=== PATIENT | female | born 1960 | race Caucasian/White ===

== ENCOUNTER 2018-01-03 16:22 | Outpatient (REF) | payer BC, SELFPAY ==
[2018-01-03 19:09] LABS: TSH 2.95 uIU/mL (0.358-3.74)
== END 2018-01-03 16:42 ==
LOC: NCHCN 16:22
PROVIDERS: PCP Family Medicine; Visit Provider Family Medicine
DX: E03.9 Hypothyroidism, unspecified (principal)
CPT/HCPCS: 84443

== ENCOUNTER 2018-06-14 17:22 | Outpatient (REF) | payer BC, SELFPAY ==
--- NOTE | 2018-06-14 16:45 | PAPFT_PTH ---
PATIENT: Tamie Richmond [facility] U[id number] AGE/SX: 57/F ROOM: RE06/14/[address]: Soy Conley : 1960 BED: DIS: 06/14/2018 SPEC #: [id number] RECD: 06/15/18 12:39 STATUS: SETH REQ #: [id number] JULIEN: 06/14/18 16:[address]: Soy Conley DEPT: [facility] Cytology RECD BY: Millie Tenorio Tissues: 1 - CX/ENDOCX FOR PAP SMEARS Procedures: PAP THIN PREP/UVM Screening HPV DNA PROBE Comments: [id number]
--- NOTE | 2018-06-14 17:00 | ENDOMET_PTH ---
PATIENT: Tamie Richmond LOC: [facility] U#:[id number] AGE/SX: 57/F ROOM: RE06/14/[address]: Soy Conley : 1960 BED: DIS: 06/14/2018 SPEC #: [id number] RECD: 06/15/18 12:36 STATUS: SETH REQ #: [id number] JULIEN: 06/14/18 17:[address]: Soy Conley DEPT: Surgical Specimen RECD BY: Millie Tenorio Tissues: 1 - ENDOMETRIUM BX/ADRYAN Procedures: GROSS AND MICRO LEVEL 4 Comments: [id number]
== END 2018-06-14 17:42 ==
LOC: NCHCN 17:22
PROVIDERS: PCP Family Medicine; Visit Provider Family Medicine
DX: N84.1 Polyp of cervix uteri (principal); Z12.4 Encounter for screening for malignant neoplasm of cervix; Z11.51 Encounter for screening for human papillomavirus (HPV)
CPT/HCPCS: 88142; 88305; 87624

== ENCOUNTER 2018-07-26 01:46 | Outpatient (CLI) | payer BC, SELFPAY ==
--- NOTE | 2018-07-26 12:48 | DI.MAMMO_ITS ---
SYMPTOM/DIAGNOSIS: SCREENING, PREVENTATIVE CARE ADULT, Z00.00 MAMMOGRAMS: Mammograms were interpreted according to the usual protocol including computer analysis with CAD system, tomosynthesis and C view imaging. Comparison is made with exams from 5215-6259. The breasts are composed of heterogeneously dense fibroglandular tissue, breast density, Category C. No suspicious masses or suspicious microcalcifications are seen. There has been no significant change. IMPRESSION: Category 1, negative mammogram. Yearly screening mammography is recommended. [facility] ASSESSMENT OF FINDINGS: Negative. Category 1. Patient will receive a letter notifying them of these results. Bi-RADS category C. The breasts are heterogeneously dense, which may obscure small masses.
== END 2018-07-26 02:06 ==
PROVIDERS: PCP Family Medicine; Visit Provider Family Medicine
DX: Z00.00 Encounter for general adult medical examination without abnormal findings (principal); Z12.31 Encounter for screening mammogram for malignant neoplasm of breast
CPT/HCPCS: 77063; 77067

== ENCOUNTER 2018-10-23 15:24 | Outpatient (REF) | payer BC, SELFPAY ==
[2018-10-23 20:37] LABS: ESR 31 MM/HR (0-30)
[2018-10-25 10:19] LABS: Lyme Ab w Rflx to Lyme Confirm Negative
== END 2018-10-23 15:44 ==
LOC: NCHCN 15:24
PROVIDERS: PCP Family Medicine; Visit Provider Family Medicine
DX: M25.50 Pain in unspecified joint (principal)
CPT/HCPCS: 85652; 86618

== ENCOUNTER 2018-10-30 07:17 | Day surgery (SDC) | payer BC, SELFPAY ==
--- NOTE | 2018-10-30 06:22 | W.COLOREPORT ---
Date of service: 10/30/18 Time of Service: 09:11 Colonoscopy Report Date of procedure: 10/30/18 Pre-op diagnosis general: Colon Cancer Screening Post-op diagnosis procedure note: same Procedure: Colonoscopy with biopsies Surgeon: Tami Massey Anesthesia proc note operative: other (general/ ASA 2/ Vivek Solitario, RAY) Estimated blood loss (mL): 3 Pathology: other (Ascending colon bx) Complications: None Disposition: same day Indications: Mrs. Richmond is a pleasant 58-year-old female who was seen in the office for a follow-up colonoscopy. Her last colonoscopy was 10 years ago and was normal. Risks, benefits and complications have been reviewed. Complications include but are not limited to bleeding, pain, perforation, missed small lesion/polyp, sore throat, aspiration and adverse reaction to the medications. Questions were entertained and answered to their satisfaction and they wished to proceed. No guarantees were given or implied. Prep: Miralax/Dulcolax Procedure Start Time: :11 Procedure End Time: :42 Retraction Time: 15 minutes Findings: Inflammation of the cecum and ascending colon. Most likely acute from the prep but biopsies done to make sure there was no chronic inflammation Procedure Description: After informed consent was obtained the patient was taken to the procedure room and placed in a left decubitous position. Monitors were applied and a time out was done. The patients name, date of , procedure, allergies to medications and metal in their body was reviewed. The patient was then sedated. Once sedated and comfortable a rectal exam was done. External exam was normal. Internal exam revealed a normal sphincter tone and no palpable masses. The scope was then introduced and retro-flexed. No internal hemorrhoids were identified. The scope was then advanced to the cecum with some difficulty. The TI and appendiceal orifice were identified. The prep was adequate. The scope was then slowly retracted over 15 minutes back into the rectum. There was some bleeding and inflammation in the cecum and ascending colon. Most likely from the prep but bx were done to rule out chronic inflammation. The scope was removed and the patient was woken up and taken back to Same day surgery in stable condition. The patient tolerated the procedure well and there were no immediate complications. Follow up: The patient should follow up in 10 years unless they develop changes in bowel habits or other new gastrointestinal complaints.
--- NOTE | 2018-10-30 06:23 | W.PM.DSUDISC ---
Discharge Plan Disposition Patient Disposition: HOME Condition: Good Discharge Details Reason For Visit: colon Cancer Screening Attending Provider: Tami Massey Primary Care Provider: Soy Conley Home Meds and New Rx's Prescriptions: Continued losartan 50 mg tablet 50 mg PO DAILY RF: 0 ipratropium bromide 0.03 % spray,non-aerosol 2 spray KYLE BID RF: 0 fluticasone propionate 50 mcg/actuation spray,suspension 2 spray KYLE DAILY RF: 0 atorvastatin 20 mg tablet 20 mg PO DAILY RF: 0 montelukast [Singulair] 10 mg tablet 10 mg PO QPM RF: 0 multivitamin,tx-minerals tablet 1 tab PO DAILY RF: 0 levothyroxine [Levoxyl] 150 MCG tablet 150 mcg PO DAILY RF: 0 cholecalciferol (vitamin D3) [Vitamin D3] 2,000 UNIT capsule 2,000 unit PO DAILY RF: 0 duloxetine [Cymbalta] 60 mg capsule,delayed release(DR/EC) 30 mg PO DAILY RF: 0 hydrochlorothiazide 25 mg tablet 25 mg PO DAILY RF: 0 Discontinued polyethylene glycol 3350 17 gram/dose powder 238 g PO ONCE Qty: 238 RF: 0 bisacodyl [Dulcolax (bisacodyl)] 5 mg tablet,delayed release (DR/EC) 5 mg PO ONCE Qty: 4 RF: 0 Discharge Instructions Instructions: Colonoscopy (DC) Additional Instructions: Findings: some inflammation was noted on mayela right side of the large bowel. Most likely this is just from the prep but I did biopsies to make sure Follow up: depends on bx results. Most likely 10 years Please call if you develop: fevers >101.5 Nausea or Vomiting Abdominal pain that is not transient DAY SURGERY UNIT POST COLONOSCOPY INSTRUCTIONS 1. Because there will be medication in your system for the next 24 hours, you may feel a little sleepy. Your coordination will be affected. Therefore: a. Do not drive or operate dangerous equipment for 24 hours. b. Do not drink alcohol beverages for 24 hours (not even beer). c. Plan to go home and rest for the day. 2. Generally there are no restrictions on your activity after a day or so has gone by, but you may feel a bit fatigued for a few days. 3 After you arrive home you may have a light meal and return to a normal diet as you can tolerate it without feeling sick to your stomach. 4. After surgery, you may feel pain or discomfort. This should be only transient, but if it persists please contact your doctor. 5. If there are any questions regarding the findings of your procedure, please feel free to contact your doctor. 6. If you are unable to contact your doctor with a problem, contact the hospital at [phone]. 7. Continue all your regular medications unless directed otherwise. I understand the above instructions and have no questions. Signature of Patient or Responsible Adult Escort Date/Time Name of Responsible Adult Escort Signature of Nurse Date/Time Activity:: Activity as Tolerated Diet:: As Tolerated Discharge Orders Discharge Orders: Discharge Order (Routine); Ordered 10/30/18 Ordered By: Tami Massey DS: Diagnosis Discharge Diagnosis (1) S/P colonoscopy: Status: Acute
[2018-10-30 07:40] VITALS: BP 110/71; PULSE 75; RESP 16; TEMP 36.6; O2SAT 98
[2018-10-30] MEDS: Lactated Ringers 1,000 ML 80 ML IV (07:53)
--- NOTE | 2018-10-30 09:32 | BOWEL_PTH ---
PATIENT: Tamie Richmond LOC: [facility] U#:[id number] AGE/SX: 58/F ROOM: RE10/30/[address]: Tami Massey MD : 1960 BED: DIS: 10/30/2018 SPEC #: [id number] RECD: 10/30/18 12:22 STATUS: SETH REQ #: [id number] JULIEN: 10/30/18 09:[address]: Tami Massey DEPT: Surgical Specimen RECD BY: Megan Carrillo ENTERED: 10/30/18 12:23 SP TYPE: Bowel OTHR DR: Soy Conley Tissues: 1 - BIOPSY BOWEL Procedures: GROSS AND MICRO LEVEL 4 Comments: [id number]
[2018-10-30 10:18] VITALS: BP 137/84; PULSE 66; RESP 16; TEMP 36.5; O2SAT 100
== END 2018-10-30 11:18 | disposition home or self-care (01) ==
LOC: SUR 07:17
PROVIDERS: PCP Family Medicine; Visit Provider Surgery
PROC: 0DJD8ZZ Inspection of Lower Intestinal Tract, Via Natural or Artificial Opening Endoscopic (ICD-10-PCS; CPT 45378; principal; 2018-10-30 08:30)
DX: Z12.11 Encounter for screening for malignant neoplasm of colon (principal); K52.9 Noninfective gastroenteritis and colitis, unspecified; I10 Essential (primary) hypertension
CPT/HCPCS: 45380; 88305; J2250

== ENCOUNTER 2018-11-17 08:46 | Outpatient (REF) | payer BC, SELFPAY ==
[2018-11-17 12:08] LABS: ALT 35 U/L (12-78); AST 23 U/L (15-37); Albumin 3.7 g/dL (3.4-5.0); Alkaline Phosphatase 104 U/L (46-116); Anion Gap 10.5 mmol/L (3-11); BUN 18 mg/dL (7-18); Bilirubin, Total 0.3 mg/dL (0.2-1.0); CO2 24.5 mmol/L (21.0-32.0); CREATININE 0.97 mg/dL (0.55-1.02); Calcium 8.8 mg/dL (8.5-10.1); Calculated LDL 110 mg/dL; Chloride 106 mmol/L (98-107); Cholesterol 184 mg/dL (50-200); Estimated GFR 58.58 (mL/min/1.73m2); Glucose 105 mg/dL (70-100); HDL Cholesterol 62 mg/dL (40-60); Potassium 4.5 mmol/L (3.5-5.1); Sodium 141 mmol/L (136-145); TSH (W/Ref FT4) 4.05 uIU/mL (0.358-3.74); Total Protein 7.2 g/dL (6.4-8.2); Triglyceride 64 mg/dL (30-150)
[2018-11-17 12:31] LABS: ESR 31 mm/hr (0-30)
[2018-11-17 13:24] LABS: FREE T4 0.95 ng/dL (0.76-1.46)
== END 2018-11-17 09:06 ==
LOC: NCHCN 08:46
PROVIDERS: PCP Family Medicine; Visit Provider Family Medicine
DX: E03.9 Hypothyroidism, unspecified (principal); I10 Essential (primary) hypertension; E78.5 Hyperlipidemia, unspecified; M25.50 Pain in unspecified joint
CPT/HCPCS: 80053; 80061; 83721; 85652; 84439; 84443

== ENCOUNTER 2018-12-04 14:17 | Outpatient (CLI) | payer BC, SELFPAY ==
--- NOTE | 2018-12-04 14:10 | DI.RAD_ITS ---
SYMPTOM/DIAGNOSIS: BILAT HIP PAIN PELVIS AND BILATERAL HIPS: There is moderate narrowing of both hip joints as well as bilateral periarticular spurring. SI joints show mild degenerative changes. IMPRESSION: Moderate degenerative changes of both hips.
== END 2018-12-04 14:37 ==
PROVIDERS: PCP Family Medicine; Visit Provider Physician Assistant
DX: M25.551 Pain in right hip (principal); M25.552 Pain in left hip; M16.0 Bilateral primary osteoarthritis of hip
CPT/HCPCS: 73501; 73502

== ENCOUNTER 2018-12-07 01:22 | Outpatient (CLI) | payer BC, SELFPAY ==
--- NOTE | 2018-12-07 07:35 | DI.RAD_ITS ---
SYMPTOM/DIAGNOSIS: LT HIP INJECTION, M16.12, LT HIP DJD, RT HIP INJECTION, RT HIP DJD, FLUOROSCOPY: Fluoroscopy Time: 9.7 seconds Fluoroscopy was utilized by Dr. Worthington during left hip injection. Hard copy shows intra-articular injection in the left hip. FLUOROSCOPY: Fluoroscopy Time: 9.2 seconds Fluoroscopy was utilized by Dr. Worthington during reported right hip injection. Hard copy shows intra-articular injection of the right hip.
--- NOTE | 2018-12-07 10:43 | W.PROCNOTE ---
Date of service: 12/07/18 Time of Service: 10:43 Procedure Note Date of procedure: 12/07/18 Procedure: Bilateral Hip Injection with Fluoroscopic Guidance Surgeon/Proceduralist/Physician: Jameel Worthington Procedure Diagnosis: Bilateral Hip Osteoarthritis Procedure Indications: Tamie has had persistent pain of the LEFT and RIGHT hip and groin. Noninvasive measures have been tried. To serve as both diagnostic and therapeutic, an injection under fluoroscopy was recommended. I had discussed the risks of the procedure and the patient elected to proceed. Procedure Description: Tamie was greeted in the flouroscopy room. The consent was reviewed with the patient and signed. The patient was then placed in the supine position on the fluoroscopy table. The LEFT hip was then prepped with Chloraprep. The anterolateral injection starting point was identiifed by bony landmarks and fluoroscopy. The skin and soft tissue in the tract of the injection was anesthetized with 1% Lidocaine. A spinal needle was then inserted deep into the hip joint at the level of the lateral femoral neck under fluoroscopic guidance. A small amount of Omnipaque solution was injected to confirm intraarticular placement. Once confirmed, the hip was injected with 5cc of 0.5% Bupivicaine and 80mg of Depo-Medrol. A bandaid was placed on the injection site. While keeping the back table sterile, the patient was repositioned for the RIGHT hip. The RIGHT hip was prepped with Chloraprep. The anterolateral injection starting point was identiifed by bony landmarks and fluoroscopy. The skin and soft tissue in the tract of the injection was anesthetized with 1% Lidocaine. A spinal needle was then inserted deep into the hip joint at the level of the lateral femoral neck under fluoroscopic guidance. A small amount of Omnipaque solution was injected to confirm intraarticular placement. Once confirmed, the hip was injected with 5cc of 0.5% Bupivicaine and 80mg of Depo-Medrol. A bandaid was placed on the injection site. The patient tolerated the procedure well and noted improvement in pre-injection pain.
[2018-12-07] MEDS: Omnipaque 300 MG/ML 10 ML BTL IJ ×2 (11:19→11:22)
[2018-12-07] MEDS: Bupivacaine 0.5% Pres-Free 10 ML VIAL 5 ML IJ ×2 (11:21→11:23)
[2018-12-07] MEDS: methylPREDNISolone ACETATE 80 MG/ML VIAL IM ×2 (11:22→11:24)
== END 2018-12-07 01:42 ==
PROVIDERS: PCP Family Medicine; Visit Provider Student in an Organized Health Care Education/Training Program
DX: M25.551 Pain in right hip (principal); M25.552 Pain in left hip; M16.0 Bilateral primary osteoarthritis of hip
CPT/HCPCS: 20610; 77002; J1040

== ENCOUNTER 2019-01-05 18:15 | Outpatient (REF) | payer BC, SELFPAY ==
[2019-01-05 19:19] LABS: TSH (W/Ref FT4) 0.48 uIU/mL (0.36-3.74)
[2019-01-05 20:07] LABS: ESR 2 mm/hr (0-30)
[2019-01-08 10:20] LABS: Thyroperoxidase Antibody 47 U/mL (<61)
== END 2019-01-05 18:35 ==
LOC: NCHCN 18:15
PROVIDERS: PCP Family Medicine; Visit Provider Family Medicine
DX: E03.9 Hypothyroidism, unspecified (principal)
CPT/HCPCS: 85652; 84443; 86376

== ENCOUNTER 2019-02-05 15:43 | Outpatient (CLI) | payer BC, SELFPAY ==
--- NOTE | 2019-02-05 15:28 | DI.RAD_ITS ---
EXAM: XR PELVIS AP INDICATION: bilateral hip pain. COMPARISON: XR hip RT complete AP pelvis from 12/04/2018 TECHNIQUE: 2D digital imaging was performed. FINDINGS: AP view of the pelvis was obtained. There is marked narrowing of the cartilaginous joint spaces of b oth hip superiorly. There are very prominent hypertrophic acetabular and femoral head osteophytes. Subchondral sclerosis noted involving femoral heads and acetabula. IMPRESSION: Severe DJD both hips.
== END 2019-02-05 16:03 ==
PROVIDERS: PCP Family Medicine; Visit Provider Physician Assistant
DX: M25.551 Pain in right hip (principal); M25.552 Pain in left hip; M16.0 Bilateral primary osteoarthritis of hip
CPT/HCPCS: 72170

== ENCOUNTER 2019-03-20 08:59 | Outpatient (CLI) | payer BC, SELFPAY ==
--- NOTE | 2019-03-20 08:03 | HPE_ITS ---
Assessment and Plan Assessment and plan (1) Degenerative joint disease of right hip: Status: Chronic Qualifiers: Osteoarthritis type: primary Qualified Code(s): M16.11 - Unilateral primary osteoarthritis, right hip (2) Degenerative joint disease of left hip: Status: Chronic Assessment and plan: Plan: Patient is a reliable historian and denies any areas of skin breakdown along her bilatearl groin and anterior leg. Educated patient that if they develop any lesions, redness or skin breakdown to contact office as skin concerns would be a reason to cancel surgery. Patient gives verbal understanding. Educated patient on surgery covering surgical technique via models, recovery process, benefits and risks including but not limited to risk of infection, blood clot, fracture, numbness/tingling, damage to soft tissue/blood vessels/nerves in detail. After discussion patient gives verbal understanding of risks and elects to proceed with scheduling surgery. Patient had opportunity to have questions answered to their satisfaction. They will contact office if issues arise. Patient will continue to be scheduled for bilateral total hip replacement with Dr. Worthington. Qualifiers: Osteoarthritis type: primary Qualified Code(s): M16.12 - Unilateral primary osteoarthritis, left hip History of Present Illness Narrative: Ms. Richmond is a 58-year-old female who presents to clinic for pre- operative exam for scheduled bilateral MIGUEL. She has been experiencing bilateral hip pain for few years. Over the past few months she has been experiencing worsening bilateral hip pain with the right slightly worse than the left. Pain is located in her anterior groin and when severe causes her right knee to have a buckling sensation. Additionally, she has been experiencing a dull posterior pain. Pain is aggravated with prolonged sitting, when ascending/descending stairs and when attempting to do certain exercises such as swinging kettle balls. Due to her bilateral hip pain she has significantly reduced her activity including stopping her leisurely walks, stopping boot camp and attempting to reduce the frequency of taking stairs. She tries to continue to do recommended PT exercises but is unable to do so regularly due to her pain. Initially she denies any pain when getting dressed and putting on shoes and socks, however with further questioning states she is not able to flex her hip to her lap and has to slide her shoes on. She has previously seen a chiropractor which provided some relief of her hip discomfort while completing traction, however shortly after visits she experienced no change in her pain. She has also attempted to treat her discomfort by taking ibuprofen which provided no pain relief. Patient states had also been on a steroid by her primary care provider for reactive arthritis states has been off for months. She received bilateral hip injections under fluoroscopy on 12/07/18 which provided near complete relief for ~3 weeks. Patient does experience tingling along the plantar aspect of her right lateral foot that does not radiate into the toes. She describes tingling will occur randomly when at rest or with walking and last for approximately 10 seconds before resolving without intervention. Reports current tingling is much less aggravated than it had been. Patient denies any symptoms along the dorsum of her foot or into the toes. She denies any other symptoms of numbness or tingling or history of peripheral neuropathy. Patient denies any known injuries or trauma to her hips. Due to her continued pain despite trial of conservative treatments she was offered surgical intervention and elected to proceed. Pertinent Surgical Information States an antidepressant she tried caused a heavy sensation in her stomach as well as a discomfort in her throat. Has switched antidepressants and is doing well. Denies past medical history of: stroke, cardiac issues, angina, asthma, COPD, sleep apnea, renal issues, liver issues, hepatitis, gastrointestinal issues, ulcers, bleeding disorders, seizures, migraines, diabetes or autoimmune disorders. Denies prior complications from surgery or anesthesia. Review of Systems Constitutional Constitutional: Denies fever(s), Denies frequent falls and Denies headache(s) Eyes Eyes: Denies change in vision ENT Ears, Nose, Mouth, and Throat: Denies dizziness, Denies ear discharge, Denies headache(s), Denies epistaxis, Denies nasal discharge and Denies sore throat Cardiovascular Cardiovascular: Denies chest pain, Denies rapid heart rate, Denies irregular heart rhythm, Denies palpitations, Denies dyspnea, Denies dyspnea on exertion, D enies orthopnea, Denies paroxysmal nocturnal dyspnea and Denies slow heart rate Respiratory Respiratory: Denies cough, Denies dyspnea, Denies dyspnea on exertion and Denies wheezing Gastrointestinal Gastrointestinal: Denies abdominal pain, Denies melena, Denies hematochezia, Denies constipation, Denies diarrhea, Denies nausea and Denies vomiting Genitourinary Genitourinary: Denies hematuria, Denies dysuria and Denies urinary urgency Musculoskeletal Musculoskeletal: Reports as per HPI, Denies numbness and Reports tingling Neurologic Neurologic: Denies dizziness, Denies frequent falls, Denies headache(s), Denies numbness and Reports tingling Psychiatric Psychiatric: Reports anxiety and Reports depression (controlled) Endocrine Endocrine: Denies palpitations Allergic/Immunologic Allergic/Immunologic: Denies wheezing [facility] Medical History Chronic anxiety Depression Hyperlipidemia Hypertension Hypothyroid Lipoma of arm Obesity (Chronic) Osteopenia Vitamin D deficiency Surgical History Colonoscopy - IV Sedation Hx of section (Chronic) Hx of myomectomy (Acute) to remove fibroid tumor Lap-band placement S/P colonoscopy (Resolved ~10/30/18) 2009- S/P excision of lipoma (Acute) right arm - upper arm/shoulder Family History Other Heart disease Hypertension Social History (Updated 03/20/19 @ 08:23 by Migdalia Callahan) Smoking/Tobacco Use Status: Former Tobacco Use Alcohol Intake: current Alcohol Intake frequency: a few times a month Alcohol type: beer and hard liquor Drug use: Never Substance use type: does not use Current gender identity: female Do you feel safe at home: Yes Do you feel safe in your relationship?: Yes Meds Home Medications and Allergies Home Medications Medication Instructions Recorded Confirmed Type cholecalciferol (vitamin D3) 2,000 unit PO DAILY 05/10/14 02/05/19 History [Vitamin D3] levothyroxine [Levoxyl] 150 mcg PO DAILY tab-cap 05/10/14 02/05/19 History atorvastatin 20 mg tablet 20 mg PO DAILY 09/12/18 02/05/19 History fluticasone propionate 50 2 spray KYLE DAILY 09/12/18 02/05/19 History mcg/actuation nasal spray,suspension ipratropium bromide 0.03 % nasal 2 spray KYLE BID 09/12/18 02/05/19 History spray losartan 50 mg tablet 50 mg PO DAILY 09/12/18 02/05/19 History montelukast 10 mg tablet 10 mg PO QPM 09/12/18 02/05/19 History duloxetine 60 mg capsule,delayed 30 mg PO DAILY tab-cap 10/16/18 02/05/19 History release hydrochlorothiazide 25 mg tablet 25 mg PO DAILY tab-cap 10/16/18 02/05/19 History multivitamin,tx-minerals 1 tab PO DAILY 10/16/18 02/05/19 History Allergies Allergy/AdvReac Type Severity Reaction Status Date / Time lisinopril AdvReac cough Verified 03/20/19 08:24 Penicillins AdvReac mouth sores Verified 03/20/19 08:24 shrimp AdvReac diarrhea Uncoded 03/20/19 08:24 Exam Const General: cooperative and no acute distress [facility] Head: normal to inspection, normocephalic and atraumatic Ears: external ears normal General nose exam: external nose normal and no nasal discharge Face and sinus: face symmetric Mouth: oral mucosae normal, lip normal, tongue normal and moist mucous membranes Teeth and gingiva: dentition normal Throat: posterior oropharynx normal Eyes General: appearance normal, both eyes and all related structures Pupils: PERRL EOM: EOM intact bilaterally Neck Neck: trachea midline Carotids: normal carotid upstroke Lymphatic: no lymphadenopathy noted Resp Effort & Inspection: normal respiratory effort and able to speak in complete sentences Auscultation: clear to auscultation bilaterally, no rales, no rhonchi and no wheezes Cardio Heart Sounds: S1 normal, S2 normal and no murmurs Pulses: radial pulses present bilaterally GI Palpation: soft and nontender Auscultation: normal bowel sounds Skin General skin exam: no rashes or lesions noted Extrem Other: No significant leg length discrepancy was appreciated.
[2019-03-20 10:22] LABS: HCT 42.5 % (36.0-46.0); HGB 14.1 g/dL (12.0-15.5); Mean Corp. HGB Concentration 33.2 g/dL (32.0-36.0); Mean Corpuscular Hemoglobin 29.6 pg (27.0-33.0); Mean Corpuscular Volume 89.1 fL (80-95); Mean Platelet Volume 8.8 fL (8.0-11.0); Platelet Count 326 x1000/uL (130-400); RBC 4.77 m/cumm (4.00-5.20); RBC Distribution Width 13.1 % (11.7-14.6); White Blood Cell Count 6.04 k/cumm (4.4-10.8)
[2019-03-20 11:22] LABS: Anion Gap 10.3 mmol/L (3-11); BUN 16 mg/dL (7-18); CO2 26.7 mmol/L (21.0-32.0); CREATININE 0.93 mg/dL (0.55-1.02); Calcium 9.1 mg/dL (8.5-10.1); Chloride 104 mmol/L (98-107); Glucose 110 mg/dL (70-100); Potassium 4.2 mmol/L (3.5-5.1); Sodium 141 mmol/L (136-145)
== END 2019-03-20 09:19 ==
PROVIDERS: PCP Family Medicine; Visit Provider Student in an Organized Health Care Education/Training Program
DX: M25.551 Pain in right hip (principal); M25.552 Pain in left hip; M16.0 Bilateral primary osteoarthritis of hip; Z01.818 Encounter for other preprocedural examination; Z01.812 Encounter for preprocedural laboratory examination; I10 Essential (primary) hypertension; J44.9 Chronic obstructive pulmonary disease, unspecified
CPT/HCPCS: 36415; 80048; 85027; 86850; 86900; 86901; NC

== ENCOUNTER 2019-03-27 05:55 | Inpatient (IN) | payer BC, SELFPAY ==
[2019-03-27] VITALS (19 sets, daily range): BP systolic 54–124; BP diastolic 21–70; PULSE 60–105; RESP 13–21; TEMP 36.3–37.2; O2SAT 92–100
[2019-03-27] MEDS: Celecoxib 200 MG CAP 400 MG PO (06:46)
[2019-03-27] MEDS: Acetaminophen 500 MG TAB 1000 MG PO ×3 (06:46→20:29)
--- NOTE | 2019-03-27 06:46 | DI.RAD_ITS ---
EXAM: XR HIP RT IN OR CLINICAL HISTORY: Degenerative joint disease of right hip. TECHNIQUE: 2D and realtime digital imaging was performed. Fluoro time: 41.8 sec, 5.40 mGy COMPARISON: No exams were available for comparison FINDINGS: Fluoroscopy was provided in the OR for Dr. Worthington. Hard copy images show placement of a right hip prosthesis. The components appear well aligned.
[2019-03-27] MEDS: Lactated Ringers 1,000 ML 80 ML IV ×3 (06:47→11:57)
--- NOTE | 2019-03-27 06:47 | DI.RAD_ITS ---
EXAM: XR HIP LT IN OR CLINICAL HISTORY: Degenerative joint disease of left hip. TECHNIQUE: 2D and realtime digital imaging was performed. Fluoro time: 28.6 sec, 3.78 mGy COMPARISON: No exams were available for comparison FINDINGS: Fluoroscopy was provided for Dr. Worthington in the OR. Hard copy images show placement of a total lef t hip prosthesis. The alignment appears anatomic.
[2019-03-27] MEDS: ceFAZolin 2 GM/50 ML BAG IVPB (07:31)
[2019-03-27] MEDS: Bupivacaine 0.25% Pres-Free 30 ML VIAL (10:42)
[2019-03-27] MEDS: Ketorolac 30 MG/ML VIAL (10:42)
[2019-03-27] MEDS: Normal Saline 50 ML (10:42)
[2019-03-27] MEDS: oxyCODONE 5 MG TAB PO ×3 (14:23→21:28)
[2019-03-27] MEDS: ceFAZolin 1 GM/50 ML BAG IVPB ×2 (14:24→21:22)
--- NOTE | 2019-03-27 15:20 | IN_ITS ---
Date of service: 03/27/19 Time of Service: 14:29 PT Notes Visit Reasons: PT Inpatient IE Patient Location: Med Surg Referring Provider: Jameel Worthington MD Inpatient Physical Therapy Evaluation Date: 03/26/2019 PT Orders: PT CONSULT: Status post Ortho surgery. Status post bilateral anterior MIGUEL. Precautions: Fall. Standard. WBAT on B LE. Patient Profile/Admitting Diagnosis: Patient is a 58-year-old female with degenerative joint disease of the right and the left hip status post bilateral anterior MIGUEL on POD 0. PMHX: Medical History Chronic anxiety Depression Hyperlipidemia Hypertension Hypothyroid Lipoma of arm Obesity (Chronic) Osteopenia Vitamin D deficiency Surgical History Colonoscopy - IV Sedation Hx of section (Chronic) Hx of myomectomy (Acute) to remove fibroid tumor Lap-band placement S/P colonoscopy (Resolved ~10/30/18) 2008-nl S/P excision of lipoma (Acute) right arm - upper arm/shoulder Social History/Home Situation: Patient lives with in a 1 floor house with 4 steps to enter and a rail on the right side going up. 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 She is independent with all aspects of ADLs and likes to go to the gym with her . Equipment Owned/DME: None Subjective: Patient is agreeable to a PT consult. She reports being able to manage the sitting position but reported lightheadedness once she is assumed standing. Blood pressure went down from 103/87 mmHg to 81/50 7 mmHg and standing. Objective: General Observation: IV in right UE. Anti-thromboembolic devices on bilateral legs. Mepilex Ag over surgical incisions on right and left hip. Cold pack on right and left hip. TEDS to bilateral legs. Mental Status: Alert and oriented x4 Pain: 2/10 on bilateral hips at rest and with weightbearing. Vital Signs: Patient's blood pressure was 92/59 mmHg upon resumption of the supine position from 81/50 7 mmHg in the standing position. ROM: Right Upper Extremity: Shoulder Flexion WFL. Shoulder abduction WFL. Elbow flexion WFL. Wrist flexion WFL. Opening and closing of hand WFL. Left Upper Extremity: Shoulder Flexion WFL. Shoulder abduction WFL. Elbow flexion WFL. Wrist flexion WFL. Opening and closing of hand WFL. Right Lower Extremity: Hip flexion WFL. Hip abduction WFL. Knee flexion WFL. Ankle dorsiflexion WFL. Ankle plantarflexion WFL. Left Lower Extremity: Hip flexion WFL. Hip abduction WFL. Knee flexion WFL. Ankle dorsiflexion WFL. Ankle plantarflexion WFL. Strength: Right Upper Extremity: Shoulder flexors 5/5. Shoulder abductors 5/5. Elbow flexors 5/5. Elbow extensors 5/5. [place] strong. Left Upper Extremity: Shoulder flexors 5/5. Shoulder abductors 5/5. Elbow flexors 5/5. Elbow extensors 5/5. [place] strong. Right Lower Extremity: Hip flexors 4/5. Hip abductors 4/5. Knee flexors 4/5. Knee extensors 4/5. Ankle dorsiflexors 4/5. Ankle plantarflexors 4/5. Left Lower Extremity:Hip flexors 4/5. Hip abductors 4/5. Knee flexors 4/5. Knee extensors 4/5. Ankle dorsiflexors 4-/5. Ankle plantarflexors 4/5. Bed Mobility/Transfers: Rolling SBA Supine to sit SBA Sit to supine SBA Sit to stand CGA Stand to sit CGA Bed to chair unable to perform due to severe lightheadedness on initial eval but patient was able to do this with CGA an hour later Chair to bed unable to perform due to severe lightheadedness on initial eval but patient was able to do this with CGA an hour later Gait: Unable to perform due to severe lightheadedness. An hour after, patient was able to tolerate 8 steps forward and then 4 steps back to sit on chair with CGA and minimal verbal cueing for safe gait pattern. She was then able to do 12 steps to sit at edge of bed. Mild pain reported on B hips with WB. Mild lightheadedness reported but BP stayed 106/67 mmHg. Decreased gait velocity due to post opreative status. Balance: Static Sitting: Normal Dynamic Sitting: Normal Static Standing: Fair Dynamic Standing: Poor Special Tests: Mobility Limitations Standardized Measure [facility] 6 clicks Basic Mobility Inpatient Short Form: Raw Score: 17 CMS Score: 51% deficit Informed Consent/Education: Patient instructed in purpose of PT consult and plan of care. Assessment: Patient is a 58-year-old female with degenerative joint disease of the right and the left hip status post bilateral anterior MIGUEL on POD 0. She only tolerated about 2 minutes of static standing and reported significant lightheadedness and requested to be sat back down in bed. She was informed that another small session will be planned in an hour or so to allow her body to re- stabilize some more considering she has lost a liter of blood in surgery and to see if she will be able to tolerate transfer from bedside to chair. Patient has independent premorbid level and has very good support from . Her prognosis for regaining independent transfer and ambulation is good. Patient presents with clinical signs and symptoms consistent with current/admitting diagnoses that have resulted to mobility limitations, gait instability, generalized weakness, and impairment of motor control as demonstrated by the following impairment level findings: 1. Decreased strength to B LE major muscle groups 2. Impaired sitting/standing balance 3. Impaired activity tolerance Impairments are contributing to the following functional limitations: 1. Increased dependence with transfers 2. Inability to safely ambulate without assistive device and physical assistance 3. Increase completion time for mobility ADL performance 4. Increased fall risk 5. Inability to negotiate steps alone safely Patient is assessed as a 62478 moderate complexity based on the following: History: Patient is a 58-year-old female with degenerative joint disease of the right and the left hip status post bilateral anterior MIGUEL on POD 0. Examination: Demonstrable impairment in strength, balance, and range of motion with underlying impairments and functional limitations as documented above Presentation:Evolving Decision Makin moderate complexity Goals: Goals X1 week 1. Supine-Sit independent 2. Sit-Supine independent 3. Sit-Stand independent 4. Stand-Sit independent 5. Bed-Chair independent 6. Chair-Bed independent 7. Independent gait on level surface with use of least restrictive device for at least 300 feet without report of pain nor dyspnea 8. Independent stair negotiation while holding onto bilateral rails for at least 10 steps without report of pain nor dyspnea 9. Independent with home exercise program 10. Good static and dynamic standing balance/tolerance Plan of Care/Treatment Plan: 1-2x/day, 7 days/week x 1 week. Plan of care has been reviewed with the PIANO [employer]KER providing the service under Physical Therapy direction. Initiate Physical Therapy intervention for strengthening, bed mobility, transfers, gait, stairs, balance training, use of assistive device. DISCHARGE RECOMMENDATIONS: Patient will benefit from the use of a front wheeled walker to reduce fall risk at home. May benefit from skilled physical therapy services according to orthopedic surgeon's timeline recommendations. Patient will be educated and trained on home exercise program per [facility] exercise protocol in preparation for outpatient physical therapy services. TREATMENT CODE/TIME: 44074 x 30 minutes, 15 minutes for [id number] beginning at 14:29 PM. Thank you very much for this referral. Shellie Perez PT, DPT, CLT [facility]
--- NOTE | 2019-03-27 15:37 | W.PM.OP ---
Date of service: 03/27/19 Time of Service: 11:23 Operative Note Operative Note DATE OF PROCEDURE: 03/27/19 PRE-OP DIAGNOSIS: Bilateral Hip Osteoarthritis POST-OP DIAGNOSIS: same PROCEDURE: Bilateral Anterior Total Hip Arthroplasty SURGEON: Jameel Worthington [employer] COMMANDING OFFICER: Migdalia Callahan ANESTHESIA: spinal ESTIMATED BLOOD LOSS: 1,000 PATHOLOGY: none sent COMPLICATIONS: None Patient was transported to: PACU Patient's condition: stable Implants: LEFT: 1. Depuy [place] Acetabular Component, 48 mm 2. Depuy Acetabular Liner, 48x32 mm, +4 lateralized 3. Depuy Corail standard Collared femoral Stem, Size 13 4. Depuy Altrx Ceramic Femoral Head, Size 32+5 mm RIGHT: 1. Depuy [place] Acetabular Component, 50 mm 2. Depuy Acetabular Liner, 50 x 32 mm, +4 lateralized 3. Depuy Corail standard Collared femoral Stem, Size 13 4. Depuy Altrx Ceramic Femoral Head, Size 32+1 mm Indications: I have seen Tamie in clinic for symptoms of bilateral hip arthritis, confirmed with radiographic findings. Tamie has exhausted nonoperative methods and was having significant limitations in daily function and desired better function and less pain. I discussed the technical details of a hip replacement. I explained the risks of the procedure to include, but not limited to, bleeding, infection, pain, stiffness, fracture, damage to nerves and vessels, damage to muscles and tendons, loosening, instability, leg length inequality, need for repeat procedure, blood clot and cardiopulmonary demise. Despite these risks, she elected to proceed. Findings: There was significant signs of arthritis throughout both hips. There were floor osteophytes in both acetabulum as well as lateral neck osteophytes. Procedure Description: Tamie was greeted in the preoperative holding area where the correct side was identified and marked. The consent was reviewed with the patient and signed. The history and physical was updated. All questions were answered. Tamie was taken back to the operating room. A spinal anesthestic was then administered. The patient was placed into the supine position on the operating room table. The patient was then positioned onto the ARCH table. Both feet were wrapped with [employer]brill cotton wrap along with Coban. The feet were placed in specialized boots for the ARCH table, well seated within the boot and secured. We started with the left hip. LEFT HIP: SCDs were applied. The patient was then slid down onto a peroneal post and the nonoperative leg was secured in a leg carpio attached to the table. The operative side, left, was placed into the ARCH table attachment and bed height and positioning was secured. A preoperative AP pelvis and hip AP was obtained to serve as a reference for determining leg lengths using the [employer] intraoperative system. Prophylactic antibiotics in the form of cefazolin were administered. 1g of Tranxemic Acid was given intravenously within 30 minutes of incision. The left leg was then prepped with Chloraprep and draped in a standard fashion. A second prep with Chloraprep was performed prior to placement of a shower-curtain type drape with Iodine impregnated skin protection. A timeout to confirm correct identity, side and site, procedure, allergies, anesthesia, and medical concerns was performed. An obliquely oriented incision was made starting lateral to the ASIS and running distal over the Tensor Fascia Kateryna (TFL) muscle belly toward the fibular head, approximately 10cm. The skin and soft tissue was dissected sharply, through Corona?s fascia, and to the fascia of the TFL. With the fascia and superior border of the IT band identified, the fascia was incised with a new knife just above any perforators from the IT band. The TFL muscle belly was bluntly dissected away from the fascia and moved laterally. The fat between TFL and rectus was identified to ensure the dissection was not within the TFL. Blunt dissection created space between abductors and the capsule and retractor was placed over the lateral femoral neck. The fibers of the rectus femoris tendon were identified and these were freed from the anterior capsule. A second cobra retractor was placed around the medial femoral neck. The TFL was further retracted laterally to show the deep fascia. Careful dissection through this layer identified three main crossing vessels of the lateral femoral circumflex. These were cauterized in multiple locations and then cut without any noticeable bleeding. The TFL was further released bluntly from the deep fascia to expose anterior hip capsule and fat the Moris orthopaedic retractor was then placed beneath the TFL and against sartorius and medial soft tissues to protect and retract the soft tissues. A T-capsulotomy was then performed starting at the superior lateral acetabulum and moving distally to the intertrochanteric ridge. These capsular flaps were tagged with a No. 1 Ethibond and elevated from within. The capsular flaps were released to the shoulder of the lateral neck and to the lesser trochanter to give excellent visualization of the proximal femur. There are notable lateral neck osteophytes A neck osteotomy was performed using an oscillating saw based on preoperative templates. This cut started in the shoulder and of the lateral neck and exited medially. The saw was at all times directed medially to avoid injury to the greater trochanter. 6cm of traction was applied to the leg and the osteotomy opened. The femoral head was removed with a corkscrew, making sure to protect the TFL on its exit. This was measured on the back table to determing the starting reamer size. Portions of the rectus obscuring visualization were minimally elevated off the superior acetabulum. An anterior retractor was placed over the anterior wall between capsule and labrum and attached to the Gripper retraction system. A posterior retractor was placed similarly. This provided excellent visualization. The contents of the cotyloid fossa were removed with electrocautery and the labrum was removed with a knife. There was a notable floor osteophyte. There was significant chondromalacia of the superior acetabulum. Acetabular reaming began with a 44 mm reamer. This first reaming was directed anterior to posterior and medial to get down to the true floor. This was inspected and reamed until the true floor was reached. I then reamed sequentially up to a 48 mm reamer where good fit was obtained. The larger reamers were oriented based on anatomical reference of the anterior and lateral gardner to ensure proper abduction and anteversion. Positioning and size was confirmed with the fluoroscopy. A 48 mm Depuy [place] acetabular component was selected. The deep tissues were irrigated. The acetabular component was then impacted in a position of about 40-45 degrees of abduction and 15-20 degrees of anteversion, using the patient?s anatomy as the ultimate landmark. Fluoroscopy was used to confirm this. There was excellent adolescent counselor of the acetabular component and the inserting handle was removed. A primary acetabular screw was placed into the ilium by drilling through one of the holes in the acetabular component. This was measured and an approrpriately sized screw was placed with excellent purchase. It was checked not to be proud. The acetabular liner, Depuy 48x32 mm +4 lateralized polyethylene liner, was inserted and lined up with the tines of the acetabular component. There was no soft tissue interposition. The liner was then impacted into position and confirmed to be well-seated. A portion of the j luis-articular cocktail was then injected around the acetabulum into the capsule and periosteum. This cocktail consisted of 50cc of 0.25% Bupivicaine and 20cc of Exparel, expanded to a total of 120cc. Traction was released from the femur. The leg was rotated to 120 degrees. Any remaining medial capsule was released until the lesser trochanter was easily palpable. A Groves retractor was placed medially. The lateral capsule was further released into the shoulder to allow access to the greater trochanter. A Groves retractor was placed over the greater trochanter which allowed the trochanter to flip in front of the capsule for excellent exposure. The leg was brought down into maximal extension and 20 degrees of adduction while ensuring there was no impingement on the acetabulum. Any remnant capsule within the trochanter was released. Piriformis and obturator externis were identified and protected. There was excellent access to the proximal femur. The lateral neck remnant was removed with a rongeur. A blunt canal probe was used to identify the canal and trajectory for later broaching. A box osteotome initiated the broach course. A small curved rasp and a curved curette were used to work laterally. Broaching then began with a size 8 Corail broach. This was inserted manually around the trochanter and into the canal before mallet blows. The broach was seated to a few millimeters below the cut level based on the neck cut and the preoperative template. Sequential broaching was continued using the concise impactor. There is notable distal tightness with not a complete fit proximally. Therefore, I opened the flexible reamers and flexibly reamed the femur up to a size 13.5 mm. Broaching continued until a tight fit was obtained with good rotational control of the femur. A trial standard neck was inserted along with a +1 trial head. The leg was brought out of extension and adduction and then reduced with traction and internal rotation. The leg was stable anteriorly in a position of 30 degrees of extension and 90 degrees of external rotation. Fluoroscopy was used to ensure there was no fracture and the stem was seated well. Leg lengths were checked with an AP pelvis and pelvic reference points using the [employer] system. To keep leg length the same and bring the offset to +1, I increase the head side to +5. Once content with the desired offset and leg lengths, the leg was brought back into extension, external rotation and adduction. The periosteum and surrounding tissue was injected with remaining portion of the j luis-articular cocktail. The proximal femur was irrigated as well as the deep tissues. The Depuy Corail standard collared stem, size 13, was then manually inserted into the proximal femur making sure to control rotation. It was then malleted into position with light blows, giving breaks to allow bone expansion and decrease risk of fracture. The selected Depuy Altrx Ceramic Head, size 32+5 mm, was then placed onto the clean and dry trunnion and secured with impaction onto the tapered fit. The leg was brought back out of extension and adduction and reduced with traction and internal rotation. Stability was confirmed with no shuck at 90 degrees of external rotation and 30 degrees of extension. No impingement through range of motion arc. Final x-ray images were obtained with fluoroscopy to confirm adequate positioning and no intraoperative fracture. The deep tissues were thoroughly irrigated with Irrisept chlorhexidine solution. This was allowed to sit within the hip for 3 minutes. The second dose of TXA 1g was administered intravenously. The capsule was then reapproximated with the previously placed Ethibond sutures. The TFL fascia was finally closed with a No. 2 Stratafix, barbed suture. Deep tissues were then reapproximated with 0 Vicryl and a running 2-0 Vicryl. The skin was closed with a running 4-0 Monocryl in a subcuticular fashion. This was reinforced with skin glue. A Mepilex silver dressing was applied. The instrumentation and course treatments were Sterile. Any disposables were changed and the drapes were removed. The boots were swapped on the feet and the table was switched. Place was secured back to the table with the set up for a right hip replacement. This C arm switched sides as well. RIGHT HIP: SCDs were applied. The patient was then slid down onto a peroneal post and the nonoperative leg was secured in a leg carpio attached to the table. The operative side, left, was placed into the ARCH table attachment and bed height and positioning was secured. A preoperative AP pelvis and hip AP was obtained to serve as a reference for determining leg lengths using the [employer] intraoperative system. Prophylactic antibiotics in the form of cefazolin were administered. The right leg was then prepped with Chloraprep and draped in a standard fashion. A second prep with Chloraprep was performed prior to placement of a shower-curtain type drape with Iodine impregnated skin protection. A timeout to confirm correct identity, side and site, procedure, allergies, anesthesia, and medical concerns was performed. An obliquely oriented incision was made starting lateral to the ASIS and running distal over the Tensor Fascia Kateryna (TFL) muscle belly toward the fibular head, approximately 10cm. The skin and soft tissue was dissected sharply, through Corona?s fascia, and to the fascia of the TFL. With the fascia and superior border of the IT band identified, the fascia was incised with a new knife just above any perforators from the IT band. The TFL muscle belly was bluntly dissected away from the fascia and moved laterally. The fat between TFL and rectus was identified to ensure the dissection was not within the TFL. Blunt dissection created space between abductors and the capsule and retractor was placed over the lateral femoral neck. The fibers of the rectus femoris tendon were identified and these were freed from the anterior capsule. A second cobra retractor was placed around the medial femoral neck. The TFL was further retracted laterally to show the deep fascia. Careful dissection through this layer identified three main crossing vessels of the lateral femoral circumflex. These were cauterized in multiple locations and then cut without any noticeable bleeding. The TFL was further released bluntly from the deep fascia to expose anterior hip capsule and fat the Moris orthopaedic retractor was then placed beneath the TFL and against sartorius and medial soft tissues to protect and retract the soft tissues. A T-capsulotomy was then performed starting at the superior lateral acetabulum and moving distally to the intertrochanteric ridge. These capsular flaps were tagged with a No. 1 Ethibond and elevated from within. The capsular flaps were released to the shoulder of the lateral neck and to the lesser trochanter to give excellent visualization of the proximal femur. There are large lateral neck osteophytes. A neck osteotomy was performed using an oscillating saw based on preoperative templates. This cut started in the shoulder and of the lateral neck and exited medially. The saw was at all times directed medially to avoid injury to the greater trochanter. 6cm of traction was applied to the leg and the osteotomy opened. The femoral head was removed with a corkscrew, making sure to protect the TFL on its exit. This was measured on the back table to determing the starting reamer size. Portions of the rectus obscuring visualization were minimally elevated off the superior acetabulum. An anterior retractor was placed over the anterior wall between capsule and labrum and attached to the Gripper retraction system. A posterior retractor was placed similarly. This provided excellent visualization. The contents of the cotyloid fossa were removed with electrocautery and the labrum was removed with a knife. There was a notable floor osteophyte. There was significant chondromalacia of the superior acetabulum. Acetabular reaming began with a 44 mm reamer. This first reaming was directed anterior to posterior and medial to get down to the true floor. This was inspected and reamed until the true floor was reached. I then reamed sequentially up to a 50 mm reamer where good fit was obtained. The larger reamers were oriented based on anatomical reference of the anterior and lateral gardner to ensure proper abduction and anteversion. Positioning and size was confirmed with the fluoroscopy. A 50 mm Depuy [place] acetabular component was selected. The acetabulum was reamed around the periphery with the selected acetabular size to prevent a rim fit. The deep tissues were irrigated. The acetabular component was then impacted in a position of about 40-45 degrees of abduction and 15-20 degrees of anteversion, using the patient?s anatomy as the ultimate landmark. Fluoroscopy was used to confirm this. There was excellent adolescent counselor of the acetabular component and the inserting handle was removed. A primary acetabular screw was placed into the ilium by drilling through one of the holes in the acetabular component. This was measured and an approrpriately sized screw was placed with excellent purchase. It was checked not to be proud. The acetabular liner, Depuy 50 x 32 mm +4 lateralized polyethylene liner, was inserted and lined up with the tines of the acetabular component. There was no soft tissue interposition. The liner was then impacted into position and confirmed to be well-seated. A portion of the j luis-articular cocktail was then injected around the acetabulum into the capsule and periosteum. This cocktail consisted of 50cc of 0.25% Bupivicaine and 20cc of Exparel, expanded to a total of 120cc. Traction was released from the femur. The leg was rotated to 130 degrees. Any remaining medial capsule was released until the lesser trochanter was easily palpable. A Groves retractor was placed medially. The lateral capsule was further released into the shoulder to allow access to the greater trochanter. A Groves retractor was placed over the greater trochanter which allowed the trochanter to flip in front of the capsule for excellent exposure. The leg was brought down into maximal extension and 20 degrees of adduction while ensuring there was no impingement on the acetabulum. Any remnant capsule within the trochanter was released. Piriformis and obturator externis were identified and protected. There was excellent access to the proximal femur. The lateral neck remnant was removed with a rongeur. A blunt canal probe was used to identify the canal and trajectory for later broaching. A box osteotome initiated the broach course. A small curved rasp and a curved curette were used to work laterally. Broaching then began with a size 8 Corail broach. This was inserted manually around the trochanter and into the canal before mallet blows. The broach was seated to the neck cut level based on the neck cut and the preoperative template. Sequential broaching was continued with the [employer] broaching system until a tight fit was obtained with good rotational control of the femur. A trial standard neck was inserted along with a +1 trial head. The leg was brought out of extension and adduction and then reduced with traction and internal rotation. The leg was stable anteriorly in a position of 30 degrees of extension and 90 degrees of external rotation. Fluoroscopy was used to ensure there was no fracture and the stem was seated well. Leg lengths were checked with an AP pelvis and pelvic reference points using the joint point system. Once content with the desired offset and leg lengths, the leg was brought back into extension, external rotation and adduction. The periosteum and surrounding tissue was injected with remaining portion of the j luis-articular cocktail. The proximal femur was irrigated as well as the deep tissues. The Depuy [place] standard collared stem, size 13, was then manually inserted into the proximal femur making sure to control rotation. It was then malleted into position with light blows, giving breaks to allow bone expansion and decrease risk of fracture. The selected Depuy Altrx Ceramic Head, size 32+1 mm, was then placed onto the clean and dry trunnion and secured with impaction onto the tapered fit. The leg was brought back out of extension and adduction and reduced with traction and internal rotation. Stability was confirmed with no shuck at 90 degrees of external rotation and 30 degrees of extension. No impingement through range of motion arc. Final x-ray images were obtained with fluoroscopy to confirm adequate positioning and no intraoperative fracture. The deep tissues were thoroughly irrigated with a pulse lavage. The second dose of TXA 1g was administered intravenously. The capsule was then reapproximated with the previously placed Ethibond sutures. The TFL fascia was finally closed with a No. 2 Stratafix, barbed suture. Deep tissues were then reapproximated with 0 Vicryl and a running 2-0 Vicryl. The skin was closed with a running 4-0 Monocryl in a subcuticular fashion. This was reinforced with skin glue. A Mepilex silver dressing was applied. At the end of the case, all counts were correct. Tamie was transferred to the hospital bed without difficulty and suffering no apparent complication. Tamie has a good prognosis. Physical therapy will start today and without restrictions, weight-bearing as tolerated. Rivaroxaban 10 mg daily will be used for DVT prophylaxis.
[2019-03-27 16:21] LABS: HCT 32.7 % (36.0-46.0); HGB 10.8 g/dL (12.0-15.5)
[2019-03-27] MEDS: Rivaroxaban 10 MG TABLET PO (20:28)
[2019-03-27] MEDS: Celecoxib 100 MG CAP PO (20:28)
[2019-03-27] MEDS: Montelukast 10 MG TAB PO (20:29)
[2019-03-27] MEDS: Atorvastatin 20 MG TAB PO (20:29)
[2019-03-27] MEDS: Lactated Ringers 1,000 ML 100 ML IV (21:22)
[2019-03-27] MEDS: Normal Saline Flush 10 ML SYR IV ×2 (21:22→23:30)
[2019-03-27] MEDS: HYDROmorphone 2 MG/ML VIAL 0.5 MG IVP (23:31)
[2019-03-28] MEDS: oxyCODONE 5 MG TAB PO ×5 (00:43→13:45)
[2019-03-28 03:26] VITALS: BP 121/71; PULSE 88; RESP 17; TEMP 36.6; O2SAT 97
[2019-03-28] MEDS: Levothyroxine 150 MCG TAB PO (06:29)
[2019-03-28] MEDS: ceFAZolin 1 GM/50 ML BAG IVPB (06:30)
[2019-03-28] MEDS: Normal Saline Flush 10 ML SYR IV (07:06)
[2019-03-28] MEDS: Lactated Ringers 1,000 ML 1000 ML IV (07:06)
[2019-03-28 07:07] LABS: HCT 29.1 % (36.0-46.0); HGB 9.6 g/dL (12.0-15.5); Mean Corpuscular Hemoglobin 29.6 pg (27.0-33.0); Mean Corpuscular Volume 89.8 fL (80-95); Mean Platelet Volume 9.3 fL (8.0-11.0); Platelet Count 283 x1000/uL (130-400); RBC 3.24 m/cumm (4.00-5.20); RBC Distribution Width 12.2 % (11.7-14.6); White Blood Cell Count 8.71 k/cumm (4.4-10.8)
[2019-03-28 07:17] LABS: Anion Gap 7.3 mmol/L (3-11); BUN 14 mg/dL (7-18); CO2 28.7 mmol/L (21.0-32.0); CREATININE 0.88 mg/dL (0.55-1.02); Chloride 103 mmol/L (98-107); Glucose 120 mg/dL (74-106); Potassium 3.7 mmol/L (3.5-5.1); Sodium 139 mmol/L (136-145)
[2019-03-28 07:20] VITALS: BP 135/73; PULSE 65; RESP 16; TEMP 37.1; O2SAT 98
[2019-03-28] MEDS: Acetaminophen 500 MG TAB 1000 MG PO ×2 (07:48→13:44)
[2019-03-28] MEDS: Celecoxib 100 MG CAP PO (07:49)
[2019-03-28] MEDS: hydroCHLOROthiazide 25 MG TAB PO (07:49)
[2019-03-28] MEDS: DULoxetine 30 MG CAP PO (07:49)
[2019-03-28] MEDS: Pantoprazole 40 MG TABCR PO (07:49)
--- NOTE | 2019-03-28 08:37 | DSE_ITS ---
Date of service: 03/28/19 Time of Service: 08:37 DS: Diagnosis Discharge Diagnosis (1) Degenerative joint disease of left hip: Status: Chronic (2) Degenerative joint disease of right hip: Status: Chronic Discharge Plan Disposition Patient Disposition: HOME Condition: Good Discharge Details Reason For Visit: Bilateral Hip DJD Admit Date/Time: 03/27/19 05:55 Admit Provider: Jameel Worthington Attending Provider: Jameel Worthington [facility] Hospital Course: Patient was admitted to the medical/surgical floor following the procedure. It was tolerated well without any notable medical, surgical, or anesthetic complications. Mobilization began postoperatively. The ann catheter was removed and voiding spontaneously. Vitals were stable. Physical therapy worked with the patient and was cleared for discharge home. No acute medical issues. Home Meds and New Rx's Prescriptions: New acetaminophen 500 mg tablet 1,000 mg PO Q8H PRN (Reason: pain) Qty: 90 RF: 3 pantoprazole 40 mg tablet,delayed release (DR/EC) 40 mg PO DAILY Qty: 30 RF: 0 oxycodone 5 mg tablet 5 mg PO Q4H Qty: 18 RF: 0 rivaroxaban 10 mg tablet 10 mg PO DAILY Qty: 35 RF: 0 celecoxib 100 mg capsule 100 mg PO BID Qty: 60 RF: 0 Continued losartan 50 mg tablet 50 mg PO DAILY RF: 0 ipratropium bromide 0.03 % spray,non-aerosol 2 spray KYLE BID PRNRF: 0 fluticasone propionate 50 mcg/actuation spray,suspension 2 spray KYLE DAILY PRNRF: 0 atorvastatin 20 mg tablet 20 mg PO DAILY RF: 0 montelukast [Singulair] 10 mg tablet 10 mg PO QPM RF: 0 multivitamin,tx-minerals tablet 1 tab PO DAILY RF: 0 levothyroxine [Levoxyl] 150 MCG tablet 150 mcg PO DAILY RF: 0 cholecalciferol (vitamin D3) [Vitamin D3] 2,000 UNIT capsule 2,000 unit PO DAILY RF: 0 hydrochlorothiazide 25 mg tablet 25 mg PO DAILY RF: 0 duloxetine 30 mg Capsule,Delayed Release(Dr/Ec) 30 mg PO DAILY RF: 0 Discharge Instructions Additional Instructions: Dr. Worthington?s Total Hip Discharge Instructions Activity: The most important activity is to walk. You should try to take short walks a few times a day. You have no restrictions on movement or positioning, but do not try to force what you do. You will find some stiffness and weakness with hip flexion (lifting your knee). Do not try to strengthen this too early, continue to practice walking and stairs and this will come. - Outpatient physical therapy can be helpful to help return you to a normal gait and improve your flexibility and strength. This can start around 2 weeks. Usually this is determined at the time of discharge or at the first post- operative visit. - You should wear the TOM hose on both legs for 2 weeks. Dressing: Keep the surgical dressing in place for at least one week. After the first week it may be removed and replace with light gauze and tape or nothing. It may get wet after 3 days but avoid soaking the dressing. If it gets wet, just lightly pat dry. It is important to always keep some gauze between skin folds, especially when you are sitting. Spend some time with the wound exposed when you are lying flat as the incision does wrinkle onto itself. Medications: - You should take Tylenol and an anti-inflammatory Celebrex as your primary pain control medications - You have been prescribed a stronger pain medication Oxycodone for breakthrough pain, take as needed as prescribed. - You have also been prescribed a stomach acid reduction agent Pantoprozole to help reduce stomach acid and reflux. - You will be taking Rivaroxaban 10mg daily for DVT prevention unless instructed otherwise. - If you have constipation you should take Colace or Miralax (both [id number]). It takes most people 3-4 days to have a bowel movement. Follow-up: 2 weeks Stand Alone Forms: Nursing Discharge Form Referrals: Jameel Worthington MD [ [facility] STAFF PHYSICIAN] - Activity:: Activity as Tolerated Equipment/Supplies:: Walker Diet:: As Tolerated DS: Summary Status at Discharge Functional status at discharge: uses cane/walker Overall status at discharge: patient is progressing back to baseline Mental Status: mental status grossly normal Speech and Movement: speech and movement normal Mood: congruent mood Affect: normal affect Exam Narrative Exam Narrative: Incisions are clean dry and intact. There is some mild swelling seen on the left hip more than the right hip. She tolerates internal extra rotation of flexion without pain. Sensation intact light touch of the femoral and sciatic nerve distributions. She is able to straight leg raise. Psych Mental Status: mental status grossly normal Speech and Movement: speech and movement normal Mood: congruent mood Affect: normal affect DS: Data Vitals/I&O Vitals and I&O: Vital Signs Temperature 37.1 C 03/28/19 07:20 Temperature Source Tympanic 03/28/19 07:20 Pulse 65 03/28/19 07:20 Pulse Rhythm Regular 03/27/19 23:31 Respiratory Rate 16 03/28/19 07:20 Respiratory Effort 03/27/19 23:31 Respiratory Depth Normal 03/27/19 23:31 Respiratory Pattern Normal 03/27/19 23:31 Blood Pressure 135/73 03/28/19 07:20 Pulse Oximetry 98 03/28/19 07:20 Respiratory End-tidal CO2 3,433 03/27/19 12:57 Oxygen Delivery Method Room Air 03/28/19 07:20 Oxygen Flow Rate 0 03/28/19 07:20 Pain Level 5 03/28/19 07:48 Comment 03/27/19 23:30 Intake & Output 03/27/19 03/27/19 03/28/19 11:59 23:59 11:59 Intake Total 2170 / 3626.333 1456.333 / 3626.333 550 / 550 Output Total 1200 / 1700 500 / 1700 1285 / 1285 Balance 970 / 1926.333 956.333 / 1926.333 -735 / -735 Weight 93.2 kg Intake: IV 2170 / 3146.333 976.333 / 3146.333 50 / 50 Oral 480 / 480 500 / 500 Output: Urine 200 / 700 500 / 700 1285 / 1285 Estimated Blood Loss 1000 / 1000 Other: Urine Color Yellow Pale Yellow Urine Appearance Clear Clear Clear Emesis Description None None Data Completed and Pending Labs on day of discharge: Labs from last 24 hours 03/28/19 03/28/19 03/27/19 06:10 06:10 16:02 WBC 8.71 RBC 3.24 L Hgb 9.6 L 10.8 L Hct 29.1 L 32.7 L MCV 89.8 MCH 29.6 MCHC 33.0 RDW 12.2 Plt Count 283 MPV 9.3 Sodium 139 Potassium 3.7 Chloride 103 Carbon Dioxide 28.7 Anion Gap 7.3 BUN 14 Creatinine 0.88 Estimated GFR/1.73 m2 >= 60.00 Glucose 120 H Calcium 8.0 L PFSH Medical History Chronic anxiety Depression Hyperlipidemia Hypertension Hypothyroid Lipoma of arm Obesity (Chronic) Osteopenia Vitamin D deficiency Surgical History Colonoscopy - IV Sedation Hx of section (Chronic) Hx of myomectomy (Acute) R arm remove fibroid tumor Lap-band placement S/P colonoscopy (Resolved ~10/30/18) 2009-nl S/P excision of lipoma (Acute) right arm - upper arm/shoulder Family History Other Heart disease Hypertension Social History Smoking/Tobacco Use Status: Former Tobacco Use Tobacco: How many years used: 15 Alcohol Intake: current Alcohol Intake frequency: a few times a month Alcohol type: beer and hard liquor Drug use: Never Substance use type: does not use 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
[2019-03-28 11:16] VITALS: BP 119/68; PULSE 65; RESP 17; TEMP 36.6; O2SAT 100
--- NOTE | 2019-03-28 12:20 | PT.INTREAT ---
Date of service: 03/28/19 Time of Service: 12:20 PT Notes Visit Reasons: Bilateral Hip DJD Inpatient Physical Therapy Treatment Note [facility] Date: 03/28/19 PRECAUTIONS: WBAT B, Fall SUBJECTIVE: Tamie states that she is feeling pretty good this morning, she feels that she is ready to return to home today. She is agreeable to participating in PT. OBJECTIVE: PAIN: Patient c/o pain in L lateral hip with movement. BED MOBILITY/TRANSFERS Supine-sit: I with HOB flat Sit-supine: I with HOB flat Sit-stand: I Stand-sit: I GAIT Assistive Device: FWW Weight bearing: WBAT B Assist: S Distance: 100' x2 Deviation: Step-through instruct, seated rest x1 THEREX: Patient completed a LE strengthening and stabilization program, in both seated and supine positions, as per flow sheet. She ends with ice to B lateral hips. STAIRS: Up/down 3x4 and 2x6 using B rails and a step-to pattern with supervision ASSESSMENT: Patient tolerated session well, with c/o L lateral hip pain with movement. Patient tolerated a progression in gait distance with FWW support and supervision. She was able to tolerate the addition of stair training as well. PLAN: As per primary PT TREATMENT CODE/TIME: 40 minutes; 66299 x2, [id number]
--- NOTE | 2019-03-28 15:42 | INITIAL_ITS ---
- If Service Date Differs Date of service: 03/28/19 Time of Service: 15:42 Care Management Initial Assess REASON FOR HOSPITALIZATION:: Bilateral Hip DJD PAST MEDICAL HISTORY/PAST SURGICAL HISTORY:: Medical History. Chronic anxiety. Depression. Hyperlipidemia. Hypertension. Hypothyroid. Lipoma of arm. Obesity (Chronic). Osteopenia. Vitamin D deficiency. Surgical History. Colonoscopy - IV Sedation. Hx of section (Chronic). Hx of myomectomy (Acute). to remove fibroid tumor. Lap-band placement. S/P colonoscopy (Resolved ~10/30/18). 2008-nl. S/P excision of lipoma (Acute). right arm - upper arm/shoulder PREVIOUS FUNCTIONAL STATUS/SOCIAL/FAMILY SUPPORTS:: Tamie lives in [place] with her , Blanco. Her son, Dain goes to college [place] 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 She is independent at baseline. CURRENT FUNCTIONAL STATUS:: Tamie was lying in bed when CM met with her. She was pleasant and engaged in conversation. She reported that she was feeling great, and was planning on going home today, per MD. She said that her and son are planning a quiet Thanksgiving because she will be recovering from surgery. She is happy to be going home. CM will continue to follow. ADVANCE DIRECTIVES:: None on file with [facility]. Has patient been provided with information about the portal?: No Did the patient sign up for the portal?: No INSURANCE COVERAGE / FINANCIAL ISSUES:: [employer]BS CURRENT HOME/COMMUNITY SERVICES/EQUIPMENT:: No current services or equipment. PRIMARY CARE PHYSICIAN:: Soy Conley POTENTIAL DISCHARGE NEEDS:: Evaluations for further needs, follow up appointments PATIENT/FAMILY EDUCATION NEEDS:: Review discharge instructions regarding activity levels and medications, discussion of self care needs including Ask Me Three ANTICIPATED BARRIERS TO DISCHARGE:: None identified at this time. TRANSPORTATION:: Anticipate via private vehicle driven by her , Blanco. PLAN:: Tamie will return home with no additional services once medically cleared. CM will coordinate a FWW through [facility], as recommended by PT. She will follow up with Ortho, as recommended. Her , Blanco will drive her home via private vehicle when ready. CM will continue to follow.
--- NOTE | 2019-03-28 15:55 | CHAPLAIN ---
Tamie told me about having both hips replaced, and said she is feeling good this morning and has already been up and walking around. Her son is home from college and he and her will be helping her at home after she is discharged later today.
--- NOTE | 2019-03-28 16:50 | PDOC.CMDIS ---
- If Service Date Differs Date of service: 03/28/19 Time of Service: 16:50 LACE Index Scoring Tool - Questions: Length of Stay (in days): 2 Acuity (Admit via E.D.?): No E.D. Visits: 0 - Answers: Total Score: 2 Risk of Readmission: Low Risk Care Management Discharge Reason for Hospitalization: Bilateral Hip DJD Discharge Plan: Tamie will return home with no additional services at this time. CM coordinated a FWW through [facility], as recommended by PT. She will follow up with Ortho. Her , Blanco will drive her home via private vehicle. Patient/Family Education Needs: Review discharge instructions regarding activity levels and medications, discussion of self care needs including Ask Me Three Services Needed at Discharge: DME Agency ([facility])
--- NOTE | 2019-03-31 13:37 | PT.INDS ---
Date of service: 03/31/19 Time of Service: 13:37 PT Notes Visit Reasons: Bilateral Hip DJD Inpatient Physical Therapy Discharge Summary Dates: 03/31/2019 Dates of Service: 03/27/2019 and 03/28/2019 PT Orders: PT CONSULT: Status post Ortho surgery. Status post bilateral anterior MIGUEL. Precautions: Fall. Standard. WBAT on B LE. Patient Profile/Admitting Diagnosis: Patient is a 58-year-old female with degenerative joint disease of the right and the left hip status post bilateral anterior MIGUEL on POD 2. PMHX: Medical History Chronic anxiety Depression Hyperlipidemia Hypertension Hypothyroid Lipoma of arm Obesity (Chronic) Osteopenia Vitamin D deficiency Surgical History Colonoscopy - IV Sedation Hx of section (Chronic) Hx of myomectomy (Acute) to remove fibroid tumor Lap-band placement S/P colonoscopy (Resolved ~10/30/18) 2009-nl S/P excision of lipoma (Acute) right arm - upper arm/shoulder Social History/Home Situation: Patient lives with in a 1 floor house with 4 steps to enter and a rail on the right side going up. 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 She is independent with all aspects of ADLs and likes to go to the gym with her . Equipment Owned/DME: None Subjective:NT Objective: General Observation: NT Mental Status: NT Pain: NT Vital Signs: NT ROM: Right Upper Extremity: Shoulder Flexion WFL. Shoulder abduction WFL. Elbow flexion WFL. Wrist flexion WFL. Opening and closing of hand WFL. Left Upper Extremity: Shoulder Flexion WFL. Shoulder abduction WFL. Elbow flexion WFL. Wrist flexion WFL. Opening and closing of hand WFL. Right Lower Extremity: Hip flexion WFL. Hip abduction WFL. Knee flexion WFL. Ankle dorsiflexion WFL. Ankle plantarflexion WFL. Left Lower Extremity: Hip flexion WFL. Hip abduction WFL. Knee flexion WFL. Ankle dorsiflexion WFL. Ankle plantarflexion WFL. Strength: Right Upper Extremity: Shoulder flexors 5/5. Shoulder abductors 5/5. Elbow flexors 5/5. Elbow extensors 5/5. Crop Production Advisor strong. Left Upper Extremity: Shoulder flexors 5/5. Shoulder abductors 5/5. Elbow flexors 5/5. Elbow extensors 5/5. Crop Production Advisor strong. Right Lower Extremity: Hip flexors 4/5. Hip abductors 4/5. Knee flexors 4/5. Knee extensors 4/5. Ankle dorsiflexors 4/5. Ankle plantarflexors 4/5. Left Lower Extremity:Hip flexors 4/5. Hip abductors 4/5. Knee flexors 4/5. Knee extensors 4/5. Ankle dorsiflexors 4-/5. Ankle plantarflexors 4/5. Bed Mobility/Transfers: Rolling independent Supine to sit independent Sit to supine independent Sit to stand independent Stand to sit independent Bed to chair independent Chair to bed independent Gait: Patient tolerated level surface ambulation of 100 feet x 2 requiring only supervision assist with WBAT on bilateral LEs using front wheeled walker without report of lightheadedness, dizziness, chest pain, and headache. Balance: Static Sitting: Normal Dynamic Sitting: Normal Static Standing: Good Dynamic Standing: Fair Assessment: Patient is a 58-year-old female with degenerative joint disease of the right and the left hip status post bilateral anterior MIGUEL on POD 2. Patient demonstrated significant improvement in functional mobility performance as indicated above during this episode of care. Patient continues to present with clinical signs and symptoms consistent with current/admitting diagnoses that have resulted to mobility limitations, gait instability, generalized weakness, and impairment of motor control as demonstrated by the following impairment level findings: 1. Decreased strength to B LE major muscle groups 2. Impaired standing balance 3. Impaired activity tolerance Impairments continue to contribute to the following functional limitations: 2. Inability to safely ambulate without assistive device and physical assistance 3. Increase completion time for mobility ADL performance 4. Increased fall risk 5. Inability to negotiate steps alone safely Goals: Goals X1 week 1. Supine-Sit independent MET 2. Sit-Supine independent MET 3. Sit-Stand independent MET 4. Stand-Sit independent MET 5. Bed-Chair independent MET 6. Chair-Bed independent MET 7. Independent gait on level surface with use of least restrictive device for at least 300 feet without report of pain nor dyspnea NOT MET 8. Independent stair negotiation while holding onto bilateral rails for at least 10 steps without report of pain nor dyspnea NOT MET 9. Independent with home exercise program NOT MET 10. Good static and dynamic standing balance/tolerance NOT MET DISCHARGE RECOMMENDATIONS: Patient will benefit from the use of a front wheeled walker to reduce fall risk at home. May benefit from skilled physical therapy services according to orthopedic surgeon's timeline recommendations. Patient will be educated and trained on home exercise program per TKA exercise protocol in preparation for outpatient physical therapy services. TREATMENT CODE/TIME: [place]. Thank you very much for this referral. Shellie Perez PT, DPT, CLT [facility]
== END 2019-03-28 14:30 | disposition home or self-care (01) | DRG 462 ==
LOC: PDS 07:16 → MS 12:10
PROVIDERS: Admitting Provider Student in an Organized Health Care Education/Training Program; PCP Family Medicine; Visit Provider Student in an Organized Health Care Education/Training Program
PROC: 0SR90JZ Replacement of Right Hip Joint with Synthetic Substitute, Open Approach (ICD-10-PCS; CPT 27130; principal; 2019-03-27 07:30)
DX: M16.0 Bilateral primary osteoarthritis of hip (principal); M25.551 Pain in right hip; M25.552 Pain in left hip; Z96.643 Presence of artificial hip joint, bilateral; F41.8 Other specified anxiety disorders; E78.5 Hyperlipidemia, unspecified; I10 Essential (primary) hypertension; E03.9 Hypothyroidism, unspecified; E66.9 Obesity, unspecified; Z23 Encounter for immunization
CPT/HCPCS: 27130; 36415; 80048; 85027; 97110; 97162; 97530; NC; 73501; 85014; 85018; J0690; J1100; J1885; J2250; J2370; J2405

== ENCOUNTER 2019-04-12 09:14 | Outpatient (CLI) | payer BC, SELFPAY ==
--- NOTE | 2019-04-12 09:33 | DI.RAD_ITS ---
EXAM: XR PELVIS AP, left and right hips INDICATION: 1ST POST OP. COMPARISON: XR PELVIS AP from 02/05/2019 XR HIP RT IN OR from 03/27/2019 XR HIP RT 1V from 04/12/2019 XR HIP LT 1V from 04/12/2019 TECHNIQUE: 2D digital imaging was performed. FINDINGS: The patient is status post placement of bilateral total hip prostheses. The components appear well a ligned. No abnormal bony lucencies are seen.
== END 2019-04-12 09:34 ==
PROVIDERS: PCP Family Medicine; Visit Provider Physician Assistant
DX: Z96.643 Presence of artificial hip joint, bilateral (principal); Z47.1 Aftercare following joint replacement surgery
CPT/HCPCS: 72170; 73501

== ENCOUNTER 2019-12-21 18:51 | Outpatient (REF) | payer BC, SELFPAY ==
[2019-12-25 03:45] LABS: SARS-CoV-2 RNA Undetected (Undetected); SARS-CoV-2 Specimen Source Nasopharynx
== END 2019-12-21 19:11 ==
LOC: NCHCN 18:51
PROVIDERS: PCP Family Medicine; Visit Provider Family Medicine
DX: Z20.828 Contact with and (suspected) exposure to other viral communicable diseases (principal)
CPT/HCPCS: U0003

== ENCOUNTER 2020-01-09 13:08 | Outpatient (REF) | payer BC, SELFPAY ==
[2020-01-09 15:56] LABS: HCT 44.1 % (36.0-46.0); HGB 13.6 g/dL (11.2-15.7); MCH 26.3 pg (27.0-33.0); MCHC 30.8 % (32.0-36.0); MCV 85.3 fL (80-95); MPV 9.6 fL (8.0-11.0); Platelet Count 321 10^3/uL (130-400); RBC 5.17 10^6/uL (3.93-5.22); RDW 16.4 % (11.7-14.6); RDW-SD 51.1 fL
[2020-01-09 16:23] LABS: Albumin 3.9 g/dL (3.4-5.0); Anion Gap 6.9 mmol/L (3-11); BUN 14 mg/dL (7-18); CO2 26.1 mmol/L (21.0-32.0); CREATININE 0.91 mg/dL (0.55-1.02); Calcium 8.9 mg/dL (8.5-10.1); Chloride 104 mmol/L (98-107); Glucose 113 mg/dL (74-106); Sodium 137 mmol/L (136-145)
[2020-01-09 17:28] LABS: Iron 71 ug/dL (50-170); Total Iron Binding Capacity 422 ug/dL (250-450); Transferrin Sat 17 % (15-50)
== END 2020-01-09 13:28 ==
LOC: NCHCN 13:08
PROVIDERS: PCP Family Medicine; Visit Provider Family Medicine
DX: E03.9 Hypothyroidism, unspecified (principal); I10 Essential (primary) hypertension; D50.0 Iron deficiency anemia secondary to blood loss (chronic); E83.51 Hypocalcemia
CPT/HCPCS: 80048; 85027; 82040; 83540; 83550; 84443

== ENCOUNTER 2020-03-14 09:01 | Outpatient (CLI) | payer BC, SELFPAY ==
--- NOTE | 2020-03-14 08:15 | DI.RAD_ITS ---
EXAM: XR HIP LT COMPLETE AP PELVIS and XR hip RT 1 V CLINICAL HISTORY: 1 yr s/p devorah. TECHNIQUE: 2D digital imaging was performed. COMPARISON: CR XR PELVIS AP from 04/12/2019 FINDINGS: BONES: There are stable post operative changes present. No fracture or dislocation. JOINTS: The joint spaces are well maintained. The visualized sacroiliac joints and symphysis pubis a re unremarkable. SOFT TISSUE: Normal. IMPRESSION: Stable postoperative changes. DATA REPOSITORY: RADIATION DOSE DELIVERED:
== END 2020-03-14 09:21 ==
PROVIDERS: PCP Family Medicine; Referring Provider Family Medicine; Visit Provider Student in an Organized Health Care Education/Training Program
DX: Z96.643 Presence of artificial hip joint, bilateral (principal)
CPT/HCPCS: 73501; 73502

== ENCOUNTER 2020-03-29 11:25 | Emergency (ER) | payer BC, SELFPAY ==
[2020-03-29 11:30] VITALS: BP 163/100; PULSE 80; RESP 16; TEMP 36.3; O2SAT 98
--- NOTE | 2020-03-29 11:38 | ED.GENADUL_ITS ---
Discharge Plan Disposition Patient Disposition: HOME Condition: Improving Discharge Details Clinical Impression: Viral gastroenteritis, Ileitis, Colitis Primary Care Provider: Soy Conley ED Provider: Tammy Govea Home Meds and New Rx's Prescriptions: New dicyclomine 20 mg tablet 20 mg PO TID PRN (Reason: abdominal pain) Qty: 10 RF: 0 Continued ipratropium bromide 0.03 % spray,non-aerosol 2 spray KYLE BID PRNRF: 0 fluticasone propionate 50 mcg/actuation spray,suspension 2 spray KYLE DAILY PRNRF: 0 atorvastatin 20 mg tablet 20 mg PO DAILY RF: 0 montelukast [Singulair] 10 mg tablet 10 mg PO QPM RF: 0 losartan 50 mg tablet 75 mg PO DAILY RF: 0 multivitamin,tx-minerals tablet 1 tab PO DAILY RF: 0 levothyroxine [Levoxyl] 150 MCG tablet 150 mcg PO DAILY RF: 0 cholecalciferol (vitamin D3) [Vitamin D3] 2,000 UNIT capsule 2,000 unit PO DAILY RF: 0 hydrochlorothiazide 25 mg tablet 25 mg PO DAILY RF: 0 duloxetine 30 mg Capsule,Delayed Release(Dr/Ec) 30 mg PO DAILY RF: 0 Discharge Instructions Instructions: Gastroenteritis (ED) Additional Instructions: Drink plenty of fluids and get plenty of rest. Take Tylenol every 4 hours as needed and directed for pain. Take the Bentyl for pain not relieved with Tylenol. Follow a clear liquid diet over the next 48 hours followed by the BRAT (bananas, rice, applesauce, toast) diet and then advance your diet as tolerated. Follow-up with Dr. Ocampo in the surgery office next April 02 at 1:30 PM. Return immediately to the emergency department if you develop any worsening or new concerning symptoms such as fever, persistent vomiting, or worsening pain. Referrals: Tami Massey MD [ [facility] STAFF PHYSICIAN] - Migdalia Ocampo DO [OSTEOPATHIC DOCTOR] - Discharge Data Discharge Date/Time-TO BE ENTERED AT DEPARTURE: 03/29/20 15:45 Discharge Physician: Tammy Govea Medical Decision Making [id number] -- 59-year-old female with a history of anxiety, depression, hypertension, hyperlipidemia, hypothyroidism and obesity presents for nausea and abdominal pain for the past 6 days. Blood pressure hypertensive, remainder vitals within normal limits. She appears nontoxic and comfortable. Her abdomen is soft but tender in the epigastrium, right upper quadrant and right lower quadrant. No CVA tenderness. Differential diagnosis includes GERD, PUD, gastritis, esophagitis, cholelithiasis, cholecystitis, appendicitis, diverticulitis, small bowel obstruction. Will place an IV, bolus of fluids, screening labs, urinalysis, CT abdomen pelvis and give Pepcid, Zofran, GI cocktail and reassess. 1500 --labs and imaging reviewed. Normal white blood cell count. Normal electrolytes. TSH elevated but with normal free T4. Urinalysis negative. CT ABDOMEN/PELVIS: IMPRESSION: 1. Marked mural thickening and edema in the terminal ileum and cecum with subjacent stranding and to lesser extent in the ascending colon likely reflects terminal ileitis and colitis/cecitis and could be sequela of infection /inflammation or Crohn's disease. Appendix is mildly dilated and measures up to 1.0 cm which could be reactive, however follow-up CT scan is recommended. There is no bowel perforation or or bowel obstruction. There is no abscess. Mildly enlarged lymph nodes in the subjacent region is felt to be reactive due to associated infection inflammation. 2. Status post lap banding procedure in the stomach. There is small hiatal hernia. Gallbladder ultrasound IMPRESSION: Echogenic focus in the gallbladder in the dependent portion of fundus could reflect cholelithiasis or sludge ball or polyp.There is no pericholecystic fluid collection or gallbladder wall edema to suggest acute inflammation. Sonographic Palmer sign is reported to be negative. Patient reassessed and she feels better. CT reviewed with Dr. Massey and presentation likely consistent with viral gastroenteritis. Recommends 48 hours of clear liquids and advance to brat diet. Appointment made for patient on April 02 at 1:[address] Ocampo. Patient given Bentyl dose and prescription for home. Patient placed on surgery follow-up list for reevaluation and consideration for colonoscopy if symptoms persist and for further discussion for possible gallbladder stone versus polyp. Usual and customary return precautions given prior to discharge. Medical Records Medical records reviewed: Yes I reviewed the patient's medical records. Imaging Data Radiologic Study: Radiologist's impression: CT Abdomen And Pelvis With Contrast Exam date and time: 03/29/2020 12:02 PM Age: 59 years old Clinical indication: Other: Ruq/rlq abd pain; Additional info: R/O gallbladder, pancreatitis, appendicitis, sbo TECHNIQUE: Imaging protocol: Computed tomography of the abdomen and pelvis with intravenous contrast. Radiation optimization: All CT scans at this facility use at least one of these dose optimization techniques: automated exposure control; mA and/or kV adjustment per patient size (includes targeted exams where dose is matched to clinical indication); or iterative reconstruction. Contrast material: OMNIPAQUE 350; Contrast volume: 100 ml; Contrast route: INTRAVENOUS (IV); COMPARISON: CR XR HIP LT COMPLETE AP PELVIS 03/14/2020 8:24 AM FINDINGS: Lungs: There is bibasilar atelectasis . There is small hiatal hernia. Mediastinal space: There is a small hiatal hernia. Liver: Normal. No mass. Gallbladder and bile ducts: Normal. No calcified stones. No ductal dilation. Pancreas: Normal. No ductal dilation. Spleen: Normal. No splenomegaly. Adrenal glands: Normal. No mass. Kidneys and ureters: Normal. No hydronephrosis. Stomach and bowel: Distal large bowel is nondistended. There is diffuse mucosal edema and pericolonic fat stranding in the ascending colon as well as in the cecum and terminal ileum. This is most pronounced in the terminal ileum and cecum. Distal small bowel contains fluid. The proximal small bowel is non-opacified. Appendix is mildly thickened and measures 1.0 cm (image 52 series 4). There are postsurgical changes due to prior lap band gastrectomy. Appendix: See Stomach and bowel finding. Intraperitoneal space: There is mild ascites and pelvic fluid. Vasculature: Unremarkable. No abdominal aortic aneurysm. Lymph nodes: There are mildly enlarged lymph nodes in right hemiabdomen. Urinary bladder: Unremarkable as visualized. Reproductive: Unremarkable as visualized. Bones/joints: There are bilateral hip arthroplasty. There are mild degenerative changes in the thoracolumbar spine. Soft tissues: Unremarkable. IMPRESSION: 1. Marked mural thickening and edema in the terminal ileum and cecum with subjacent stranding and to lesser extent in the ascending colon likely reflects terminal ileitis and colitis/cecitis and could be sequela of infection /inflammation or Crohn's disease. Appendix is mildly dilated and measures up to 1.0 cm which could be reactive, however follow-up CT scan is recommended. There is no bowel perforation or or bowel obstruction. There is no abscess. Mildly enlarged lymph nodes in the subjacent region is felt to be reactive due to associated infection inflammation. 2. Status post lap banding procedure in the stomach. There is small hiatal hernia. US Abdomen; Limited Exam date and time: 03/29/2020 2:05 PM Age: 59 years old Clinical indication: Patient HX: Ruq pain, ? acute cholecystitis TECHNIQUE: Imaging protocol: US abdomen. Real time ultrasound with image documentation. Limited exam focused on the region of clinical interest. COMPARISON: CT ABDOMEN PELVIS W 03/29/2020 1:29 PM FINDINGS: Liver: Visualized liver is unremarkable. Gallbladder: Gallbladder is normally distended. There is 8 mm echogenic focus noted in the fundus of the gallbladder which is nonmobile and with minimal acoustic shadowing. This could represent gallstone versus polyp. There is no pericholecystic fluid collection. Gallbladder wall is smooth and is of 2.7 mm. Sonographic Palmer sign is reported to be negative. IMPRESSION: Echogenic focus in the gallbladder in the dependent portion of fundus could reflect cholelithiasis or sludge ball or polyp.There is no pericholecystic fluid collection or gallbladder wall edema to suggest acute inflammation. Sonographic Palmer sign is reported to be negative. Lab Data Lab results reviewed: Yes I reviewed the patient's lab results. Labs: Laboratory Tests Range/Units 03/29/20 03/29/20 03/29/20 12:00 12:01 12:05 WBC (4.4-10.8) 10^3/uL 10.49 RBC (3.93-5.22) 10^6/uL 4.99 Hgb (11.2-15.7) g/dL 13.9 Hct (36.0-46.0) % 43.7 MCV (80-95) fL 87.6 MCH (27.0-33.0) pg 27.9 MCHC (32.0-36.0) % 31.8 L RDW (11.7-14.6) % 13.3 Plt Count (130-400) 10^3/uL 348 MPV (8.0-11.0) fL 9.1 Immature Gran % 0.5 Neutrophils % 75.0 Lymphocytes % 14.3 Monocytes % 8.1 Eosinophils % 1.7 Basophils % 0.4 Nucleated RBC % % 0 Absolute Neutrophils (1.2-6.7) 10^3/uL 7.87 H Absolute Lymphocytes (1.2-3.4) 10^3/uL 1.50 Absolute Monocytes (0.1-0.8) 10^3/uL 0.85 H Absolute Eosinophils (0.0-0.7) 10^3/uL 0.18 Absolute Basophils (0.0-0.2) 10^3/uL 0.04 Sodium (136-145) mmol/L Potassium (3.5-5.1) mmol/L Chloride (98-107) mmol/L Carbon Dioxide (21.0-32.0) mmol/L Anion Gap (3-11) mmol/L BUN (7-18) mg/dL Creatinine (0.55-1.02) mg/dL Estimated GFR/1.73 m2 (mL/min/1.73m2) Glucose (74-106) mg/dL Calcium (8.5-10.1) mg/dL Total Bilirubin (0.2-1.0) mg/dL AST (15-37) U/L ALT (14-59) U/L Alkaline Phosphatase (46-116) U/L Total Protein (6.4-8.2) g/dL Albumin (3.4-5.0) g/dL Lipase (73-393) U/L TSH (0.36-3.74) uIU/mL Free T4 (0.76-1.46) ng/dL Urine Color Cancelled Yellow Urine Clarity Cancelled Clear Urine pH Cancelled 5.5 Ur Specific Karthaus Cancelled >= 1.030 H Urine Protein Cancelled Negative Urine Ketones Cancelled Negative Urine Blood Cancelled Negative Urine Nitrite Cancelled Negative Urine Bilirubin Cancelled Negative Urine Urobilinogen Cancelled 0.2 Ur Leukocyte Esterase Cancelled Negative Urine Glucose Cancelled Negative Range/Units 03/29/20 03/29/20 12:15 12:15 WBC (4.4-10.8) 10^3/uL RBC (3.93-5.22) 10^6/uL Hgb (11.2-15.7) g/dL Hct (36.0-46.0) % MCV (80-95) fL MCH (27.0-33.0) pg MCHC (32.0-36.0) % RDW (11.7-14.6) % Plt Count (130-400) 10^3/uL MPV (8.0-11.0) fL Immature Gran % Neutrophils % Lymphocytes % Monocytes % Eosinophils % Basophils % Nucleated RBC % % Absolute Neutrophils (1.2-6.7) 10^3/uL Absolute Lymphocytes (1.2-3.4) 10^3/uL Absolute Monocytes (0.1-0.8) 10^3/uL Absolute Eosinophils (0.0-0.7) 10^3/uL Absolute Basophils (0.0-0.2) 10^3/uL Sodium (136-145) mmol/L 139 Potassium (3.5-5.1) mmol/L 3.8 Chloride (98-107) mmol/L 104 Carbon Dioxide (21.0-32.0) mmol/L 27.6 Anion Gap (3-11) mmol/L 7.4 BUN (7-18) mg/dL 13 Creatinine (0.55-1.02) mg/dL 1.09 H Estimated GFR/1.73 m2 (mL/min/1.73m2) 51.03 Glucose (74-106) mg/dL 97 Calcium (8.5-10.1) mg/dL 9.2 Total Bilirubin (0.2-1.0) mg/dL 0.6 AST (15-37) U/L 25 ALT (14-59) U/L 39 Alkaline Phosphatase (46-116) U/L 147 H Total Protein (6.4-8.2) g/dL 8.0 Albumin (3.4-5.0) g/dL 3.6 Lipase (73-393) U/L 106 TSH (0.36-3.74) uIU/mL 9.32 H Free T4 (0.76-1.46) ng/dL 0.91 Urine Color Urine Clarity Urine pH Ur Specific Karthaus Urine Protein Urine Ketones Urine Blood Urine Nitrite Urine Bilirubin Urine Urobilinogen Ur Leukocyte Esterase Urine Glucose ECG Data Attestation: I personally reviewed and interpreted this ECG (s) as follows: Interpretation: Rate of 90, sinus, right bundle branch block. No old EKG to compare. No STEMI. NH 211. QRS 125. QTc 536. HPI General Mode of arrival: ambulatory . Date/Time Provider Initiated Documentation: 03/29/20 11:31 . Limitations to Documentation: no limitations . Information obtained by: patient . HPI Narrative: Patient is a 59-year-old female with a history of anxiety, depression, hypertension, hyperlipidemia, obesity, gastric lap band surgery 10 years ago presents for abdominal pain and nausea for the past 6 days. Patient states her symptoms started initially with intermittent crampy upper abdominal pain with radiation to her right lower quadrant but for the past 2 days her pain has been constant and aching in the epigastrium, right upper quadrant with radiation down to the right lower quadrant and right flank. She states her pain is currently 7/10. She admits to one episode of vomiting 4 days ago but not since then. She states she normally is constipated but has had normal formed brown bowel movements over the past few days. She denies any known fever, chest pain, shortness of breath, cough, urinary symptoms, recent travel, recent sick contacts or recent known exposure to coronavirus. She has not taken any medication for symptoms. Related Data Home Medications Medication Instructions Recorded Confirmed cholecalciferol (vitamin D3) 2,000 unit PO DAILY 05/10/14 03/29/20 [Vitamin D3] levothyroxine [Levoxyl] 150 mcg PO DAILY tab-cap 05/10/14 03/29/20 atorvastatin 20 mg tablet 20 mg PO DAILY 09/12/18 03/29/20 fluticasone propionate 50 2 spray KYLE DAILY PRN 09/12/18 03/29/20 mcg/actuation nasal spray,suspension ipratropium bromide 0.03 % nasal 2 spray KYLE BID PRN 09/12/18 03/29/20 spray montelukast 10 mg tablet 10 mg PO QPM 09/12/18 03/29/20 hydrochlorothiazide 25 mg tablet 25 mg PO DAILY tab-cap 10/16/18 03/29/20 multivitamin,tx-minerals 1 tab PO DAILY 10/16/18 03/29/20 duloxetine 30 mg PO DAILY 03/20/19 03/29/20 losartan 50 mg tablet 75 mg PO DAILY tab 03/14/20 03/29/20 dicyclomine 20 mg PO TID PRN #10 tab 03/29/20 Previous Rx's Medication Instructions Recorded dicyclomine 20 mg PO TID PRN #10 tab 03/29/20 Allergies Allergy/AdvReac Type Severity Reaction Status Date / Time lisinopril AdvReac Intermediate cough Verified 03/29/20 11:35 Penicillins AdvReac Intermediate mouth sores Verified 03/29/20 11:35 shrimp AdvReac Intermediate diarrhea Uncoded 03/29/20 11:35 General Stated Complaint: Abd Prob KAT: 3 Review of Systems All systems reviewed & are unremarkable except as noted in HPI and below Constitutional Constitutional: Reports as per HPI, Denies chills and Denies fever(s) Eyes Eyes: Denies blurry vision ENT Ears, Nose, Mouth, and Throat: Denies dizziness, Denies sore throat and Denies throat swelling Cardiovascular Cardiovascular: Denies chest pain and Denies dyspnea Respiratory Respiratory: Denies cough and Denies dyspnea Gastrointestinal Gastrointestinal: Reports abdominal pain, Denies diarrhea, Reports nausea and Denies vomiting Genitourinary Genitourinary: Denies hematuria and Denies dysuria Musculoskeletal Musculoskeletal: Denies back pain and Denies numbness Integumentary/Breasts Skin/Breast: Denies lesions and Denies rash Neurologic Neurologic: Denies dizziness, Denies localized weakness and Denies numbness Allergic/Immunologic Allergic/Immunologic: Denies throat swelling PFSH Medical History (Updated 03/29/20 @ 15:07 by Tammy Govea DO) Chronic anxiety Depression Hyperlipidemia Hypertension Hypothyroid Lipoma of arm Obesity Osteopenia Vitamin D deficiency Surgical History (Updated 03/14/20 @ 07:59 by Migdalia Callahan) Colonoscopy - IV Sedation Hx of section Hx of myomectomy R arm remove fibroid tumor Lap-band placement S/P colonoscopy (~10/30/18) 2009- S/P excision of lipoma right arm - upper arm/shoulder 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) 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) Family History Other Heart disease Hypertension Social History Smoking/Tobacco Use Status: Former Tobacco Use Tobacco: How many years used: 15 Smoking risk assessment performed?: Yes Alcohol Intake: current Alcohol Intake frequency: a few times a month Alcohol type: beer and hard liquor Drug use: Never Substance use type: does not use 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 [employer] Current gender identity: female What is your relationship status?: Panel score (0-1 are the most socially isolated patients): 1 Do you feel safe at home: Yes Do you feel safe in your relationship?: Yes Additional Social history: - Blanco Exam Const General: cooperative and healthy appearing Orientation: alert and awake [facility] Head: normal to inspection Ears: hearing grossly normal bilaterally and external ears normal General nose exam: external nose normal Face and sinus: normal facial exam Mouth: oral mucosae normal Teeth and gingiva: dentition normal Throat: posterior oropharynx normal Eyes General: appearance normal, both eyes and all related structures Eyelids: eyelids normal Pupils: PERRL EOM: EOM intact bilaterally Neck Neck: normal visual inspection Lymphatic: no lymphadenopathy noted Chest Chest: normal inspection of the chest Resp Effort & Inspection: normal respiratory effort and able to speak in complete sentences Auscultation: clear to auscultation bilaterally Cardio Rate: regular rate Rhythm: regular rhythm GI Inspection: normal to inspection Palpation: soft, not firm, no guarding, no hepatosplenomegaly, no masses and tender in the epigastrum, in the LLQ, in the RLQ and in the RUQ Auscultation: hypoactive bowel sounds Back/Spine/Pelvis Back: no CVA tenderness Skin General skin exam: no rashes or lesions noted Neuro General: patient alert and patient awake Cognition: normal cognition Speech: speech normal Gait: normal gait Motor: muscle tone normal throughout Sensory Exam: no sensory deficits noted Extrem General: normal to inspection, full ROM and capillary refill normal Psych Appearance: grossly normal Mental Status: mental status grossly normal Speech and Movement: speech and movement normal Affect: normal affect Thought Process: normal Course Vital Signs Vital signs: Vital Signs Temperature 97.3 F L 03/29/20 11:30 Pulse 80 03/29/20 11:30 Respiratory Rate 16 03/29/20 11:30 Blood Pressure 163/100 H 03/29/20 11:30 Pulse Oximetry 98 03/29/20 11:30 Temperature 97.3 F L 03/29/20 11:30 Temperature Source Skin 03/29/20 11:30 Pulse 80 03/29/20 11:30 Respiratory Rate 16 03/29/20 11:30 Respiratory Effort Non-Labored 03/29/20 11:33 Blood Pressure 163/100 H 03/29/20 11:30 Blood Pressure Position Sitting 03/29/20 11:30 Pulse Oximetry 98 03/29/20 11:30 Oxygen Delivery Method Room Air 03/29/20 11:30 Oxygen Flow Rate 0 03/29/20 11:30 Pain Level 7 03/29/20 11:30
--- NOTE | 2020-03-29 12:00 | DI.CT_ITS ---
EXAM: CT ABDOMEN PELVIS W INDICATION: RUQ/RLQ abd pain. COMPARISON: US US ABDOMEN LIMITED from 03/29/2020 TECHNIQUE: FINDINGS: CT examination of the abdomen and pelvis was performed with a bolus infusion of 100 cc of Omnipaque 3 50. Images obtained through the lung bases are unremarkable. There is a lap band in position at the gastroesophageal junction. There is a small hiatal hernia. There are bilateral hip joint replacements. The liver is unremarkable in appearance. There is a probable small gallstone. No pericholecystic fluid collection or gallbladder wall thicken ing, no biliary dilatation. Pancreas appears normal. Spleen is unremarkable in appearance. Adrenals appear normal. The kidneys are unremarkable with no evidence of hydronephrosis, nephrolithiasis, or renal mass.. Ur inary bladder unremarkable. Abdominal aorta is of normal diameter and no major vascular abnormality is seen. No abdominal wall hernia. No abdominal or pelvic adenopathy. [employer] structures appear intact. Appendix is normal. There is apparent wall edema of the terminal ileum and cecum. Findings are sugg estive of inflammatory process, Crohn's disease or infectious process should be considered. No evide nce of abscess. Multiple right lower quadrant mesenteric lymph nodes are noted which are less than 1 cm in diameter. There is a small quantity of free fluid in the pelvis consistent with inflammatory process. IMPRESSION: Probable cholelithiasis. Findings suggesting inflammation of terminal ileum and cecum, infectious process versus Crohn's disea se or other cause of enteritis. No evidence of obstruction or perforation. No abscess formation. RADIATION DOSE DELIVERED: 1,378.99mGy.cm Total DLP 1,378.99mGy.cm Total DLP
[2020-03-29] MEDS: Normal Saline 1,000 ML 1000 ML IV (12:05)
[2020-03-29] MEDS: Ondansetron 4 MG/2 ML VIAL IVP (12:10)
[2020-03-29] MEDS: FAMOTIDINE 20 MG/50 ML BAG 200 MG IVPB (12:15)
--- NOTE | 2020-03-29 12:15 | DI.US_ITS ---
EXAM: US ABDOMEN LIMITED CLINICAL HISTORY: RUQ abd pain, r/o acute cholecystitis TECHNIQUE: Ultrasound performed using standard protocol. COMPARISON: No exams were available for comparison FINDINGS: Right upper quadrant ultrasound was performed. Today's CT showed probable gallstone, this correspond s to an echogenic nonshadowing focus which is non mobile in the gallbladder fundus. Probable gallsto ne, polyp not excluded. No pericholecystic fluid collection or gallbladder wall thickening. No bili kelsey dilatation. IMPRESSION: 8 millimeter gallstone versus polyp. No other significant findings. DATA REPOSITORY:
[2020-03-29 12:20] LABS: Abs Immature Grans 0.05 10^3/uL (0.0-0.06); Absolute Basophil Count 0.04 10^3/uL (0.0-0.2); Absolute Eosinophil Count 0.18 10^3/uL (0.0-0.7); Absolute Monocyte Count 0.85 10^3/uL (0.1-0.8); Absolute Neutrophil Count 7.87 10^3/uL (1.2-6.7); Basophils % 0.4; Eosinophils % 1.7; HCT 43.7 % (36.0-46.0); HGB 13.9 g/dL (11.2-15.7); Immature Grans % 0.5; Lymphocytes % 14.3; MCH 27.9 pg (27.0-33.0); MCHC 31.8 % (32.0-36.0); MCV 87.6 fL (80-95); MPV 9.1 fL (8.0-11.0); Monocytes % 8.1; Nucleated RBC 0 %; Platelet Count 348 10^3/uL (130-400); RBC 4.99 10^6/uL (3.93-5.22); RDW 13.3 % (11.7-14.6); RDW-SD 42.4 fL; WBC 10.49 10^3/uL (4.4-10.8)
[2020-03-29 12:32] LABS: ALT 39 U/L (14-59); AST 25 U/L (15-37); Albumin 3.6 g/dL (3.4-5.0); Alkaline Phosphatase 147 U/L (46-116); Anion Gap 7.4 mmol/L (3-11); BUN 13 mg/dL (7-18); Bilirubin, Total 0.6 mg/dL (0.2-1.0); CO2 27.6 mmol/L (21.0-32.0); CREATININE 1.09 mg/dL (0.55-1.02); Calcium 9.2 mg/dL (8.5-10.1); Chloride 104 mmol/L (98-107); Estimated GFR 51.03 (mL/min/1.73m2); Glucose 97 mg/dL (74-106); Lipase 106 U/L (73-393); Potassium 3.8 mmol/L (3.5-5.1); Sodium 139 mmol/L (136-145)
[2020-03-29 12:37] LABS: Bilirubin Negative (Negative); Blood Negative (Negative); Clarity Clear (Clear); Glucose Negative (Negative); Ketones Negative (Negative); Leukocyte Esterase Negative (Negative); Nitrite Negative (Negative); Specific Gravity >= 1.030 (1.005-1.025); Urobilinogen 0.2 EU/dL (Up TO 0.2); pH 5.5 (5-8)
[2020-03-29 12:44] LABS: TSH (W/Ref FT4) 9.32 uIU/mL (0.36-3.74)
[2020-03-29 13:00] LABS: FREE T4 0.91 ng/dL (0.76-1.46)
[2020-03-29] MEDS: Omnipaque 350 MG/ML 100 ML BTL IJ (13:24)
[2020-03-29] MEDS: Normal Saline Flush 10 ML SYR IVP (13:25)
[2020-03-29] MEDS: Normal Saline - Diluent 50 ML VIAL IV (13:25)
--- NOTE | 2020-03-29 14:03 | DI.VRAD_ITS ---
Addendum created by Ousmane Jean DO on 03/29/2020 2:30:40 PM EST: There is a small focus of calcification noted in the gallbladder which could reflect cholelithiasis. There is no pericholecystic fluid collection or gallbladder wall edema to suggest acute inflammation. Initial report created on 03/29/2020 2:03:02 PM EST: PROCEDURE INFORMATION: Exam: CT Abdomen And Pelvis With Contrast Exam date and time: 03/29/2020 12:02 PM Age: 59 years old Clinical indication: Other: Ruq/rlq abd pain; Additional info: R/O gallbladder, pancreatitis, appendicitis, sbo TECHNIQUE: Imaging protocol: Computed tomography of the abdomen and pelvis with intravenous contrast. Radiation optimization: All CT scans at this facility use at least one of these dose optimization techniques: automated exposure control; mA and/or kV adjustment per patient size (includes targeted exams where dose is matched to clinical indication); or iterative reconstruction. Contrast material: OMNIPAQUE 350; Contrast volume: 100 ml; Contrast route: INTRAVENOUS (IV); COMPARISON: CR XR HIP LT COMPLETE AP PELVIS 03/14/2020 8:24 AM FINDINGS: Lungs: There is bibasilar atelectasis . There is small hiatal hernia. Mediastinal space: There is a small hiatal hernia. Liver: Normal. No mass. Gallbladder and bile ducts: Normal. No calcified stones. No ductal dilation. Pancreas: Normal. No ductal dilation. Spleen: Normal. No splenomegaly. Adrenal glands: Normal. No mass. Kidneys and ureters: Normal. No hydronephrosis. Stomach and bowel: Distal large bowel is nondistended. There is diffuse mucosal edema and pericolonic fat stranding in the ascending colon as well as in the cecum and terminal ileum. This is most pronounced in the terminal ileum and cecum. Distal small bowel contains fluid. The proximal small bowel is non-opacified. Appendix is mildly thickened and measures 1.0 cm (image 52 series 4). There are postsurgical changes due to prior lap band gastrectomy. Appendix: See Stomach and bowel finding. Intraperitoneal space: There is mild ascites and pelvic fluid. Vasculature: Unremarkable. No abdominal aortic aneurysm. Lymph nodes: There are mildly enlarged lymph nodes in right hemiabdomen. Urinary bladder: Unremarkable as visualized. Reproductive: Unremarkable as visualized. Bones/joints: There are bilateral hip arthroplasty. There are mild degenerative changes in the thoracolumbar spine. Soft tissues: Unremarkable. IMPRESSION: 1. Marked mural thickening and edema in the terminal ileum and cecum with subjacent stranding and to lesser extent in the ascending colon likely reflects terminal ileitis and colitis/cecitis and could be sequela of infection /inflammation or Crohn's disease. Appendix is mildly dilated and measures up to 1.0 cm which could be reactive, however follow-up CT scan is recommended. There is no bowel perforation or or bowel obstruction. There is no abscess. Mildly enlarged lymph nodes in the subjacent region is felt to be reactive due to associated infection inflammation. 2. Status post lap banding procedure in the stomach. There is small hiatal hernia. THIS REPORT CONTAINS FINDINGS THAT MAY BE CRITICAL TO PATIENT CARE. The findings were verbally communicated via telephone conference at 1:59 PM EST on 03/29/2020 with moreno gunter. The findings were acknowledged and understood. Dictated and Authenticated by: Ousmane Jean MD. Ordering:ERICA Munoz MD
--- NOTE | 2020-03-29 14:29 | DI.VRAD_ITS ---
PROCEDURE INFORMATION: Exam: US Abdomen; Limited Exam date and time: 03/29/2020 2:05 PM Age: 59 years old Clinical indication: Patient HX: Ruq pain, ? acute cholecystitis TECHNIQUE: Imaging protocol: US abdomen. Real time ultrasound with image documentation. Limited exam focused on the region of clinical interest. COMPARISON: CT ABDOMEN PELVIS W 03/29/2020 1:29 PM FINDINGS: Liver: Visualized liver is unremarkable. Gallbladder: Gallbladder is normally distended. There is 8 mm echogenic focus noted in the fundus of the gallbladder which is nonmobile and with minimal acoustic shadowing. This could represent gallstone versus polyp. There is no pericholecystic fluid collection. Gallbladder wall is smooth and is of 2.7 mm. Sonographic Palmer sign is reported to be negative. IMPRESSION: Echogenic focus in the gallbladder in the dependent portion of fundus could reflect cholelithiasis or sludge ball or polyp.There is no pericholecystic fluid collection or gallbladder wall edema to suggest acute inflammation. Sonographic Palmer sign is reported to be negative. Dictated and Authenticated by: Ousmane Jean MD. Ordering:ERICA Munoz MD
[2020-03-29 14:33] VITALS: BP 136/76; PULSE 69; RESP 20; TEMP 36.7; O2SAT 98
[2020-03-29] MEDS: Dicyclomine 20 MG TAB 40 MG PO (15:38)
[2020-03-29 15:45] VITALS: BP 136/76; PULSE 69; RESP 20; TEMP 36.7; O2SAT 98
== END 2020-03-29 15:45 | disposition home or self-care (01) ==
PROVIDERS: Emergency Provider Physician Assistant; PCP Family Medicine
DX: A08.4 Viral intestinal infection, unspecified (principal); R10.13 Epigastric pain; I10 Essential (primary) hypertension
CPT/HCPCS: 36415; 80053; 83690; 96361; 96365; 96375; 99285; 74177; 76705; 81003; 84439; 84443; 85025; J2405; J3490

== ENCOUNTER 2020-04-17 00:38 | Outpatient (CLI) | payer BC, SELFPAY ==
--- NOTE | 2020-04-17 15:55 | DI.MAMMO_ITS ---
EXAM: MG MAMMO SCREENING CLINICAL HISTORY: SCREENING,Z12.39 TECHNIQUE: Bilateral full field digital CC and MLO mammographic images were obtained with 3D tomosyn thesis and utilizing computer aided detection (CAD). COMPARISON: Available for comparison. FINDINGS: Masses/Architectural Distortion: None seen. Microcalcifications: No suspicious pleomorphic-type are seen. Skin Thickening/Nipple Retraction: None. IMPRESSION: 1. No significant interval change with no specific features of malignancy noted. 2. Unless there is more urgent need, screening mammography is recommended, as per [employer] guidelines. BI-RADS Category 1 - Negative Breast Density - Category C - Heterogeneously dense Breast density category C or D implies that the patient has dense breast tissue. Dense breast tissue is very common and is not abnormal but dense breast tissue can make it harder to find cancer on a ma mmogram. Also, dense breast tissue may increase their breast cancer risk. This information about the result of the mammogram report was provided to the patient to raise their awareness. Use this report when you speak with the patient about their risks for breast cancer, which includes their family hist ory. At that time, you may recommend for more screening tests (Ultrasound or MRI) as they might be us eful based on their risk. A negative radiographic report should not delay biopsy if a dominant or clinically suspicious mass is present. Up to ten percent of cancers are not identified on mammography. A negative report may reinforce clinical impression. Adenosis and dense breasts may obscure an underlying neoplasm. False positive reports average 6 to 10%. Patient will receive a letter notifying them of these results.
== END 2020-04-17 00:58 ==
PROVIDERS: PCP Family Medicine; Visit Provider Family Medicine
DX: Z12.31 Encounter for screening mammogram for malignant neoplasm of breast (principal)
CPT/HCPCS: 77063; 77067

== ENCOUNTER 2020-05-20 19:24 | Outpatient (REF) | payer BC, SELFPAY ==
[2020-05-20 18:54] LABS: ALT 26 U/L (14-59); AST 19 U/L (15-37); Albumin 4.2 g/dL (3.4-5.0); Alkaline Phosphatase 114 U/L (46-116); BUN 19 mg/dL (7-18); Bilirubin, Total 0.4 mg/dL (0.2-1.0); Calcium 9.5 mg/dL (8.5-10.1); Chloride 99 mmol/L (98-107); Glucose 103 mg/dL (74-106); Potassium 3.7 mmol/L (3.5-5.1); Sodium 135 mmol/L (136-145); TSH (W/Ref FT4) 3.51 uIU/mL (0.36-3.74); Total Protein 7.7 g/dL (6.4-8.2)
[2020-05-22 04:45] LABS: Vitamin D 25 Total 16.2 ng/ml (30-100)
== END 2020-05-20 19:44 ==
LOC: NCHCN 19:24
PROVIDERS: PCP Family Medicine; Visit Provider Family Medicine
DX: E03.9 Hypothyroidism, unspecified (principal); E55.9 Vitamin D deficiency, unspecified; N28.9 Disorder of kidney and ureter, unspecified; R74.8 Abnormal levels of other serum enzymes
CPT/HCPCS: 80053; 82306; 84443

== ENCOUNTER 2020-06-19 11:27 | Outpatient (REF) | payer BC, SELFPAY ==
[2020-06-19 11:45] LABS: C-Reactive Protein 0.08 mg/dL (0.0-0.3)
[2020-06-19 18:51] LABS: ESR 50 mm/hr (<or=30)
[2020-06-20 15:41] LABS: ANA Interpretation Positive (Negative); ANA Titer Pattern 1:160 Homogeneous
== END 2020-06-19 11:28 | disposition home or self-care (01) ==
LOC: LBN 11:27
PROVIDERS: PCP Family Medicine; Visit Provider Surgery
DX: M07.69 Enteropathic arthropathies, multiple sites (principal); M19.90 Unspecified osteoarthritis, unspecified site; K63.9 Disease of intestine, unspecified; K80.20 Calculus of gallbladder without cholecystitis without obstruction; Z96.641 Presence of right artificial hip joint
CPT/HCPCS: 85652; 86038; 86140

== ENCOUNTER 2020-06-20 02:03 | Outpatient (CLI) | payer BC, SELFPAY ==
[2020-06-21 13:52] LABS: COVID-19 RT-PCR UVMMC Result Negative (Negative)
== END 2020-06-20 02:04 | disposition home or self-care (01) ==
LOC: LBO 02:03
PROVIDERS: PCP Family Medicine; Visit Provider Surgery
DX: Z20.822 Contact with and (suspected) exposure to COVID-19 (principal); Z01.818 Encounter for other preprocedural examination
CPT/HCPCS: U0003

== ENCOUNTER 2020-06-24 06:16 | Day surgery (SDC) | payer BC, SELFPAY ==
[2020-06-24] VITALS (7 sets, daily range): BP systolic 124–139; BP diastolic 54–76; PULSE 52–75; RESP 10–19; TEMP 36–36.5; O2SAT 97–100
[2020-06-24] MEDS: Acetaminophen 500 MG TAB 1000 MG PO (07:12)
[2020-06-24] MEDS: Gabapentin 300 MG CAP PO (07:13)
[2020-06-24] MEDS: Lactated Ringers 1,000 ML 80 ML IV (07:13)
[2020-06-24] MEDS: CLINDAMYCIN 600 MG/50 ML BAG 100 MG IVPB (07:39)
--- NOTE | 2020-06-24 09:00 | GB_PTH ---
PATIENT: Tamie Richmond LOC: [facility] U#:[id number] AGE/SX: 59/F ROOM: RE06/24/[address]: Migdalia Ocampo : 1960 BED: DIS: 06/24/2020 SPEC #: [id number] RECD: 06/24/20 12:51 STATUS: SETH REQ #: [id number] JULIEN: 06/24/20 09:[address]: Migdalia Ocampo DEPT: Surgical Specimen RECD BY: Millie Tenorio ENTERED: 06/24/20 12:53 SP TYPE: GB OTHR DR: Soy Conley Tissues: 1 - GALLBLADDER Procedures: GROSS AND MICRO LEVEL 3 Comments: [id number]
[2020-06-24] MEDS: Bupivacaine 0.25% Pres-Free 30 ML VIAL (09:29)
--- NOTE | 2020-06-24 09:53 | W.PM.OP ---
Date of service: 06/24/20 Time of Service: 09:53 Operative Note Operative Note DATE OF PROCEDURE: 06/24/20 PRE-OP DIAGNOSIS: chornic sascha w/ stones POST-OP DIAGNOSIS: other PROCEDURE: lpa sascha SURGEON: Migdalia Yancey [employer]: Migdalia Callahan ANESTHESIA TYPE: General LMA/ETT Refer to Anesthesia Record ESTIMATED BLOOD LOSS: 10 PATHOLOGY: other COMPLICATIONS: None Patient was transported to: PACU Procedure Description: INDICATIONS: The pt is seen at the request of there PCP regarding acute on chronic cholecystitis, cholelithiasis. The pt has failed outpt conservative medical measures and is here today for laparoscopic cholecystectomy. Informed consent was obtained, explaining risks and benefits of the procedure including but not limited to bleeding, infection, pneumonia, blood clots, possible damage to bowel, bladder, blood vessels, bile ducts, possible open procedure, complications of general anesthesia and other unforetold complications. PROCEDURE: The patient agrees and is brought to the operative room suite and placed in supine position. Anesthesia was administered per the Department of Anesthesia. The patient did receive IV antibiotics. NG tube and Stratton catheter are placed. The patient was prepped and draped in the usual sterile fashion using DuraPrep scrub solution. Pause for the cause was done. 20 mL of 1% buffered lidocaine was used for local anesthetization. The area of her LAP-BAND was marked. A Cutdown was done 2 fingerbreadths above the umbilicus, because of the previous lap band placement. This was done in standard fashion using 2-0 Vicryl anchor sutures. A finger is placed into the peritoneum and swept- there is no adhesions, and the Sahni was placed. Insufflation was begun. The camera inserted through the port and shows no damage to underlying structures. The lap band is visualized and we are not near this insertion point. Nor is there any significant scarring in the right upper quadrant that would hinder us from proceeding with this procedure. A 10 mm port was then placed in the epigastric position under direct visualization following creation of local field blocks as well as two 5 mm ports in the right upper quadrant. The gallbladder fundus was grasped and retracted towards the right shoulder. Infundibulum was grasped and retracted laterally. The hepat-duodenal ligament is entered. The cystic duct and artery are dissected out and the most inferior portion of the gallbladder plate is removed from the liver and the critical view of safety was obtained after clearing away all fatty material. Endo Clips were placed across the duct and artery and these structures are divided. The remainder of the gallbladder was excised from the liver bed. The gallbladder was placed in a bag and brought out. Examination of the gallbladder shows indeed the cystic duct and artery to have been divided. The remainder of the abdomen was copiously irrigated with a liter of saline. All saline is removed. There is no bleeding or bile leakage from the liver bed or the clips sites. An EndoClose needle was used to close the 10 mm port site with an 0 Vicryl. All ports and instruments are removed. SPonge and needle counts are correct. Pneumoperitoneum is evacuated and the port sites are monitored to make sure there is no bleeding at the time of desufflation. The fascia at Sahni trocar site is closed w/ 2-0 interrupted vicryl. The port sites are irrigated, and the skin is closed with 4-0 Monocryl in a running subcuticular fashion. Skin glue is applied. The patient tolerated the procedure well without complications, transferred to the recovery room in stable condition. MIGDALIA YANCEY DO
[2020-06-24] MEDS: Normal Saline 10 ML VIAL IJ (10:08)
[2020-06-24] MEDS: HYDROmorphone 2 MG/ML VIAL IVP (10:08)
--- NOTE | 2020-06-24 10:25 | W.PM.DSUDISC ---
Discharge Plan Disposition Patient Disposition: HOME Condition: Good Discharge Details Reason For Visit: GB removal Attending Provider: Migdalia Ocampo Primary Care Provider: Soy Conley [place] Meds and New Rx's Prescriptions: New ondansetron HCl [Zofran] 4 mg tablet 4 mg PO Q6H PRN (Reason: nausea) Qty: 5 RF: 0 ibuprofen 600 mg tablet 600 mg PO Q6H PRNQty: 90 RF: 0 tramadol [Ultram] 50 mg tablet 50 mg PO Q4H PRN (Reason: pain) Qty: 14 RF: 0 Continued ipratropium bromide 0.03 % spray,non-aerosol 2 spray KYLE BID PRNRF: 0 fluticasone propionate 50 mcg/actuation spray,suspension 2 spray KYLE DAILY PRNRF: 0 atorvastatin 20 mg tablet 20 mg PO DAILY RF: 0 montelukast [Singulair] 10 mg tablet 10 mg PO QPM RF: 0 losartan 50 mg tablet 75 mg PO DAILY RF: 0 multivitamin,tx-minerals tablet 1 tab PO DAILY RF: 0 levothyroxine [Levoxyl] 150 MCG tablet 150 mcg PO DAILY RF: 0 cholecalciferol (vitamin D3) [Vitamin D3] 2,000 UNIT capsule 2,000 unit PO QWEEK RF: 0 hydrochlorothiazide 25 mg tablet 25 mg PO DAILY RF: 0 dicyclomine 20 mg tablet 20 mg PO TID PRN (Reason: abdominal pain) Qty: 10 RF: 0 duloxetine 30 mg Capsule,Delayed Release(Dr/Ec) 30 mg PO DAILY RF: 0 Discharge Instructions Additional Instructions: Care after Gallbladder Surgery -You should walk frequently, gradually, increasing the distance. You may climb stairs, just go slowly. -You can take Advil 600mg 4 times a day with food for the first week for pain; you may take your prescription medication as prescribed-in addition to the Advil. Discontinue Advil if it hurts your stomach. Do not take Advil if you are intolerant to aspirin products or have stomach problems. ? Use an ice bag for the first 72 hours. This helps to decrease swelling, which causes pain. It is normal to be more sore/painful and swollen towards the end of the day and first thing in the morning. ? Gallbladder surgery can make you very nauseated; use Zofran for nausea, for the first 24 hours. The nausea generally stops after 24 hours. ? Use milk of magnesia or prune juice to prevent constipation (this is a particular side effect of pain medication). Do not allow yourself to become constipated. ? Avoid fatty or greasy foods; introduce these slowly, with care, after about 1 month. Follow the low-fat diet sheet that will be given to you at the office or hospital. ? Start out eating very small, bland amounts of food. Do not take pain pills on an empty stomach. - You can remove the Band-Aids and take a shower 24 hours after surgery. There will be some narrow white strips of tape across your incisions (under the Band-Aids). DO NOT REMOVE THESE. It is all right if they get wet. They will be removed in the doctor?s office. ? Do not go swimming or sit in a hot tube for two weeks. ? There are no stitches to remove. ? Do not drive your car x72hrs and then only if you have no pain and can move freely. Do not drive if you are taking pain narcotic pain medications. ? You may resume sexual activity whenever pain and soreness subside, usually in 2 weeks. ? Do no lift anything over 5 lbs. for the first 10 days. Minimize strenuous activity for the next two weeks. ? You may return to work in one week, or when you feel able, provided you do not have to do any heavy lifting or prolonged standing. ? You should return to Dr. Ocampo?s office for a post-op appointment about one week after surgery. Please call the Surgical Clinic at: [phone] to schedule an appointment. My Medications for pain and nausea are: ibuprofen and ultram and zofran When to Call the Office: ? If the incision becomes red or swollen, or there is more than a little drainage from it. ? If you develop a temperature higher than 100.5 F. ? If your eyes turn yellow ? Vomiting and can?t keep fluids down Activity:: see above Remove Dressings/Wound Care:: 24 hours Shower/Bathe:: 24 hours Diet:: low fat-see above Discharge Orders Discharge Orders: Discharge Order (Routine); Ordered 06/24/20 Ordered By: Migdalia Ocampo Discharge Data Discharge Date/Time-TO BE ENTERED AT DEPARTURE: 06/24/20 12:23 DS: Diagnosis Discharge Diagnosis (1) Gallstones without obstruction of gallbladder: Status: Acute (2) Lap-band placement: Status: None
== END 2020-06-24 12:23 | disposition home or self-care (01) ==
PROVIDERS: PCP Family Medicine; Visit Provider Surgery
PROC: 0FT44ZZ Resection of Gallbladder, Percutaneous Endoscopic Approach (ICD-10-PCS; CPT 47562; principal; 2020-06-24 07:30)
DX: K80.10 Calculus of gallbladder with chronic cholecystitis without obstruction (principal); K21.9 Gastro-esophageal reflux disease without esophagitis; Z98.84 Bariatric surgery status
CPT/HCPCS: 47562; 88304; J1100; J1885; J2001; J2370; J2405; J2704; J3475

== ENCOUNTER 2020-10-01 18:44 | Outpatient (REF) | payer BC, SELFPAY ==
[2020-10-01 18:04] LABS: HCT 40.6 % (36.0-46.0); HGB 12.9 g/dL (11.2-15.7); MCH 25.8 pg (27.0-33.0); MCHC 31.8 % (32.0-36.0); MCV 81.2 fL (80-95); MPV 9.3 fL (8.0-11.0); Platelet Count 388 10^3/uL (130-400); RDW 15.1 % (11.7-14.6)
[2020-10-01 18:46] LABS: ALT 33 U/L (14-59); AST 25 U/L (15-37); Albumin 3.9 g/dL (3.4-5.0); Alkaline Phosphatase 123 U/L (46-116); Anion Gap 10.3 mmol/L (3-11); BUN 16 mg/dL (7-18); Bilirubin, Total 0.5 mg/dL (0.2-1.0); CO2 25.7 mmol/L (21.0-32.0); CREATININE 1.1 mg/dL (0.55-1.02); Calcium 9.2 mg/dL (8.5-10.1); Chloride 103 mmol/L (98-107); Estimated GFR 50.33 (mL/min/1.73m2); Glucose 95 mg/dL (74-106); Potassium 4.3 mmol/L (3.5-5.1); Sodium 139 mmol/L (136-145); Total Protein 7.4 g/dL (6.4-8.2)
[2020-10-02 04:56] LABS: Vitamin D 25 Total 14.9 ng/mL (30-100)
== END 2020-10-01 18:45 | disposition home or self-care (01) ==
LOC: NCHCN 18:44
PROVIDERS: PCP Family Medicine; Visit Provider Family Medicine
DX: E03.9 Hypothyroidism, unspecified (principal); G25.2 Other specified forms of tremor; R04.0 Epistaxis; N28.9 Disorder of kidney and ureter, unspecified; E55.9 Vitamin D deficiency, unspecified
CPT/HCPCS: 80053; 82306; 85027; 84443

== ENCOUNTER 2021-06-12 13:29 | Outpatient (REF) | payer BC, SELFPAY ==
[2021-06-14 10:30] LABS: COVID-19 RT-PCR UVMMC Result Negative (Negative)
== END 2021-06-12 13:30 | disposition home or self-care (01) ==
LOC: LBN 13:29
PROVIDERS: PCP Family Medicine; Visit Provider Physician Assistant Medical
DX: Z20.822 Contact with and (suspected) exposure to COVID-19 (principal); R51.9 Headache, unspecified
CPT/HCPCS: U0003

== ENCOUNTER 2021-06-15 10:34 | Outpatient (REF) | payer BC, SELFPAY ==
[2021-06-15 17:42] LABS: ESR 23 mm/hr (0-30)
[2021-06-15 18:22] LABS: Vitamin D 25 Total 14.8 ng/mL (30-100)
[2021-06-15 18:48] LABS: ALT 32 U/L (14-59); AST 24 U/L (15-37); Albumin 3.8 g/dL (3.4-5.0); Alkaline Phosphatase 96 U/L (46-116); Anion Gap 10.3 mmol/L (3-11); BUN 19 mg/dL (7-18); Bilirubin, Total 0.3 mg/dL (0.2-1.0); CO2 26.7 mmol/L (21.0-32.0); Chloride 106 mmol/L (98-107); Estimated GFR 56.18 (mL/min/1.73m2); Glucose 104 mg/dL (74-106); Potassium 3.9 mmol/L (3.5-5.1); Sodium 143 mmol/L (136-145); TSH (W/Ref FT4) 2.15 uIU/mL (0.36-3.74); Total Protein 7.1 g/dL (6.4-8.2)
== END 2021-06-15 10:35 | disposition home or self-care (01) ==
LOC: NCHCN 10:34
PROVIDERS: PCP Family Medicine; Visit Provider Family Medicine
DX: E03.9 Hypothyroidism, unspecified (principal); N28.9 Disorder of kidney and ureter, unspecified; R51.9 Headache, unspecified; R74.8 Abnormal levels of other serum enzymes; I10 Essential (primary) hypertension; E55.9 Vitamin D deficiency, unspecified
CPT/HCPCS: 80053; 82306; 85652; 83735; 84443

== ENCOUNTER 2021-06-16 06:20 | Emergency (ER) | payer BC, SELFPAY ==
[2021-06-16] VITALS (62 sets, daily range): BP systolic 163–203; BP diastolic 68–105; PULSE 54–103; RESP 11–20; TEMP 36.1; O2SAT 93–100
--- NOTE | 2021-06-16 06:45 | DI.CT_ITS ---
Exam(s) CT HEAD SINUS WO EXAM: CT HEAD SINUS WO CLINICAL HISTORY: frontal headache. TECHNIQUE: Imaging Protocol: Axial computed tomography images with coronal and sagittal reformatted images were created and reviewed. No IV Contrast COMPARISON: CT HEAD WITHOUT CONTRAST from 07/15/2017 FINDINGS: CT BRAIN WITHOUT IV CONTRAST: There are no skull fractures. No skull lesions. Visualized sinuses are clear. There is no evidence of intracranial hemorrhage, mass effect, or shift of midline structures. No ext ra-axial fluid collections. Ventricles are not enlarged or shifted and there is no blood within the ventricular system nor within the basal cisterns. There is relatively symmetrical periventricular hypodensity consistent with chronic small vessel dise ase. No obvious territorial infarction. CT PARANASAL SINUSES WITHOUT IV CONTRAST: MAXILLARY SINUSES: No significant mucosal thickening nor fluid levels. There is no evidence of bone dehiscence. OSTIOMEATAL UNITS: Patent bilaterally ETHMOIDAL AIR CELLS: Well aerated. No mucosal thickening nor fluid levels. SPHENOID SINUSES: Well aerated. No mucosal thickening nor fluid levels. FRONTAL SINUSES: Well aerated. No mucosal thickening nor fluid levels. NASAL SEPTUM AND TURBINATES:Nasal septum is relatively midline with no evidence of significant nasal septal spur. There is nicole bullosa of the left middle turbinate but nonobstructive. IMPRESSION: 1. No acute intracranial findings. Periventricular white matter hypodensity consistent with chronic small vessel disease. No obvious acute infarct. 2. Paranasal sinuses are clear. No significant mucosal thickening nor fluid levels therein. Nicole bullosa of the left middle turbinate incidentally noted. This is not obstructive. The adjacent lef t ostiomeatal unit and nasal passage clear. RADIATION DOSE DELIVERED: 916.95mGy.cm Total DLP DATA REPOSITORY: All CT scans at this facility are submitted to the National Radiology Data Registry (NRDR) Dose Index Registry (DIR) with the [employer] ([employer]). RADIATION OPTIMIZATION: All CT scans at this facility use at least one of these dose optimization te chniques: automated exposure control; mA and/or kV adjustment per patient size (includes targeted exa ms where dose is matched to clinical indication); or iterative reconstruction.
--- NOTE | 2021-06-16 06:55 | ED.GENADUL_ITS ---
Discharge Plan Disposition Patient Disposition: HOME Condition: Improving Discharge Details Clinical Impression: Headache Primary Care Provider: Soy Conley ED Provider: Tammy Govea Home Meds and New Rx's Prescriptions: Continued ipratropium bromide 0.03 % spray,non-aerosol 2 spray KYLE BID PRN0RF fluticasone propionate 50 mcg/actuation spray,suspension 2 spray KYLE DAILY PRN0RF atorvastatin 20 mg tablet 20 mg PO DAILY 0RF montelukast [Singulair] 10 mg tablet 10 mg PO QPM 0RF losartan 50 mg tablet 75 mg PO DAILY 0RF multivitamin,tx-minerals tablet 1 tab PO DAILY 0RF levothyroxine [Levoxyl] 150 MCG tablet 150 mcg PO DAILY 0RF cholecalciferol (vitamin D3) [Vitamin D3] 2,000 UNIT capsule 2,000 unit PO QWEEK 0RF hydrochlorothiazide 25 mg tablet 25 mg PO DAILY 0RF dicyclomine 20 mg tablet 20 mg PO TID PRN (Reason: abdominal pain) Qty: 10 0RF duloxetine 30 mg Capsule,Delayed Release(Dr/Ec) 30 mg PO DAILY 0RF ondansetron HCl [Zofran] 4 mg tablet 4 mg PO Q6H PRN (Reason: nausea) Qty: 5 0RF ibuprofen 600 mg tablet 600 mg PO Q6H PRNQty: 90 0RF Rx Instructions: take w/ food tramadol [Ultram] 50 mg tablet 50 mg PO Q4H PRN (Reason: pain) Qty: 14 0RF Rx Instructions: pain >7 Discharge Instructions Instructions: General Headache (ED) Additional Instructions: Your lab work and imaging today is reassuring and shows no evidence of acute significant or concerning findings. Drink plenty of fluids and get plenty of rest. Continue to alternate Tylenol and ibuprofen as needed and directed for pain. Call Dr. Conley's office today to schedule a follow-up appointment for reevaluation within the next week. You will receive a call regarding a follow-up appointment with the neurologist Dr. Merino. You can also call her office in the next week to confirm this follow-up appointment. Return immediately to the emergency department if you develop any worsening or new concerning symptoms. Referrals: Salma Merino MD [ [facility] STAFF PHYSICIAN] - Discharge Data Discharge Physician: Tammy Govea Medical Decision Making <Shahbaz Orozco MD - Last Filed: 06/16/21 07:39> 60-year-old female reports weeks of headaches that have been daily and persistent and recurrent. She has seen Dr. Howell for these and on June 15 had screening blood work including chemistry and ESR which was negative. She reports current headache began yesterday, woke her up early after taking Tylenol and ibuprofen to get some hours of sleep. She has not had a fever, rash, fall or traumatic injury. No neck pain. She does have longstanding hypertension for which she takes losartan hydrochlorothiazide. Patient arrives hypotensive approximately 180 over 70s to 80s. Differential diagnosis includes migraine type headache, sinusitis, must exclude intracranial mass or hemorrhage. Patient IV access established, screening labs repeated and she is referred for imaging & parenteral medications. Labs from June 15: ESR of 23, BUN 19, creatinine 1.0, LFTs unremarkable. We will sign the patient out to Dr. Govea at change of shift. Please see her note regarding details of today's imaging and laboratory studies. <Tammy Govea DO - Last Filed: 06/16/21 13:20> 60-year-old female reports weeks of headaches that have been daily and persistent and recurrent. She has seen Dr. Howell for these and on June 15 had screening blood work including chemistry and ESR which was negative. She reports current headache began yesterday, woke her up early after taking Tylenol and ibuprofen to get some hours of sleep. She has not had a fever, rash, fall or traumatic injury. No neck pain. She does have longstanding hypertension for which she takes losartan hydrochlorothiazide. Patient arrives hypertensive approximately 180 over 70s to 80s. Differential diagnosis includes migraine type headache, sinusitis, must exclude intracranial mass or hemorrhage. Patient IV access established, screening labs repeated and she is referred for imaging & parenteral medications. Labs from June 15: ESR of 23, BUN 19, creatinine 1.0, LFTs unremarkable. We will sign the patient out to Dr. Govea at change of shift. Please see her note regarding details of today's imaging and laboratory studies. 0800 --please see Dr. Orozco's note for initial presentation, exam and plan. Case endorsed to follow-up on CT imaging and patient's response to medications. Patient assessed by me at bedside. She states her headache was 8/10 on arrival and is currently 2-3/10. She denies sudden onset of headache 2 weeks ago and states it does improve in the middle of the day and becomes worse at night and when supine. Describes it is mainly squeezing and pressure. History and presentation does not appear consistent with subarachnoid hemorrhage and denies any sudden onset or thunderclap quality. She appears nontoxic and denies fever and has no meningeal signs so meningitis appears unlikely. As patient's headache is still present and she denies any history of headaches, will obtain a CTA head and neck. Do not see an indication for MRI brain at this time. Will give additional IV fluids and reassess. CTA head and neck reviewed with radiology and notes increase in periventricular white matter as seen on Noncontrast CT head but this was present on a scan in 2016 and notes only slight progression. Recommends MRI/MRA for further evaluation. MRI/MRA brain negative for acute infarct but does note chronic periventricular white matter changes which could be chronic ischemic changes consistent most likely with hypertension. Patient reassessed and she feels much better and would like to go home. Patient placed on neurology follow-up list for further evaluation for headache. Advised to follow-up with Dr. Conley within the next week. Usual and customary return precautions given prior to discharge. Medical Records Medical records reviewed: Yes I reviewed the patient's medical records. Imaging Data Radiologic Study: Radiologist's impression: CT HEAD ? SINUS WO CLINICAL HISTORY: ? frontal headache. ? TECHNIQUE:? Imaging Protocol: Axial computed tomography images with coronal and sagittal reformatted images were created and reviewed. No IV Contrast COMPARISON:? CT HEAD WITHOUT CONTRAST from 07/15/2017 FINDINGS: CT BRAIN WITHOUT IV CONTRAST: There are no skull fractures.? No skull lesions.? Visualized sinuses are clear. There is no evidence of intracranial hemorrhage, mass effect, or shift of midline structures.? No extra-axial fluid collections.? Ventricles are not enlarged or shifted and there is no blood within the ventricular system nor within the basal cisterns. There is relatively symmetrical periventricular hypodensity consistent with chronic small vessel disease.? No obvious territorial infarction. CT PARANASAL SINUSES WITHOUT IV CONTRAST: MAXILLARY SINUSES: No significant mucosal thickening nor fluid levels. There is no evidence of bone dehiscence. OSTIOMEATAL UNITS: Patent bilaterally ETHMOIDAL AIR CELLS: Well aerated.? No mucosal thickening nor fluid levels. SPHENOID SINUSES: Well aerated.? No mucosal thickening nor fluid levels. FRONTAL SINUSES: Well aerated.? No mucosal thickening nor fluid levels. NASAL SEPTUM AND TURBINATES:Nasal septum is relatively midline with no evidence of significant nasal septal spur. There is nicole bullosa of the left middle turbinate but nonobstructive. IMPRESSION: 1.? No acute intracranial findings.? Periventricular white matter hypodensity consistent with chronic small vessel disease.? No obvious acute infarct. 2.? Paranasal sinuses are clear.? No significant mucosal thickening nor fluid levels therein.? Nicole bullosa of the left middle turbinate incidentally noted.? This is not obstructive.? The adjacent left ostiomeatal unit and nasal passage clear. MR ANGIO BRAIN WO CLINICAL HISTORY:? headache, r/o acute cva TECHNIQUE:? Performed with [id number] sequence on a 1.5 yumiko unit COMPARISON:? No exams were available for comparison FINDINGS: ANTERIOR CIRCULATION: Both internal carotid arteries are demonstrated be patent in the skull base-carotid canals as well as within the cavernous sinuses. The supraclinoid aspects of these vessels are patent and nonaneurysmal. Both a 1 segments are patent as are the anterior cerebral arteries and there is no evidence of aneurysm at the level of the anterior communicating artery. Both middle cerebral arteries are patent with no evidence of significant stenosis nor intraluminal filling defects and no aneurysms of these vessels demonstrated out to and including the sylvian fissure branches. POSTERIOR CIRCULATION: The basilar artery is formed at the skull base by contribution from both vertebral arteries. The basilar artery ascends in the midline with normal luminal diameter. Distally it gives off patent superior cerebellar arteries and above this level terminates as posterior cerebral arteries. Left posterior cerebral artery also receives flow via a posterior communicating artery on the left side of the [id number]. There is no a neurysm evident at the tip of the basilar artery nor elsewhere in the [id number]. IMPRESSION: 1. Patent intracranial arteries as described above. 2. No evidence of significant stenosis and no aneurysms evident. MR BRAIN WO CLINICAL HISTORY:? headache, r/o acute cva TECHNIQUE:? Multiplanar multisequence MRI of the brain was performed. COMPARISON:? MR MR ANGIO BRAIN WO from 06/16/2021 FINDINGS: CEREBRAL PARENCHYMA: There is no evidence of intracranial hemorrhage, mass effect, or shift of midline structures.? There are no extra-axial fluid collections.? Ventricles are not enlarged or shifted. There is no significant focal signal abnormality in the cerebellar hemispheres nor within the leonel, midbrain, and thalami. However, there are abundant foci of signal abnormality in the Tati and supraventricular white matter bilaterally, this corresponding to the areas of hypodensity in the white matter as seen on today's CT scan.? These are nonhemorrhagic and are not associated with signal abnormality on diffusion imaging to suggest acute ischemic event. No evidence of microhemorrhages on susceptibility weighted imaging PITUITARY GLAND: No mass nor parasellar abnormality. No obvious abnormality in the cavernous sinuses. 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 No significant ventriculomegaly above this level FLOW VOIDS: The expected flow void are noted. No evidence of obvious aneurysm nor obvious vascular malformation. PARANASAL SINUSES: The visualized paranasal sinuses appear unremarkable. No obvious finding ORBITS: No obvious findings. IMPRESSION: 1. No evidence of acute infarct nor hemorrhage. 2. There is abundant bilateral periventricular signal abnormality.? Main consideration is for chronic ischemic changes versus inflammatory, including Lyme disease. 3. See separate brain MRA dictation. Lab Data Lab results reviewed: Yes I reviewed the patient's lab results. Labs: Laboratory Tests Range/Units 06/16/21 06/16/21 06/16/21 06:45 06:45 06:45 WBC (4.4-10.8) 10^3/uL 9.01 RBC (3.93-5.22) 10^6/uL 5.02 Hgb (11.2-15.7) g/dL 14.2 Hct (36.0-46.0) % 43.7 MCV (80-95) fL 87.1 MCH (27.0-33.0) pg 28.3 MCHC (32.0-36.0) % 32.5 RDW (11.7-14.6) % 12.1 Plt Count (130-400) 10^3/uL 353 MPV (8.0-11.0) fL 9.1 Immature Gran % 0.4 Neutrophils % 70.4 Lymphocytes % 20.3 Monocytes % 6.4 Eosinophils % 1.6 Basophils % 0.9 Nucleated RBC % % 0 Absolute Neutrophils (1.2-6.7) 10^3/uL 6.34 Absolute Lymphocytes (1.2-3.4) 10^3/uL 1.83 Absolute Monocytes (0.1-0.8) 10^3/uL 0.58 Absolute Eosinophils (0.0-0.7) 10^3/uL 0.14 Absolute Basophils (0.0-0.2) 10^3/uL 0.08 Sodium (136-145) mmol/L 139 Potassium (3.5-5.1) mmol/L 3.6 Chloride (98-107) mmol/L 101 Carbon Dioxide (21.0-32.0) mmol/L 28.1 Anion Gap (3-11) mmol/L 9.9 BUN (7-18) mg/dL 18 Creatinine (0.55-1.02) mg/dL 1.0 Estimated GFR/1.73 m2 (mL/min/1.73m2) 56.18 Glucose (74-106) mg/dL 122 H Calcium (8.5-10.1) mg/dL 9.1 C-Reactive Protein (0.0-0.3) mg/dL < 0.05 HPI <Shahbaz Orozco MD - Last Filed: 06/16/21 07:39> General Mode of arrival: ambulatory . Date/Time Provider Initiated Documentation: 06/16/21 06:37 . Limitations to Documentation: no limitations . Information obtained by: patient . History of Present Illness 60 year old F presents to the emergency department with the chief complaint of Headache for weeks, described as moderate and severe, Quality is described as dull, and is localized to the head. Patient reports no radiation. Patient started experiencing this week(s) and it has been intermittent. improves with No relieving factors improve symptom(s), Other factors that worsen symptoms (Bright lights) . Patient notes headaches; denies fever/chills, loss of appetite, syncope and weakness. Patient did receive the following treatments prior to arrival, NSAID Related Data Home Medications Medication Instructions Recorded Confirmed cholecalciferol (vitamin D3) 50 2,000 unit PO QWEEK 05/10/14 06/16/21 mcg (2,000 unit) capsule (Vitamin D3) levothyroxine 150 mcg tablet 150 mcg PO DAILY tab-cap 05/10/14 06/16/21 (Levoxyl) atorvastatin 20 mg tablet 20 mg PO DAILY 09/12/18 06/16/21 fluticasone propionate 50 2 spray KYLE DAILY PRN 09/12/18 06/16/21 mcg/actuation nasal spray,suspension ipratropium bromide 21 mcg (0.03 2 spray KYLE BID PRN 09/12/18 06/16/21 %) nasal spray montelukast 10 mg tablet 10 mg PO QPM 09/12/18 06/16/21 (Singulair) hydrochlorothiazide 25 mg tablet 25 mg PO DAILY tab-cap 10/16/18 06/16/21 multivitamin,tx-minerals 1 tab PO DAILY 10/16/18 06/16/21 duloxetine 30 mg capsule,delayed 30 mg PO DAILY 03/20/19 06/16/21 release losartan 50 mg tablet 75 mg PO DAILY tab 03/14/20 06/16/21 dicyclomine 20 mg tablet 20 mg PO TID PRN #10 tab 03/29/20 06/20/20 ibuprofen 600 mg tablet 600 mg PO Q6H PRN #90 tab 06/24/20 06/16/21 ondansetron HCl 4 mg tablet 4 mg PO Q6H PRN #5 tab 06/24/20 (Zofran) tramadol 50 mg tablet (Ultram) 50 mg PO Q4H PRN #14 tab 06/24/20 Previous Rx's Medication Instructions Recorded dicyclomine 20 mg tablet 20 mg PO TID PRN #10 tab 03/29/20 ibuprofen 600 mg tablet 600 mg PO Q6H PRN #90 tab 06/24/20 ondansetron HCl 4 mg tablet 4 mg PO Q6H PRN #5 tab 06/24/20 (Zofran) tramadol 50 mg tablet (Ultram) 50 mg PO Q4H PRN #14 tab 06/24/20 Allergies Allergy/AdvReac Type Severity Reaction Status Date / Time lisinopril AdvReac Intermediate cough Verified 06/16/21 06:31 Penicillins AdvReac Intermediate mouth sores Verified 06/16/21 06:31 shrimp AdvReac Intermediate diarrhea Uncoded 06/16/21 06:31 General Stated Complaint: Headache KAT: 3 Review of Systems <Shahbaz Orozco MD - Last Filed: 06/16/21 07:39> Narrative: Denies fall or injury. Often has rhinorrhea. No recent dental procedures. No rash. No recent illness. 8 systems were reviewed and otherwise negative. PFSH <Shahbaz Orozco MD - Last Filed: 06/16/21 07:39> All Active Problems Headache (Acute) Inflammatory arthritis (Acute) Inflammatory bowel arthritis (Acute) Gallstones without obstruction of gallbladder (Acute) Status post right hip replacement (Acute 03/27/19) Status post left hip replacement (Acute 03/27/19) Medical History Chronic anxiety Depression Lipoma of arm Obesity Osteopenia Vitamin D deficiency Surgical History Colonoscopy - IV Sedation Hx laparoscopic cholecystectomy (~06/24/20) Hx of section Hx of myomectomy R arm remove fibroid tumor S/P colonoscopy (~10/30/18) 2009-nl S/P excision of lipoma right arm - upper arm/shoulder Family History Other Heart disease Hypertension Social History Smoking/Tobacco Use Status: Former Tobacco Use Quit Date: 05/02/95 Tobacco: How many years used: 15 Smoking risk assessment performed?: Yes Alcohol Intake: current Alcohol Intake frequency: a few times a month Alcohol type: beer and hard liquor Drug use: Never Substance use type: does not use 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 Pleasant, well groomed, interactive. HEAD: Normocephalic, atraumatic ENT: Mucous membranes moist, oropharynx unremarkable, tympanic membranes clear bilaterally, external ear exam unremarkable EYES: PERRL, EOMI NECK: Full ROM, no DEISY, no menigismus CHEST/RESP: Nontender, clear to auscultation bilateral, no wheeze/rhonchi/rales CARDIOVASCULAR: RRR, no murmur, rub april. 2+ Rad pulse bilateral ABDOMEN: Soft, nontender, no mass. +Bowel sounds EXT: Full ROM, no edema, no rash Neuro: Grossly normal neurologic exam, conversant, interactive. Cranial nerves II through XII intact. Cpmbjg-dj-ckab intact. Visual pillai intact to confrontation. Psych: Speech fluent, thoughts congruent, affect normal Course <Shahbaz Orozco MD - Last Filed: 06/16/21 07:39> Vital Signs Vital signs: Vital Signs Temperature 36.1 C L 06/16/21 06:25 Pulse 77 06/16/21 06:25 Respiratory Rate 18 06/16/21 06:25 Blood Pressure 203/88 H 06/16/21 06:25 Pulse Oximetry 100 06/16/21 06:25 Temperature 36.1 C L 06/16/21 06:25 Temperature Source Skin 06/16/21 06:25 Pulse 76 06/16/21 06:36 Respiratory Rate 18 06/16/21 06:36 Respiratory Effort Non-Labored 06/16/21 06:31 Blood Pressure 185/71 H 06/16/21 06:36 Pulse Oximetry 98 06/16/21 06:36 Oxygen Delivery Method Room Air 06/16/21 06:36 Oxygen Flow Rate 0 06/16/21 06:36 Pain Level 8 06/16/21 06:31 Sign Out <Shahbaz Orozco MD - Last Filed: 06/16/21 07:39> Sign Out Data: Sign Out Comment: followup imaging Last updated by Shahbaz Orozco MD at 06/16/21 07:49
[2021-06-16] MEDS: Dexamethasone 10 MG/ML VIAL IVP (07:10)
[2021-06-16] MEDS: Normal Saline 1,000 ML 1000 ML IV ×2 (07:10→09:13)
[2021-06-16] MEDS: Ketorolac 30 MG/ML VIAL IVP (07:13)
[2021-06-16] MEDS: HYDROmorphone 2 MG/ML VIAL 0.5 MG IVP ×2 (07:16→07:43)
[2021-06-16 07:20] LABS: Anion Gap 9.9 mmol/L (3-11); BUN 18 mg/dL (7-18); CO2 28.1 mmol/L (21.0-32.0); Calcium 9.1 mg/dL (8.5-10.1); Chloride 101 mmol/L (98-107); Estimated GFR 56.18 (mL/min/1.73m2); Glucose 122 mg/dL (74-106); Potassium 3.6 mmol/L (3.5-5.1); Sodium 139 mmol/L (136-145)
[2021-06-16 07:34] LABS: Abs Immature Grans 0.04 10^3/uL (0.0-0.06); Absolute Basophil Count 0.08 10^3/uL (0.0-0.2); Absolute Eosinophil Count 0.14 10^3/uL (0.0-0.7); Absolute Lymphocyte Count 1.83 10^3/uL (1.2-3.4); Absolute Monocyte Count 0.58 10^3/uL (0.1-0.8); Absolute Neutrophil Count 6.34 10^3/uL (1.2-6.7); Basophils % 0.9; Eosinophils % 1.6; HCT 43.7 % (36.0-46.0); HGB 14.2 g/dL (11.2-15.7); Immature Grans % 0.4; Lymphocytes % 20.3; MCH 28.3 pg (27.0-33.0); MCHC 32.5 % (32.0-36.0); MCV 87.1 fL (80-95); MPV 9.1 fL (8.0-11.0); Monocytes % 6.4; Neutrophils % 70.4; Nucleated RBC 0 %; Platelet Count 353 10^3/uL (130-400); RBC 5.02 10^6/uL (3.93-5.22); RDW 12.1 % (11.7-14.6); RDW-SD 38.5 fL; WBC 9.01 10^3/uL (4.4-10.8)
[2021-06-16 07:44] LABS: C-Reactive Protein < 0.05 mg/dL (0.0-0.3)
[2021-06-16] MEDS: ACETAMINOPHEN 1,000 MG/100 ML BTL 400 MG IVPB (07:47)
--- NOTE | 2021-06-16 09:48 | DI.CT_ITS ---
Exam(s) CT BRAIN NECK CTA EXAM: CT BRAIN NECK CTA CLINICAL HISTORY: diffuse headache, r/o acute cva. TECHNIQUE: Imaging Protocol: Axial CT angiography was performed with multi-slice acquisition and mu lti-planar and/or 3D reconstructions. CONTRAST MATERIAL: Intravenous: Omnipaque 350 Contrast volume:85cc COMPARISON: CT HEAD WITHOUT CONTRAST from 07/15/2017 FINDINGS: CTA Neck W: Aortic arch anatomy: The aortic arch anatomy is conventional. No evidence of significant stenosis at the origin of the great vessels off the aortic arch. No evidence of obvious arteritis. Anterior circulation: Both common carotid arteries ascend with normal luminal diameters. There is only minimal plaque evide nt at the carotid bifurcations and proximal internal carotid arteries, with approximately less than 2 0 stenosis bilaterally. No ulcerated plaque evident. Both internal carotid arteries are nicely patent in the upper neck and are also demonstrated be patent in the skull base-carotid canals. Posterior circulation: Both vertebral arteries originated conventional fashion off of the subclavian arteries and there is n o evidence of subclavian artery stenosis proximal to the vertebral artery takeoff points. No obvious stenosis at the origin of the vertebral arteries. In the foramen transverse area the vertebral arteri es ascend with normal luminal diameters. At the skull base both vertebral arteries contribute to the formation of the basilar artery. Left vertebral artery is dominant. CTA Brain W: Anterior circulation: Both internal carotid arteries are patent in the cavernous sinuses. Supraclinoid aspects are patent a nd nonaneurysmal. Both A1 segments are patent as are the anterior cerebral arteries. No evidence of a neurysm at the level of the anterior communicating artery. Both middle cerebral arteries appear patent. No significant stenosis. No aneurysms. Posterior circulation: Basilar artery is formed by both vertebral arteries and ascends in the midline with normal luminal di ameter. Distally it gives off superior cerebellar arteries and above this level terminates as bilater al posterior cerebral arteries. The left posterior cerebral artery also receives flow from a posterio r communicating artery on the left side of the [id number]. There is no evidence of aneurysm at the tip of the basilar artery nor elsewhere in the ehizre-nu-Cyrg is. CT BRAIN: There is no evidence of intracranial hemorrhage, mass effect, or shift of midline structures. There are no extra-axial fluid collections. Ventricles are not enlarged or shifted. There are no ring enh ancing lesions in the brain and no abnormal meningeal enhancement. There is abundant bilateral periventricular hypodensity consistent with probable chronic small vessel ischemic changes. There are no ring enhancing lesions in the brain. No abnormal meningeal enhancemen t, focal nor diffuse. IMPRESSION: 1. Patent intracranial arteries. Scratch 2. There is mild plaque at the carotid bifurcations and proximal ICAs, but estimated at less than 20 percent bilaterally. 3. Abundant bilateral periventricular white matter disease. No ring enhancing lesions. RADIATION DOSE DELIVERED: 2,088.98mGy.cm Total DLP DATA REPOSITORY: All CT scans at this facility are submitted to the National Radiology Data Registry (NRDR) Dose Index Registry (DIR) with the [employer] (A[employer]). RADIATION OPTIMIZATION: All CT scans at this facility use at least one of these dose optimization te chniques: automated exposure control; mA and/or kV adjustment per patient size (includes targeted exa ms where dose is matched to clinical indication); or iterative reconstruction.
[2021-06-16] MEDS: Omnipaque 350 MG/ML 100 ML BTL IJ (10:23)
--- NOTE | 2021-06-16 10:45 | DI.MRI_ITS ---
Exam(s) MR BRAIN WO EXAM: MR BRAIN WO CLINICAL HISTORY: headache, r/o acute cva TECHNIQUE: Multiplanar multisequence MRI of the brain was performed. COMPARISON: MR MR ANGIO BRAIN WO from 06/16/2021 FINDINGS: CEREBRAL PARENCHYMA: There is no evidence of intracranial hemorrhage, mass effect, or shift of midline structures. There are no extra-axial fluid collections. Ventricles are not enlarged or shifted. There is no significant focal signal abnormality in the cerebellar hemispheres nor within the leonel, m idbrain, and thalami. However, there are abundant foci of signal abnormality in the Tati and supraventricular white matter bilaterally, this corresponding to the areas of hypodensity in the white matter as seen on today's CT scan. These are nonhemorrhagic and are not associated with signal abnormality on diffusion imaging to suggest acute ischemic event. No evidence of microhemorrhages on susceptibility weighted imaging PITUITARY GLAND: No mass nor parasellar abnormality. No obvious abnormality in the cavernous sinuses. 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 No significant ventriculo megaly above this level FLOW VOIDS: The expected flow void are noted. No evidence of obvious aneurysm nor obvious vascular ma lformation. PARANASAL SINUSES: The visualized paranasal sinuses appear unremarkable. No obvious finding ORBITS: No obvious findings. IMPRESSION: 1. No evidence of acute infarct nor hemorrhage. 2. There is abundant bilateral periventricular signal abnormality. Main consideration is for chronic ischemic changes versus inflammatory, including Lyme disease. 3. See separate brain MRA dictation. Findings discussed by phone with the ER provider DATA REPOSITORY:
--- NOTE | 2021-06-16 10:45 | DI.MRI_ITS ---
Exam(s) MR ANGIO BRAIN WO EXAM: MR ANGIO BRAIN WO CLINICAL HISTORY: headache, r/o acute cva TECHNIQUE: Performed with [id number] sequence on a 1.5 yumiko unit COMPARISON: No exams were available for comparison FINDINGS: ANTERIOR CIRCULATION: Both internal carotid arteries are demonstrated be patent in the skull base-car otid canals as well as within the cavernous sinuses. The supraclinoid aspects of these vessels are pa tent and nonaneurysmal. Both a 1 segments are patent as are the anterior cerebral arteries and there is no evidence of aneurysm at the level of the anterior communicating artery. Both middle cerebral arteries are patent with no evidence of significant stenosis nor intraluminal fi lling defects and no aneurysms of these vessels demonstrated out to and including the sylvian fissure branches. POSTERIOR CIRCULATION: The basilar artery is formed at the skull base by contribution from both verte bral arteries. The basilar artery ascends in the midline with normal luminal diameter. Distally it gi ves off patent superior cerebellar arteries and above this level terminates as posterior cerebral art eries. Left posterior cerebral artery also receives flow via a posterior communicating artery on the left side of the [id number]. There is no aneurysm evident at the tip of the basilar artery nor elsewhere in the [id number]. IMPRESSION: 1. Patent intracranial arteries as described above. 2. No evidence of significant stenosis and no aneurysms evident. DATA REPOSITORY:
--- NOTE | 2021-06-16 14:37 | NUR.NOTE ---
Nursing Note: Referral faxed to [facility] Neurology for headache within 1 to 2 weeks. Bridgette Ramirez
== END 2021-06-19 16:02 | disposition home or self-care (01) ==
PROVIDERS: Emergency Medicine; Emergency Provider Physician Assistant; PCP Family Medicine
DX: R51.9 Headache, unspecified (principal); I10 Essential (primary) hypertension
CPT/HCPCS: 70496; 70498; 70544; 80048; 96361; 96365; 96367; 96375; 99285; 70450; 70486; 70551; 85025; 86140; 99284; J0131; J1100; J1885; J3490

== ENCOUNTER 2021-06-22 07:31 | Inpatient (IN) | payer BC, SELFPAY ==
[2021-06-22 07:38] VITALS: BP 164/95; PULSE 83; RESP 16; TEMP 36.7; O2SAT 97
--- NOTE | 2021-06-22 07:59 | W.ED.GENAD ---
Discharge Plan Disposition Patient Disposition: [facility] INPATIENT Condition: Stable Discharge Details Chief Complaint: Orthopedic Clinical Impression: Femur fracture, right Primary Care Provider: Soy Conley ED Provider: Cain Berger Home Meds and New Rx's Prescriptions: No Action ipratropium bromide 0.03 % spray,non-aerosol 2 spray KYLE BID PRN0RF fluticasone propionate 50 mcg/actuation spray,suspension 2 spray KYLE DAILY PRN0RF atorvastatin 20 mg tablet 20 mg PO DAILY 0RF montelukast [Singulair] 10 mg tablet 10 mg PO QPM 0RF losartan 50 mg tablet 75 mg PO DAILY 0RF multivitamin,tx-minerals tablet 1 tab PO DAILY 0RF levothyroxine [Levoxyl] 150 MCG tablet 150 mcg PO DAILY 0RF hydrochlorothiazide 25 mg tablet 25 mg PO DAILY 0RF acetaminophen [Tylenol Ex Str Rapid Release] 500 mg Tablet 1,000 mg PO Q6H PRN0RF duloxetine 30 mg Capsule,Delayed Release(Dr/Ec) 30 mg PO DAILY 0RF ibuprofen 600 mg tablet 600 mg PO Q6H PRNQty: 90 0RF Rx Instructions: take w/ food Medical Decision Making 60-year-old female presenting for evaluation of right knee pain status post mechanical slip and fall down 4 stairs. Plan is to obtain x-ray of the right knee. I do not believe x-ray of the left wrist is indicated. Patient is agreeable to this plan. She declines any analgesia X-ray of her knee reveals a femur fracture, recommending full femur films Case discussed with Dr. Worthington, recommends femur film and a CT of her knee. Recommend knee immobilizer which I have ordered. He will come to the ER to evaluate the patient in the next hour or so. Patient made aware of the plan. Covid swab also obtained as she may be admitted but will at least likely have surgery in the next couple of days, preprocedural. X-ray of femur and CT imaging of knee completed. Awaiting evaluation by Dr. Worthington. Patient continues to decline any analgesia. Dr. Worthington in exam room 7 to evaluate the patient. After his evaluation he plans to place admitting orders. This documentation was generated using [employer] system, please disregard any oddities of phrase or misspellings. Medical Records Medical records reviewed: Yes I reviewed the patient's medical records. Imaging Data Radiologic Study: Attestation: I personally reviewed and interpreted this imaging study as follows: Imaging: X-Ray Radiologist's impression: Exam(s) XR KNEE RT 4V+ EXAM: XR KNEE RT 4V+ CLINICAL HISTORY: fall/pain. TECHNIQUE: 2D digital imaging was performed. COMPARISON: No exams were available for comparison FINDINGS: There is a nondisplaced fracture line extending from the diaphysis through the metaphysis and epiphysis of the femur to the knee joint are sticking ower surface on the inner aspect of the lateral femoral condyle. No obvious tibial plateau fracture. There is a joint effusion-hemarthrosis. No patellar fracture evident. No incidental osseous lesions. No radiopaque foreign body. IMPRESSION: Distal femur fracture as described above. Recommend additional views of the entire femur Radiologic Study #2: Attestation: I personally reviewed and interpreted this imaging study as follows: Imaging: X-Ray Radiologist's impression: Exam(s) XR FEMUR RT EXAM: XR FEMUR RT CLINICAL HISTORY: fracture/fall. TECHNIQUE: 2D digital imaging was performed. COMPARISON: CR XR KNEE RT 4V+ from 06/22/2021 FINDINGS: There is a right hip prosthesis. No fracture or loosening in the right hip region. The fracture seen on today's knee images does not extend into the upper femur nor to the level of the inferior femoral component stem. Radiologic Study #3: Attestation: I personally reviewed and interpreted this imaging study as follows: Imaging: CT Scan Radiologist's impression: Exam(s) CT LOWER EXTREMITY RT WO EXAM: CT LOWER EXTREMITY RT WO CLINICAL HISTORY: fracture/fall. TECHNIQUE: Imaging Protocol: Axial computed tomography images with coronal and sagittal reformatted images were created and reviewed. CONTRAST MATERIAL: None COMPARISON: Plain radiographs of the right knee and right femur performed earlier today. FINDINGS: OSSEOUS: There is a nondisplaced oblique fracture line measuring 14 cm length extending from just below the mid femur level straight down to the articular surface in the inner aspect of the lateral femoral condyle, adjacent to the intercondylar notch. No displacement and no systemic at the articular surface. There is another nondisplaced more anteriorly in the distal femur which extends from the lateral cortex approximately 7 cm above the knee joint space, this nondisplaced fracture line also extending to the articular surface and not associated with a step at the articular surface. There are no fracture lines extending medial of the intercondylar notch. No fractures in the medial femoral condyle. No evidence of tibial plateau fracture. Fibular head and neck are intact. No patellar fracture evident. There is a joint effusion-hemarthrosis. This may be related to the fracture although cannot exclude additional internal derangement. SOFT TISSUES: No evidence of abnormal soft tissue or muscular fluid collection. IMPRESSION: Nondisplaced fracture lines in the femur as described above. Fracture lines reach the articular surface of the lateral femoral condyle but are not associated with a step at the articular surface. No evidence of tibial plateau fracture. Joint effusion-hemarthrosis noted. Lab Data Lab results reviewed: Yes I reviewed the patient's lab results. Labs: Laboratory Tests Range/Units 06/22/21 09:37 COVID-19 Source Nasal/Nares SARS-CoV-2 (PCR) (Negative) Negative HPI General Mode of arrival: wheelchair. Date/Time Provider Initiated Documentation: 06/22/21 07:56. Limitations to Documentation: no limitations. Information obtained by: patient. HPI Narrative: This is a 60-year-old female, past medical history that includes anxiety, depression, osteopenia, bilateral hip replacement, hypertension, thyroid disease, presenting to the ER status post mechanical slip and fall this morning down 4 stairs landing directly on her right knee. She denies any head injury, headache, LOC, neck pain. She does report mild soreness in her left wrist. Reports the pain in her knee is severe but tolerable at rest, has been unable to bear any weight. Denies any numbness, tingling, weakness. She also sustained a skin tear and reports that her tetanus status is over 5 years. She has not taken any skqj-yuq-uryompy medication for her symptoms prior to arrival and currently is declining any additional analgesia. Denies any symptoms prior to the fall. Related Data Home Medications Medication Instructions Recorded Confirmed levothyroxine 150 mcg tablet 150 mcg PO DAILY tab-cap 05/10/14 06/22/21 (Levoxyl) atorvastatin 20 mg tablet 20 mg PO DAILY 09/12/18 06/22/21 fluticasone propionate 50 2 spray KYLE DAILY PRN 09/12/18 06/22/21 mcg/actuation nasal spray,suspension ipratropium bromide 21 mcg (0.03 2 spray KYLE BID PRN 05/14/19 02/21/22 %) nasal spray montelukast 10 mg tablet 10 mg PO QPM 09/12/18 06/22/21 (Singulair) hydrochlorothiazide 25 mg tablet 25 mg PO DAILY tab-cap 10/16/18 06/22/21 multivitamin,tx-minerals 1 tab PO DAILY 10/16/18 06/22/21 duloxetine 30 mg capsule,delayed 30 mg PO DAILY 03/20/19 06/22/21 release losartan 50 mg tablet 75 mg PO DAILY tab 03/14/20 06/22/21 ibuprofen 600 mg tablet 600 mg PO Q6H PRN #90 tab 06/24/20 06/22/21 acetaminophen 500 mg tablet 1,000 mg PO Q6H PRN 06/22/21 06/22/21 Previous Rx's Medication Instructions Recorded ibuprofen 600 mg tablet 600 mg PO Q6H PRN #90 tab 06/24/20 Allergies Allergy/AdvReac Type Severity Reaction Status Date / Time lisinopril AdvReac Intermediate cough Verified 06/22/21 07:43 Penicillins AdvReac Intermediate mouth sores Verified 06/22/21 07:43 shrimp AdvReac Intermediate diarrhea Uncoded 06/22/21 07:43 General Stated Complaint: Orthopedic KAT: 4 Review of Systems Constitutional Constitutional: Denies fever(s) and Denies headache(s) Eyes Eyes: Denies change in vision ENT Ears, Nose, Mouth, and Throat: Denies headache(s) and Denies neck pain Cardiovascular Cardiovascular: Denies chest pain and Denies dyspnea Respiratory Respiratory: Denies cough and Denies dyspnea Gastrointestinal Gastrointestinal: Denies abdominal pain, Denies nausea and Denies vomiting Musculoskeletal Musculoskeletal: Denies back pain, Denies neck pain, Denies numbness and Denies tingling Neurologic Neurologic: Denies headache(s), Denies numbness and Denies tingling Hematologic/Lymphatic Hematologic/Lymphatic: Denies easy bleeding and Denies easy bruising PFSH All Active Problems Femur fracture, right (Acute) Closed fracture of distal end of right femur (Acute) Headache (Acute) Inflammatory arthritis (Acute) Inflammatory bowel arthritis (Acute) Gallstones without obstruction of gallbladder (Acute) Status post right hip replacement (Acute 03/27/19) Status post left hip replacement (Acute 03/27/19) Medical History Chronic anxiety Depression Lipoma of arm Obesity Osteopenia Vitamin D deficiency Surgical History Colonoscopy - IV Sedation Hx laparoscopic cholecystectomy (~06/24/20) Hx of section Hx of myomectomy R arm remove fibroid tumor S/P colonoscopy (~10/30/18) 2009-nl S/P excision of lipoma right arm - upper arm/shoulder Family History Other Heart disease Hypertension Social History Smoking/Tobacco Use Status: Former Tobacco Use Quit Date: 05/02/95 Tobacco: How many years used: 15 Smoking risk assessment performed?: Yes Alcohol Intake: current Alcohol Intake frequency: a few times a month Alcohol type: beer and hard liquor Drug use: Never Substance use type: does not use 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 [employer] Current gender identity: female What is your relationship status?: Panel score (0-1 are the most socially isolated patients): 1 Do you feel safe at home: Yes Do you feel safe in your relationship?: Yes Additional Social history: - Blanco Exam Const General: cooperative, healthy appearing, comfortable and no acute distress Orientation: alert, awake and oriented x3 HENMT Head: normal to inspection, normocephalic and atraumatic Eyes Conjunctivae: conjunctivae normal Neck Neck: normal visual inspection, trachea midline and supple Resp Effort & Inspection: normal respiratory effort and able to speak in complete sentences Auscultation: clear to auscultation bilaterally Cardio Rate: regular rate Rhythm: regular rhythm GI Palpation: soft and nontender Back/Spine/Pelvis Back: No back tenderness Skin General skin exam: no rashes or lesions noted Full body images: 1. 2 centimeter skin tear, nonbleeding 2. Contusion 3. Diffuse mild discomfort without swelling, erythema, ecchymosis or bony point tenderness. There is no deformity. Skin is intact. Normal radial pulse and capillary refill 4. Anterior knee with swelling, erythema, abrasion. Full range of motion but worse pain with extension. Knee appears stable. Diffuse discomfort, no deformity. Normal dorsalis pedal pulse and capillary refill of bilateral lower extremity Neuro General: patient alert, patient awake, moves all extremities and no focal motor deficits Sensory Exam: no sensory deficits noted Psych Appearance: grossly normal Mental Status: mental status grossly normal Course Vital Signs Vital signs: Vital Signs Temperature 36.7 C 06/22/21 07:38 Pulse 83 06/22/21 07:38 Respiratory Rate 16 06/22/21 07:38 Blood Pressure 164/95 H 06/22/21 07:38 Pulse Oximetry 97 06/22/21 07:38 Temperature 36.7 C 06/22/21 07:38 Temperature Source Temporal Artery Scan 06/22/21 07:38 Pulse 83 06/22/21 07:38 Respiratory Rate 16 06/22/21 07:38 Respiratory Effort Non-Labored 06/22/21 07:41 Blood Pressure 164/95 H 06/22/21 07:38 Blood Pressure Position Sitting 06/22/21 07:38 Pulse Oximetry 97 06/22/21 07:38 Oxygen Delivery Method Room Air 06/22/21 07:38 Oxygen Flow Rate 0 06/22/21 07:38 Pain Level 5 06/22/21 07:42 PAWSS Have you Been Recently Intoxicated or Drunk Within the Last 30 days?: No Have you Ever Experienced Previous Episodes of Alcohol Withdrawal?: No Have you ever Experienced Withdrawal Seizures?: No Have you ever Experienced Delirium Tremens(DT)s?: No Have you ever undergone Alcohol Rehabilitation Treatment (i.e, inpt ot outpatient treatment programs)?: No Have you ever Experienced Blackouts?: No Have you ever Combined Alcohol with other Downers within the last 90 days?: No Have you ever Combined Alcohol with any other Substance of Abuse during the last 90 days?: No Positive Blood Alcohol level on Presentation? [PCS.BAL]: No Evidence of Increased Autonomic Activity (i.e. HR>120, tremor, sweating, agitation, nausea)?: No Result: 0
--- NOTE | 2021-06-22 08:52 | DI.RAD_ITS ---
Exam(s) XR KNEE RT 4V+ EXAM: XR KNEE RT 4V+ CLINICAL HISTORY: fall/pain. TECHNIQUE: 2D digital imaging was performed. COMPARISON: No exams were available for comparison FINDINGS: There is a nondisplaced fracture line extending from the diaphysis through the metaphysis and epiphys is of the femur to the knee joint are sticking ower surface on the inner aspect of the lateral femora l condyle. No obvious tibial plateau fracture. There is a joint effusion-hemarthrosis. No patellar fracture evident. No incidental osseous lesions. No radiopaque foreign body. IMPRESSION: Distal femur fracture as described above. Recommend additional views of the entire femur DATA REPOSITORY: RADIATION DOSE DELIVERED:
--- NOTE | 2021-06-22 09:30 | DI.RAD_ITS ---
Exam(s) XR FEMUR RT EXAM: XR FEMUR RT CLINICAL HISTORY: fracture/fall. TECHNIQUE: 2D digital imaging was performed. COMPARISON: CR XR KNEE RT 4V+ from 06/22/2021 FINDINGS: There is a right hip prosthesis. No fracture or loosening in the right hip region. The fracture see n on today's knee images does not extend into the upper femur nor to the level of the inferior femora l component stem. IMPRESSION: DATA REPOSITORY: RADIATION DOSE DELIVERED:
--- NOTE | 2021-06-22 09:30 | DI.CT_ITS ---
Exam(s) CT LOWER EXTREMITY RT WO EXAM: CT LOWER EXTREMITY RT WO CLINICAL HISTORY: fracture/fall. TECHNIQUE: Imaging Protocol: Axial computed tomography images with coronal and sagittal reformatted images were created and reviewed. CONTRAST MATERIAL: None COMPARISON: Plain radiographs of the right knee and right femur performed earlier today. FINDINGS: OSSEOUS: There is a nondisplaced oblique fracture line measuring 14 cm length extending from just bel ow the mid femur level straight down to the articular surface in the inner aspect of the lateral femo ral condyle, adjacent to the intercondylar notch. No displacement and no systemic at the articular s urface. There is another nondisplaced more anteriorly in the distal femur which extends from the lat eral cortex approximately 7 cm above the knee joint space, this nondisplaced fracture line also exten ding to the articular surface and not associated with a step at the articular surface. There are no fracture lines extending medial of the intercondylar notch. No fractures in the medial femoral condyle. No evidence of tibial plateau fracture. Fibular head and neck are intact. No avendano llar fracture evident. There is a joint effusion-hemarthrosis. This may be related to the fracture although cannot exclude additional internal derangement. SOFT TISSUES: No evidence of abnormal soft tissue or muscular fluid collection. IMPRESSION: Nondisplaced fracture lines in the femur as described above. Fracture lines reach the articular surf keon of the lateral femoral condyle but are not associated with a step at the articular surface. No e vidence of tibial plateau fracture. Joint effusion-hemarthrosis noted. RADIATION DOSE DELIVERED: 339.98mGy.cm Total DLP DATA REPOSITORY: All CT scans at this facility are submitted to the National Radiology Data Registry (NRDR) Dose Index Registry (DIR) with the [employer] (ACR). RADIATION OPTIMIZATION: All CT scans at this facility use at least one of these dose optimization te chniques: automated exposure control; mA and/or kV adjustment per patient size (includes targeted exa ms where dose is matched to clinical indication); or iterative reconstruction.
[2021-06-22 09:43] LABS: Source Nasal/Nares
[2021-06-22 10:38] LABS: COVID-19 PCR Negative (Negative)
[2021-06-22 13:09] VITALS: BP 162/83; PULSE 70; TEMP 36.6; O2SAT 99
[2021-06-22] MEDS: Acetaminophen 500 MG TAB 1000 MG PO (13:12)
[2021-06-22 13:56] VITALS: BP 186/87; PULSE 65; RESP 16; TEMP 36.6; O2SAT 99
--- NOTE | 2021-06-22 14:31 | NUR.NOTE ---
Nursing Note:Patient arrived from ER; see admission assessment part 2 for details.
[2021-06-22] MEDS: HYDROcodone 5/Acetaminophen 325 TAB PO ×2 (15:49→19:36)
--- NOTE | 2021-06-22 16:20 | OCONE_ITS ---
Date of service: 06/22/21 Time of Service: 11:30 History of Present Illness History of Present Illness Chief Complaint: Right Leg Pain Narrative: Tamie is a 60-year-old who was coming down the stairs when she got tripped up on her baggy pants and fell down stairs landing off and on her right leg. She had immediate pain with any attempted motion and any attempted weightbearing. She was brought to the emergency department and diagnosed with right distal femur fracture. She is status post bilateral replacements by myself almost 2 years ago which is doing well. She denies any groin pain. No current numbness or tingling. Her pain is mostly if she tries to move the leg. No preinjury pain. She reports no acute medical changes to her health. No COVID-19 contacts. Consults Consult date: 06/22/21 Requesting physician: Cain Berger Consult Reason Right Distal Femur Intra-articular Fracture Assessment and Plan Assessment and plan (1) Closed fracture of distal end of right femur: Status: Acute Assessment and plan: Tamie is a 60-year-old who had a fall downstairs today. She suffered a nondisplaced distal femur fracture. This does involve the joint. It is nondisplaced. However, given its joint involvement I would recommend fixation of this fracture. This would involve screw fixation of the articular fracture with stabilization, neutralization, using a plate. This would allow early range of motion and early mobility. I discussed this briefly with Tamie who agrees with early motion and mobility. I did place into a knee immobilizer for support. I would be able to fix this tomorrow and therefore I plan admit her for pain control as we await surgical fixation tomorrow. She will be nonweightbearing on the right lower extremity with a knee immobilizer. She had regular diet today and then n.p.o. after midnight. We also tested for COVID-19. I reviewed the surgery with her briefly. Discussed the risk of the procedure t o include bleeding, infection, pain, stiffness, damage to nerves and vessels, damage to muscle and tendons, displacement, malunion, nonunion, hardware irritation, hardware failure, need for repeat procedures. Despite these risk, she elected to proceed. Review of Systems All systems reviewed & are unremarkable except as noted in HPI and below PFSH All Active Problems Femur fracture, right (Acute) Closed fracture of distal end of right femur (Acute) Headache (Acute) Inflammatory arthritis (Acute) Inflammatory bowel arthritis (Acute) Gallstones without obstruction of gallbladder (Acute) Status post right hip replacement (Acute 03/27/19) Status post left hip replacement (Acute 03/27/19) Medical History Chronic anxiety Depression Lipoma of arm Obesity Osteopenia Vitamin D deficiency Surgical History Colonoscopy - IV Sedation Hx laparoscopic cholecystectomy (~06/24/20) Hx of section Hx of myomectomy R arm remove fibroid tumor S/P colonoscopy (~10/30/18) 2009-nl S/P excision of lipoma right arm - upper arm/shoulder Family History Other Heart disease Hypertension Social History Smoking/Tobacco Use Status: Former Tobacco Use Quit Date: 05/02/95 Tobacco: How many years used: 15 Smoking risk assessment performed?: Yes Alcohol Intake: current Alcohol Intake frequency: a few times a month Alcohol type: beer and hard liquor Drug use: Never Substance use type: does not use 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 Head NC/AT. Heart RRR Chest CTAB RLE appears without deformity. There is a superficial abrasion about the anterior, distal leg and the anterior knee on the right side. No ecchymosis. +ADF/APF/EHL/FHL. SILT DP/SP/Tib. +DP/PT. Results Last Vital Signs Temp 36.6 C 06/22/21 13:56 Pulse 65 02/21/22 13:56 Resp 16 06/22/21 13:56 BP 186/87 H 06/22/21 13:56 Pulse Ox 99 06/22/21 13:56 Labs Labs: Laboratory Results - last 24 hr 06/22/21 09:37 COVID-19 Source Nasal/Nares SARS-CoV-2 (PCR) Negative Imaging Imaging Studies: [facility] of [facility] tknee and femur demonstrates a distal 1/3 femoral fracture with extension into the joint. No apparent comminution. No proximal migration of the fracture. Hip components appear stable. CT of the right knee demonstrates the above fracture. There is a sagittal orientation of the fracture plane entering the knee on the lateral side of the trochlea, medial aspect of the lateral femoral condyle. No significant step-off of the artiulcar involvement. The fracture extends approximately 14cm from the joint surface.
[2021-06-22 19:29] VITALS: BP 146/75; PULSE 67; RESP 17; TEMP 36.7; O2SAT 97
[2021-06-22 19:35] VITALS: BP 150/74; PULSE 66; RESP 19; TEMP 37; O2SAT 95
[2021-06-22] MEDS: Atorvastatin 20 MG TAB PO (19:36)
[2021-06-22] MEDS: Montelukast 10 MG TAB PO (19:36)
[2021-06-22] MEDS: Normal Saline Flush 10 ML SYR IVP ×3 (19:37→23:43)
[2021-06-22] MEDS: Ketorolac 15 MG/ML VIAL IVP (22:12)
[2021-06-22 23:32] VITALS: BP 159/77; PULSE 67; RESP 17; TEMP 36.7; O2SAT 98
[2021-06-22] MEDS: Normal Saline 1,000 ML 30 ML IV (23:43)
[2021-06-23] VITALS (14 sets, daily range): BP systolic 99–167; BP diastolic 41–98; PULSE 54–94; RESP 11–20; TEMP 36.1–37.3; TEMPC 36.3; O2SAT 95–100; BMI 34.1
[2021-06-23] MEDS: Melatonin 3 MG TAB PO ×2 (00:13→21:13)
[2021-06-23] MEDS: Ketorolac 15 MG/ML VIAL IVP ×3 (05:12→20:01)
[2021-06-23] MEDS: Normal Saline Flush 10 ML SYR IVP ×4 (05:13→21:13)
--- NOTE | 2021-06-23 10:24 | PDOC.CMIN ---
- If Service Date Differs Date of service: 06/23/21 Time of Service: 10:24 Care Management Initial Assess REASON FOR HOSPITALIZATION:: right leg pain PAST MEDICAL HISTORY/PAST SURGICAL HISTORY:: All Active Problems . Femur fracture, right (Acute). Closed fracture of distal end of right femur (Acute). Headache (Acute). Inflammatory arthritis (Acute). Inflammatory bowel arthritis (Acute). Gallstones without obstruction of gallbladder (Acute). Status post right hip replacement (Acute 03/27/19). Status post left hip replacement (Acute 03/27/19). Medical History . Chronic anxiety. Depression. Lipoma of arm. Obesity. Osteopenia. Vitamin D deficiency PREVIOUS FUNCTIONAL STATUS/SOCIAL/FAMILY SUPPORTS:: Tamie lives in a single family home in [place], [place] with her Yong. 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 Tamie and Yong have one son who is 22 years old and lives in [place], [place]. She is independent at baseline. CURRENT FUNCTIONAL STATUS:: Tamie was lying in bed when CM met with her. She was pleasant and engaged easily with CM. Tamie denied feeling pain at this time except with movement. She was being prepared for surgey at the time of the visit. ADVANCE DIRECTIVES:: none on file Has patient been provided with info about the portal/API?: Yes Did the patient sign up for the portal?: Yes (previously) CODE STATUS:: Full Code INSURANCE COVERAGE / FINANCIAL ISSUES:: BS CURRENT HOME/COMMUNITY SERVICES/EQUIPMENT:: none PRIMARY CARE PHYSICIAN:: Soy Conley MD POTENTIAL DISCHARGE NEEDS:: follow up with orthopedic surgeon and PCP PATIENT/FAMILY EDUCATION NEEDS:: review of discharge instructions, limitations, activity, medications, follow up plan, and discuss Ask Me Three TRANSPORTATION:: via private vehicle with family PLAN:: Tamie will likley be discharged home with no new services. She will folllow up with her community providers and plan of care and transporty with family. CM will continue to support Tamie and assess for discharge planning concerns.
--- NOTE | 2021-06-23 11:15 | DI.RAD_ITS ---
Exam(s) XR FEMUR RT EXAM: XR FEMUR RT CLINICAL HISTORY: right distal femur fracture TECHNIQUE: 2D and realtime digital imaging was performed. COMPARISON: No exams were available for comparison FINDINGS: C-arm fluoroscopy was utilized by Dr. Worthington during open reduction and internal fixation of fractur e of the distal femur. Hard copy shows plate and screw fixation in place. IMPRESSION: RADIATION DOSE DELIVERED: Kar=4.26 mGy
--- NOTE | 2021-06-23 11:26 | W.ANESPRE ---
General Info Date of Service Date Performed: 06/23/21 Height: 5 ft 7 in Weight: 98.883 kg Body Mass Index (BMI): 34.1 Surgical Procedure: Operation Date: 06/23/21 12:55 Proposed Procedure Side Surgeon p Distal Femur ORIF Right Jameel Worthington MD Meds Allergies and Home Medications Allergies Allergy/AdvReac Type Severity Reaction Status Date / Time lisinopril AdvReac Intermediate cough Verified 06/22/21 07:43 Penicillins AdvReac Intermediate mouth sores Verified 06/22/21 07:43 shrimp AdvReac Intermediate diarrhea Uncoded 06/22/21 07:43 Home Medication Medication Instructions Recorded levothyroxine 150 mcg tablet 150 mcg PO DAILY tab-cap 05/10/14 (Levoxyl) atorvastatin 20 mg tablet 20 mg PO DAILY 09/12/18 fluticasone propionate 50 2 spray KYLE DAILY PRN 09/12/18 mcg/actuation nasal spray,suspension ipratropium bromide 21 mcg (0.03 2 spray KYLE BID PRN 09/12/18 %) nasal spray montelukast 10 mg tablet 10 mg PO QPM 09/12/18 (Singulair) hydrochlorothiazide 25 mg tablet 25 mg PO DAILY tab-cap 10/16/18 multivitamin,tx-minerals 1 tab PO DAILY 10/16/18 duloxetine 30 mg capsule,delayed 30 mg PO DAILY 03/20/19 release losartan 50 mg tablet 75 mg PO DAILY tab 03/14/20 ibuprofen 600 mg tablet 600 mg PO Q6H PRN #90 tab 06/24/20 acetaminophen 500 mg tablet 1,000 mg PO Q6H PRN 06/22/21 Current Visit Medications: Current Medications Generic Name Dose Route Start Last Admin Trade Name Freq PRN Reason Stop Dose Admin Acetaminophen 1,000 mg 06/22/21 16:19 Acetaminophen 500 Mg Tab PO Q6H PRN PRN Hydrocodone Bitart/Acetaminophen 0 tab 06/22/21 13:00 06/22/21 19:36 Hydrocodone 5/Acetaminophen 325 Tab PO 2 tab Q3H PRN PRN Administration Pain Atorvastatin Calcium 20 mg 06/22/21 20:00 06/22/21 19:36 Atorvastatin 20 Mg Tab PO 20 mg QPM DAYANNA Administration Duloxetine HCl 30 mg 06/23/21 08:30 06/23/21 08:41 Duloxetine 30 Mg Cap PO Not Given DAILY DAYANNA Fluticasone Propionate 0 gm 06/22/21 16:19 Fluticasone Nasal [place] 16 Gm Btl NS DAILY PRN PRN Hydrochlorothiazide 25 mg 06/24/21 08:30 Hydrochlorothiazide 25 Mg Tab PO DAILY DAYANNA Sodium Chloride 1,000 mls @ 30 mls/hr 06/23/21 00:00 06/22/21 23:43 Saline 1000ml Bag IV 30 mls/hr INFUSION DAYANNA Administration Sodium Chloride 500 mls @ 0 mls/hr 06/22/21 14:44 Saline 500ml Bag IV PRN PRN As Directed Iron/Minerals/Multivitamins 1 tab 06/23/21 08:30 06/23/21 08:41 Multivitamin W/Minerals Tab PO Not Given DAILY DAYANNA Ketorolac Tromethamine 15 mg 06/22/21 13:05 06/23/21 11:13 Ketorolac 15 Mg/Ml Vial IVP 06/27/21 13:04 15 mg Q6H PRN PRN Administration Pain Levothyroxine Sodium 150 mcg 06/23/21 06:00 06/23/21 07:06 Levothyroxine 150 Mcg Tab PO Not Given DAILY@0600 DAYANNA Losartan Potassium 75 mg 06/24/21 08:30 Losartan 50 Mg Tab PO DAILY DAYANNA Melatonin 3 mg 06/23/21 00:00 06/23/21 00:13 Melatonin 3 Mg Tab PO 3 mg HS DAYANNA Administration Montelukast Sodium 10 mg 06/22/21 20:00 06/22/21 19:36 Montelukast 10 Mg Tab PO 10 mg QPM DAYANNA Administration Sodium Chloride 0 ml 06/22/21 14:44 06/23/21 11:14 Normal Saline Flush 10 Ml Syr IVP 20 ml PRN PRN Administration PFSH Active Problems Active Problems: Problem Status Onset Code Femur fracture, right S72.91XA Closed fracture of distal end of right femur S72.401A Headache R51.9 Inflammatory arthritis M19.90 Inflammatory bowel arthritis K63.9, M07.60 Gallstones without obstruction of gallbladder K80.20 Status post right hip replacement 03/27/19 Z96.641 Status post left hip replacement 03/27/19 Z96.642 Medical History Medical History (Updated 06/23/21 @ 09:58 by Marysol Hopson) Allergic rhinitis BMI 30.0-30.9,adult Bradycardia Chronic anxiety Depression Dyspepsia Elevated alkaline phosphatase level Intention tremor Leg cramps Lipoma of arm Obesity Osteoarthritis of hips, bilateral Osteopenia Reactive inflammatory arthritis Renal insufficiency, mild Restless leg syndrome Vitamin D deficiency Surgical History Surgical History Colonoscopy - IV Sedation Hx laparoscopic cholecystectomy (~06/24/20) Hx of section Hx of myomectomy R arm remove fibroid tumor S/P colonoscopy (~10/30/18) 2009-nl S/P excision of lipoma right arm - upper arm/shoulder Tobacco Smoking/Tobacco Use Status: Former Tobacco Use Alcohol Alcohol Intake: current Alcohol intake frequency: a few times a month Alcohol type: beer and hard liquor Substance Use Substance use: Never Substance use type: does not use Vital Signs and Lab Results Vital Signs Most Recent Vital Signs in EMR: Most Recent Vital Signs Temp Pulse Resp BP Pulse Ox 36.4 C L 63 16 143/78 H 96 06/23/21 07:57 06/23/21 07:57 06/23/21 07:57 06/23/21 07:57 06/23/21 07:57 Lab Results Blood Type / Crossmatch: No Data to Display Complete Blood Count: White Blood Count 9.01 10^3/uL (4.4-10.8) 06/16/21 06:45 06/16/21 Red Blood Count 5.02 10^6/uL (3.93-5.22) 06/16/21 06:45 06/16/21 Hemoglobin 14.2 g/dL (11.2-15.7) 06/16/21 06:45 06/16/21 Hematocrit 43.7 % (36.0-46.0) 06/16/21 06:45 06/16/21 Platelet Count 353 10^3/uL (130-400) 06/16/21 06:45 06/16/21 Complete Metabolic Panel: Sodium Level 139 mmol/L (136-145) 06/16/21 06:45 06/16/21 Potassium Level 3.6 mmol/L (3.5-5.1) 06/16/21 06:45 06/16/21 Chloride Level 101 mmol/L (98-107) 06/16/21 06:45 06/16/21 Carbon Dioxide Level 28.1 mmol/L (21.0-32.0) 06/16/21 06:45 06/16/21 Blood Urea Nitrogen 18 mg/dL (7-18) 06/16/21 06:45 06/16/21 Creatinine 1.0 mg/dL (0.55-1.02) 06/16/21 06:45 06/16/21 Estimated GFR/1.73 m2 56.18 (mL/min/1.73m2) 06/16/21 06:45 06/16/21 Magnesium Level 2.0 mg/dL (1.8-2.4) 06/15/21 10:10 06/15/21 Calcium Level 9.1 mg/dL (8.5-10.1) 06/16/21 06:45 06/16/21 Albumin 3.8 g/dL (3.4-5.0) 06/15/21 10:10 06/15/21 Glucose Level 122 mg/dL (74-106) H 06/16/21 06:45 06/16/21 C-Reactive Protein < 0.05 mg/dL (0.0-0.3) 06/16/21 06:45 06/16/21 Liver Function Panel: Alanine Aminotransferase (ALT/SGPT) 32 U/L (14-59) 06/15/21 10:10 06/15/21 Aspartate Amino Transf (AST/SGOT) 24 U/L (15-37) 06/15/21 10:10 06/15/21 Coagulation Panel: No Data to Display Cardiac Panel: No Data to Display Arterial Blood Gas: No Data to Display Venous Blood Gas: No Data to Display Pancreas Panel: No Data to Display Thyroid Panel: Thyroid Stimulating Hormone (TSH) 2.15 uIU/mL (0.36-3.74) 06/15/21 10:10 06/15/21 Infectious Disease: Coronavirus (COVID-19)(PCR) Negative (Negative) 06/22/21 09:37 06/22/21 Coronavirus 2019 Source Nasal/Nares 06/22/21 09:37 06/22/21 Blood Cultures: No Data to Display Toxicology Panel: No Data to Display Anesthesia Assessment and Plan Anesthesia History Personal History: No History of Anesthesia Complications Family History: No Family History of Anesthesia Complications Exercise Tolerance Exercise Tolerance: Metabolic Equivalents>4 Pertinent Negatives Pertinent Negatives: No Symptoms of GERD, No Major Cardiovascular Symptoms or Complaints, No Major Pulmonary Symptoms or Complaints and No History of CVA/TIA Cardiac & Pulmonary Exam Cardiac Exam: Normal S1/S2 Heart Sounds Pulmonary Exam: Clear Bilateral Breath Sounds Implantable Cardiac Device Does patient have a Pacemaker or an ICD?: No Airway Exam Known Difficult Airway: No Mallampati Class: 1 Mouth Opening: Normal (> 3cm) Thyromental Distance: Greater than 3 cm Neck Range of Motion: Full ROM Neck Circumference: Normal Teeth Condition: Normal Dentition Airway Comments: Lower crown back ASA Classification ASA Score: ASA 2 Emergency Case?: No NPO Status NPO Status: NPO Clears >2 hours, Solids >8 hours Anesthesia Plan Resuscitation Status: Full Code Anesthesia Technique: Spinal Anesthesia Airway Planned: Natural Airway Monitors Used: Standard Monitors
[2021-06-23] MEDS: Lactated Ringers 1,000 ML 30 ML IV ×2 (12:34→16:37)
--- NOTE | 2021-06-23 12:47 | W.PM.PROGNOT ---
Date of Service Date of service: 06/23/21 Time of Service: 12:00 Assessment and Plan Assessment and plan (1) Closed fracture of distal end of right femur: Status: Acute Assessment and plan: Tamie is a 60yo female who suffered a fall and a distal femur fracture of the right leg. She did well overnight. She has no acute changes. I was once again reviewed the plan for ORIF of the distal femur fracture. I reviewed the risks of the procedure to include bleeding, infection, pain, stiffness, malunion, nonunion, loss of reduction, hardware failure, hardware prominence, blood clot, damage to nerves and vessel, damage to muscles and tendons, post-traumatic arthritis. Despite these risks, she elects to proceed. Subjective Subjective Interval history since last seen: Tamie reports to be doing well. Pain is controlled. No new changes. Exam Narrative Exam Narrative: Comfortable in the bed. No acute distress. Right lower extremity is in the immobilizer. Sensation to light touch of the deep and superficial peroneal nerve and tibial nerve. PAWSS Have you Been Recently Intoxicated or Drunk Within the Last 30 days?: No Have you Ever Experienced Previous Episodes of Alcohol Withdrawal?: No Have you ever Experienced Withdrawal Seizures?: No Have you ever Experienced Delirium Tremens(DT)s?: No Have you ever undergone Alcohol Rehabilitation Treatment (i.e, inpt ot outpatient treatment programs)?: No Have you ever Experienced Blackouts?: No Have you ever Combined Alcohol with other Downers within the last 90 days?: No Have you ever Combined Alcohol with any other Substance of Abuse during the last 90 days?: No Positive Blood Alcohol level on Presentation? [PCS.BAL]: No Evidence of Increased Autonomic Activity (i.e. HR>120, tremor, sweating, agitation, nausea)?: No Result: 0
[2021-06-23] MEDS: ceFAZolin 2 GM/50 ML BAG 100 GM (13:55)
[2021-06-23] MEDS: Bupivacaine 0.25% Pres-Free 30 ML VIAL (14:01)
--- NOTE | 2021-06-23 15:36 | W.ANESPOSTOP ---
Postoperative Evaluation Date, Time and Location Date Performed: 06/23/21 Time Performed: 15:36 Patient Location: PACU Vital Signs Most Recent Imported Vital Signs: Most Recent Vital Signs Temp Pulse Resp BP Pulse Ox 36.4 C L 63 16 143/78 H 96 06/23/21 07:57 06/23/21 07:57 06/23/21 07:57 06/23/21 07:57 06/23/21 07:57 Most Recent Manually Entered Vital Signs: Adult Blood Pressure: 104/41 Heart Rate: 67 Respirations: 11 Oxygen Saturation (%): 97 Temperature (C): 36.3 C Pain Score (0-10 Scale): 0 Pain Score Most Recent Pain Score: Most Recent Pain Score Pain Level [Right Knee] 1 06/23/21 07:27 Pain Level [Left Wrist] 3 06/22/21 07:42 Pain Level [Right Knee] 5 06/22/21 07:42 Pain Level 6 06/23/21 11:13 Assessment Mental Status: Awake (Alert & Oriented to Patient Baseline) Airway and Respiratory Function: Patent airway with normal (patient baseline) respiratory exam Cardiovascular Function: Hemodynamically Stable Hydration Status: Adequately Hydrated Nausea & Vomiting: No Nausea or Vomiting Pain: Pt. Denies Any Pain Peripheral Nerve Block: Patient did not receive a nerve block
--- NOTE | 2021-06-23 16:14 | CHAPLAIN ---
Tamie and I know each other from outside of [facility]. I last saw here when she was here to have her hips replaced a few years ago. She told me about her fall down the stairs from her house to her garage. Her , who is a teacher, was home on vacation and able to help her after she called him from the garage. Their son is finishing his senior year at [employer]. Tamie said she maybe able to be weight-bearing on her leg after the surgery today. 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 I will continue to visit.
--- NOTE | 2021-06-23 18:08 | ROE_ITS ---
Date of service: 06/23/21 Time of Service: 15:22 Operative Note Operative Note DATE OF PROCEDURE: 11/17/19 PRE-OP DIAGNOSIS: Right Distal Intra-articular Femur Fracture POST-OP DIAGNOSIS: same PROCEDURE: Open Reduction and Internal Fixation of Right Distal Femur Fracture SURGEON: Jameel Worthington [employer] PSYCHOLOGIST: Lavelle Arreaga Refer to Anesthesia Record ESTIMATED BLOOD LOSS: 100 PATHOLOGY: none sent TOURNIQUET TIME: 0 COMPLICATIONS: None Patient was transported to: PACU Patient's condition: stable Implants: Synthes Distal Femur VA LCP 8 hole plate Indications: Tamie is a 60 year old female who presented to the Emergency Department after a fall. X-rays confirmed the diagnosis of a right intra-articular distal femur fracture. I reviewed the possible treatment options and given the fracture, I recommended operative fixation. I discussed the technical details of the surge ry. I reviewed the risks such as bleeding, infection, pain, stiffness, malunion, nonunion, hardware prominence, hardware faiilure, damage to nerves and vessels, blood clot. Despite these risks, Tamie agreed to proceed. Findings: There was a fracture of the femur which extended into the knee joint but was not displaced. The intra-articular split was secured with a single 6.5mm cannulated screw and further supported with a distal femur locking plate. Procedure Description: Tamie was greeted in the preoperative area. Consent was previously reviewed and signed. Once in the operating room, spinal anesthesia was administered. The patient was transferred to the operating table in the supine position. She was positioned in the supine position with the operative side placed onto a bone foam ramp. All bony prominences were well padded. Arms were placed out to the side, padded, and secured. Prophylactic antibiotics, Cefazolin 2 grams, was given for prophylactic antibiotics. A timeout was performed for safe surgery. The right leg was prepped with Chloraprep. The leg was draped with a st ockinette and extremity drape. Preoperative fluoroscopy was utilized to lavelle the fracture site on the skin for appropriate incision placement. An 8 cm longitudinal incision was then made overlying the IT band of the lateral aspect of the knee centered over the lateral femoral metaphysis. Incision was carried down to the IT band the IT band was split in line of its fibers. The synovium and deeper tissue was also split which revealed a large hemarthrosis. Hemarthrosis was evacuated. The intra-articular split was palpated but was nondisplaced. Fluoroscopy is also utilized to make sure there is no gapping of the fracture site this area. Preoperative planning indicated the anal plate would provide the length the past fracture but also leave plenty of space between the top of the plate and the total hip implant proximally. This was placed on the patient's leg and x-ray was taken to against confirmed the correct size. The plate was slid in a submuscular pattern on top of the femur from the lateral window created. This was placed in the on x-ray to make sure to be in good position. This plated position and then was able to lavelle where I could place intra-articular lag screws. A K wire from the 4.5 mm cannulated system was advanced across the distal aspect of the femur aimed slightly distal to proximal to avoid any impingement of the notch. However, this measured 80 by did not have any 80 mm screws. Therefore, I switched to a 6.5 mm cannulated screw system and placed a 6.5 mm partially-threaded screw to lag the intra- articular split of the distal femur. This was secured I then fixed the plate against the side of the femur using 2 K wires, one proximally 1 distally. The proximal one was placed through the targeting arm. X-rays utilized to confirm appropriate plate positioning. I then placed a locking screw in the midportion of the plate to draw the plate down onto the bone. I placed 4 locking screws in the distal segment. Placed 2 additional locking screws proximally followed by unicortical screw in the most proximal hole. As placement of distal nonlocking screw to help bring the spiral split back together. Bone quality was excellent. There is no notable complication. Final x-rays were obtained which showed appropriate placement of the plate and no fracture or gapping. The wounds were then thoroughly irrigated. And all injected with a mixture of 0.2 Verastem indicated along with 20 cc of Exparel. The proximal wounds are closed the skin only. The distal wound was closed with a running #1 Vicryl of the IT band. Deep tissues were closed with 2-0 Vicryl. Skin was closed with a running 3-0 Monocryl in a subcuticular pattern. The wounds were then dressed with Xeroform, 4 x 4's, ABD Kerlix and Fidencio wrap. He is placed back into a knee immobilizer. At the end of the case, all counts were correct. Tamie tolerated the procedure well without known complication and was taken to the PACU for recovery. Physical therapy will start post-operatively, protected weight bearing with a walker. 3 doses of post-operative antibiotics for prophylaxis will be administered.
[2021-06-23] MEDS: Atorvastatin 20 MG TAB PO (20:00)
[2021-06-23] MEDS: Montelukast 10 MG TAB PO (20:00)
[2021-06-23] MEDS: ceFAZolin 1 GM/50 ML BAG IVPB (20:01)
[2021-06-23] MEDS: oxyCODONE 5 MG TAB PO (21:23)
[2021-06-24 03:46] VITALS: BP 148/77; PULSE 68; RESP 18; TEMP 36.8; O2SAT 95
[2021-06-24] MEDS: Normal Saline Flush 10 ML SYR IVP ×4 (03:49→13:00)
[2021-06-24] MEDS: Ketorolac 15 MG/ML VIAL IVP ×2 (03:49→13:00)
[2021-06-24] MEDS: ceFAZolin 1 GM/50 ML BAG IVPB ×2 (03:49→11:34)
[2021-06-24] MEDS: oxyCODONE 5 MG TAB PO ×2 (04:54→09:21)
[2021-06-24] MEDS: Levothyroxine 150 MCG TAB PO (06:03)
[2021-06-24 07:07] VITALS: BP 131/74; PULSE 60; RESP 14; TEMP 36.6; O2SAT 97
[2021-06-24] MEDS: DULoxetine 30 MG CAP PO (08:11)
[2021-06-24] MEDS: Losartan 50 MG TAB 75 MG PO (08:11)
[2021-06-24] MEDS: Multivitamin w/Minerals TAB 1 TAB PO (08:11)
[2021-06-24] MEDS: hydroCHLOROthiazide 25 MG TAB PO (08:11)
--- NOTE | 2021-06-24 08:50 | PDOC.CMPRO ---
- If Service Date Differs Date of service: 06/24/21 Time of Service: 08:50 Care Management Progress Note S/O: A: Tamie is a 60 year old woman admitted on 06/22/21 with a right distal femur fracture P:Tamie will likley be discharged home with no new services. She will folllow up with her community providers and plan of care and transporty with family. CM will continue to support Tamie and assess for discharge planning concerns.
[2021-06-24] MEDS: Acetaminophen 500 MG TAB 1000 MG PO (09:21)
--- NOTE | 2021-06-24 10:38 | IN_ITS ---
Date of service: 06/24/21 Time of Service: 10:38 PT Notes Visit Reasons: Right Distal Femur Fracture Physical Therapy Inpatient Initial Evaluation Date: 06/24/2021 Referring Doctor: Jameel Worthington MD PT Orders: PT CONSULT: Status post Ortho surgery. S/P R distal femur ORIF. PWB with walker. Knee immobilizer for support Precautions: Fall. Standard. PWB on R LE with knee immobilizer on using AD. Patient Profile/Admitting Diagnosis: Tamie is a 60-year-old female who presented to the ED on 06/22/2021 due to a mechanical slip and fall down 4 steps at home. She is diagnosed with right distal intra-articular femur fracture status post ORIF of right distal femur on postoperative day 1. PMHX: All Active Problems? Femur fracture, right (Acute) Closed fracture of distal end of right femur (Acute) Headache (Acute) Inflammatory arthritis (Acute) Inflammatory bowel arthritis (Acute) Gallstones without obstruction of gallbladder (Acute) Status post right hip replacement (Acute 03/27/19) Status post left hip replacement (Acute 03/27/19) Medical History? Chronic anxiety Depression Lipoma of arm Obesity Osteopenia Vitamin D deficiency Social History/Home Situation: Lives with in a private home with 4 steps to enter with rails on both sides. Works for the [employer] for [employer] office. Independent with all aspects of ADLs prior to surgery. Equipment Owned/DME: FWW, SUZY, SPC Subjective: Agreeable to PT consult. Feels a lot better and more confident about moving about this morning. Denies headache, chest pain, and dizziness throughout session. Objective: General Observation: Knee immobilizer on the right LE. TOM is on left leg. Mental Status: Alert and oriented as to person, place, time, and purpose. Able to pay attention, focus, and respond appropriately. Pain: 1-2/10 in right knee and distal thigh ROM: Right Lower Extremity: Hip flexion WFL. Hip abduction WFL. Knee flexion NT. Ankle dorsiflexion WFL. Ankle plantarflexion WFL. Left Lower Extremity: Hip flexion WFL. Hip abduction WFL. Knee flexion WFL. Ankle dorsiflexion WFL. Ankle plantarflexion WFL. Strength: Right Lower Extremity: Hip flexors 4/5. Hip abductors 4/5. Knee flexors NT. Knee extensors NT. Ankle dorsiflexors 5/5. Ankle plantarflexors 5/5. Left Lower Extremity: Hip flexors 5/5. Hip abductors 5/5. Knee flexors 5/5. Knee extensors 5/5. Ankle dorsiflexors 5/5. Ankle plantarflexors 5/5. Sensation: Intact as to pain and light pressure on bilateral lower extremities. Bed Mobility/Transfers: Sit to stand with standby assist Stand to sit with standby assist Bed to reclining chair with standby assist Gait: Instructed patient with level surface ambulation of 200 feet +150 requiring standbyassist. Annie decreased. Moderate verbal cueing provided for PWB on R LE. Stairs: Up and down 6 x 4 inch steps and 4 x 6 inch steps while holding onto bilateral rails with partial weightbearing on right LE requiring contact-guard assist, step to gait pattern. Balance: Static Sitting: Normal Dynamic Sitting: Normal Static Standing: Fair with FWW Dynamic Standing: Fair wigth FWW Special Tests: Mobility Limitations Standardized Measure [facility] AM-PAC 6 clicks Basic Mobility Inpatient Short Form: Raw Score: 23 CMS Score: 11% deficit Informed Consent/Education: Patient was instructed in purpose of PT consult and plan of care. Agreeable to proceed with established PT POC to achieve personal goals. Patient was instructed with home exercise program and was given written instructions with illustrations of said HEP. Assessment: Tamie demonstrates functional mobility decline requiring the use of front wheeled walker for all transfers and ambulation test performance with moderate cueing provided for partial weightbearing on the right LE. Patient presents with clinical signs and symptoms consistent with current/admitting diagnoses that have resulted to mobility limitations, gait instability, generalized weakness, and overall ADL decline as demonstrated by the following impairment level findings: 1. Decreased strength to right hip and kneemajor muscle groups 2. Impaired sitting/standing balance 3. Impaired activity tolerance 4. Limitation of joint range of motion in right knee Impairments are contributing to the following functional limitations: 1. Difficulty with ambulation without assistive device 2. Increased completion time for mobility ADL performance 3. Increased risk for falls 4. Difficulty with managing steps alone safely Patient is assessed as a 9162 moderatecomplexity based on the following: History: 60-year-old femalewith past medical history as indicated above Examination: Demonstrable impairment in strength, balance, and mobility level with underlying impairments and functional limitations as exhibited above as well as deficit score of 11% utilizing the [facility] Mobility Inpatient Short Form Presentation: Evolving Decision Makin moderate complexitycomplexity Goals: Goals X1 week 1. Supine-Sit independent 2. Sit-Supine independent 3. Sit-Stand independent 4. Stand-Sit independent with FWW 5. Bed-Chair independent with FWW 6. Chair-Bed independent with FWW 7. Independent gait on level surface with use of FWW for at least 100 feet without report of pain nor dyspnea 8. Independent stair negotiation while holding onto B rails for at least 5 steps without report of pain nor dyspnea 9. Independent with home exercise program 10. Good static and dynamic standing balance/tolerance Plan of Care/Treatment Plan: 1-2x/day, 7 days/week x 1 week. Plan of care has been reviewed with the [employer] providing the service under Physical Therapy direction. Initiate Physical Therapy intervention for pain management as needed, strengthening, bed mobility, transfers, gait, stairs, balance training, and use of assistive device. DISCHARGE RECOMMENDATIONS: [] Home with no services [] [] Home with services [specify] [X] Home with outpatient PT. Home when medically cleared by orthopedic surgeon. Will benefit from outpatient PT services in order to physical return to independent community ambulation without an assistive device. [] SNF for continued rehabilitation [] [] General Activities Therapist Care [] [] SNF versus LTC based on ability to participate and progress [] TREATMENT CODE/TIME: 61483 x20 minutes, 9711 0 x 15 minutes beginning at 10:38 AM. Thank you for the opportunity to participate in the care of this patient. Shellie Perez PT, DPT, CLT [facility] [place], [place]
[2021-06-24 15:35] VITALS: BP 111/68; PULSE 64; RESP 16; TEMP 37.3; O2SAT 96
--- NOTE | 2021-06-24 15:43 | PDOC.CMDIS ---
- If Service Date Differs Date of service: 06/24/21 Time of Service: 15:44 LACE Index Scoring Tool - Questions: Length of Stay (in days): 2 Acuity (Admit via E.D.?): Yes E.D. Visits: 2 - Answers: Total Score: 7 Risk of Readmission: Low Risk Care Management Discharge Reason for Hospitalization: right leg pain Discharge Plan: Tamie will be discharged home with no new home services, however outpatient PT has been recommended. She will folllow up with her community providers and plan of care and transporty with her . Patient/Family Education Needs: Review of discharge instructions, limitations, activity, medications, follow up plan, and discuss Ask Me Three
--- NOTE | 2021-06-24 15:52 | DSE_ITS ---
Date of service: 06/24/21 Time of Service: 15:10 DS: Diagnosis Discharge Diagnosis (1) Closed fracture of distal end of right femur: Status: Acute Asessment and Plan: Patient is status post open reduction internal fixation of the right distal femur. She is doing well. She is able to mobilize with physical therapy. Her pain is well controlled. She will be discharged to home. She will follow-up in 2 weeks. Discharge Plan Disposition Patient Disposition: HOME Condition: Stable Discharge Details Reason For Visit: Right Distal Femur Fracture Admit Date/Time: 06/22/21 13:00 Admit Provider: Jameel Worthington Attending Provider: Jameel Worthington [facility]: Tamie was admitted to the floor from the emergency department with a diagnosis of a closed right distal femur fracture. She went to the operating room on hospital day #2 and tolerated her surgery well without any notable complication. She has had good pain control and was able to mobilize with physical therapy earlier today. She denies any acute concerns such as fever, chills, chest pain, shortness of breath. She was deemed safe for discharge home on postop day #1. Home Meds and New Rx's Prescriptions: New aspirin 81 mg tablet,delayed release (DR/EC) 81 mg PO BID Qty: 60 0RF oxycodone 5 mg tablet 5 mg PO Q4H Qty: 15 0RF Continued ipratropium bromide 0.03 % spray,non-aerosol 2 spray KYLE BID PRN0RF fluticasone propionate 50 mcg/actuation spray,suspension 2 spray KYLE DAILY PRN0RF atorvastatin 20 mg tablet 20 mg PO DAILY 0RF montelukast [Singulair] 10 mg tablet 10 mg PO QPM 0RF losartan 50 mg tablet 75 mg PO DAILY 0RF multivitamin,tx-minerals tablet 1 tab PO DAILY 0RF levothyroxine [Levoxyl] 150 MCG tablet 150 mcg PO DAILY 0RF hydrochlorothiazide 25 mg tablet 25 mg PO DAILY 0RF acetaminophen 500 mg Tablet 1,000 mg PO Q6H PRNQty: 90 0RF ibuprofen 600 mg tablet 600 mg PO Q6H PRNQty: 90 0RF Rx Instructions: take w/ food duloxetine 30 mg Capsule,Delayed Release(Dr/Ec) 30 mg PO DAILY 0RF Discharge Instructions Additional Instructions: Total Knee Discharge Instructions Activity: You have no restrictions on your activity but all weight-bearing should be with the assistance of your walker. You may use the knee immobilizer for extra support about the knee but remove when you so desire. You may start knee range of motion but do not try to push this too soon. Dressing: Keep the surgical dressing (Mepilex) in place for at least one week. After the first week it may be removed and replaced with light gauze and tape or nothing. The wound and dressing may get wet after 3 days but avoid soaking the dressing or otherwise it will need to be changed. Many people prefer covering the dressing with cling wrap (saran wrap) to minimize it from getting soaked. If it gets wet, just pat dry. If it starts to peel off then it will need to be changed. Medications: - You should take Tylenol and anti-inflammatory Ibuprofen as your primary pain control medications. If the Celebrex is too expensive or not covered, please call the office for another alternative (Advil/Ibuprofen or Naproxen/Aleve) - You have been prescribed a stronger pain medication Oxycodone for breakthrough pain, take as needed as prescribed. - You will be taking Aspirin 81mg twice a day for DVT prevention unless instructed otherwise. - If you have constipation you should take Colace or Miralax (both [id number]). It takes most people 3-4 days to have a bowel movement. Follow-up: 2 weeks If you have any acute concerns or questions, please do not hesitate to contact the office at [phone]. You may contact Dr. Worthington with any questions after hours through the hospital at [phone] or on his cell phone at [phone]. Stand Alone Forms: Nursing Discharge Form Referrals: Jameel Worthington MD [ [facility] STAFF PHYSICIAN] - 07/09/21 11:30 am Activity:: Protected weight bearing Equipment/Supplies:: No Equipment Needed Diet:: As Tolerated Discharge Orders Discharge Orders: Discharge Order (Routine); Ordered 06/24/21 Ordered By: Jameel Worthington DS: Summary Time Spent with Patient providing and/or coordinating discharge services: Less than 30 minutes Status at Discharge Functional status at discharge: uses cane/walker Overall status at discharge: patient is progressing back to baseline Mental Status: mental status grossly normal Speech and Movement: speech and movement normal Mood: congruent mood Affect: normal affect Exam Extrem Other: Dressings are c/d/i. Dressings changed. No pain with hip flexion or knee extension. No pain with gentle passive range of motion. SILT DP/SP/Tib. +DP/PT. +ADF/APF/EHL/FHL. Psych Mental Status: mental status grossly normal Speech and Movement: speech and movement normal Mood: congruent mood Affect: normal affect DS: Data Vitals/I&O Vitals and I&O: Vital Signs Temperature 37.3 C 06/24/21 15:35 Temperature Source Tympanic 06/24/21 15:35 Pulse 64 06/24/21 15:35 Pulse Rhythm Regular 06/24/21 08:15 Respiratory Rate 16 06/24/21 15:35 Respiratory Effort 06/24/21 08:15 Respiratory Depth Normal 06/24/21 08:15 Respiratory Pattern Normal 06/24/21 08:15 Blood Pressure 111/68 06/24/21 15:35 Blood Pressure Position Sitting 06/22/21 07:38 Pulse Oximetry 96 06/24/21 15:35 Respiratory End-tidal CO2 36 06/23/21 15:53 Oxygen Delivery Method Room Air 06/24/21 15:35 Oxygen Flow Rate 0 06/24/21 15:35 Pain Level 6 06/24/21 13:00 Comment 06/22/21 23:32 Intake & Output 06/23/21 06/24/21 06/24/21 23:59 11:59 23:59 Intake Total 1482.0 / 1492.0 560 / 850 290 / 850 Output Total 500 / 1250 450 / 450 Balance 982.0 / 242.0 110 / 400 290 / 400 Intake: IV 1282.0 / 1292.0 100 / 150 50 / 150 Oral 200 / 200 460 / 700 240 / 700 Output: Urine 500 / 1250 450 / 450 Other: Urine Color Yellow Yellow Urine Appearance Clear Clear Urine Odor Normal Normal Emesis Description None Voiding Methods Bedside Commode Bedside Commode REPLACED BY [facility] All Active Problems Femur fracture, right (Acute) Closed fracture of distal end of right femur (Acute) Headache (Acute) Inflammatory arthritis (Acute) Inflammatory bowel arthritis (Acute) Gallstones without obstruction of gallbladder (Acute) Status post right hip replacement (Acute 03/27/19) Status post left hip replacement (Acute 03/27/19) Medical History Allergic rhinitis BMI 30.0-30.9,adult Bradycardia Chronic anxiety Depression Dyspepsia Elevated alkaline phosphatase level Intention tremor Leg cramps Lipoma of arm Obesity Osteoarthritis of hips, bilateral Osteopenia Reactive inflammatory arthritis Renal insufficiency, mild Restless leg syndrome Vitamin D deficiency Surgical History Colonoscopy - IV Sedation Hx laparoscopic cholecystectomy (~06/24/20) Hx of section Hx of myomectomy R arm remove fibroid tumor S/P colonoscopy (~10/30/18) 2009-nl S/P excision of lipoma right arm - upper arm/shoulder Family History Other Heart disease Hypertension Social History Smoking/Tobacco Use Status: Former Tobacco Use Quit Date: 05/02/95 Tobacco: How many years used: 15 Smoking risk assessment performed?: Yes Alcohol Intake: current Alcohol Intake frequency: a few times a month Alcohol type: beer and hard liquor Drug use: Never Substance use type: does not use 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
--- NOTE | 2021-06-24 16:08 | CHAPLAIN ---
Tamie was up in the chair when I visited. She said her surgery yesterday went well and her pain is well controlled. She expects to be discharged today. 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 She has a trip to [place] planned for this spring and her son graduates from [employer] in August, so she is hoping to be able to be healed enough for those trips without any problems.
--- NOTE | 2021-06-24 18:50 | INDS_ITS ---
Date of service: 06/24/21 PT Notes Visit Reasons: Right Distal Femur Fracture Physical Therapy Inpatient Discharge Summary Date: 06/24/2021 Dates of service: 04/23/2022 only This is a clinical summary of care provided for the duration of dates listed above. No charge was made in the completion of this documentation. Referring Doctor: Jameel Worthington MD PT Orders: PT CONSULT: Status post Ortho surgery.? S/P R distal femur ORIF.? PWB with walker.? Knee immobilizer for support Precautions: Fall. Standard. PWB on R LE with knee immobilizer on using AD. Patient Profile/Admitting Diagnosis: Tamie is a 60-year-old female who presented to the ED on 06/22/2021 due to a mechanical slip and fall down 4 steps at home.? She is diagnosed with right distal intra-articular femur fracture status post ORIF of right distal femur on postoperative day 1. PMHX: All Active Problems? Femur fracture, right (Acute) Closed fracture of distal end of right femur (Acute) Headache (Acute) Inflammatory arthritis (Acute) Inflammatory bowel arthritis (Acute) Gallstones without obstruction of gallbladder (Acute) Status post right hip replacement (Acute 03/27/19) Status post left hip replacement (Acute 03/27/19) Medical History? Chronic anxiety Depression Lipoma of arm Obesity Osteopenia Vitamin D deficiency Social History/Home Situation: Lives with in a private home with 4 steps to enter with rails on both sides.? Works for the [employer]? Independent with all aspects of ADLs prior to surgery. Equipment Owned/DME: FWW, SUZY, SPC Subjective: NT. See most recent MECHANIC GENERAL OPERATIONAL TEST notes. Objective: General Observation: NT. See most recent MECHANIC GENERAL OPERATIONAL TEST notes. Mental Status: NT. See most recent MECHANIC GENERAL OPERATIONAL TEST notes. Pain: NT. See most recent MECHANIC GENERAL OPERATIONAL TEST notes. ROM: Right Lower Extremity: Hip flexion WFL. Hip abduction WFL. Knee flexion NT. Ankle dorsiflexion WFL. Ankle plantarflexion WFL. Left Lower Extremity: Hip flexion WFL. Hip abduction WFL. Knee flexion WFL. Ankle dorsiflexion WFL. Ankle plantarflexion WFL. Strength: Right Lower Extremity: Hip flexors 4/5. Hip abductors 4/5. Knee flexors NT. Knee extensors NT. Ankle dorsiflexors 5/5. Ankle plantarflexors 5/5. Left Lower Extremity: Hip flexors 5/5. Hip abductors 5/5. Knee flexors 5/5. Knee extensors 5/5. Ankle dorsiflexors 5/5. Ankle plantarflexors 5/5. Sensation: Intact as to pain and light pressure on bilateral lower extremities. Bed Mobility/Transfers: Sit to stand with standby assist Stand to sit with standby assist Bed to reclining chair with standby assist Gait: Instructed patient with level surface ambulation of 200 feet +150? requiring standbyassist. Annie decreased.? Moderate verbal cueing provided for PWB on R LE. Stairs: Up and down 6 x 4 inch steps and 4 x 6 inch steps while holding onto bilateral rails with partial weightbearing on right LE requiring contact-guard assist, step to gait pattern. Balance: Static Sitting: Normal Dynamic Sitting: Normal Static Standing: Fair with FWW Dynamic Standing: Fair wigth FWW Assessment: Tamie demonstrates functional mobility decline requiring the use of front wheeled walker for all transfers and ambulation test performance with moderate cueing provided for partial weightbearing on the right LE.? Patient presents with clinical signs and symptoms consistent with current/admitting diagnoses that have resulted to mobility limitations, gait instability, generalized weakness, and overall ADL decline as demonstrated by the following impairment level findings: 1.? Decreased strength to right hip and kneemajor muscle groups 2.? Impaired sitting/standing balance 3.? Impaired activity tolerance 4.? Limitation of joint range of motion in right knee Impairments are contributing to the following functional limitations: 1.? Difficulty with ambulation without assistive device 2.? Increased completion time for mobility ADL performance 3.? Increased risk for falls 4.? Difficulty with managing steps alone safely Goals: Goals X1 week 1. Supine-Sit independent NOT MET 2. Sit-Supine independent NOT MET 3. Sit-Stand independent NOT MET 4. Stand-Sit independent with FWW NOT MET 5. Bed-Chair independent with FWW NOT MET 6. Chair-Bed independent with FWW NOT MET 7. Independent gait on level surface with use of FWW for at least 100 feet without report of pain nor dyspnea NOT MET 8. Independent stair negotiation while holding onto B rails for at least 5 steps without report of pain nor dyspnea NOT MET 9. Independent with home exercise program NOT MET 10. Good static and dynamic standing balance/tolerance NOT MET DISCHARGE RECOMMENDATIONS: [] ? Home with no services [] [] ? Home with services [specify] [X] ? Home with outpatient PT.? Home when medically cleared by orthopedic surgeon.? Will benefit from outpatient PT services in order to physical return to independent community ambulation without an assistive device. [] ? SNF for continued rehabilitation [] [] ? [employer] Architect Care [] [] ? SNF versus LTC based on ability to participate and progress [] TREATMENT CODE/TIME: OK Thank you for the opportunity to participate in the care of this patient. Shellie Perez PT, DPT, CLT [facility] [place], [place]
== END 2021-06-24 16:39 | disposition home or self-care (01) | DRG 482 ==
LOC: ER 13:14 → MS 13:51
PROVIDERS: Admitting Provider Student in an Organized Health Care Education/Training Program; Emergency Provider Physician Assistant; PCP Family Medicine; Visit Provider Student in an Organized Health Care Education/Training Program
PROC: 0QSB04Z Reposition Right Lower Femur with Internal Fixation Device, Open Approach (ICD-10-PCS; CPT 27514; principal; 2021-06-23 12:45)
DX: S72.491A Other fracture of lower end of right femur, initial encounter for closed fracture (principal); W10.9XXA Fall (on) (from) unspecified stairs and steps, initial encounter; E55.9 Vitamin D deficiency, unspecified; M85.80 Other specified disorders of bone density and structure, unspecified site; E66.9 Obesity, unspecified; F41.9 Anxiety disorder, unspecified; F32.A Depression, unspecified; Z68.34 Body mass index [BMI] 34.0-34.9, adult
CPT/HCPCS: 27514; 29505; 73552; 87635; 90471; 97162; 97530; 99285; 73564; 73700; 99222; J0131; J0690; J1100; J1885; J2001; J2250; J2405

== ENCOUNTER 2021-07-09 11:43 | Outpatient (CLI) | payer BC, SELFPAY ==
--- NOTE | 2021-07-09 11:15 | DI.RAD_ITS ---
Exam(s) XR FEMUR RT EXAM: XR FEMUR RT CLINICAL HISTORY: DISTAL FEMUR FRACTURE TECHNIQUE: COMPARISON: CR XR FEMUR RT from 06/22/2021 XA XR FEMUR RT from 06/23/2021 FINDINGS: Four views were obtained. There is a total hip joint replacement position. Components appear well s eated. There is plate and screw fixation of the distal femur. No other significant bony or soft tis tk abnormality seen. No change in alignment of distal femoral fixation in comparison with intraoper ative films of June 23. IMPRESSION: RADIATION DOSE DELIVERED: Total DLP
== END 2021-07-09 11:44 | disposition home or self-care (01) ==
LOC: DIORS 11:43
PROVIDERS: PCP Family Medicine; Visit Provider Student in an Organized Health Care Education/Training Program
DX: S72.491A Other fracture of lower end of right femur, initial encounter for closed fracture (principal); W10.9XXA Fall (on) (from) unspecified stairs and steps, initial encounter; Z96.643 Presence of artificial hip joint, bilateral
CPT/HCPCS: 73552

== ENCOUNTER 2021-08-06 11:24 | Outpatient (CLI) | payer BC, SELFPAY ==
--- NOTE | 2021-08-06 11:00 | DI.RAD_ITS ---
Exam(s) XR KNEE RT 2V AP,LAT EXAM: XR KNEE RT 2V AP,LAT CLINICAL HISTORY: F/U R FEMUR FRACTURE. TECHNIQUE: 2D digital imaging was performed. COMPARISON: CR XR FEMUR RT from 06/22/2021 CR XR FEMUR RT from 07/09/2021 FINDINGS: BONES: There are stable post operative changes present. No new fracture or dislocation. JOINTS: The joint spaces are well maintained. No joint effusion is present. SOFT TISSUE: Normal. IMPRESSION: Stable postoperative changes. DATA REPOSITORY: RADIATION DOSE DELIVERED:
== END 2021-08-06 11:25 | disposition home or self-care (01) ==
LOC: DIORS 11:24
PROVIDERS: PCP Family Medicine; Referring Provider Family Medicine; Visit Provider Student in an Organized Health Care Education/Training Program
DX: S72.491A Other fracture of lower end of right femur, initial encounter for closed fracture (principal); W10.9XXA Fall (on) (from) unspecified stairs and steps, initial encounter
CPT/HCPCS: 73560

== ENCOUNTER 2021-09-17 13:29 | Outpatient (CLI) | payer BC, SELFPAY ==
--- NOTE | 2021-09-17 10:42 | DI.RAD_ITS ---
Exam(s) XR KNEE RT 3V AP,LAT,BETTIE EXAM: XR KNEE RT 3V AP,LAT,BETTIE CLINICAL HISTORY: F/U S/P ORIF RIGHT FEMUR. TECHNIQUE: 2D digital imaging was performed of the right knee. Three views obtained. AP, Merchant a nd PA tunnel views were obtained. COMPARISON: CR XR KNEE RT 4V+ from 06/22/2021 CR XR KNEE RT 2V AP,LAT from 08/06/2021 FINDINGS: BONES: Stable sideplate and screws are seen transfixing the distal femoral fracture. Components of t he fracture still visualized on the images. No bony destructive lesion is seen. JOINTS: The knee is normally aligned. No joint effusion is seen. SOFT TISSUE: Normal. IMPRESSION: Stable distal right femur. DATA REPOSITORY: RADIATION DOSE DELIVERED:
== END 2021-09-17 13:30 | disposition home or self-care (01) ==
LOC: DIORS 13:29
PROVIDERS: PCP Family Medicine; Referring Provider Family Medicine; Visit Provider Student in an Organized Health Care Education/Training Program
DX: S82.491D Other fracture of shaft of right fibula, subsequent encounter for closed fracture with routine healing (principal); W10.9XXD Fall (on) (from) unspecified stairs and steps, subsequent encounter
CPT/HCPCS: 73562

== ENCOUNTER 2021-11-19 10:52 | Outpatient (CLI) | payer BC, SELFPAY ==
--- NOTE | 2021-11-19 08:45 | DI.RAD_ITS ---
Exam(s) XR FEMUR RT EXAM: XR FEMUR RT CLINICAL HISTORY: f/u R FEMUR FRACTURE. TECHNIQUE: 2D digital imaging was performed. COMPARISON: CR XR FEMUR RT from 07/09/2021 FINDINGS: Two views: Right hip prosthesis remain stable. No fracture or loosening. More distal hardware comprised of lateral fixation plate in the distal half of the femur and femoral condyles also remain stable. No fracture or loosening. No radiographic evidence of osteomyelitis. IMPRESSION: No significant change from 07/09/2021 DATA REPOSITORY: RADIATION DOSE DELIVERED:
== END 2021-11-19 10:53 | disposition home or self-care (01) ==
LOC: DIORS 10:53
PROVIDERS: PCP Family Medicine; Referring Provider Family Medicine; Visit Provider Student in an Organized Health Care Education/Training Program
DX: S72.91XD Unspecified fracture of right femur, subsequent encounter for closed fracture with routine healing (principal); X58.XXXD Exposure to other specified factors, subsequent encounter
CPT/HCPCS: 73552

== ENCOUNTER 2022-02-23 16:55 | Outpatient (REF) | payer BC, SELFPAY ==
[2022-02-23 17:10] LABS: Hemoglobin A1C 6.3 % (<5.7)
[2022-02-23 17:41] LABS: ALT 47 U/L (14-59); AST 39 U/L (15-37); Albumin 3.7 g/dL (3.4-5.0); Alkaline Phosphatase 127 U/L (46-116); Anion Gap 10.3 mmol/L (3-11); BUN 26 mg/dL (7-18); Bilirubin, Total 0.5 mg/dL (0.2-1.0); CO2 24.7 mmol/L (21.0-32.0); CREATININE 1.1 mg/dL (0.55-1.02); Calcium 9.1 mg/dL (8.5-10.1); Calculated LDL 76 mg/dL (<100); Chloride 102 mmol/L (98-107); Cholesterol 184 mg/dL (<200); Estimated GFR 56.46 (mL/min/1.73m2); Glucose 105 mg/dL (74-106); HDL Cholesterol 56 mg/dL (40-60); Potassium 3.9 mmol/L (3.5-5.1); Sodium 137 mmol/L (136-145); TSH (W/Ref FT4) 0.75 uIU/mL (0.36-3.74); Total Protein 7.7 g/dL (6.4-8.2); Triglyceride 263 mg/dL (<150)
[2022-02-24 10:23] LABS: Vitamin D 25 Total 12.9 ng/mL (30-100)
== END 2022-02-23 16:56 | disposition home or self-care (01) ==
LOC: NCHCN 16:55
PROVIDERS: PCP Family Medicine; Visit Provider Family Medicine
DX: E03.9 Hypothyroidism, unspecified (principal); R74.8 Abnormal levels of other serum enzymes; Z00.00 Encounter for general adult medical examination without abnormal findings; E78.5 Hyperlipidemia, unspecified; E55.9 Vitamin D deficiency, unspecified; I10 Essential (primary) hypertension; R73.09 Other abnormal glucose
CPT/HCPCS: 80053; 80061; 82306; 83036; 84443

== ENCOUNTER → 2022-04-15 01:33 | Outpatient (CLI) | payer BC, SELFPAY ==
--- NOTE | 2022-04-15 15:45 | DI.MAMMO_ITS ---
Exam(s) MAMMO SCREENING EXAM: MAMMO SCREENING CLINICAL HISTORY: SCREENING, Z12.39 TECHNIQUE: Bilateral full field digital CC and MLO mammographic images were obtained with 3D tomosyn thesis and utilizing computer aided detection (CAD). COMPARISON: Available for comparison. FINDINGS: Masses/Architectural Distortion: There has been interval increase in size of a nodule in the posterio r left breast seen on the MLO view. The nodule now measures 7.7 mm compared to 4.6 mm on the prior e xamination. Microcalcifications: No suspicious pleomorphic-type are seen. Skin Thickening/Nipple Retraction: None. IMPRESSION: 1. Interval increase in size of the left breast nodule. 2. Spot compression views requested for further evaluation. Ultrasound should also be obtained at th at time. BI-RADS Category 0 - Assessment Incomplete: Need additional imaging evaluation Breast Density - Category C - Heterogeneously dense Breast density category C or D implies that the patient has dense breast tissue. Dense breast tissue is very common and is not abnormal but dense breast tissue can make it harder to find cancer on a ma mmogram. Also, dense breast tissue may increase their breast cancer risk. This information about the result of the mammogram report was provided to the patient to raise their awareness. Use this report when you speak with the patient about their risks for breast cancer, which includes their family hist ory. At that time, you may recommend for more screening tests (Ultrasound or MRI) as they might be us eful based on their risk. A negative radiographic report should not delay biopsy if a dominant or clinically suspicious mass is present. Up to ten percent of cancers are not identified on mammography. A negative report may reinforce clinical impression. Adenosis and dense breasts may obscure an underlying neoplasm. False positive reports average 6 to 10%. Patient will receive a letter notifying them of these results.
== END ==
PROVIDERS: PCP Family Medicine; Visit Provider Family Medicine
DX: Z13.1 Encounter for screening for diabetes mellitus (principal); R92.8 Other abnormal and inconclusive findings on diagnostic imaging of breast
CPT/HCPCS: 77063; 77067

== ENCOUNTER 2022-04-27 11:38 | Outpatient (CLI) | payer OTHER, SELFPAY ==
--- NOTE | 2022-04-27 11:30 | DI.RAD_ITS ---
Exam(s) XR KNEE RT 3V AP,LAT,BETTIE EXAM: XR KNEE RT 3V AP,LAT,BETTIE CLINICAL HISTORY: right knee pain. TECHNIQUE: 2D digital imaging was performed. COMPARISON: CR XR FEMUR RT from 07/09/2021 CR XR KNEE RT 3V AP,LAT,BETTIE from 09/17/2021 CR XR FEMUR RT from 11/19/2021 FINDINGS: 3 views Again noted is side plate secured by screws in the distal femur across the previously described fract ure site and there is no hardware loosening nor radiographic evidence of osteomyelitis. On the merchant's view there is again noted a cortical defect in the anterior aspect of the lateral f emoral condyle at the level of the patellofemoral joint on the merchant's view. This is unchanged fr om 09/17/2021 and there is no step at this level. No obvious osteochondral defect. No narrowing of the patello femoral compartment space. On the merchant's view there is again noted a corticated calc ification measuring 5 x 3 millimeters just behind the most medial aspect of the patella, unchanged in size and location. IMPRESSION: No significant radiographic change compared to 09/17/2021. DATA REPOSITORY: RADIATION DOSE DELIVERED:
== END 2022-04-27 11:39 | disposition home or self-care (01) ==
LOC: DIORS 11:39
PROVIDERS: PCP Family Medicine; Referring Provider Family Medicine; Visit Provider Physician Assistant
DX: M25.561 Pain in right knee (principal); M76.891 Other specified enthesopathies of right lower limb, excluding foot
CPT/HCPCS: 73562

== ENCOUNTER 2022-04-30 00:12 | Outpatient (CLI) | payer BC, SELFPAY ==
--- NOTE | 2022-04-30 | DI.US_ITS ---
Exam(s) MG MAMMO SCREEN CALL BACK UNI US BREAST LT COMPLETE EXAM: MG MAMMO SCREEN CALL BACK UNI CLINICAL HISTORY: F/U MAMMO,INCREASE SIZE OF NODULE LT, R92.8. TECHNIQUE: Craniocaudal and mediolateral oblique spot compression digital Mammography views of the b reast with Tomosynthesis and breast ultrasound. COMPARISON: MG MG MAMMO SCREENING from 04/15/2022 US US BREAST LT COMPLETE from 04/30/2022 and exams back to 2013 FINDINGS: Mammography/Tomosynthesis: Masses/Architectural Distortion: Persistent smoothly marginated nodule in the posterior left breast s he has the appearance of an intramammary lymph node. It has increased mildly since the previous exam . Microcalcifictions: No suspicious pleomorphic-type are seen. Skin Thickening/Nipple Retraction: None. Left breast US: Echotexture: Normal appearance of the glandular tissue. Shadowing: No suspicious foci. Cyst: None. Solid lesions: None seen. Ductal dilation: None. IMPRESSION: 1. No evidence of malignancy is noted. Six-month follow-up left mammogram recommended. 2. The findings were discussed with the patient on the date of the examination. BI-RADS Category 3 - 6 month - Probably Benign Finding: Recommend follow-up mammography in 6 months Breast Density - Category C - Heterogeneously dense A mammogram that demonstrates density of C or D indicates the patient's breast tissue is dense. Dense breast tissue is very common and is not abnormal, but dense breast tissue can make it harder to find cancer on a mammogram. Also, dense breast tissue may increase their breast cancer risk. This informa tion about the result of the mammogram report was provided to the patient to raise their awareness. U se this report when you speak with the patient about their risks for breast cancer, which includes th eir family history. At that time, you may recommend for more screening tests (Ultrasound or MRI) as t hey might be useful based on their risk. A negative radiographic report should not delay biopsy if a dominant or clinically suspicious mass is present. Up to ten percent of cancers are not identified on mammography. A negative report may reinforce clinical impression. Adenosis and dense breasts may obscure an underlying neoplasm. False positive reports average 6 to 10%. Patient will receive a letter notifying them of these results.
== END 2022-04-30 00:32 ==
LOC: DI 00:12
PROVIDERS: PCP Family Medicine; Visit Provider Family Medicine
DX: Z12.31 Encounter for screening mammogram for malignant neoplasm of breast (principal); R92.8 Other abnormal and inconclusive findings on diagnostic imaging of breast; N64.59 Other signs and symptoms in breast
CPT/HCPCS: 76642; 77063; 77067

== ENCOUNTER 2022-06-04 00:20 | Outpatient (CLI) | payer BC, SELFPAY ==
--- NOTE | 2022-06-04 07:07 | DI.CT_ITS ---
Exam(s) CT CHEST/ABD/PEL W EXAM: CT CHEST/ABD/PEL W CLINICAL HISTORY: umbilica hernia vs rectus diastatsis,REGURG,REFLUX,H/O HIATAL REPAIR. TECHNIQUE: Imaging Protocol: Axial computed tomography images with coronal and sagittal reformatted images were created and reviewed CONTRAST MATERIAL: Intravenous: Omnipaque 350 Contrast volume:100 ml Oral: Yes. Oral contrast also administered for bowel opacification. COMPARISON: CT CT BRAIN NECK CTA from 06/16/2021 FINDINGS: CHEST: LUNGS: No infiltrates nor pleural effusions. No ominous pulmonary nodules. No significant focal fin dings in the trachea and mainstem bronchi. There is no bronchiectasis.. MEDIASTINUM: There is no hilar nor subcarinal adenopathy. Two small lymph nodes are seen between the left common carotid and left subclavian arteries. The larger of these 2 lymph nodes measures 9.8 by 6 mm. CARDIAC: Heart size is normal. There is no pericardial effusion.Caliber of the thoracic aorta is wit hin normal limits. OSSEOUS: No significant osseous lesions.. ABDOMEN: There is a bariatric LapBand in place at the GE junction level which appears satisfactory position an d the filling catheter appears satisfactory position as does the left anterior abdominal wall subcuta neous port. There is no evidence of abnormal collection at the site of the port crossing through the left rectus abdominus muscle. However, there is an element of diastasis recti and anterior wall her michael sac just above the umbilicus and slightly left of center. The hernia sac neck is wide. The fat only containing hernia sac measures 4.5 cm wide by 3 cm AP by 5 cm craniocaudal. LIVER: There are no focal hepatic lesions nor dilatation of intrahepatic ducts. GALLBLADDER/BILIARY: Gallbladder is surgically absent. CBD is not dilated. PANCREAS: No evidence of pancreatic mass nor dilatation of the pancreatic duct. SPLEEN: Spleen is not enlarged. There are no intrasplenic lesions. Splenic and portal veins are avendano nt. ADRENALS: There are no significant adrenal masses. KIDNEYS: No calculi nor hydronephrosis. No solid renal masses. No cysts evident. ABDOMINAL AORTA: Abdominal aorta is not enlarged. LYMPH NODES: There is no retroperitoneal nor paraaortic adenopathy. ABDOMINAL WALL: See above. GI: There is no evidence of bowel obstruction. PELVIS: LYMPH NODES: There is no intrapelvic nor inguinal adenopathy. GI: No evidence of appendicitis.No evidence of sigmoid diverticulitis. URINARY BLADDER: Partially obscured by beam hardening artifact from bilateral hip prostheses. REPRODUCTIVE: Uterus and adnexal regions appear unremarkable. No obvious free fluid in the pelvis. OSSEOUS: Bilateral hip prostheses evident. IMPRESSION: 1. No significant intrathoracic findings. 2. Lap band in satisfactory position. No evidence of bowel obstruction, free air, nor abscess. Grey husam, there is an element of diastasis rectus and there is anterior abdominal wall hernia sac just abo ve and slightly to the left of the umbilicus. This contains only fat and no bowel loops. The hernia sac measures 4.5 cm wide by 3 cm AP x 5 cm craniocaudal. Does not contain bowel loops. 3. Previous cholecystectomy. Biliary tree is not dilated. 4. Bilateral hip prostheses. RADIATION DOSE DELIVERED: 1,780.77mGy.cm Total DLP DATA REPOSITORY: All CT scans at this facility are submitted to the National Radiology Data Registry (NRDR) Dose Index Registry (DIR) with the [employer] (ACR). RADIATION OPTIMIZATION: All CT scans at this facility use at least one of these dose optimization te chniques: automated exposure control; mA and/or kV adjustment per patient size (includes targeted exa ms where dose is matched to clinical indication); or iterative reconstruction.
[2022-06-04] MEDS: Omnipaque 350 MG/ML 50 ML BTL PO (08:36)
[2022-06-04] MEDS: Breeza Beverage 473 ML BTL PO ×2 (08:36→08:37)
[2022-06-04 08:52] LABS: CREATININE 1.2 mg/dL (0.55-1.02); Estimated GFR 50.86 (mL/min/1.73m2)
[2022-06-04] MEDS: Normal Saline - Diluent 50 ML VIAL IJ (10:17)
[2022-06-04] MEDS: Omnipaque 350 MG/ML 100 ML BTL IJ (10:20)
[2022-06-04] MEDS: Normal Saline Flush 10 ML SYR IVP (10:21)
== END 2022-06-04 00:40 ==
LOC: DI 00:20
PROVIDERS: PCP Family Medicine; Visit Provider Surgery
DX: K42.9 Umbilical hernia without obstruction or gangrene (principal); R10.9 Unspecified abdominal pain; Z96.643 Presence of artificial hip joint, bilateral
CPT/HCPCS: 74177; 71260; 82565; J3490; Q9967

== ENCOUNTER 2022-07-22 16:24 | Outpatient (REF) | payer BC, SELFPAY ==
--- NOTE | 2022-07-22 15:45 | ENDOMET_PTH ---
PATIENT: Tamie Richmond LOC: [facility] U#:[id number] AGE/SX: 61/F ROOM: RE07/22/[address]: Tamie Thomas MD : 1960 BED: DIS: 07/22/2022 SPEC #: [id number] RECD: 07/22/22 18:05 STATUS: SETH REQ #: [id number] JULIEN: 07/22/22 15:[address]: Tamie Thomas DEPT: Surgical Specimen RECD BY: Millie Tenorio ENTERED: 07/22/22 18:06 SP TYPE: Endomet OTHR DR: Soy Conley Tissues: 1 - ENDOMETRIUM BX/ADRYAN Procedures: GROSS AND MICRO LEVEL 4 Comments: [id number]
== END 2022-07-22 16:25 | disposition home or self-care (01) ==
LOC: LBN 16:24
PROVIDERS: PCP Family Medicine; Visit Provider Obstetrics & Gynecology
DX: N95.0 Postmenopausal bleeding (principal)
CPT/HCPCS: 88305

== ENCOUNTER 2022-08-23 10:46 | Outpatient (REF) | payer BC, SELFPAY ==
[2022-08-23 14:39] LABS: HCT 44.2 % (36.0-46.0); HGB 14.7 g/dL (11.2-15.7); MCH 30.8 pg (27.0-33.0); MCHC 33.3 % (32.0-36.0); MCV 93 fL (80-95); MPV 9.4 fL (8.0-11.0); Platelet Count 394 10^3/uL (130-400); RBC 4.78 10^6/uL (3.93-5.22); RDW 13.1 % (11.7-14.6); RDW-SD 44.6 fL; WBC 7.74 10^3/uL (4.4-10.8)
[2022-08-23 15:00] LABS: ALT 34 U/L (14-59); AST 23 U/L (15-37); Albumin 3.8 g/dL (3.4-5.0); Alkaline Phosphatase 110 U/L (46-116); Anion Gap 9.4 mmol/L (3-11); BUN 20 mg/dL (7-18); Bilirubin, Total 0.6 mg/dL (0.2-1.0); CO2 28.6 mmol/L (21.0-32.0); CREATININE 1.2 mg/dL (0.55-1.02); Calcium 9.6 mg/dL (8.5-10.1); Chloride 99 mmol/L (98-107); Estimated GFR 50.55 (mL/min/1.73m2); Glucose 115 mg/dL (74-106); Potassium 3.8 mmol/L (3.5-5.1); Sodium 137 mmol/L (136-145); Total Protein 7.8 g/dL (6.4-8.2)
[2022-08-23 16:34] LABS: Vitamin D 25 Total 17.6 ng/mL (30-100)
[2022-08-24 09:31] LABS: HBs Antibody, Quant <3.1 mIU/mL (See Note); Hepatitis B Surface Ab Negative (See Note)
[2022-08-24 09:45] LABS: Hepatitis B Surface Ag Negative (Negative)
[2022-08-24 10:20] LABS: Hep B Core Antibody Negative (Negative)
== END 2022-08-23 10:47 | disposition home or self-care (01) ==
LOC: NCHCN 10:46
PROVIDERS: PCP Family Medicine; Visit Provider Family Medicine
DX: R74.8 Abnormal levels of other serum enzymes (principal); E55.9 Vitamin D deficiency, unspecified
CPT/HCPCS: 80053; 82306; 85027; 86704; 86706; 87340

== ENCOUNTER 2022-09-28 08:46 | Day surgery (SDC) | payer BC, SELFPAY ==
--- NOTE | 2022-09-27 18:56 | HPE_ITS ---
Assessment and Plan Assessment and plan (1) Gallstones without obstruction of gallbladder: Status: Acute Assessment and plan: asymptomatic (2) Inflammatory arthritis: Status: Acute (3) Iliotibial band syndrome, right leg: Status: Acute (4) Umbilical hernia: Status: Acute (5) Incisional hernia: Status: Acute Assessment and plan: Incisional hernia at the umbilicus in the supraumbilical position.? Patient has had multiple surgeries through this area previously.? she has never had a hernia repair in the past. Risk factors for recurrence include: Multiple prior surgeries/prior history of smoking albeit remote/BMI 31 hernia mesh for umbilical hernias We did discuss what what her hernia is.? We discussed repair and using mesh.? We discussed risks and benefits of the procedure: Surgical plan: Open repair of incisional hernia with either Bard hernia mesh vs ? flat mesh,? depending on the size of the hernia found at surgery. Anesthesia: GETA w/ block We discussed what she could expect the day of the procedure and recovery time and home care.? Patient was given a copy of her postop instructions so she can prepare in advance Arrangements were made for surgery all questions were answered to her satis faction I discussed the nature of inguinal hernias with the pt and how they form, and consequences of incarceration.? We discussed the warning signs of incarcerations (Severe pain/hardness and inability to reduce the hernia/vomiting/redness and fever) ?and when/how to seek medical attention (our office/PCP or ED).? ?I discussed the surgery in detail and the complications related to the surgery and the anesthesia.? I do recommend that the pt have a nerve block for postop pain control.? We also discussed multi-modality pain management.? Pt. expressed understanding; all questions were answered to the patient satisfaction and they do wish to proceed with surgery.? Patient was given an educational booklet & and a copy of the postop instructions and expressed understanding of how to care for themselves after surgery. (6) BMI 30.0-30.9,adult: (7) Chronic GERD: (8) Hyperlipidemia: (9) Hypertension: (10) Hypothyroid: (11) Dyspepsia: History of Present Illness Narrative: Today 09/28: Patient is here today for open insicional hernia repair (suprsumbilical). They not having any chest pain or shortness of breath, currently.? They are not experiencing any fever or chills.? They deny any productive cough or upper respiratory tract infection signs or symptoms.? They are not having abdominal pain, or nausea and vomiting.? They have not had any changes in medications, past medical history or past surgical history since previously being seen in the office. They have not had any accidents or have been in the ER since the clinic pre-operative evaluation. ??I reviewed the procedure with the patient today, including risks and benefits of the procedure, and what they could expect at [facility] for recovery.? All questions are answered to the patient?s satisfaction today, and they are stable to proceed with the proposed procedure. clinic visit 08/09/22 RN: Pt here to discuss umbilical hernia, went away on a vacation, wanted to schedule after that. Patient has noted no severe pain, no nausea and vomiting.? It does cause her mild pain with activities of daily living.? She does note more pain with more strenuous activities.? She feels it prevents her from exercising and interferes with her ADLs and she desires repair. She thinks it has gotten bigger.? I did remind her that there is also a component of rectus diastases to this as well. CT:?IMPRESSION: 1. No significant intrathoracic findings. 2. Lap band in satisfactory position.? No evidence of bowel obstruction, free air, nor abscess.? However, there is an element of diastasis rectus and there is anterior abdominal wall hernia sac just above and slightly to the left of the umbilicus.? This contains only fat and no bowel loops.? The hernia sac measures 4.5 cm wide by 3 cm AP x 5 cm craniocaudal.? Does not contain bowel loops. 3. Previous cholecystectomy.? Biliary tree is not dilated. 4. Bilateral hip prostheses. cannot take nsaid's -GI intolerance.? Patient is here today to discuss repair of her ventral hernia.? She had previous lap sascha and has developed a incisional hernia.? This is in the supraumbilical position..? She has also had a previous Lap-Band placement. She has not had any problems with anesthesia in the past.? She has had multiple surgeries. smoker- former (quit 15 yrs ago) BMI- 31 DM- no She has not had a heart attack or stroke.? No blood thinners Review of Systems All systems reviewed & are unremarkable except as noted in HPI and below PFSH All Active Problems Gallstones without obstruction of gallbladder (Acute) Inflammatory bowel arthritis (Acute) Inflammatory arthritis (Acute) Migraine headache without aura (Acute) Essential tremor (Acute) Iliotibial band syndrome, right leg (Acute) Subacromial bursitis (Acute) Umbilical hernia (Acute) Regurgitation of stomach contents (Acute) Incisional hernia (Acute) Medical History Allergic rhinitis BMI 30.0-30.9,adult Chronic anxiety Chronic GERD Depression Dyspepsia Elevated alkaline phosphatase level Hx of fracture of femur plate in screws in situ Hyperlipidemia Hypertension Hypothyroid Leg cramps Lipoma of arm Osteoarthritis of hips, bilateral Osteopenia Postmenopausal bleeding Renal insufficiency, mild Restless leg syndrome Vitamin D deficiency Surgical History Closed fracture of distal end of right femur (06/22/21) S/P ORIF: 06/23/21 Colonoscopy - IV Sedation History of repair of hiatal hernia Hx laparoscopic cholecystectomy (~06/24/20) Hx of section Hx of myomectomy R arm remove fibroid tumor Lap-band placement LAP-BAND surgery status S/P colonoscopy (~10/30/18) 2008- S/P excision of lipoma right arm - upper arm/shoulder 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) 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) Family History Other Heart disease Hypertension Social History Smoking/Tobacco Use Status: Former Tobacco Use Quit Date: 05/02/95 Tobacco: How many years used: 15 Smoking risk assessment performed?: Yes Alcohol Intake: current Alcohol Intake frequency: a few times a month Alcohol type: beer and hard liquor Drug use: Never Substance use type: does not use 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 Date GA/Weeks # Preg Succ Route Wgt Sex Labor Lgth Anesth esia Location Prov [facility] 05/19/99 Male [facility] CINTIA torres Meds Allergies and Home Medications Allergies Allergy/AdvReac Type Severity Reaction Status Date / Time lisinopril AdvReac Intermediate cough Verified 09/24/22 10:17 Penicillins AdvReac Intermediate mouth sores Verified 09/24/22 10:17 shrimp AdvReac Intermediate diarrhea Uncoded 09/24/22 10:17 Home Medications Medication Instructions Recorded Confirmed Type atorvastatin 20 mg tablet 20 mg PO DAILY 09/12/18 09/24/22 History hydrochlorothiazide 25 mg tablet 25 mg PO DAILY 10/16/18 09/24/22 History duloxetine 30 mg capsule,delayed 30 mg PO DAILY 03/20/19 09/24/22 History release valsartan 160 mg tablet (Diovan) 160 mg PO DAILY 07/15/21 09/24/22 History cholecalciferol (vitamin D3) 1,250 1,250 mcg PO QWEEK 04/14/22 09/24/22 History mcg (50,000 unit) capsule montelukast 10 mg tablet 10 mg PO DAILY PRN 04/14/22 09/24/22 History (Singulair) magnesium oxide 400 mg (241.3 mg 400 mg PO DAILY 04/27/22 09/24/22 History magnesium) tablet levothyroxine 175 mcg capsule 175 mcg PO DAILY 05/12/22 09/24/22 History prochlorperazine maleate 5 mg See Rx Instructions PO TID PRN 05/26/22 09/24/22 Rx tablet nausea and vomiting #30 tabs pantoprazole 40 mg tablet,delayed 40 mg PO DAILY PRN 08/09/22 09/24/22 History release (Protonix) Exam Const General: cooperative, healthy appearing, comfortable, no acute distress and well developed Nutritional Appearance: overweight Orientation: alert, awake and oriented x3 Other: PHYSICAL EXAM GENERAL APPEARANCE: Alert, healthy appearance, oriented, x 3,? in no acute distress HYDRATION: Well hydrated HEAD, EYES, EARS, NECK, THROAT: Head is normocephalic, pupils equal, round, reactive to light and accommodation, ocular movement intact, sclera clear and no jaundice. ?Dentition intact. LUNGS: normal respiration/normal chest excursion. ?Clear to auscultation bilaterally. ?No wheeze. ?HEART: Regular rate and rhythm. no murmurs EXTREMITY: No edema or cyanosis.? no leg pain, redness, swelling.? ABDOMEN: soft and non-tender to palpation.? Normal bowel sounds.? hernia is soft and nontender. siretmarked
--- NOTE | 2022-09-27 19:05 | PDOC.DSDIS_ITS ---
Discharge Plan Disposition Patient Disposition: Home Condition: Good Discharge Details Reason For Visit: hernia repair Attending Provider: Migdalia Ocampo Primary Care Provider: Soy Conley Home Meds and New Rx's Prescriptions: New tramadol 50 mg tablet 50 mg PO Q4H PRNQty: 14 0RF methocarbamol 750 mg tablet 750 mg PO TID Qty: 30 0RF Continued atorvastatin 20 mg tablet 20 mg PO DAILY montelukast [Singulair] 10 mg tablet 10 mg PO DAILY PRN cholecalciferol (vitamin D3) 1,250 mcg (50,000 unit) capsule 1,250 mcg PO QWEEK prochlorperazine maleate 5 mg tablet See Rx Instructions PO TID PRN (Reason: nausea and vomiting) Qty: 30 2RF Rx Instructions: 5-10 mg orally three times a day PRN; magnesium oxide 400 mg (241.3 mg magnesium) tablet 400 mg PO DAILY pantoprazole [Protonix] 40 mg tablet,delayed release (DR/EC) 40 mg PO DAILY PRN valsartan [Diovan] 160 mg tablet 160 mg PO DAILY hydrochlorothiazide 25 mg tablet 25 mg PO DAILY levothyroxine 175 mcg capsule 175 mcg PO DAILY duloxetine 30 mg Capsule,Delayed Release(Dr/Ec) 30 mg PO DAILY Discharge Instructions Additional Instructions: Dr. Ocampo HERNIA REPAIR ? POSTOPERATIVE INSTRUCTIONS Patients who have this type of surgery can usually be expected to return to work within two weeks and have minimal amounts of discomfort. ? ACTIVITY: The day of surgery should be spent resting. However, you can be up for short periods of time, I.E., going to the bathroom or kitchen. Avoid lifting or straining. On the day following surgery, you can be up and about as desired. ? LIFTING: Restrict your lifting to no more than five (5) pounds for two weeks after surgery. ??We will decide when you are done with restrictions and when you can return to work, at your follow-up appointment.? No sexual activity for two weeks.? ? DIET: There are no dietary restrictions following surgery. However, you may want to start with small amounts of liquids to avoid nausea the day of surgery. ? INCISION CARE: You will notice purple skin glue closing the incision.? Do not peel this off- it will wear off on its own.? After 24 hours you may shower. The dressing may be replaced for comfort, but is not necessary. ?An ice bag may be applied to the incision for 72 hours following surgery. ? SIGNS OF INFECTION: It is not unusual to have some black and blue discoloration of the skin around the incision. ?It will slowly disappear. If you have any increased redness, drainage/bleeding, fever (above 100 degrees), pl ease contact your doctor for an examination. ? DISCOMFORT: You may expect to have some mild discomfort at the incision sight. If severe pain develops you should contact your doctor for further instru ctions. ? URINATION: Patients who have surgery occasionally have problems urinating. If you experience problems and are not able to urinate within 6 hours following your surgery, please call your doctor immediately or go to your nearest Emergency Room for evaluation. ? DRIVING: NO driving for three (3) days after surgery, or if you are still taking narcotic pain medication.? ? MEDICATIONS: Alternate Tylenol 1000mg by mouth every 8 hours and Ibuprofen 600mg every 6 hours. ?Make sure you take ibuprofen with food and not on an empty stomach. ?Take the Tylenol and ibuprofen continuously for the first 72hrs- not just when you have pain.? Use the tramadol for breakthrough pain/pain >7.? Use ICE!?? Twenty minutes on, and then off, continuously for the first 72hours. you also have a prescription for Robaxin, a muscle relaxer. Do not take at the same time as the ultram. If you are taking narcotic pain medication, follow the instructions on the label and do not drive. Pain medications can make you very constipated. Make sure you are moving your bowels daily. If not, take Miralax or Milk of Magnesia.?? Anesthesia makes you very constipated.? Take a dose of milk of magnesia the morning after surgery. ? REPORT: Unusual swelling, severe pain, unresolved nausea, signs of infection, or difficulty in urination to your surgeon. Follow up in clinic with Dr. Ocampo in 2 weeks.? [phone] Activity:: see above Remove Dressings/Wound Care:: 24 hours Shower/Bathe:: 24 hours Diet:: As Tolerated Discharge Orders Discharge Orders: Discharge Order (Routine); Ordered 09/28/22 Ordered By: Migdalia Ocampo DS: Diagnosis Discharge Diagnosis (1) Gallstones without obstruction of gallbladder: Status: Acute (2) Inflammatory arthritis: Status: Acute (3) Iliotibial band syndrome, right leg: Status: Acute (4) Umbilical hernia: Status: Acute (5) Incisional hernia: Status: Acute Asessment and Plan: The patient is doing well post-op from their incisional hernia surgery.? They are having no nausea or vomiting. They are tolerating liquids and a snack. The pt is not having any chest pain or SOB.? Their pain is adequately controlled. They have been able to urinate.? ?HEENT:? no eye pain/drainage/redness/swelling. Mild sore throat ?Cardio- NSR, no chest pain, BP stable- see VS record ?Pulm: no sob or productive cough. No hemoptysis ?Incision- dressing is c/d/i w/ no excessive bleeding or drainage ?I discussed with the patient the findings at the time of surgery and the patient?s progress. ?We reviewed expectations at home; what the patient could expect for recovery time, and in the post-operative period.? We discussed the importance of walking to avoid blood clots and pneumonia.? We discussed and reviewed the patient's post-operative wound care and dressing needs.?? We reviewed their step-spears pain management plan, Rx called to the pharmacy of their choice.? We reviewed activity and limitations-see discharge instructions. We reviewed warning signs, and when to seek medical attention- see d/c instructions.?? Patient was given a postoperative follow-up appointment. Patient verbalized understanding of their postoperative instructions, how do to take care of themselves and their incision, and the pain management plan. Please see discharge instructions.? (6) BMI 30.0-30.9,adult: (7) Chronic GERD: (8) Hyperlipidemia: (9) Hypertension: (10) Hypothyroid: (11) Dyspepsia:
[2022-09-28] VITALS (8 sets, daily range): BP systolic 107–135; BP diastolic 53–78; PULSE 57–75; RESP 14–21; TEMP 36.1–36.5; O2SAT 94–99; BMI 31.6
[2022-09-28] MEDS: Acetaminophen 500 MG TAB 1000 MG PO (09:14)
[2022-09-28] MEDS: Gabapentin 300 MG CAP 600 MG PO (09:14)
[2022-09-28] MEDS: Lactated Ringers 1,000 ML 80 ML IV (09:23)
--- NOTE | 2022-09-28 10:12 | ANES.PREOP_ITS ---
General Info Date of Service Date Performed: 09/28/22 Height: 5 ft 8 in Weight: 94.4 kg Body Mass Index (BMI): 31.6 Surgical Procedure: Operation Date: 09/28/22 09:25 Proposed Procedure Side Surgeon p Herniorrhaphy Incisional w/Mesh Tami Massey MD Actual Procedure Side Surgeon p Herniorrhaphy Incisional w/Mesh Tami Massey MD Meds Allergies and Home Medications Allergies Allergy/AdvReac Type Severity Reaction Status Date / Time lisinopril AdvReac Intermediate cough Verified 09/28/22 09:04 Penicillins AdvReac Intermediate mouth sores Verified 09/28/22 09:04 shrimp AdvReac Intermediate diarrhea Uncoded 09/28/22 09:04 Home Medication Medication Instructions Recorded atorvastatin 20 mg tablet 20 mg PO DAILY 09/12/18 hydrochlorothiazide 25 mg tablet 25 mg PO DAILY 10/16/18 duloxetine 30 mg capsule,delayed 30 mg PO DAILY 03/20/19 release valsartan 160 mg tablet (Diovan) 160 mg PO DAILY 07/15/21 cholecalciferol (vitamin D3) 1,250 1,250 mcg PO QWEEK 04/14/22 mcg (50,000 unit) capsule montelukast 10 mg tablet 10 mg PO DAILY PRN 04/14/22 (Singulair) magnesium oxide 400 mg (241.3 mg 400 mg PO DAILY 04/27/22 magnesium) tablet levothyroxine 175 mcg capsule 175 mcg PO DAILY 05/12/22 prochlorperazine maleate 5 mg See Rx Instructions PO TID PRN 05/26/22 tablet nausea and vomiting #30 tabs pantoprazole 40 mg tablet,delayed 40 mg PO DAILY PRN 08/09/22 release (Protonix) methocarbamol 750 mg tablet 750 mg PO TID #30 tabs 09/27/22 tramadol 50 mg tablet 50 mg PO Q4H PRN #14 tabs 09/27/22 Current Visit Medications: Current Medications Generic Name Dose Route Start Last Admin Trade Name Freq PRN Reason Stop Dose Admin Acetaminophen 1,000 mg 09/28/22 06:00 09/28/22 09:14 Acetaminophen 500 Mg Tab PO 09/28/22 16:00 1,000 mg PREOP DAYANNA Administration Gabapentin 600 mg 09/28/22 06:00 09/28/22 09:14 Gabapentin 300 Mg Cap PO 09/28/22 16:00 600 mg PREOP DAYANNA Administration Ringer's Solution 1,000 mls @ 80 mls/hr 09/28/22 06:00 09/28/22 09:23 IV 10/24/22 23:59 80 mls/hr INFUSION DAYANNA Administration Clindamycin Phosphate/Dextrose 600 mg in 50 mls @ 100 mls/hr 09/28/22 06:00 Cleocin In D5w IVPB 09/28/22 16:00 PREOP DAYANNA Ondansetron HCl 4 mg/ Sodium 52 mls @ 200 mls/hr 09/28/22 07:01 Chloride IVPB 10/28/22 07:00 Q6H PRN PRN IV Miscellaneous Supplies 1 each 09/28/22 06:00 Iv Access IV 10/24/22 23:59 DIRECTED DAYANNA Sodium Chloride 0 ml 09/28/22 06:00 Normal Saline Flush 10 Ml Syr IV 10/24/22 23:59 PRN PRN Sodium Chloride 0 ml 09/28/22 06:00 Normal Saline 10 Ml Vial IJ 10/24/22 23:59 DIRECTED PRN Sterile Water 0 ml 09/28/22 06:00 Water,Injection,Sterile 10 Ml Vial IJ 10/24/22 23:59 DIRECTED PRN Tramadol HCl 100 mg 09/28/22 07:01 Tramadol 50 Mg Tab PO 10/28/22 07:00 Q6H PRN PRN Pain PFSH Active Problems Active Problems: Problem Status Onset Code Gallstones without obstruction of gallbladder K80.20 Inflammatory bowel arthritis K63.9, M07.60 Inflammatory arthritis M19.90 Migraine headache without aura G43.009 Essential tremor G25.0 Iliotibial band syndrome, right leg M76.31 Subacromial bursitis M75.50 Umbilical hernia K42.9 Regurgitation of stomach contents R11.10 Incisional hernia K43.2 Medical History Medical History Allergic rhinitis BMI 30.0-30.9,adult Chronic anxiety Chronic GERD Depression Dyspepsia Elevated alkaline phosphatase level Hx of fracture of femur plate in screws in situ Hyperlipidemia Hypertension Hypothyroid Leg cramps Lipoma of arm Osteoarthritis of hips, bilateral Osteopenia Postmenopausal bleeding Renal insufficiency, mild Restless leg syndrome Vitamin D deficiency Surgical History Surgical History Closed fracture of distal end of right femur (06/22/21) S/P ORIF: 06/23/21 Colonoscopy - IV Sedation History of repair of hiatal hernia Hx laparoscopic cholecystectomy (~06/24/20) Hx of section Hx of myomectomy R arm remove fibroid tumor Lap-band placement LAP-BAND surgery status S/P colonoscopy (~10/30/18) 2009-nl S/P excision of lipoma right arm - upper arm/shoulder 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) 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) Tobacco Smoking/Tobacco Use Status: Former Tobacco Use Alcohol Alcohol Intake: current Alcohol intake frequency: a few times a month Alcohol type: beer and hard liquor Substance Use Substance use: Never Substance use type: does not use Prental History History 1 Para Hx # Term Pregnancies 1 Multiple births Hx # Pregnancies Ectopic pregnancies AB induced Hx Number of Living Children AB spontaneous Past Pregnancies Del. Date GA/Weeks # Preg Succ Route Wgt Sex Labor Lgth Anesth esia Location [facility] 05/19/99 [place] Vital Signs and Lab Results Vital Signs Most Recent Vital Signs in EMR: Most Recent Vital Signs Temp Pulse Resp BP Pulse Ox 36.5 C 75 17 115/78 97 09/28/22 09:09 09/28/22 09:09 09/28/22 09:09 09/28/22 09:09 09/28/22 09:09 Lab Results Blood Type / Crossmatch: No Data to Display Complete Blood Count: No Data to Display Complete Metabolic Panel: No Data to Display Liver Function Panel: No Data to Display Coagulation Panel: No Data to Display Cardiac Panel: No Data to Display Arterial Blood Gas: No Data to Display Venous Blood Gas: No Data to Display Pancreas Panel: No Data to Display Thyroid Panel: No Data to Display Infectious Disease: No Data to Display Blood Cultures: No Data to Display Toxicology Panel: No Data to Display Anesthesia Assessment and Plan Anesthesia History Personal History: No History of Anesthesia Complications Family History: No Family History of Anesthesia Complications Exercise Tolerance Exercise Tolerance: Metabolic Equivalents>4 Cardiac & Pulmonary Exam Cardiac Exam: Normal S1/S2 Heart Sounds Pulmonary Exam: Clear Bilateral Breath Sounds Implantable Cardiac Device Does patient have a Pacemaker or an ICD?: No Airway Exam Known Difficult Airway: No Mallampati Class: 1 Mouth Opening: Normal (> 3cm) Thyromental Distance: Greater than 3 cm Neck Range of Motion: Full ROM Neck Circumference: Normal Teeth Condition: Normal Dentition Airway Comments: Lower crown back ASA Classification ASA Score: ASA 2 Emergency Case?: No NPO Status NPO Status: NPO Clears >2 hours, Solids >8 hours Anesthesia Plan Resuscitation Status: Full Code Anesthesia Technique: General Anesthesia Airway Planned: LMA Monitors Used: Standard Monitors
--- NOTE | 2022-09-28 10:27 | HPE_ITS ---
Date of service: 09/28/22 Time of Service: 10:27 Assessment and Plan Assessment and plan (1) Incisional hernia: Status: Acute Assessment and plan: Mrs Richmond is a pleasant 62-year-old female who saw Dr. Ocampo originally in the office. She is here today to have an incisional hernia repaired with mesh. I went over the repair with her as well as the risks, benefits and complications. I had her really sign the consent that Dr. Ocampo had signed in the office with her. She is in agreement with proceeding with repair with me today. Risks, benefits and complications have been reviewed. Complications include but are not limited to bleeding, pain, infection, injury to underlying structures like bowel, recurrence, hematoma, seroma, chronic pain and adverse reaction to the medication. Questions were entertained and answered to their satisfaction and they wished to proceed. No guarantees were given or implied. Proceed with incisional hernia repair with mesh. History of Present Illness Narrative: Mrs Richmond is a pleasant 62-year-old female who I saw today in same-day surgery for. She is here to have a incisional hernia repaired just above her umbilicus. She has had 2 surgeries through that port 1 was a cholecystectomy and the other was a gastric band placement. She noticed a bulge a little while ago. It causes her some discomfort. She denies any nausea or vomiting. She denies any chest pain or shortness of breath. Review of Systems All systems reviewed & are unremarkable except as noted in HPI and below PFSH All Active Problems Gallstones without obstruction of gallbladder (Acute) Inflammatory bowel arthritis (Acute) Inflammatory arthritis (Acute) Migraine headache without aura (Acute) Essential tremor (Acute) Iliotibial band syndrome, right leg (Acute) Subacromial bursitis (Acute) Umbilical hernia (Acute) Regurgitation of stomach contents (Acute) Incisional hernia (Acute) Medical History Allergic rhinitis BMI 30.0-30.9,adult Chronic anxiety Chronic GERD Depression Dyspepsia Elevated alkaline phosphatase level Hx of fracture of femur plate in screws in situ Hyperlipidemia Hypertension Hypothyroid Leg cramps Lipoma of arm Osteoarthritis of hips, bilateral Osteopenia Postmenopausal bleeding Renal insufficiency, mild Restless leg syndrome Vitamin D deficiency Surgical History Closed fracture of distal end of right femur (06/22/21) S/P ORIF: 06/23/21 Colonoscopy - IV Sedation History of repair of hiatal hernia Hx laparoscopic cholecystectomy (~06/24/20) Hx of section Hx of myomectomy R arm remove fibroid tumor Lap-band placement LAP-BAND surgery status S/P colonoscopy (~10/30/18) 2009- S/P excision of lipoma right arm - upper arm/shoulder 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) 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) Family History Other Heart disease Hypertension Social History Smoking/Tobacco Use Status: Former Tobacco Use Quit Date: 05/02/95 Tobacco: How many years used: 15 Smoking risk assessment performed?: Yes Alcohol Intake: current Alcohol Intake frequency: a few times a month Alcohol type: beer and hard liquor Drug use: Never Substance use type: does not use 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 Date GA/Weeks # Preg Succ Route Wgt Sex Labor Lgth Anesth esia Location Prov [facility] 05/19/99 Male [facility] [place] Meds Allergies and Home Medications Allergies Allergy/AdvReac Type Severity Reaction Status Date / Time lisinopril AdvReac Intermediate cough Verified 09/28/22 09:04 Penicillins AdvReac Intermediate mouth sores Verified 09/28/22 09:04 shrimp AdvReac Intermediate diarrhea Uncoded 09/28/22 09:04 Home Medications Medication Instructions Recorded Confirmed Type atorvastatin 20 mg tablet 20 mg PO DAILY 09/12/18 09/28/22 History hydrochlorothiazide 25 mg tablet 25 mg PO DAILY 10/16/18 09/28/22 History duloxetine 30 mg capsule,delayed 30 mg PO DAILY 03/20/19 09/28/22 History release valsartan 160 mg tablet (Diovan) 160 mg PO DAILY 07/15/21 09/28/22 History cholecalciferol (vitamin D3) 1,250 1,250 mcg PO QWEEK 04/14/22 09/24/22 History mcg (50,000 unit) capsule montelukast 10 mg tablet 10 mg PO DAILY PRN 04/14/22 09/28/22 History (Singulair) magnesium oxide 400 mg (241.3 mg 400 mg PO DAILY 04/27/22 09/28/22 History magnesium) tablet levothyroxine 175 mcg capsule 175 mcg PO DAILY 05/12/22 09/28/22 History prochlorperazine maleate 5 mg See Rx Instructions PO TID PRN 05/26/22 09/24/22 Rx tablet nausea and vomiting #30 tabs pantoprazole 40 mg tablet,delayed 40 mg PO DAILY PRN 08/09/22 09/28/22 History release (Protonix) methocarbamol 750 mg tablet 750 mg PO TID #30 tabs 09/27/22 Rx tramadol 50 mg tablet 50 mg PO Q4H PRN #14 tabs 09/27/22 Rx Exam Const General: cooperative, comfortable and no acute distress Nutritional Appearance: overweight Orientation: alert and oriented x3 HENMT Head: normocephalic and atraumatic Resp Effort & Inspection: normal respiratory effort Auscultation: clear to auscultation bilaterally Cardio Rate: regular rate Rhythm: regular rhythm GI Palpation: soft, no hepatosplenomegaly and hernia (just above the umbilicus) Results Last Vital Signs Temp 97.7 F 09/28/22 09:09 Pulse 75 09/28/22 09:09 Resp 17 09/28/22 09:09 BP 115/78 09/28/22 09:09 Pulse Ox 97 09/28/22 09:09 Time Spent Time spent with Patient: <40 minutes Time was spent: counseling the patient
--- NOTE | 2022-09-28 10:31 | ROE_ITS ---
Date of service: 09/28/22 Time of Service: 11:45 Operative Note Operative Note DATE OF PROCEDURE: 09/28/22 PRE-OP DIAGNOSIS: Incisional Hernia POST-OP DIAGNOSIS: same PROCEDURE: Incisional hernia repair with mesh SURGEON: Tami Massey POLE LIFT OPERATOR: Deepali Pierre ANESTHESIA TYPE: Local By Surgeon and General LMA/ETT Refer to Anesthesia Record ESTIMATED BLOOD LOSS: 5 PATHOLOGY: none sent COMPLICATIONS: None Patient was transported to: PACU Patient's condition: stable Implants: Ventrio ST Hernia Patch: REF- [id number] LOT- [id number] Indications: Mrs Richmond is a pleasant 62-year-old female who saw Dr. Ocampo originally in the office.? She is here today to have an incisional hernia repaired with mesh.? I went over the repair with her as well as the risks, benefits and complications.? I had her really sign the consent that Dr. Ocampo had signed in the office with her.? She is in agreement with proceeding with repair with me today.? Risks, benefits and complications have been reviewed. Complications include but are not limited to bleeding, pain, infection, injury to underlying structures like bowel, recurrence, hematoma, seroma, chronic pain and adverse reaction to the medication.? Questions were entertained and answered to their satisfaction and they wished to proceed. No guarantees were given or implied. Proceed with incisional hernia repair with mesh. Findings: 2 cm incisonal hernia just above the umbilicus Procedure Description: After informed consent was obtained the patient was taken to the operating room and placed in a supine position. Monitors and SCDs were applied and a timeout was done. The patient's name, date of , procedure type, procedure site, allergies to medications, preoperative antibiotic, and DVT prophylaxis were all reviewed. Fire risk was assessed. Next the abdomen was prepped and draped in a sterile surgical fashion. 0.5% Bupivacaine was injected into the dermis at the previously marked site. An incision was made with a 15 blade. Dissection was done with cautery through the subcutaneous tissues down to the fascia. The hernia defect was identified and measured 2 cm . The hernia sac was opened and the peritoneum was swept for adhesions. Adhesions were noted and taken down sharply with metzenbaum scissors and bluntly. An 8 x 12 cm mesh was then placed under the peritoneum and secured with tacs and 2-0 proline. Once the mesh was secured the tissues were irrigated with some normal saline. No bleeding was identified. The fascia was closed over the mesh with 0 vicryl running suture. The subcutaneous tissue was re- approximated with interrupted 3-0 vicryl. The dermis was re-approximated with a running 4-0 Vicryl. The skin was cleaned and dried and skin affix was applied. The patient was woken up and taken back to recovery in stable condition. There were no immediate complications. Sponge, instrument and needle counts were correct at the end of the case x2.
[2022-09-28] MEDS: CLINDAMYCIN 600 MG/50 ML BAG 100 MG IVPB (11:08)
[2022-09-28] MEDS: Bupivacaine 0.25% Pres-Free 30 ML VIAL (11:30)
[2022-09-28] MEDS: traMADol 50 MG TAB PO (12:37)
--- NOTE | 2022-09-28 13:25 | W.ANESPOSTOP ---
Postoperative Evaluation Date, Time and Location Date Performed: 09/28/22 Time Performed: 13:00 Patient Location: Day Surgery Unit Vital Signs Most Recent Imported Vital Signs: Most Recent Vital Signs Temp Pulse Resp BP Pulse Ox 36.5 C 59 L 18 126/68 99 09/28/22 12:31 09/28/22 12:31 09/28/22 12:31 09/28/22 12:31 09/28/22 12:31 Pain Score Most Recent Pain Score: Most Recent Pain Score Pain Level 7 09/28/22 12:31 Assessment Mental Status: Awake (Alert & Oriented to Patient Baseline) Airway and Respiratory Function: Patent airway with normal (patient baseline) respiratory exam Cardiovascular Function: Hemodynamically Stable Hydration Status: Adequately Hydrated Nausea & Vomiting: No Nausea or Vomiting Pain: Pain is Moderate or Severe Postoperative Pain Management: Pain being addressed with medication Peripheral Nerve Block: Patient did not receive a nerve block
--- NOTE | 2022-09-28 13:32 | W.PM.DSUDISC ---
Date of service: 09/28/22 Time of Service: 13:32 Discharge Plan Disposition Patient Disposition: Home Condition: Good Discharge Details Reason For Visit: hernia repair Attending Provider: Tami Massey Primary Care Provider: Soy Conley Home Meds and New Rx's Prescriptions: New tramadol 50 mg tablet 50 mg PO Q4H PRNQty: 14 0RF methocarbamol 750 mg tablet 750 mg PO TID Qty: 30 0RF Continued atorvastatin 20 mg tablet 20 mg PO DAILY montelukast [Singulair] 10 mg tablet 10 mg PO DAILY PRN cholecalciferol (vitamin D3) 1,250 mcg (50,000 unit) capsule 1,250 mcg PO QWEEK prochlorperazine maleate 5 mg tablet See Rx Instructions PO TID PRN (Reason: nausea and vomiting) Qty: 30 2RF Rx Instructions: 5-10 mg orally three times a day PRN; magnesium oxide 400 mg (241.3 mg magnesium) tablet 400 mg PO DAILY pantoprazole [Protonix] 40 mg tablet,delayed release (DR/EC) 40 mg PO DAILY PRN valsartan [Diovan] 160 mg tablet 160 mg PO DAILY hydrochlorothiazide 25 mg tablet 25 mg PO DAILY levothyroxine 175 mcg capsule 175 mcg PO DAILY duloxetine 30 mg Capsule,Delayed Release(Dr/Ec) 30 mg PO DAILY Discharge Instructions Instructions: Open Herniorrhaphy (DC) Additional Instructions: Dr. Ocampo HERNIA REPAIR ? POSTOPERATIVE INSTRUCTIONS Patients who have this type of surgery can usually be expected to return to work within two weeks and have minimal amounts of discomfort. ? ACTIVITY: The day of surgery should be spent resting. However, you can be up for short periods of time, I.E., going to the bathroom or kitchen. Avoid lifting or straining. On the day following surgery, you can be up and about as desired. ? LIFTING: Restrict your lifting to no more than five (5) pounds for two weeks after surgery. ??We will decide when you are done with restrictions and when you can return to work, at your follow-up appointment.? No sexual activity for two weeks.? ? DIET: There are no dietary restrictions following surgery. However, you may want to start with small amounts of liquids to avoid nausea the day of surgery. ? INCISION CARE: You will notice purple skin glue closing the incision.? Do not peel this off- it will wear off on its own.? After 24 hours you may shower. The dressing may be replaced for comfort, but is not necessary. ?An ice bag may be applied to the incision for 72 hours following surgery. ? SIGNS OF INFECTION: It is not unusual to have some black and blue discoloration of the skin around the incision. ?It will slowly disappear. If you have any increased redness, drainage/bleeding, fever (above 100 degrees), please contact your doctor for an examination. ? DISCOMFORT: You may expect to have some mild discomfort at the incision sight. If severe pain develops you should contact your doctor for further instructions. ? URINATION: Patients who have surgery occasionally have problems urinating. If you experience problems and are not able to urinate within 6 hours following your surgery, please call your doctor immediately or go to your nearest Emergency Room for evaluation. ? DRIVING: NO driving for three (3) days after surgery, or if you are still taking narcotic pain medication.? ? MEDICATIONS: Alternate Tylenol 1000mg by mouth every 8 hours and Ibuprofen 600mg every 6 hours. ?Make sure you take ibuprofen with food and not on an empty stomach. ?Take the Tylenol and ibuprofen continuously for the first 72hrs- not just when you have pain.? Use the tramadol for breakthrough pain/pain >7.? Use ICE!?? Twenty minutes on, and then off, continuously for the first 72hours. you also have a prescription for Robaxin, a muscle relaxer. Do not take at the same time as the ultram. If you are taking narcotic pain medication, follow the instructions on the label and do not drive. Pain medications can make you very constipated. Make sure you are moving your bowels daily. If not, take Miralax or Milk of Magnesia.?? Anesthesia makes you very constipated.? Take a dose of milk of magnesia the morning after surgery. ? REPORT: Unusual swelling, severe pain, unresolved nausea, signs of infection, or difficulty in urination to your surgeon. Follow up in clinic with Dr. Ocampo in 2 weeks.? [phone] Activity:: see above Remove Dressings/Wound Care:: 24 hours Shower/Bathe:: 24 hours Diet:: As Tolerated Discharge Orders Discharge Orders: Discharge Order (Routine); Ordered 09/28/22 Ordered By: Migdalia Ocampo DS: Diagnosis Discharge Diagnosis (1) Incisional hernia: Status: Acute Asessment and Plan: The patient is doing well post-op from their incisional hernia surgery.? They are having no nausea or vomiting. They are tolerating liquids and a snack. The pt is not having any chest pain or SOB.? Their pain is adequately controlled. They have been able to urinate.? ?HEENT:? no eye pain/drainage/redness/swelling. Mild sore throat ?Cardio- NSR, no chest pain, BP stable- see VS record ?Pulm: no sob or productive cough. No hemoptysis ?Incision- dressing is c/d/i w/ no excessive bleeding or drainage ?I discussed with the patient the findings at the time of surgery and the patient?s progress. ?We reviewed expectations at home; what the patient could expect for recovery time, and in the post-operative period.? We discussed the importance of walking to avoid blood clots and pneumonia.? We discussed and reviewed the patient's post-operative wound care and dressing needs.?? We reviewed their step-spears pain management plan, Rx called to the pharmacy of their choice.? We reviewed activity and limitations-see discharge instructions. We reviewed warning signs, and when to seek medical attention- see d/c instructions.?? Patient was given a postoperative follow-up appointment. Patient verbalized understanding of their postoperative instructions, how do to take care of themselves and their incision, and the pain management plan. Please see discharge instructions.?
== END 2022-09-28 14:00 | disposition home or self-care (01) ==
PROVIDERS: PCP Family Medicine; Visit Provider Surgery
PROC: (CPT 49591; principal; 2022-09-28 09:15)
DX: K43.2 Incisional hernia without obstruction or gangrene (principal); I10 Essential (primary) hypertension; K21.9 Gastro-esophageal reflux disease without esophagitis; E03.9 Hypothyroidism, unspecified
CPT/HCPCS: 49591; C1781; J1885; J2001; J2704

== ENCOUNTER 2022-11-10 00:51 | Outpatient (CLI) | payer BC, SELFPAY ==
--- NOTE | 2022-11-10 13:30 | DI.MAMMO_ITS ---
Exam(s) MG MAMMO SCREEN CALL BACK UNI US BREAST LT COMPLETE EXAM: MG MAMMO SCREEN CALL BACK UNI-LEFT AND COMPLETE LEFT BREAST ULTRASOUND CLINICAL HISTORY: 6-MO F/U SMOOTHLY MARGINATED NODULE, POSTERIOR LT BREAST, R92.8. TECHNIQUE: Unilateral LEFT BREAST spot mammographic images obtained with 3D tomosynthesisand ReCellularizi ng computer aided detection (CAD). . Complete LEFT breast Ultrasound was also performed, including all 4 quadrants, the retroareolar regio n, and the ipsilateral axilla. COMPARISON: Prior mammograms were reviewed. This additional imaging was performed due to findings described on the recent screening mammogram of APRIL 2012. This is six-month follow-up.. FINDINGS: DIAGNOSTIC BREAST MAMMOGRAM: Both CC and MLO views of the left breast were performed. The previously described nodular density seen posteriorly actually appears smaller than on the [facility] 2011 mammogram, further evidence that it is benign. There are no new spiculated masses nor malignant-appearing microcalcification groups in the left riddhi [address]. No new obvious architectural distortion or skin thickening-traction. COMPLETE LEFT BREAST ULTRASOUND: Ultrasound performed today reveals no finding to correspond to the posteriorly located nodule, furthe r evidence that it is probably benign lymph node. At the 8-9 o'clock position there is a finding seen by the technologist. Upon real-time multi planer imaging this appears to be asymmetric tissue, as opposed to a true nodule.. Scanning of the ipsilateral axilla reveals no significant adenopathy. IMPRESSION: 1. No radiographic evidence of malignancy in the left breast. 2. Benign-appearing left breast ultrasound findings. Appropriate follow-up as discussed by myself with the patient today is repeat ultrasound examination at time for next yearly mammogram which is in 6 months from now in April 2023, with earlier imagin g if a self detected breast change is noted.. The patient was informed of these findings and recommendations by myself prior to leaving the departm ent today. BI-RADS Category 3 - 6 month - Probably Benign Finding: Recommend follow-up mammography in 6 months Breast Density - Category C - Heterogeneously dense Breast density Category C or D implies that the patient has dense breast tissue. Dense breast tissue can make it harder to find cancer on a mammogram. Dense breast tissue is also associated with an incr eased risk of breast cancer. This information about the result of the mammogram report was provided to the patient to raise their awareness. Use this report when you speak with the patient about their risks for breast cancer, which includes their family history. At that time, you may recommend additional screening tests (Ultrasoun d or MRI) as these tests may add significant information. A negative radiographic report should not delay biopsy if a dominant or clinically suspicious mass is present. Up to ten percent of cancers are not identified on mammography. A negative report may reinforce clinical impression. Adenosis and dense breasts may obscure an underlying neoplasm. False positive reports average 6 to 10%. Patient will receive a letter notifying them of these results.
== END 2022-11-10 01:11 ==
LOC: DI 00:51
PROVIDERS: PCP Family Medicine; Visit Provider Family Medicine
DX: Z12.31 Encounter for screening mammogram for malignant neoplasm of breast (principal); R92.8 Other abnormal and inconclusive findings on diagnostic imaging of breast
CPT/HCPCS: 76642; 77063; 77067

== ENCOUNTER 2022-12-04 09:05 | Emergency (ER) | payer BC, SELFPAY ==
[2022-12-04 09:09] VITALS: BP 148/69; PULSE 84; RESP 18; TEMP 36.8; O2SAT 100
--- NOTE | 2022-12-04 09:15 | DI.RAD_ITS ---
Exam(s) XR RIBS LT W PA LAT CHEST CLINICAL HISTORY Fall, Left posterior rib cage pain. COMPARISON: No exams were available for comparison TECHNIQUE:: PA and lateral views of the chest and four views of the left ribs were performed. FINDINGS: LUNGS: Clear. No pleural abnormality seen. HEART: Normal. MEDIASTINUM: Normal. BONES: There are displaced rib fractures of the 4th, 5th and 6th ribs and question of additional nond isplaced fractures of the 7th through 9th ribs. These are only seen on one view. No compression fra ctures are seen in the thoracic spine. No bony destructive lesion is seen. OTHER FINDINGS: Peg tube. Prior cholecystectomy. IMPRESSION: 1. Fractures of the left 4th through 6th ribs. Question additional nondisplaced fractures of the 7th through 9th ribs. 2. No acute pulmonary findings.
--- NOTE | 2022-12-04 09:30 | ED.GENADUL_ITS ---
Discharge Plan Disposition Patient Disposition: Home Condition: Stable Discharge Details Clinical Impression: Fracture of multiple ribs of left side Primary Care Provider: Soy Conley ED Provider: Poonam Joyce Home Meds and New Rx's Prescriptions: New lidocaine 5 % adhesive patch,medicated 1 patch topical DAILY Qty: 15 0RF Rx Instructions: leave on most painful area for up to 12 hrs oxycodone 5 mg capsule 5 mg PO Q8H PRN (Reason: pain) Qty: 7 0RF Rx Instructions: Take 1 capsule by mouth every 8 hours as needed for moderate to severe pain. Please take with food and no driving or operating heavy machinery while on this medication. Continued atorvastatin 20 mg tablet 20 mg PO DAILY montelukast [Singulair] 10 mg tablet 10 mg PO DAILY PRN cholecalciferol (vitamin D3) 1,250 mcg (50,000 unit) capsule 1,250 mcg PO QWEEK prochlorperazine maleate 5 mg tablet See Rx Instructions PO TID PRN (Reason: nausea and vomiting) Qty: 30 2RF Rx Instructions: 5-10 mg orally three times a day PRN; magnesium oxide 400 mg (241.3 mg magnesium) tablet 400 mg PO DAILY pantoprazole [Protonix] 40 mg tablet,delayed release (DR/EC) 40 mg PO DAILY PRN valsartan [Diovan] 160 mg tablet 160 mg PO DAILY hydrochlorothiazide 25 mg tablet 25 mg PO DAILY levothyroxine 175 mcg capsule 175 mcg PO DAILY duloxetine 30 mg Capsule,Delayed Release(Dr/Ec) 30 mg PO DAILY methocarbamol 750 mg tablet 750 mg PO TID Qty: 30 0RF Discharge Instructions Instructions: Rib Fracture (ED) Additional Instructions: It appears on the x-ray that you have fractured 3 ribs, #4 5 and 6 on the side. Please take the pain medication and lidocaine patches as directed. Take the oxycodone with food, do not operate heavy machinery or drive while taking this medication. You may also continue to take Tylenol as needed. Practice deep breathing with the incentive spirometer, you may guard your side with a pillow when coughing or moving. Follow up with primary care provider in 3-5 days. Return to ED sooner if any worsening shortness of breath, productive cough, fever or concerns. Increase oral fluids. Please take Tylenol with food every 4-6 hours as needed for pain and swelling. Referrals: Soy Conley [Primary Care Provider] - 5 days Discharge Data Discharge Date/Time-TO BE ENTERED AT DEPARTURE: 12/04/22 11:09 Medical Decision Making 62-year-old female presents to the ER after a mechanical fall last night. Patient states that she fell down 2-3 stairs landed on the ground onto her side and back. She denies any loss of consciousness no headache no neck pain. She is complaining of left-sided posterior rib cage pain worse with deep breathing and movement. Denies any other associated symptoms or complaints. She does have a past medical history of incisional hernia, migraine, inflammatory arthritis, gallstones GERD, anxiety hyperlipidemia hypertension hypothyroidism osteoarthritis vitamin D deficiency and restless legs. She did take her regular medications this morning did not take anything for pain. On exam initially she is speaking in full sentences lung sounds are diminished but equal on both sides. No increased work of breathing noted. X-ray rib and chest series ordered, Tylenol 650 mg and lidocaine patch. X-rays show displaced fractures of the fourth and fifth ribs laterally no pneumothorax no pleural effusion no consolidation. Please see V rad report. After reviewing the x-ray, fourth fifth and 6 rib fractures noted. Discussed x- ray results with patient and family verbalized understanding. She is still complaining of pain which has decreased from a 9 to about a 7 after the lidocaine patch. They are requesting something stronger for pain. Oxycodone 5 mg tablet ordered here and 4 tablets to go home with. This text was generated using [employer] dictation system, please disregard any oddities of phrase or misspellings. Imaging Data Radiologic Study: Attestation: I personally reviewed and interpreted this imaging study as follows: Imaging: X-Ray My impression: Rib fractures on #4 ,5 and, 6, displaced. Radiologist's impression: ECHNIQUE: Imaging protocol: Radiologic exam of the chest. Views: 2 views. CECI SERNA Preliminary Radiology Report COMPARISON: CT CHEST/ABD/PEL W 06/04/2022 10:14 AM FINDINGS: Lungs: Unremarkable. No consolidation. Pleural spaces: Unremarkable. No pleural effusion. No pneumothorax. Heart/Mediastinum: Unremarkable. No cardiomegaly. Bones/joints: Acute mildly displaced fractures of the 4th and 5th left rib laterally. Organs: There has been a cholecystectomy. IMPRESSION: Acute mildly displaced fractures of the 4th and 5th left rib lat erally. Thank you for allowing us to participate in the care of your patient. Dictated and Authenticated by: Lois Cunha MD 12/04/2022 10:18 AM Eastern Time ([place] & [place]) HPI General Mode of arrival: ambulatory . Date/Time Provider Initiated Documentation: 12/04/22 09:25 . Limitations to Documentation: no limitations . Information obtained by: patient, family, RN notes reviewed and old records reviewed . HPI Narrative: 62-year-old female presents to the ER after a mechanical fall last night. Patient states that she fell down 2-3 stairs landed on the ground onto her side and back. She denies any loss of consciousness no headache no neck pain. She is complaining of left-sided posterior rib cage pain worse with deep breathing and movement. Denies any other associated symptoms or complaints. She does have a past medical history of incisional hernia, migraine, inflammatory arthritis, gallstones GERD, anxiety hyperlipidemia hypertension hypothyroidism o steoarthritis vitamin D deficiency and restless legs. She did take her regular medications this morning did not take anything for pain. On exam initially she is speaking in full sentences lung sounds are diminished but equal on both sides. No increased work of breathing noted. Related Data Home Medications Medication Instructions Recorded Confirmed atorvastatin 20 mg tablet 20 mg PO DAILY 09/12/18 10/11/22 hydrochlorothiazide 25 mg tablet 25 mg PO DAILY 10/16/18 10/11/22 duloxetine 30 mg capsule,delayed 30 mg PO DAILY 03/20/19 10/11/22 release valsartan 160 mg tablet (Diovan) 160 mg PO DAILY 07/15/21 10/11/22 cholecalciferol (vitamin D3) 1,250 1,250 mcg PO QWEEK 04/14/22 10/11/22 mcg (50,000 unit) capsule montelukast 10 mg tablet 10 mg PO DAILY PRN 04/14/22 10/11/22 (Singulair) magnesium oxide 400 mg (241.3 mg 400 mg PO DAILY 04/27/22 10/11/22 magnesium) tablet levothyroxine 175 mcg capsule 175 mcg PO DAILY 05/12/22 10/11/22 prochlorperazine maleate 5 mg See Rx Instructions PO TID PRN 05/26/22 10/11/22 tablet nausea and vomiting #30 tabs pantoprazole 40 mg tablet,delayed 40 mg PO DAILY PRN 08/09/22 10/11/22 release (Protonix) methocarbamol 750 mg tablet 750 mg PO TID #30 tabs 09/27/22 10/11/22 lidocaine 5 % topical patch 1 patch topical DAILY #15 ea 12/04/22 oxycodone 5 mg capsule 5 mg PO Q8H PRN pain #7 caps 12/04/22 Previous Rx's Medication Instructions Recorded prochlorperazine maleate 5 mg See Rx Instructions PO TID PRN 05/26/22 tablet nausea and vomiting #30 tabs methocarbamol 750 mg tablet 750 mg PO TID #30 tabs 09/27/22 lidocaine 5 % topical patch 1 patch topical DAILY #15 ea 12/04/22 oxycodone 5 mg capsule 5 mg PO Q8H PRN pain #7 caps 12/04/22 Allergies Allergy/AdvReac Type Severity Reaction Status Date / Time lisinopril AdvReac Intermediate cough Verified 10/11/22 11:40 Penicillins AdvReac Intermediate mouth sores Verified 10/11/22 11:40 ibuprofen AdvReac Mild Heart Burn Verified 10/11/22 11:40 shrimp AdvReac Intermediate diarrhea Uncoded 10/11/22 11:40 General Stated Complaint: Chest/Rib KAT: 3 Review of Systems All systems reviewed & are unremarkable except as noted in HPI and below Respiratory Respiratory: Denies hemoptysis, Reports pain on inspiration and Reports pain with cough Musculoskeletal Musculoskeletal: Reports as per HPI and Reports stiffness PFSH All Active Problems (Updated 12/04/22 @ 10:56 by Poonam Joyce NP) Fracture of multiple ribs of left side (Acute) Gallstones without obstruction of gallbladder (Acute) Inflammatory bowel arthritis (Acute) Inflammatory arthritis (Acute) Migraine headache without aura (Acute) Essential tremor (Acute) Iliotibial band syndrome, right leg (Acute) Subacromial bursitis (Acute) Umbilical hernia (Acute) Regurgitation of stomach contents (Acute) Incisional hernia (Acute) Medical History Allergic rhinitis BMI 30.0-30.9,adult Chronic anxiety Chronic GERD Depression Dyspepsia Elevated alkaline phosphatase level Hx of fracture of femur plate in screws in situ Hyperlipidemia Hypertension Hypothyroid Leg cramps Lipoma of arm Osteoarthritis of hips, bilateral Osteopenia Postmenopausal bleeding Renal insufficiency, mild Restless leg syndrome Vitamin D deficiency Surgical History Closed fracture of distal end of right femur (06/22/21) S/P ORIF: 06/23/21 Colonoscopy - IV Sedation History of repair of hiatal hernia History of ventral hernia repair (~09/28/22) Hx laparoscopic cholecystectomy (~06/24/20) Hx of section Hx of myomectomy R arm remove fibroid tumor Lap-band placement LAP-BAND surgery status S/P colonoscopy (~10/30/18) 2009- S/P excision of lipoma right arm - upper arm/shoulder 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) 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) Family History Other Heart disease Hypertension Social History Smoking/Tobacco Use Status: Former Tobacco Use Quit Date: 05/02/95 Tobacco: How many years used: 15 Smoking risk assessment performed?: Yes Alcohol Intake: current Alcohol Intake frequency: a few times a month Alcohol type: beer and hard liquor Drug use: Never Substance use type: does not use 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 Date GA/Weeks # Preg Succ Route Wgt Sex Labor Lgth Anesth esia Location [facility] 05/19/99 Male Narinder torres MA Exam Narrative Exam Narrative: General: Well Developed, Awake and Alert, conversant. Skin: Warm and Dry HEENT: Head: No palpable deformities, Normocephalic Eyes: Pupils PERRLA, EOM's intact. No periorbital eccymosis or step off Ears: . No west's sign, no hemptympanum. Nose/Face: Atraumatic. Facial bones nontender to palpation and stable with manipulation. Mouth/Throat: No intraoral trauma. Teeth and mandible are intact. Neck: No midline tenderness, no step off, no deformity to palpation of C-spine. Trachea midline. Chest: No surface trauma. Tender with palpation to left posterior approximately around ribs 4 and 5 and left lateral tenderness. Lungs clear to ausculatation bilaterally. Heart: RRR, no rubs, murmurs or gallop. Abdomen: No abrasions, ecchymosis, or surface trauma. Nondistended. Nontender to palpation no guarding, rebound, or rigidity. Pelvis: Nontender to palpation and stable to compression. Femoral pulses strong and equal Extremities: no surface trauma. Sensation intact. Peripheral pulses intact and equal. Neuro: ANO x4, GCS 15, cranial nerves II through XII intact. Motor and sensory exam nonfocal. Course Vital Signs Vital signs: Vital Signs Temperature 36.8 C 12/04/22 09:09 Pulse 84 12/04/22 09:09 Respiratory Rate 18 12/04/22 09:09 Blood Pressure 148/69 H 12/04/22 09:09 Pulse Oximetry 100 12/04/22 09:09 Temperature 36.8 C 12/04/22 09:09 Temperature Source Oral 12/04/22 09:09 Pulse 84 12/04/22 09:09 Respiratory Rate 18 12/04/22 09:09 Respiratory Effort Normal, Non-Labored 12/04/22 09:12 Blood Pressure 148/69 H 12/04/22 09:09 Blood Pressure Position Sitting 12/04/22 09:09 Pulse Oximetry 100 12/04/22 09:09 Oxygen Delivery Method Room Air 12/04/22 09:09 Oxygen Flow Rate 0 12/04/22 09:09 Pain Level 9 12/04/22 09:09
[2022-12-04] MEDS: Lidocaine 5% Patch 1 PATCH TP (09:36)
[2022-12-04] MEDS: Acetaminophen 325 MG TAB 650 MG PO (09:36)
--- NOTE | 2022-12-04 10:19 | DI.VRAD_ITS ---
PROCEDURE INFORMATION: Exam: XR Left Ribs Exam date and time: 12/04/2022 9:59 AM Age: 62 years old Clinical indication: Injury or trauma; Other: Fall, left posterior rib cage pain and lateral; Rib area, left side; Blunt trauma; Prior surgery; Surgery date: 6+ months; Surgery type: Gastric sleeve TECHNIQUE: Imaging protocol: Radiologic exam of the left ribs. Views: 2 views. COMPARISON: CT CHEST/ABD/PEL W 06/04/2022 10:14 AM FINDINGS: Bones/joints: Acute mildly displaced fractures of the 4th and 5th left rib laterally. Soft tissues: Normal. IMPRESSION: Acute mildly displaced fractures of the 4th and 5th left rib laterally. PROCEDURE INFORMATION: Exam: XR Chest Exam date and time: 12/04/2022 9:59 AM Age: 62 years old Clinical indication: Injury or trauma; Other: Fall, left posterior rib cage pain and lateral; Rib area, left side; Blunt trauma; Prior surgery; Surgery date: 6+ months; Surgery type: Gastric sleeve TECHNIQUE: Imaging protocol: Radiologic exam of the chest. Views: 2 views. COMPARISON: CT CHEST/ABD/PEL W 06/04/2022 10:14 AM FINDINGS: Lungs: Unremarkable. No consolidation. Pleural spaces: Unremarkable. No pleural effusion. No pneumothorax. Heart/Mediastinum: Unremarkable. No cardiomegaly. Bones/joints: Acute mildly displaced fractures of the 4th and 5th left rib laterally. Organs: There has been a cholecystectomy. IMPRESSION: Acute mildly displaced fractures of the 4th and 5th left rib laterally. Dictated and Authenticated by: Lois Cunha MD. Ordering:CECILE Levin MD
[2022-12-04] MEDS: oxyCODONE 5 MG TAB PO (11:08)
== END 2022-12-04 11:09 | disposition home or self-care (01) ==
PROVIDERS: Emergency Provider Registered Nurse Emergency; PCP Family Medicine
DX: S22.42XA Multiple fractures of ribs, left side, initial encounter for closed fracture; W10.9XXA Fall (on) (from) unspecified stairs and steps, initial encounter
CPT/HCPCS: 99283; 71046; 71100

== ENCOUNTER → 2023-04-18 00:32 | Outpatient (CLI) | payer BC, SELFPAY ==
--- NOTE | 2023-04-18 | DI.MAMMO_ITS ---
Exam(s) MAMMO DIAGNOSTIC BI US BREAST LT LIMITED EXAM: MAMMO DIAGNOSTIC BI and U/S breast LT limited CLINICAL HISTORY: DIAGNOSTIC, 6 MO F/U,R92.8. TECHNIQUE: Craniocaudal and mediolateral oblique Full Field Digital Mammography views with Computer Aided Diagnosis followed by Tomosynthesis and left breast ultrasound. COMPARISON: Comparison is made with prior examinations. FINDINGS: Mammography/Tomosynthesis: Masses/Architectural Distortion: None seen. Microcalcifictions: No suspicious pleomorphic-type are seen. Skin Thickening/Nipple Retraction: None. Limited left breast US: Echotexture: The area of concern at the 9 o'clock position of the left breast 4 cm from the nipple ap pears unchanged. It may represent fibroglandular tissue. Shadowing: No suspicious foci. Cyst: None. Solid lesions: None seen. Ductal dilation: None. IMPRESSION: 1. No evidence of malignancy is noted. 2. A six-month follow-up left limited breast ultrasound is recommended for re-evaluation. 3. The findings were discussed with the patient on the date of the examination. BI-RADS Category 3 - 6 month - Probably Benign Finding: Recommend follow-up imaging in 6 months Breast Density - Category C - Heterogeneously dense Breast density Category C or D implies that the patient has dense breast tissue. Dense breast tissue can make it harder to find cancer on a mammogram. Dense breast tissue is also associated with an incr eased risk of breast cancer. This information about the result of the mammogram report was provided to the patient to raise their awareness. Use this report when you speak with the patient about their risks for breast cancer, which includes their family history. At that time, you may recommend additional screening tests (Ultrasoun d or MRI) as these tests may add significant information. A negative radiographic report should not delay biopsy if a dominant or clinically suspicious mass is present. Up to ten percent of cancers are not identified on mammography. A negative report may reinforce clinical impression. Adenosis and dense breasts may obscure an underlying neoplasm. False positive reports average 6 to 10%. Patient will receive a letter notifying them of these results.
== END ==
PROVIDERS: PCP Family Medicine; Visit Provider Family Medicine
DX: R92.8 Other abnormal and inconclusive findings on diagnostic imaging of breast (principal); R92.333 Mammographic heterogeneous density, bilateral breasts
CPT/HCPCS: 76642; 77062; 77066; G0279

== ENCOUNTER 2023-11-08 15:55 | Outpatient (REF) | payer BC, SELFPAY ==
[2023-11-08 16:36] LABS: Anion Gap 8.5 mmol/L (3-11); BUN 14 mg/dL (7-18); CO2 27.5 mmol/L (21.0-32.0); CREATININE 1.1 mg/dL (0.55-1.02); Calcium 9.7 mg/dL (8.5-10.1); Chloride 101 mmol/L (98-107); Estimated GFR 55.76 (mL/min/1.73m2); Glucose 99 mg/dL (74-106); Potassium 4.3 mmol/L (3.5-5.1); Sodium 137 mmol/L (136-145); TSH (W/Ref FT4) 4.93 uIU/mL (0.36-3.74)
[2023-11-08 17:24] LABS: FREE T4 1.44 ng/dL (0.76-1.46)
== END 2023-11-08 15:56 | disposition home or self-care (01) ==
LOC: NCHCN 15:55
PROVIDERS: PCP Physician Assistant; Visit Provider Student in an Organized Health Care Education/Training Program
DX: R73.03 Prediabetes (principal); I10 Essential (primary) hypertension; E03.9 Hypothyroidism, unspecified
CPT/HCPCS: 80048; 83036; 84439; 84443

== ENCOUNTER 2024-03-06 07:56 | Outpatient (REF) | payer BC, SELFPAY ==
--- OUTSIDE RECORDS SUMMARY | 2024-03-06 07:58 | XMS_ITS | Encounter Summary ---
Author Organization [facility] Address [address] [place] [address] Care Team Providers Care Boiler Technician Name Role Phone Nacho Wadsworth MD Primary Care Provider Deniz talley Encounter Details Date Type Department Care Team (Latest Contact Info) Description 06/14/2018 16:47 EST - 06/14/2018 23:59 EST Hospital Encounter [address] [address] Unknown, Provider, Discharge Disposition: Home or Self Care Social History Tobacco Use Types Packs/Day Years Used Date Smoking Tobacco: Never Assessed Sex and Gender Information Value Date Recorded Sex Assigned at Not on file Gender Identity Not on file Sexual Orientation Not on file documented as of this encounter Discharge Disposition Disposition Code Departure Means Destination Home or Self [facility] documented in this encounter Plan of Treatment Not on file documented as of this encounter Visit Diagnoses Not on filedocumented in this encounter Care Teams Boiler Technician Relationship Specialty Start Date End Date Nacho Wadsworth MD PCP - General 05/23/14 06/15/18 documented as of this encounter
--- OUTSIDE RECORDS SUMMARY | 2024-03-06 07:58 | XMS_ITS | Encounter Summary ---
Author Organization [place] [address] Care Team Providers Care Bookbinder Apprentice Name Role Phone Vikas Kowalski MD Primary Care Provider + Encounter Details Date Type Department Care Team ([facility] st Contact Info) Description 05/14/2011 10:30 AM EST Follow-Up [facility] [address] [place] [phone] Coleman Perkins MD [address] [place] [address] Social History Tobacco Use Types Packs/Day Years Used Date Smoking Tobacco: Never Assessed Sex and Gender Information Value Date Recorded Sex Assigned at Not on file Gender Identity Not on file Sexual Orientation Not on file documented as of this encounter Plan of Treatment Not on file documented as of this encounter Visit Diagnoses Not on filedocumented in this encounter Care Teams Bookbinder Apprentice Relationship Specialty Start Date End Date Vikas Kowalski MD [address] [place] [address] PCP - General 07/27/10 07/23/13 documented as of this encounter
--- OUTSIDE RECORDS SUMMARY | 2024-03-06 07:58 | XMS_ITS | Encounter Summary ---
Author Organization [place] [address] Care Team Providers Care Emerging Technologies Director Name Role Phone Soy Conley MD Primary Care Provider Encounter Details Date Type Department Care Team (Late st Contact Info) Description 07/27/2013 Abstract [facility] Information Services [address] [facility] [place] [address] Provider, His Victor Hugo MD Social History Tobacco Use Types Packs/Day Years Used Date Smoking Tobacco: Never Assessed Sex and Gender Information Value Date Recorded Sex Assigned at Not on file Gender Identity Not on file Sexual Orientation Not on file documented as of this encounter Last Filed Vital Signs Vital Sign Reading Time Taken Comments Blood Pressure - - Pulse - - Temperature - - Respiratory Rate - - Oxygen Saturation - - Inhaled Oxygen Concentration - - Weight 88.7 kg (195 lb 9.6 oz) 07/27/2013 9:40 AM EDT Sourced from [place] Conversion Height 172.7 cm (5' 8) 07/27/2013 9:40 AM EDT Sourced from [place] Conversion Body Mass Index 29.74 07/27/2013 9:40 AM EDT documented in this encounter Plan of Treatment Not on file documented as of this encounter Visit Diagnoses Not on filedocumented in this encounter Care Teams Emerging Technologies Director Relationship Specialty Start Date End Date Soy Conley MD PCP - General 09/14/16 documented as of this encounter
--- OUTSIDE RECORDS SUMMARY | 2024-03-06 07:58 | XMS_ITS | Encounter Summary ---
Author Organization [facility] [place] [address] Care Team Providers Care Actuarial Assistant Name Role Phone Nacho Wadsworth MD Primary Care Provider [phone] Encounter Details Date Type Department Care Team ([facility] st Contact Info) Description 08/22/2015 10:20 AM EDT Office Visit General Surgery [place] [address] [place] [phone] Vu Price MD [address] [place] [address] Social History Tobacco Use Types Packs/Day Years Used Date Smoking Tobacco: Former Sex and Gender Information Value Date Recorded Sex Assigned at Not on file Gender Identity Not on file Sexual Orientation Not on file documented as of this encounter Plan of Treatment Not on file documented as of this encounter Visit Diagnoses Not on filedocumented in this encounter Care Teams Actuarial Assistant Relationship Specialty Start Date End Date aNcho Wadsworth MD [facility] [address] [facility] [place] [address] PCP - General 10/28/14 09/13/16 documented as of this encounter
--- OUTSIDE RECORDS SUMMARY | 2024-03-06 07:58 | XMS_ITS | Encounter Summary ---
Author Organization [facility] Address [address] [place] [address] Care Team Providers Care Biomass Power Plant Manager Name Role Phone Soy Conley MD Primary Care Provider [phone] Encounter Details Date Type Department Care Team (Late st Contact Info) Description 06/13/2021 Lab Requisition [facility] - [address] [address] Outr Resulting Lab, Provider Social History Tobacco Use Types Packs/Day Years Used Date Smoking Tobacco: Never Assessed Interpersonal Safety Answer Date Record ed Physically Hurt Never 12/02/2019 Verbally Threaten Not on file 12/02/2019 Sex and Gender Information Value Date Recorded Sex Assigned at Not on file Gender Identity Not on file Sexual Orientation Not on file documented as of this encounter Plan of Treatment Not on file documented as of this encounter Procedures Procedure Name Priority Date/Time Associated Diagnosis Comments ZZCOVID-19 TEST [facility] PCR Today 06/12/2021 11:10 EST COVID-19 TESTING Routine 06/12/2021 11:1 0 EST documented in this encounter Results * COVID-19 TEST [facility] PCR (06/12/2021 11:10 EST) Swab 06/12/2021 11:1 0 EST 06/13/2021 21:19 EST Provider Outr Resulting Lab MICROBIOLOGY - GENERAL ORDERABLES [facility] [address] [place] [address] * COVID-19 TESTING (06/12/2021 11:10 EST) COVID-19 rt-PCR Result Negative Negative 06/14/2021 10:23 EST [facility] Comment: This test has not been FDA cleared or approved. This test has been authorized by FDA under an EUA for use by authorized laboratories. This test has been authorized only for detection of nucleic acid from 2019-nCoV, not for any other viruses or pathogens. This test is only authorized for the duration of the declaration that circumstances exist justifying the authorization of emergency use of in vitro diagnostic tests for detection and/or diagnosis of 2019-nCoV under section 564(b)(1) of Act, 21 U.S.C ?? 360bbb-3(b) (1), unless the authorization is terminated or revoked sooner. Negative results do not preclude 2019-nCoV infection and should not be used as the sole basis for treatment or other patient management decisions. Negative results must be combined with clinical observations, patient history, and epidemiological information. Testing was performed using the nallely SARS-CoV-2 assay ([employer] on the Nallely 6800 System Performing Lab Nallely [address] [facility] 06/14/2021 10:23 EST [facility] Swab 06/12/2021 11:1 0 EST 06/13/2021 21:19 EST Provider Outr Resulting Lab MICROBIOLOGY - GENERAL ORDERABLES [facility] [address] [place] [address] documented in this encounter Visit Diagnoses Not on filedocumented in this encounter Care Teams Biomass Power Plant Manager Relationship Specialty Start Date End Date Soy Conley MD [address] [place] [address] PCP - General 06/24/20 documented as of this encounter
--- OUTSIDE RECORDS SUMMARY | 2024-03-06 07:58 | XMS_ITS | Encounter Summary ---
Author Organization [facility] [place] [address] Care Team Providers Care Bus Driver Supervisor Name Role Phone Nacho Wadsworth MD Primary Care Provider [phone] Encounter Details Date Type Department Care Team (Late st Contact Info) Description 08/05/2016 9:00 AM EDT Office Visit General Surgery [address] [phone] Makayla Riley APRN [facility] [place] [address] Social History Tobacco Use Types Packs/Day Years Used Date Smoking Tobacco: Former Sex and Gender Information Value Date Recorded Sex Assigned at Not on file Gender Identity Not on file Sexual Orientation Not on file documented as of this encounter Plan of Treatment Not on file documented as of this encounter Visit Diagnoses Not on filedocumented in this encounter Care Teams Bus Driver Supervisor Relationship Specialty Start Date End Date Nacho Wadsworth MD [facility] [address] [place] [address] [place] [address] PCP - General 10/28/14 09/13/16 documented as of this encounter
--- OUTSIDE RECORDS SUMMARY | 2024-03-06 07:58 | XMS_ITS | Encounter Summary ---
Author Organization [facility] [place] [address] Care Team Providers Care Dry Cleaning Supervisor Name Role Phone Nacho Wadsworth MD Primary Care Provider [phone] Encounter Details Date Type Department Care Team (Late st Contact Info) Description 02/06/2015 4:00 PM EDT Office Visit Dermatology at [place] [address] [place] [address] Greg Israel MD [address] [facility] [place] [address] Dermatofibroma Social History Tobacco Use Types Packs/Day Years Used Date Smoking Tobacco: Former Sex and Gender Information Value Date Recorded Sex Assigned at Not on file Gender Identity Not on file Sexual Orientation Not on file documented as of this encounter Progress Notes * Greg Israel MD - 02/06/2015 4:34 PM EDT Problem: Left arm lesion. Tamie is a 54-year-old woman who is referred today for evaluation of a lesion on the left upper lateral arm. It has developed over the last five years. The patient states that it does not really itch, but it is a raised area, and she does tend to pick and scratch at it. 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 She does not recall any preceding injury to this site. No insect bite, ingrown hair, pimple, etc. Physical examination reveals a 1-cm, firm nodule, which is hyperkeratotic. It is nontender and is flesh colored. It appears consistent with a dermatofibroma. Assessment and Plan: Dermatofibroma. a. Discussed diagnosis. b. Today the site was injected with Kenalog 20 mg/mL; a total of 0.4 mL was injected. c. I recommended I see the patient back again in a month for repeat assessment and possibly for repeat injection. COPY: Nacho Wadsworth M.D. documented in this encounter Plan of Treatment Not on file documented as of this encounter Visit Diagnoses Diagnosis Dermatofibroma Benign neoplasm of skin, site unspecified documented in this encounter Care Teams Dry Cleaning Supervisor Relationship Specialty Start Date End Date Nacho Wadsworth MD [facility] [address] [place] [address] PCP - General 10/28/14 09/13/16 documented as of this encounter
--- OUTSIDE RECORDS SUMMARY | 2024-03-06 07:58 | XMS_ITS | Encounter Summary ---
Author Organization [facility] [place] [address] Care Team Providers Care Money Market Dealer Name Role Phone Unavailable Primary Care Provider Unavailabl e Encounter Details Date Type Department Care Team ([facility] st Contact Info) Description 08/22/2013 1:00 PM EDT Office Visit [facility] [address] [place] [phone] Coleman Perkins MD [address] [place], [place] [id number] Social History Tobacco Use Types Packs/Day Years [...]
--- OUTSIDE RECORDS SUMMARY | 2024-03-06 07:58 | XMS_ITS | Encounter Summary ---
Author Organization [facility] [place] [address] Care Team Providers Care Cattle Dipper Name Role Phone Soy Conley MD Primary Care Provider [phone] Encounter Details Date Type Department Care Team (Late st Contact Info) Description 08/22/2015 [facility] Information Services [address] [facility] [place] [address] Provider, His Victor Hugo MD Social History Tobacco Use Types Packs/Day Years Used Date Smoking Tobacco: Former Sex and Gender Information Value Date Recorded Sex Assigned at Not on file Gender Identity Not on file Sexual Orientation Not on file documented as of this encounter Last Filed Vital Signs Vital Sign Reading Time Taken Comments Blood Pressure - - Pulse 60 08/22/2015 10:20 AM EDT Sourced from [facility] Conversion Temperature - - Respiratory Rate - - Oxygen Saturation - - Inhaled Oxygen Concentration - - Weight 84.8 kg (187 lb) 08/22/2015 10:2 0 AM EDT Sourced from [facility] Conversion Height 172.7 cm (5' 8) 08/22/2015 10:2 0 AM EDT Sourced from [facility] Con[facility] Body Mass Index 28.43 08/22/2015 10:20 AM EDT documented in this encounter Plan of Treatment Not on file documented as of this encounter Visit Diagnoses Not on filedocumented in this encounter Care Teams Cattle Dipper Relationship Specialty Start Date End Date Soy Conley MD PCP - General 09/14/16 documented as of this encounter
--- OUTSIDE RECORDS SUMMARY | 2024-03-06 07:58 | XMS_ITS | Encounter Summary ---
Author Organization [facility] Address [address] [place] [address] Care Team Providers Care School Cafeteria Head Cook Name Role Phone Unknown, Provider Primary Care Provider Unava ilable Encounter Details Date Type Department Care Team (Latest Contact Info) Description 05/22/2014 15:59 EST - 05/22/2014 23:59 EST Hospital Encounter [address] [address] Unknown, ProviderMD Discharge Disposition: Home or Self Care Social History Tobacco Use Types Packs/Day Years Used Date Smoking Tobacco: Never Assessed Sex and Gender Information Value Date Recorded Sex Assigned at Not on file Gender Identity Not on file Sexual Orientation Not on file documented as of this encounter Discharge Disposition Disposition Code Departure Means Destination Home or Self Residential documented in this encounter Plan of Treatment Not on file documented as of this encounter Visit Diagnoses Not on filedocumented in this encounter Care Teams School Cafeteria Head Cook Relationship Specialty Start Date End Date Unknown, ProviderMD PCP - General 12/17/11 05/22/14 documented as of this encounter
--- OUTSIDE RECORDS SUMMARY | 2024-03-06 07:58 | XMS_ITS | Clinical Summary ---
Author Organization [facility] Address [address] [place] [address] Care Team Providers Care Boiler Washer Name Role Phone Soy Conley MD Primary Care Provider [phone] Social History Tobacco Use Types Packs/Day Years Used Date Smoking Tobacco: Never Assessed Interpersonal Safety Answer Date Record ed Physically Hurt Never 12/02/2019 Verbally Threaten Not on file 12/02/2019 Sex and Gender Information Value Date Recorded Sex Assigned at Not on file Gender Identity Not on file Sexual Orientation Not on file Plan of Treatment Health Maintenance Due Date Last Done Comments Hepatitis C Screen 1960 RSV Immunization ( o r 60+ Years) (1 - 1-dose 60+ series) 2018 COVID-19 Vaccine ( season) 2022 Fall Risk Screening 08/10/2023 Care Teams Boiler Washer Relationship Specialty Start Date End Date Soy Conley MD [facility] [place] [address] PCP - General 06/24/20
--- OUTSIDE RECORDS SUMMARY | 2024-03-06 07:58 | XMS_ITS | Encounter Summary ---
Author Organization [facility] Address [address] [facility] [place] [address] Care Team Providers Care Corporate Health Consultant Name Role Phone Vikas Kowalski MD Primary Care Provider + Encounter Details Date Type Department Care Team (Latest Contact Info) Description 07/18/2014 12:18 PM EDT - 07/18/2014 11:59 PM EDT Hospital Encounter XRay at [address] [place] [address] Inflammatory arthritis Social History Tobacco Use Types Packs/Day Years Used Date Smoking Tobacco: Former Sex and Gender Information Value Date Recorded Sex Assigned at Not on file Gender Identity Not on file Sexual Orientation Not on file documented as of this encounter Medications at Time of Discharge Medication Sig Dispensed Refills Start Date End Date levothyroxine (SYNTHROID) 150 mcg Tablet Take 150 mcg by mouth daily. DULoxetine (CYMBALTA) 60 mg Capsule, Delayed Release(E.C.) Take 60 mg by mouth daily. hydrochlorothiazide (HYDRODIURIL) 25 mg Tablet Take 12.5 mg by mouth daily. atorvastatin (LIPITOR) 20 mg Tablet Take 20 mg by mouth daily. multivitamin (THERAGRAN) Tablet Take 1 tablet by mouth daily. Cholecalciferol, Vitamin D3, (VITAMIN D-3) 5,000 unit Tablet Take by mouth daily. valsartan (DIOVAN) 160 mg Tablet Take 160 mg by mouth daily. 07/10/2018 levothyroxine (SYNTHROID) 175 mcg Tablet TAKE 1 TABLET DAILY DIRECTED. 04/08/2011 07/10/2018 predniSONE (DELTASONE) 5 mg TabletIndications:Infl ammatory arthritis Start prednisone 10 mg x 2 weeks; Then 5mg x 2 weeks;Then 2.5 mg x 2 weeks and stop 60 tablet 0 07/18/2014 07/10/2018 documented as of this encounter Plan of Treatment Not on file documented as of this encounter Procedures Procedure Name Priority Date/Time Associated Diagnosis Comments XR HANDS MIN 3 VIEWS BILAT Routine 07/18/2014 12:31 PM EDT Inflammatory arthritis documented in this encounter Results * XR Bilateral Hands Minimum 3 Views (07/18/2014 12:31 PM EDT) Anatomical Region Laterality Modality Hand Bilateral Radiographic Paige ging 07/18/2014 12:3 1 PM EDT Impressions 07/18/2014 2:27 PM EDT IMPRESSION: No acute osseous abnormalities, erosions, or subluxation. Normal mineralization and alignment. Prominent soft tissues, nonspecific. Narrative 07/18/2014 2:27 PM EDT EXAMINATION: BILATERAL HANDS MIN 3 VIEWS/BILAT CLINICAL HISTORY: hand swelling. Suspect inflammatory arthritis TECHNIQUE: Frontal, oblique, and lateral views of the bilateral hands, 4 views total as arthritis series. COMPARISON: None FINDINGS: Distal forearms, carpus, metacarpals and phalanges symmetric in mineralization and alignment. No acute fractures identified. No evidence currently of erosions or subluxation. Soft tissues are mildly prominent. Procedure Note Edgardo Carbone MD - 07/18/2014 EXAMINATION: BILATERAL HANDS MIN 3 VIEWS/BILAT CLINICAL HISTORY: hand swelling. Suspect inflammatory arthritis TECHNIQUE: Frontal, oblique, and lateral views of the bilateral hands, 4views total as arthritis series. COMPARISON: None FINDINGS: Distal forearms, carpus, metacarpals and phalanges symmetric inmineralization and alignment. No acute fractures identified. No evidence currently oferosions or subluxation. Soft tissues are mildly prominent. IMPRESSION IMPRESSION: No acute osseous abnormalities, erosions, or subluxation. Normalmineralization and alignment. Prominent soft tissues, nonspecific. Vikas Castro MD IMG DX ORDERABLES documented in this encounter Visit Diagnoses Diagnosis Inflammatory arthritis Unspecified inflammatory polyarthropathy documented in this encounter Care Teams Corporate Health Consultant Relationship Specialty Start Date End Date Vikas Kowalski MD [address] [place] [address] PCP - General 06/19/14 10/27/14 documented as of this encounter
--- OUTSIDE RECORDS SUMMARY | 2024-03-06 07:58 | XMS_ITS | Encounter Summary ---
Author Organization [facility] [place] [address] Care Team Providers Care [employer] Cook Head Name Role Phone Soy Conley MD Primary Care Provider [phone] Reason for Visit * Consultation (Routine) - Specialty Diagnoses / Procedures Referred By Marva jackson Referred To Contact Rheumatology Diagnoses Reactive arthropathy, unspecified Soy Conley MD [address] [place] [address] [place] [address] [facility] Rheumatology [address] [place] [address] Referral ID Status Reason Start Date Expiration Date V isits Requested Visits Authorized [id number] Consult, Test & Treat Connection Center PCP Updated and/or Approved 05/07/2019 08/06/2019 6 6 Encounter Details Date Type Department Care Team (Late st Contact Info) Description 05/22/2019 1:00 PM EST Office [place] [address] Vikas Castro MD [facility] [place] [address] Jeremy High MD [facility] [place] [address] Arthralgia of hand, unspecified laterality Social History Tobacco Use Types Packs/Day Years Used Date Smoking Tobacco: Former Cigarettes Q uit: 05/22/1994 Smokeless Tobacco: Never Sex and Gender Information Value Date Recorded Sex Assigned at Not on file Gender Identity Not on file Sexual Orientation Not on file documented as of this encounter Last Filed Vital Signs Vital Sign Reading Time Taken Comments Blood Pressure 142/71 05/22/2019 12:46 PM EST R arm Pulse 68 05/22/2019 12:46 PM EST Temperature 36.7 ??C (98 ??F) 05/22/2019 12:46 PM EST Respiratory Rate - - Oxygen Saturation 100% 05/22/2019 12:46 PM EST Inhaled Oxygen Concentration - - Weight 95 kg (209 lb 6.4 oz) 05/22/2019 12:46 PM EST Height 170.2 cm (5' 7) 05/22/2019 12:46 PM EST Body Mass Index 32.8 05/22/2019 12:46 PM EST documented in this encounter Progress Notes * Jeremy High MD - 05/22/2019 1:00 PM EST Rheumatology Outpatient Consultation Note Reason for Consult: Tamie Richmond is a 58 y.o. female who we are seeing at the request of Soy Cnoley for evaluation of joint pain. HPI: Patient is a 58 year old female with a PMH of obesity s/p lap-band surgery [June 2010, [facility]], allergic rhinitis, HTN, HLD, hypothyroidism, anxiety, osteopenia, vit D deficiency, osteoarthritis, restless leg syndrome, R shoulder lipoma removal, hip OA s/p b/l MIGUEL [Mar 27 2019], C-s ection & myomectomy for endometriosis, former smoker (quit 25 yrs ago, socially smoked/ not daily x 15 yrs), venous insufficiency, dermatofibroma LUE, sciatica who presents for pain. -PCP note noted at visit on 05/07/19: mild swelling MCPs, wrists, finger joints. MCPs and PIPs tender. -PCP prescribed Prednisone 10 mg daily x 2 w --> 5 mg daily x 2 weeks (current dose) -Recently sick last 2 weeks of [place]: loose bowels, abdominal pain that resolved + painless sore on tongue + 1 day of hives on torso => joint pain symmetric [wrists, MCPs primarily] distal forearms, elbows, shoulders, neck]. Not back or LEs. -Difficulty with making a fist sometimes, can make it in the morning. Midday and later, swelling and pain worsens with activity. No redness or warmth of joints. -Denies AM stiffness -No locking of fingers -Has had flares of this sort before after GI issues, usually prednisone responsive. Last in Dec 2018 with GI issues x 1 day, associated with oral sore + 2 days later arthralgia, resolved with prednisone. Never on Abx. No bloody stools. -No recent fevers, chills, vision changes [glasses stable/ actually better], uveitis, hearing changes, headaches, dysphagia, odynophagia, SOB, chest pain, abd pain, nausea, vomiting, diarrhea, hematuria, hematochezia, melena, hemoptysis, epistaxis, weakness, photosensitivity, rashes, Raynauds. 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 Recommended repeat in 10 years. Biopsy negative as per patient. -Hip OA s/p b/l TKA [Mar 27 2019] -Family History: heart disease, HTN, DM. Mother with thyroid disease, age 36 from [place] (early MIs on maternal side below age 50) -Seen by Rheumatology in 2015 for persistent migratory polyarthralgias. Diffuse edema, No synovitis, mild MCP compression tenderness, full claw and fist. B/L rotator cuff tendonitis and subacromialbursitis. ROS (positive in bold): General fevers, chills, night sweats, weight loss/gain HEENT oral ulcers, dry eyes, dry mouth, red/itchy eyes Card chest pain, palpitations Pulm SOB, cough, NESBITT GI abd pain, nausea, vomiting, diarrhea, constipation, dysphagia, reflux dysuria, hematuria, genital ulcers, changes to color of urine MS arthritis, arthralgia, muscle aches Neuro weakness, numbness, tingling, ANAND Skin Raynaud's, rash, hair loss, photosensitivity, hair changes Psych depression, anxiety, difficulty sleeping Medical History: No past medical history on file. Surgical History: No past surgical history on file. Family Hx: No family history on file. No family history of RA, SLE, OA, Sjogren's, Scleroderma, or gout Social History: Social History Socioeconomic History ??? Marital status: Spouse name: Not on file ??? Number of children: Not on file ??? Years of education: Not on file ??? Highest education level: Not on file Occupational History ??? Not on file Social Needs ??? Financial resource strain: Not on file ??? Food insecurity Worry: Not on file Inability: Not on file ??? Transportation needs Medical: Not on file Non-medical: Not on file Tobacco Use ??? Smoking status: Former Smoker Last attempt to quit: 05/22/1994 Years since quittin.0 ??? Smokeless tobacco: Never Used Substance and Sexual Activity ??? Alcohol use: Not on file ??? Drug use: Not on file ??? Sexual activity: Not on file Lifestyle ??? Physical activity Days per week: Not on file Minutes per session: Not on file ??? Stress: Not on file Relationships ??? Social connections Talks on phone: Not on file Gets together: Not on file Attends gnosticist service: Not on file Active member of club or organization: Not on file Attends meetings of clubs or organizations: Not on file Relationship status: Not on file ??? Intimate partner violence Fear of current or ex partner: Not on file Emotionally abused: Not on file Physically abused: Not on file Forced sexual activity: Not on file Other Topics Concern ??? Not on file Social History Narrative ??? Not on file Medications: Current Outpatient Medications on File Prior to Visit Medication Sig Dispense Refill ??? gabapentin (Neurontin) 300 mg Capsule ??? montelukast (Singulair) 10 mg Tablet ??? losartan (COZAAR) 25 mg Tablet Take 25 mg by mouth daily. ??? fluticasone (FLONASE) 50 mcg/actuation [place], Suspension 1-2 sprays each nostril every day as needed ??? levothyroxine (SYNTHROID) 150 mcg Tablet Take 150 mcg by mouth daily. ??? DULoxetine (CYMBALTA) 60 mg Capsule, Delayed Release(E.C.) Take 60 mg by mouth daily. ??? hydrochlorothiazide (HYDRODIURIL) 25 mg Tablet Take 12.5 mg by mouth daily. ??? atorvastatin (LIPITOR) 20 mg Tablet Take 20 mg by mouth daily. ??? multivitamin (THERAGRAN) Tablet Take 1 tablet by mouth daily. ??? Cholecalciferol, Vitamin D3, (VITAMIN D-3) 5,000 unit Tablet Take by mouth daily. ??? hydroCHLOROthiazide (HYDRODIURIL) 12.5 mg Tablet 12.5 tablets. 3 No current facility-administered medications on file prior to visit. Allergies: Allergies Allergen Reactions ??? Lisinopril Other reaction(s): cough ??? Pcn [Penicillins] Other reaction(s): sores on gums Not severe Physical Examination: BP 142/71 Comment: R arm Pulse 68 Temp 36.7 ??C (98 ??F) (Oral) Ht 170.2 cm (5' 7) Wt 95 kg (209 lb 6.4 oz) SpO2 100% BMI 32.80 kg/m?? General: Well appearing female, elevated BMI, NAD HEENT: Mucous membranes are moist, no oral mucosal ulcerations Neck: Supple, no lymphadenopathy, full range of motion Cardiovascular: RRR, no m/r/g, normal S1/S2, 2+ radial pulses Lungs: CTA b/l no w/r/r Abdomen: Soft, nontender, nondistended, normal active bowel sounds Back: Nontender over the spine Neuro: Alert and oriented x3. Cranial nerves II through XII grossly intact. Strength 5/5 throughout, Sensation to light touch is grossly normal throughout. Skin: no rashes or lesions noted Nails: no nail pitting Extremities: Shoulders: FROM, non-tender to palpation Elbows:FROM Wrists: FROM, no swelling, non-tender Hands: + Swelling and tenderness at 3rd and 4th MCPs of left hand, unable to make a full fist with left hand Hips: FROM, no tenderness Knees: FROM, no effusion, no tenderness Ankles: FROM, non-tender, no effusion Feet: no MTP compression tenderness Laboratory Data: June/2014: -ESR 17 -CRP 0.6 -PVB19 neg Outside labs (scanned in) DEX <40 CRP 0.22 ESR 39 CCP <15.6 RF <20 Uric acid 5.2 CPK 43 CBC - wnl Vitamin D 24 Hepatitis serology negative Studies: 06/2014 Hand XR FINDINGS: Distal forearms, carpus, metacarpals and phalanges symmetric in mineralization and alignment. No acute fractures identified. No evidence currently of erosions or subluxation. Soft tissues are mildly prominent. IMPRESSION: No acute osseous abnormalities, erosions, or subluxation. Normal mineralization and alignment. Prominent soft tissues, nonspecific. 2010 Myocardial Perfusion Stress Rest IMPRESSION: FINDINGS: There are no fixed or reversible defects to suggest significant ischemia or scar. Calculated left ventricular ejection fraction within normal limits at 73%. Assessment: Patient is a 58 year old female with a PMH of obesity s/p lap-band surgery [June 2010, [facility]], allergic rhinitis, HTN, HLD, hypothyroidism, anxiety, osteopenia, vit D deficiency, osteoarthritis, restless leg syndrome, R shoulder lipoma removal, hip OA s/p b/l MIGUEL [Mar 27 2019], C-s ection & myomectomy for endometriosis, former smoker (quit 25 yrs ago, socially smoked/ not daily x 15 yrs), venous insufficiency, dermatofibroma LUE, sciatica who presents for arthralgias particularly in her hands at the MCP and PIP joints which has been improving with prednisone, and seems melissa temporally correlated with GI symptoms. She also has a history of underlying osteoarthritis. I am questioning whether she has a form of reactive arthritis, secondary to recent viral gastroenteritis or inflammatory bowel disease, though the latter is probably less likely given that she reports having a colonoscopy done in October 2018 was unremarkable with a negative biopsy, but we will get records. Early rheumatoid arthritis is also a possibility, as is Behcet's disease and microscopic colitis.Plan as below. Recommendations: -We will get the following labs: ESR, CRP, RF, CCP, DEX, strep -We will get records from [facility] of recent colonoscopy -We will consider gastroenterology referral -Advised to continue prednisone taper as prescribed: 10 mg x 2 weeks, 5 mg x 2 weeks, 2.5 mg x 2 weeks, then stop -RTC depending on results above The patient was seen and discussed with Dr. Gloria High MD Rheumatology Fellow, PGY-4 CC: Soy Conley MD * Vikas Castro MD - 05/22/2019 1:00 PM EST ATTENDING ADDENDUM The patient's history was reviewed, and I interviewed and examined the patient with Dr. High. I agree with her summary, findings, and plan. Vikas Castro MD Staff Furniture Upholsterer documented in this encounter Plan of Treatment Not on file documented as of this encounter Procedures Procedure Name Priority Date/Time Associated Diagnosis Comments HC C-REACTIVE PROTEIN Routine 05/22/2019 3:10 PM EST Arthralgia of hand, unspecified laterality HC CYCLIC CITRULLINE PEPTIDE Routine 05/22/2019 3:10 PM EST Arthralgia of hand, unspecified laterality HEMOGRAM Routine 05/22/2019 3:10 PM EST Arthralgia of hand, unspecified laterality DIFFERENTIAL, AUTOMATED Routine 05/22/2019 3:10 PM EST Arthralgia of hand, unspecified laterality HC ESR-SEDIMENTATION RATE, BLOOD Routine 05/22/2019 3:10 PM EST Arthralgia of hand, unspecified laterality HC CBC,PLT & AUTO DIFF Routine 05/22/2019 3:10 PM EST Arthralgia of hand, unspecified laterality HC PCH STRETOCOCCAL ANTIBIODIES Routine 05/22/2019 3:10 PM EST Arthralgia of hand, unspecified laterality HC RHEUMATOID FACTOR Routine 05/22/2019 3:10 PM EST Arthralgia of hand, unspecified laterality HC ANTINUCLEAR ANTIBODY,SERUM Routine 05/22/2019 3:10 PM EST Arthralgia of hand, unspecified laterality HC VENIPUNCTURE Routine 05/22/2019 3:10 PM EST Arthralgia of hand, unspecified laterality documented in this encounter Results * (ABNORMAL) Differential, Automated (05/22/2019 3:10 PM EST) Neutrophil % 78.4 % [facility] Neutrophil Absolute 9.36(H) 1.70 - 6.10 x10(3)/[facility] Lymph % 13.5 % [facility] Lymphocytes Abs 1.6 0.9 - 3.2 x10(3)/[facility] Monocyte % 5.6 % [facility] Monocyte Abs 0.7 0.3 - 0.9 x10(3)/[facility] Eos % 1.1 % [facility] Eosinophils Abs 0.1 0.0 - 0.4 x10(3)/[facility] Basophil % 0.9 % [facility] Baso Absolute 0.1 0.0 - 0.1 x10(3)/[facility] Immature Gran % 0.50 % [facility] Comment: Immature granulocytes(IG's)percentage and absolute count will include metamyelocytes, myelocytes, and promyelocytes. Blood smears from CBCs yielding IG's will be scanned manually for concordance. If this scan disagrees with the automated IG or if promyelocytes are noted, a manual differential will be performed. Immature Gran Absolute 0.06(H) 0.00 - 0.04 x10(3)/[facility] Blood specimen (specimen) 05/22/2019 3:10 PM EST 05/22/2019 3:19 PM EST Narrative Resulting Agency Comment Spec In Lab Jeremy High MD HEMATOLOGY ORDERABL ES [facility] [place] [address] * (ABNORMAL) Hemogram (05/22/2019 3:10 PM EST) [facility] White Blood Cell 11.9(H) 4.0 - 9.5 x10(3)/[facility] Red Blood Cell 4.50 4.00 - 5.21 x10(6)/ L [facility] Hemoglobin 12.7 11.7 - 15.5 gm/dL [facility] Hematocrit 40.5 35.7 - 45.8 % [facility] Mean Cell Volume 90.0 82.6 - 94.4 fL [facility] Mean Cell Hemoglobin 28.2 27.1 - 32.0 pg [facility] Mean Cell Hemoglobin Concentration 31.4(L) 31.7 - 35.0 gm/dL [facility] Platelet 440(H) 145 - 357 x10(3)/mc L [facility] RDW Standard Deviation 42.0 37.0 - 46.0 fL [facility] RDW coefficient of variation 12.9 11.5 - 14.1 % [facility] Mean Platelet Volume 9.2 7.6 - 12.9 fL [facility] NRBC% auto 0.0 % [facility] NRBC Absolute 0.000 0.000 - 0.000 x10(3)/mc L [facility] Blood specimen (specimen) 05/22/2019 3:10 PM EST 05/22/2019 3:19 PM EST Narrative Resulting Agency Comment Spec In Lab Jeremy High MD HEMATOLOGY ORDERABL ES [facility] [place] [address] * (ABNORMAL) Comprehensive metabolic panel (non-fasting) (05/22/2019 3:10 PM EST) Glucose 113 65 - 199 mg/dL [facility] Comment:Diabetes: >=200 mg/d L plus symptoms Blood Urea Nitrogen 16 8 - 18 mg/dL [facility] Creatinine 0.83 0.70 - 1.20 mg/dL [facility] Sodium 145 135 - 145 mmol/L [facility] Potassium 4.4 3.5 - 5.0 mmol/L [facility] Comment: Please note: ??Patients with WBC >100,000 may have falsely elevated Potassium levels. ??For accurate Potassium quantification in these patients send serum separator tube (gold top) for subsequent determinations. ??Contact the Clinical Chemistry Laboratory if there are any questions. Chloride 105 98 - 107 mmol/L [facility] Carbon Dioxide 25 22 - 31 mmol/L [facility] Anion Gap 15 5 - 15 mmol/L [facility] Calcium 10.1 8.5 - 10.5 mg/dL [facility] Protein, Total 7.9 6.1 - 8.0 gm/dL [facility] Albumin 4.6 3.2 - 5.2 gm/dL [facility] Aspartate Aminotransferase 19 0 - 30 unit/L [facility] Alanine Aminotransferase 20 0 - 30 unit/L [facility] Alkaline Phosphatase 120(H) 35 - 105 unit/L [facility] Bilirubin, Total 0.4 0.2 - 1.3 mg/dL [facility] Est Glomerular Filtration Rate 77 >=60 mL/min/1. 73 m?? [facility] Comment: The eGFR was calculated using the CKD-EPI equation. As with all creatinine based estimates of kidney function, eGFR values calculated with the CKD-EPI equation are not accurate in patients with acute kidney failure, extremes of body mass or the acutely ill. [email or web address] eGFR 89 >=60 mL/min/1. 73 m?? [facility] Comment: The eGFR was calculated using the CKD-EPI equation. As with all creatinine based estimates of kidney function, eGFR values calculated with the CKD-EPI equation are not accurate in patients with acute kidney failure, extremes of body mass or the acutely ill. [email or web address]/[email or web address] Blood specimen (specimen) 05/22/2019 3:10 PM EST 05/22/2019 3:19 PM EST Narrative Resulting Agency Comment Spec In Lab Vikas Castro MD CHEMISTRY ORDERAB LES Performing Organization Address City/[facility]/ZIP Co de Phone Number [facility] [place] [address] * Streptococcal Antibody Panel (05/22/2019 3:10 PM EST) [facility] Aso Titer (AUGUST) <20 0 - 530 IU/mL [facility] Comment: Test Performed by: [place] [address] Environmental Studies Department Chair: Dustin Juares M.D. Ph.D.; CLIA# [id number] Dnase B Ab (AUGUST) <81 0 - 300 unit/mL [facility] Comment: Test Performed by: [place] [address] Environmental Studies Department Chair: Dustin Juares M.D. Ph.D.; CLIA# [id number] Blood specimen (specimen) 05/22/2019 3:10 PM EST 05/23/2019 8:42 AM EST Narrative Resulting Agency Comment Spec In Lab Vikas Castro MD LAB SEND OUT ORDE RABLES Performing Organization Address [facility]/ZIP Co de Phone Number [facility] [place] [address] * Cyclic Citrullinated Peptide (05/22/2019 3:10 PM EST) [facility] Cyclic Citrulline Peptide <0.5 <=4.9 unit/mL [facility] Blood specimen (specimen) 05/22/2019 3:10 PM EST 05/22/2019 3:19 PM EST Narrative Resulting Agency Comment Spec In Lab Vikas Castro MD CHEMISTRY ORDERAB LES Performing Organization Address City/[facility]/ZIP Co de Phone Number [facility] [place] [address] * Rheumatoid factor, quant (05/22/2019 3:10 PM EST) [facility] Rheumatoid Factor 11 <=14 IU/mL [facility] Blood specimen (specimen) 05/22/2019 3:10 PM EST 05/22/2019 3:19 PM EST Narrative Resulting Agency Comment Spec In Lab Vikas Castro MD CHEMISTRY ORDERAB LES Performing Organization Address City/[facility]/ZIP Co de Phone Number [facility] [place] [address] * CRP, acute inflammation (05/22/2019 3:10 PM EST) C-Reactive Protein 0.5 <=4.9 mg/L [facility] Blood specimen (specimen) 05/22/2019 3:10 PM EST 05/22/2019 3:19 PM EST Narrative Resulting Agency Comment Spec In Lab Vikas Castro MD CHEMISTRY ORDERAB LES Performing Organization Address [facility] Co de Phone Number [facility] [place] [address] * (ABNORMAL) Sedimentation rate (05/22/2019 3:10 PM EST) [facility] Sedimentation Rate Automated 44(H) 2 - 39 mm/hr [facility] Comment: Effective April 11, 2019 new capillary photometric technology has resulted in a change in reference ranges. It is recommended that each ESR result be reviewed with its own age appropriate reference range. Blood specimen (specimen) 05/22/2019 3:10 PM EST 05/22/2019 3:19 PM EST Narrative Resulting Agency Comment Spec In Lab Vikas Castro MD HEMATOLOGY ORDERA BLES Performing Organization Address [facility]/ZIP Co de Phone Number [facility] [place] [address] * DEX ([facility]/CGP) (05/22/2019 3:10 PM EST) DEX Neg Neg [facility] Comment:Anti-nuclear antibod ies were tested using an indirect immunofluorescent assay. Blood specimen (specimen) 05/22/2019 3:10 PM EST 05/23/2019 8:11 AM EST Narrative Resulting Agency Comment Spec In Lab Vikas Castro MD LAB SEND OUT BARBRA ALBERT [facility] Organization Address City/State/ZIP Co de Phone Number [facility] [place] [address] documented in this encounter Visit Diagnoses Diagnosis Arthralgia of hand, unspecified laterality documented in this encounter Care Teams School Cafeteria Cook Head Relationship Specialty Start Date End Date Soy Conley MD PCP - General 09/14/16 documented as of this encounter
--- OUTSIDE RECORDS SUMMARY | 2024-03-06 07:58 | XMS_ITS | Encounter Summary ---
Author Organization [facility] [place] [address] Care Team Providers Care Java Swing Developer Name Role Phone Vikas Kowalski MD Primary Care Provider + Encounter Details Date Type Department Care Team ([facility] st Contact Info) Description 07/28/2012 10:45 AM EDT Follow-Up [facility] [address] [place] [address] Coleman Perkins MD [address] [place] [address] Social History Tobacco Use Types Packs/Day Years Used Date Smoking Tobacco: Never Assessed Sex and Gender Information Value Date Recorded Sex Assigned at Not on file Gender Identity Not on file Sexual Orientation Not on file documented as of this encounter Plan of Treatment Not on file documented as of this encounter Visit Diagnoses Not on filedocumented in this encounter Care Teams Java Swing Developer Relationship Specialty Start Date End Date Vikas Kowalski MD [address] [place] [address] PCP - General 07/27/10 07/23/13 documented as of this encounter
--- OUTSIDE RECORDS SUMMARY | 2024-03-06 07:58 | XMS_ITS | Referral Summary ---
Author Organization [facility] Address [address] [place] [address] Care Team Providers Care Boom Man Name Role Phone Soy Conley MD Primary Care Provider [phone] Social History Tobacco Use Types Packs/Day Years Used Date Smoking Tobacco: Never Assessed Interpersonal Safety Answer Date Record ed Physically Hurt Never 12/02/2019 Verbally Threaten Not on file 12/02/2019 Sex and Gender Information Value Date Recorded Sex Assigned at Not on file Gender Identity Not on file Sexual Orientation Not on file Plan of Treatment Not on file Care Teams Boom Man Relationship Specialty Start Date End Date Soy Conley MD [facility] [address] PCP - General 06/24/20
--- OUTSIDE RECORDS SUMMARY | 2024-03-06 07:58 | XMS_ITS | Encounter Summary ---
Author Organization [facility] Address [address] [place] [address] Care Team Providers Care Production Bow Maker Name Role Phone Soy Conley MD Primary Care Provider [phone] Encounter Details Date Type Department Care Team (Late st Contact Info) Description 07/23/[address] [facility] Pathology & Laboratory Medicine - [address] [address] Tamie Thomas MD [address] [place] [address] [place] [phone] Encounter for other general examination Social History Tobacco Use Types Packs/Day Years [...] Procedure Name Priority Date/Time Associated Diagnosis Comments SURGICAL PATHOLOGY Today 07/22/2022 15 :45 EDT Encounter for other general examination documented in this encounter Results * SURGICAL PATHOLOGY (07/22/2022 15:45 EDT) Note to Patient The following pathology results have been interpreted by your pathologist and may be available to you before your health provider has had the opportunity to review them. Please allow time for your provider to receive these results and explore management options, if applicable. 07/28/2022 7:41 [facility] Final Diagnosis A. ENDOMETRIUM, BIOPSY: - Atrophic endometrium - Reactive cervical squamous epithelium 07/28/2022 7:41 [facility] Attestation There was significant resident/fellow involvement in the diagnostic evaluation of this case. By the signature below, the attending physician certifies that they have personally conducted a gross and/or microscopic examination of the described specimens and rendered or confirmed the above diagnosis. 07/28/2022 7:41 [facility] at 0741 Clinical History Postmenopausal bleeding 07/28/2022 7:41 [facility] Gross Description A. Received in formalin labelled with proper patient identification (initials B, L) and endometrium is 0.5 x 0.2 x 0.1 cm patel-red polypoid soft tissue fragment admixed with 1 x 1 x 0.8 cm of mucus. The specimen is submitted in toto in A1. ALISA ALEXANDER(ASCP) 07/23/2022 12:13 07/28/2022 7:41 [facility] Resident/Erwin w: Briana Lan MD 07/28/2022 7:41 [facility] Performing Lab [facility] 07/28/2022 7:41 [facility] Scanned Images 07/28/2022 7:41 [facility] Tissue ENTIRE ENDOMETRIUM / Unknown 07/22/2022 15:45 EDT 07/23/2022 8:26 EDT Tamie Thomas MD PATHOLOGY ORDERABLES [facility] [address] [place] [address] documented in this encounter Visit Diagnoses Diagnosis Encounter for other general examination documented in this encounter Care Teams Production Bow Maker Relationship Specialty Start Date End Date Soy Conley [place] [address] PCP - General 06/24/20 documented as of this encounter
--- OUTSIDE RECORDS SUMMARY | 2024-03-06 07:58 | XMS_ITS | Encounter Summary ---
Author Organization [place] [address] Care Team Providers Care Gear Cutting Machine Operator Name Role Phone Soy Conley MD Primary Care Provider [phone] Encounter Details Date Type Department Care Team (Late st Contact Info) Description 07/10/2018 Orders Only General Surgery at [address] [address] Maite Telles LPN Social History Tobacco Use Types Packs/Day Years Used Date Smoking Tobacco: Former Sex and Gender Information Value Date Recorded Sex Assigned at Not on file Gender Identity Not on file Sexual Orientation Not on file documented as of this encounter Plan of Treatment Not on file documented as of this encounter Visit Diagnoses Not on filedocumented in this encounter Care Teams Gear Cutting Machine Operator Relationship Specialty Start Date End Date Soy Conley MD PCP - General 09/14/16 documented as of this encounter
--- OUTSIDE RECORDS SUMMARY | 2024-03-06 07:58 | XMS_ITS | Encounter Summary ---
Author Organization [facility] Address [facility] [place] [address] Care Team Providers Care Key Account Executive Name Role Phone Vikas Kowalski MD Primary Care Provider + Reason for Visit * Reason Comments Referral Encounter Details Date Type Department Care Team (Late st Contact Info) Description 07/18/2014 9:45 AM EDT Office [place] [phone] Radha Veronica MD [facility] [place] [address] Inflammatory arthritis Discharge Disposition: Home Social History Tobacco Use Types Packs/Day Years Used Date Smoking Tobacco: Former Sex and Gender Information Value Date Recorded Sex Assigned at Not on file Gender Identity Not on file Sexual Orientation Not on file documented as of this encounter Last Filed Vital Signs Vital Sign Reading Time Taken Comments Blood Pressure 106/65 07/18/2014 9:26 AM EDT Pulse 61 07/18/2014 9:26 AM EDT Temperature 36.6 ??C (97.8 ??F) 07/18/2014 9:26 AM ED T Respiratory Rate - - Oxygen Saturation 99% 07/18/2014 9:26 AM EDT Inhaled Oxygen Concentration - - Weight 83.9 kg (185 lb) 07/18/2014 9:26 AM EDT Height 170.2 cm (5' 7) 07/18/2014 9:26 AM EDT Body Mass Index 28.98 07/18/2014 9:26 AM EDT documented in this encounter Patient Instructions * Patient Instructions* Radha Veronica - 07/18/2014 11:58 AM EDT Start prednisone 10 mg x 2 weeks Then 5mg x 2 weeks The 2.5 mg x 2 weeks and stop documented in this encounter Progress Notes * Vikas Castro MD - 08/02/2014 8:28 AM EDT ATTENDING ADDENDUM The patient's history was reviewed, and I interviewed and examined the patient with Dr. Veronica. I agree with her summary, findings, and plan. * Radha Veronica - 07/18/2014 11:03 AM EDT Rheumatology Outpatient Consultation Note Referring Provider: VIKAS BLACKMON MD Reason for Consult: Persistent migratory polyarthralgia's History of Present Illness: Tamie Richmond is a 53 y.o. female with PMH of HTN, HL, hypothyroid reports being at her usual state of health till 04/2014 was evaluated by PCP when she noticed a bruise and around the left lumbar area and left thigh. States by 04/25/14 developed several areas of stiffness or aches in joints. Symptoms started in neck- couldn't turn head followed by pain in left shoulder then progressed to Right shoulder, Lt elbow followed by Rt elbow. Along this course also developed swelling in hands and wrists bilaterally. Pain and stiffness is worst in the evening and at bedtime. Pain aggravated on lifting cooking pans, etc. Relieved by OTC aleeve or Advil - besides hands and wrists no other joints appeared swollen - no pains in hips or ankles - no fever, no chills, no sick contacts, no recent travel - no URI or GI symptoms preceding the symptoms - no morning stiffness - no headaches, no changes in vision, no jaw claudication. ROS: No Raynaud's No sicca No malar rash No sun sensitivity No patchy alopecia or hair loss No ANAND No vision change, red painful or swollen eyes No hearing loss or ear pain No epistaxis, no sinusitis or ulcers No oral ulcers or thrush No SOB or cough, no hemoptysis No CP or palpitations No abdominal pain or GI complaints including nausea, vomiting, diarrhea or constipation No urinary complaints No rashes or bruising No focal or global weakness No fevers, chills, sweats or adenopathy No infections No unintentional weight loss or excessive fatigue Mood is stable Patient's medications, allergies, past medical, surgical, social and family histories were reviewedand updated as appropriate. Medications Reviewed Cymbalta x 2 yrs PSH Myomectomy Lap band Lipoma removal 05/22/14 Family Hx: Grandmom- OA hands M: 73 yrs - h/o gout and DM F: 36 yrs. 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 . 15 yo son (-)Smoking, (-)EtOH 0-1 drinks/week, (-)drugs Physical Examination: BP 106/65 Pulse 61 Temp(Src) 36.6 ??C (97.8 ??F) (Oral) Ht 170.2 cm (5' 7) Wt 83.915 kg (185 lb) BMI 28.97 kg/m2 SpO2 99% General: AAOx3, NAD HEENT: Mucous membranes are moist, no oral mucosal ulcerations Skin: (-)ulcers, (-)rash Nails: normal capillary loops Neck: Supple, no lymphadenopathy, full range of motion. Cardiovascular: RR, (-)murmurs, rubs, or gallops. Lungs: Clear to auscultation bilaterally. (-)R/R/W Back: Nontender over the spine Neuro: Alert and oriented x3. Extremities: Shoulders: Rt: good ROM, +empty can test, +lift off test. Lt. Limited abduction to 120 degrees and limited internal rotation,+empty can test, +lift off test. Elbows:FROM, (-)pain, (-)nodules Wrists: FROM, no swelling, non-tender Hands: diffuse edema, No synovitis, mild MCP compression tenderness, full claw and fist Hips: FROM Knees: (-)effusions, non-tender ROM Ankles: FROM, non-tender, no swelling Feet: no MTP compression tenderness Laboratory Data: Outside labs (scanned in) DEX <40 CRP 0.22 ESR 39 CCP <15.6 RF <20 Uric acid 5.2 CPK 43 CBC - wnl Vitamin D 24 Hepatitis serology negative Studies: None Impression: Tamie Richmond is a 53 y.o. female who presents today with for work up of acute onset joint pains that started in neck, B/L shoulders elbows and wrist and associated with hand swellings. Reports no morning stiffness and pains worsen at the end of the day. No evidence of synovitis on exam except B/L rotator cuff tendonitis and subacromial bursitis. Serology for lupus and RA is negative. Etiology of her symptoms remain unclear but it is possible it is inflammatory or a reactive process even though there was no preceding illness. PMR is also a possibility and will repeat ESR and CRP - if elevated will consider high dose oral steroid challenge . (inflammtory markers not available at the onset of symptoms around 04/25/14) Recommendations: - check CRP and ESR - check Parvovirus B19 IgG and IgM - hand x-rays - continue NSAIDS Ibuprofen 600 mg BID - Start prednisone 10 mg x 2 weeks, Then 5mg x 2 weeks, The 2.5 mg x 2 weeks and stop - if ESR and CRP elevated will consider increasing dose of prednisone Discussed with attending. Dr. Gloria Veronica MD Rheumatology Fellow Addendum Labs reviewed 07/18/2014 12:11 CRP High Sens 0.6 Sed Rate 17 07/18/2014 12:11 Parvo B19 IgG 0.11 Parvo B19 IgM 0.12 X-rays: no erosions Plan per above. Radha Veronica MD Rheumatology Fellow documented in this encounter Plan of Treatment Not on file documented as of this encounter Procedures Procedure Name Priority Date/Time Associated Diagnosis Comments PARVOVIRUS B19 ANTIBODY IGG AND IGM Routine 07/18/2014 12:11 PM EDT Inflammatory arthritis SEDIMENTATION RATE Routine 07/18/2014 12 :11 PM EDT Inflammatory arthritis CRP, CARDIAC RISK (HS CRP) Routine 07/18/2014 12:11 PM EDT Inflammatory arthritis documented in this [...] nonspecific. Vikas Castro MD IMG DX ORDERABLES * Parvovirus B19 Antibody IgG and IgM (07/18/2014 12:11 PM EDT) Parvo B19 Igg (AUGUST) 0.11 <0.90 Index [facility] Comment: Negative Test Performed by: [place] [address] Electrician Rectifier Maintenance: Millie Santoyo, Ph.D. Parvo B19 IgM (AUGUST) 0.12 <0.90 Index [facility] Comment: Negative Test Performed by: [facility] [place] [address] Electrician Rectifier Maintenance: Millie Santoyo, Ph.D. Parvo B19 Intrp (AUGUST) SEE COMMENT [facility] Comment: RESULT: No antibody detected. Test Performed by: [facility] [place] [address], [place] [address] Electrician Rectifier Maintenance: Millie Santoyo, Ph.D. Blood specimen (specimen) 07/18/2014 12:11 PM EDT 07/18/2014 3:04 PM EDT Narrative Resulting Agency Comment Spec In Lab Vikas Castro MD LAB SEND OUT ORDE RABLES Performing Organization Address [facility] Co de Phone Number [facility] * High Sensitivity CRP (07/18/2014 12:11 PM EDT) Pathologist [facility] C-Reactive Protein High Sensitivity 0.6 mg/L [facility] Comment: Interpretations: 1) For accurate cardiac risk assessment, the average of 2 values >2 weeks apart should be obtained (ref 1&2). A value >10 mg/L indicates an inflammatory condition, concentrations >10 mg/L should not be used for cardiac risk assessment. ?<1.0 mg/L: low risk ?1.0 - 3.0 mg/L: moderate risk ?>3.0 mg/L: high risk groups for future cardiovascular events 2) The general reference range of apparently healthy individuals using this test is <5.0 mg/L (derived from the test package insert) References: 1. Marci HERNADEZ et. al. ??AHA/CDC Scientific Statement: Markers of Inflammation and Cardiovascular Disease. ??Circulation 2003; 107:499-511 2. Ridker PM. ??Clinical applications of C-reactive protein for cardiovascular disease detection and prevention. ??Circulation 2003; 107:363-369 Blood specimen (specimen) 07/18/2014 12:11 PM EDT 07/18/2014 12:23 PM EDT Narrative Resulting Agency Comment Spec In Lab Vikas Castro MD CHEMISTRY ORDERAB LES Performing Organization Address [facility]/ZIP Co de Phone Number [facility] * Sedimentation rate (07/18/2014 12:11 PM EDT) Sedimentation Rate Automated 17 0 - 20 mm/hr GRAYSON MORRISON Blood specimen (specimen) 07/18/2014 12:11 PM EDT 07/18/2014 12:23 PM EDT Narrative Resulting Agency Comment Spec In Lab Vikas Castro MD HEMATOLOGY [facility]A [facility] documented in this encounter Visit Diagnoses Diagnosis Inflammatory arthritis Unspecified inflammatory polyarthropathy Inflammatory arthritis Unspecified inflammatory polyarthropathy documented in this encounter Care Teams Key Account Executive Relationship Specialty Start Date End Date Vikas Kowalski MD [address] [place] [address] PCP - General 06/19/14 10/27/14 documented as of this encounter
--- OUTSIDE RECORDS SUMMARY | 2024-03-06 07:58 | XMS_ITS | Encounter Summary ---
Author Organization [facility] [place] [address] Care Team Providers Care Bottom Precipitator Operator Name Role Phone Soy Conley MD Primary Care Provider [phone] Encounter Details Date Type Department Care Team (Late st Contact Info) Description 08/05/2016 Abstract [facility] Information Services [address] [place] [address] Provider, His MD Victor Hugo Social History Tobacco Use Types Packs/Day Years Used Date Smoking Tobacco: Former Sex and Gender Information Value Date Recorded Sex Assigned at Not on file Gender Identity Not on file Sexual Orientation Not on file documented as of this encounter Last Filed Vital Signs Vital Sign Reading Time Taken Comments Blood Pressure 100/62 08/05/2016 9:00 AM EDT Sourced from [place] Conversion Pulse 64 08/05/2016 9:00 AM EDT Sourced from [place] Conversion Temperature - - Respiratory Rate - - Oxygen Saturation - - Inhaled Oxygen Concentration - - Weight 85.9 kg (189 lb 4.8 oz) 08/05/2016 9:00 AM EDT Sourced from [place] Conversion Height 172.7 cm (5' 8) 08/05/2016 9:00 AM EDT Sourced from [place] Conversion Body Mass Index 28.78 08/05/2016 9:00 AM EDT documented in this encounter Plan of Treatment Not on file documented as of this encounter Visit Diagnoses Not on filedocumented in this encounter Care Teams Bottom Precipitator Operator Relationship Specialty Start Date End Date Soy Conley MD PCP - General 09/14/16 documented as of this encounter
--- OUTSIDE RECORDS SUMMARY | 2024-03-06 07:58 | XMS_ITS | Encounter Summary ---
Author Organization [place] [address] Care Team Providers Care Transportation Escort Name Role Phone Soy Conley MD Primary Care Provider [phone] Encounter Details Date Type Department Care Team (Late st Contact Info) Description 08/22/2013 [facility] Information Services [address] [place] [address] Provider, His Victor Hugo MD [...] - Inhaled Oxygen Concentration - - Weight 87.3 kg (192 lb 8 oz) 08/22/2013 1:00 PM EDT Sourced from [place] Conversion Height 172.7 cm (5' 8) 08/22/2013 1:00 PM EDT Sourced from [place] Conversion Body Mass Index 29.27 08/22/2013 1:00 PM EDT documented in this encounter Plan of Treatment Not on file documented as of this encounter Visit Diagnoses Not on filedocumented in this encounter Care Teams Transportation Escort Relationship Specialty Start Date End Date Soy Conley MD PCP - General 09/14/16 documented as of this encounter
--- OUTSIDE RECORDS SUMMARY | 2024-03-06 07:58 | XMS_ITS | Encounter Summary ---
Author Organization [facility] [place] [address] Care Team Providers Care Casting Carrier Name Role Phone Vikas Kowalski MD Primary Care Provider + Encounter Details Date Type Department Care Team ([facility] st Contact Info) Description 04/02/2011 4:00 AM EST Laboratory Appointment [address] [phone] Social History Tobacco Use Types Packs/Day Years Used Date Smoking Tobacco: Never Assessed Sex and Gender Information Value Date Recorded Sex Assigned at Not on file Gender Identity Not on file Sexual Orientation Not on file documented as of this encounter Plan of Treatment Not on file documented as of this encounter Visit Diagnoses Not on filedocumented in this encounter Care Teams Casting Carrier Relationship Specialty Start Date End Date Vikas Kowalski MD [address] [place] [address] PCP - General 07/27/10 07/23/13 documented as of this encounter
--- OUTSIDE RECORDS SUMMARY | 2024-03-06 07:58 | XMS_ITS | Encounter Summary ---
Author Organization [facility] Address [address] [place] [address] Care Team Providers Care Heel Attacher Wood Name Role Phone Soy Conley MD Primary Care Provider [phone] Encounter Details Date Type Department Care Team (Late st Contact Info) Description 06/24/2020 Lab Requisition [facility] Pathology & Laboratory Medicine - [address] [address] Migdalia Ocampo, DO [address] [place] [address] Encounter for other general examination Social History [...] Date/Time Associated Diagnosis Comments SURGICAL PATHOLOGY Today 06/24/2020 9: 00 EST Encounter for other general examination documented in this encounter Results * SURGICAL PATHOLOGY (06/24/2020 9:00 EST) Final Diagnosis A. GALLBLADDER, CHOLECYSTECTOMY: - Chronic cholecystitis - Cholelithiasis 06/27/2020 10:08 EST [facility] Attestation There was significant resident/fellow involvement in the diagnostic evaluation of this case. By the signature below, the attending physician certifies that they have personally conducted a gross and/or microscopic examination of the described specimens and rendered or confirmed the above diagnosis. 06/27/2020 10:08 [facility] at 1008 Clinical History Gallstones 06/27/2020 10:08 [facility] Gross Description A. Received in formalin labelled with proper patient identification (initials B, L) and 1) gallbladder is an intact gallbladder with an attached segment of cystic duct (7.6 x 3.8 x 2.4 cm). A cystic duct lymph node is not present. The serosa is patel-monsivais and smooth, focally rough. The mucosa is light green brown and velvety and the wall is 0.2 cm in thickness. The cystic duct lumen is patent and measures 0.3 cm in diameter. The cystic duct margin is inked blue. There are a few black, crusty choleliths measuring 0.8 x 0.6 x 0.5 cm in aggregate. Two strategic partnership representative sections and the en face cystic duct margin are submitted in A1. CASSANDRA PALOMINO LYNN 06/25/2020 8:31 06/27/2020 10:08 [facility] Resident/Erwin w: Valeria Garrido MD 06/27/2020 10:08 [facility] Performing Lab [facility] 06/27/2020 10:08 [facility] Scanned Images 06/27/2020 10:08 [facility] Tissue ENTIRE GALLBLADDER / Unknown 06/24/2020 9:00 EST 06/24/2020 16:15 EST Migdalia Ocampo DO PATHOLOGY ORDERABLES [facility] [address] [place] [address] documented in this encounter Visit Diagnoses Diagnosis Encounter for other general examination documented in this encounter Care Teams Heel Attacher Wood Relationship Specialty Start Date End Date Soy Conley MD [facility] [place] [address] PCP - General 06/24/20 documented as of this encounter
--- OUTSIDE RECORDS SUMMARY | 2024-03-06 07:58 | XMS_ITS | Encounter Summary ---
Author Organization [facility] Address [address] [place] [address] Care Team Providers Care Marine Engine Driver Name Role Phone Unknown, Provider Primary Care Provider Unashai ilable Encounter Details Date Type Department Care Team (Late st Contact Info) Description 12/16/2011 Results Only [facility] Laboratory Services - [facility] ([facility]) [address] [place], [place] [address] Mary Hinton, [facility] [address] [place] [address] [place] [phone] Social History Tobacco Use Types Packs/Day Years Used Date Smoking Tobacco: Never Assessed Sex and Gender Information Value Date Recorded Sex Assigned at Not on file Gender Identity Not on file Sexual Orientation Not on file documented as of this encounter Plan of Treatment Not on file documented as of this encounter Procedures Procedure Name Priority Date/Time Associated Diagnosis Comments PAP TEST- RESULT ONLY Routine 12/16/2011 0:00 EDT documented in this encounter Results * PAP TEST- RESULT ONLY (12/16/2011 0:00 EDT) Pathology Report: CYTOPATHOLOGY REPORT Reports generated via electronic interface contain original data; however they are lacking the format of the original report. Caution should be taken when reading/interpreti ng unformatted reports. Name: ? TAMIE SERNA ? Accession #: ? [id number] ? : ? 1960 (Age: 51) ??F ?Collect Date: ? 12/16/2011 ? Location: ? [facility] ? Receive Date: ? 12/17/2011 ? Provider: MARY HINTON PAIL BAILER Copy to: ? Final Report SPECIMEN ADEQUACY ? Satisfactory for Evaluation - transformation zone component present GENERAL CATEGORIZATION ? Negative for Intraepithelial Lesion or Malignancy ?? Specimen/Source: ??Pap Test, Cervix/Endocervix, ThinPrep Imaging System with manual evaluation Document reviewed and electronically signed by: ? NARCISA Cleary(ASCP) ? Report ??Date: 12/24/2011 10:15 HPV with Pap Test ? Date Ordered: ? 12/24/2011 ? Status: ?? Signed Out ?Date Complete: ? 12/28/2011 ? By: ??System Interface ? Date Reported: ? 12/28/2011 ? Interpretation RESULT: Negative for HPV. No E6 or E7 mRNA is detected from HPV types 16,18,31,33,35, 39,45,51,52,56,58, 59,66, and 68 by commutator operator mediated amplification. Comments Document reviewed and electronically signed by: ? System Interface ? Report date: 12/28/2011 By the signature above, the attending physician certifies that he/she has personally conducted a gross and/or microscopic examination of the described specimens and rendered or confirmed the above diagnosis. End of Report [facility] 12/16/2011 12/17/2011 Mary Hinton PAIL BAILER PATHOLOGY ORDERABLES Performing Organization Address City/State/[facility] Co de Phone Number [facility] [address] [place] [address] documented in this encounter Visit Diagnoses Not on filedocumented in this encounter Care Teams Marine Engine Driver Relationship Specialty Start Date End Date Unknown, Provider, PCP - General 12/17/11 05/22/14 documented as of this encounter
--- OUTSIDE RECORDS SUMMARY | 2024-03-06 07:58 | XMS_ITS | Encounter Summary ---
Author Organization [facility] Address [address] [place] [address] Care Team Providers Care Director Park Name Role Phone Unknown, Provider Primary Care Provider Nacho Corbin MD Primary Care Provider Tracya ble Encounter Details Date Type Department Care Team (Late st Contact Info) Description 05/22/2014 Results Only [facility] [phone] Tc Zuñiga MD [address] [place] [address] [place] [address] Social History Tobacco Use Types Packs/Day Years Used Date Smoking Tobacco: Never Assessed Sex and Gender Information Value Date Recorded Sex Assigned at Not on file Gender Identity Not on file Sexual Orientation Not on file documented as of this encounter Plan of Treatment Not on file documented as of this encounter Procedures Procedure Name Priority Date/Time Associated Diagnosis Comments SURGICAL PATHOLOGY Routine 05/22/2014 9:29 EST documented in this encounter Results * SURGICAL PATHOLOGY (05/22/2014 9:29 EST) Pathology Report: SURGICAL PATHOLOGY REPORT Reports generated via electronic interface contain original data; however they are lacking the format of the original report. Caution should be taken when reading/interpret ing unformatted reports. Name: ? TAMIE SERNA ? Accession #: ? [id number] ? : ? 1960 (Age: 53) ??F ? Collect Date: ? 05/22/2014 ? Location: ? [facility] ? Receive Date: ? 05/22/2014 ? Provider: TC ZUÑIGA MD Copy to: NACHO WADSWORTH MD ? Final Pathologic Diagnosis: SOFT TISSUE OF SHOULDER, RIGHT, MASS, EXCISION: - ??Lipoma. Document reviewed and electronically signed by: LYNN MACHADO MD Report ??Date: 05/27/2014 15:51 By the signature above, the attending physician certifies that he/she has personally conducted a gross and/or microscopic examination of the described specimens and rendered or confirmed the above diagnosis. Specimen(s) Received: Lipoma right shoulder Clinical History: Lipoma Gross Description: ? Received in formalin labelled with proper patient identification (initials B, L) and lipoma right shoulder is an unoriented portion of ovoid yellow adipose tissue (6.0 x 5.2 x 2.0 cm). The outer surface has a smooth, thin, translucent intact capsule. The outer surface is inked blue. The cut surface is yellow without hemorrhage. Clothing Sales Assistant sections are submitted as 1-2. Liana Corbin 05/23/2014 11:10 AM End of Report [facility] 05/22/2014 9:29 EST 05/22/2014 9:29 EST Tc Zuñiga MD PATHOLOGY ORDERA ANURAGS [facility] [address] [place] [address] documented in this encounter Visit Diagnoses Not on filedocumented in this encounter Care Teams Director Park Relationship Specialty Start Date End Date Unknown, MD Barber PCP - General 12/17/11 05/22/14 Nacho Wadsworth MD PCP - General 05/23/14 06/15/18 documented as of this encounter
--- OUTSIDE RECORDS SUMMARY | 2024-03-06 07:58 | XMS_ITS | Encounter Summary ---
Author Organization [facility] [place] [address] Care Team Providers Care Hydrologic Engineer Name Role Phone Soy Conley MD Primary Care Provider [phone] Encounter Details Date Type Department Care Team (Late st Contact Info) Description 09/22/[address] [facility] Information Services [address] [place] [phone] Provider, His Victor Hugo MD Social History [...] Procedure Name Priority Date/Time Associated Diagnosis Comments TSH Routine 09/22/2011 7:19 AM EDT documented in this encounter Results * (ABNORMAL) TSH (09/22/2011 7:19 AM EDT) Thyroid Stimulating Hormone 2.65(Exte rnal Lab) 0.30 - 5.5 uIU/mL [facility] RESULT CONVERSION Comment: Sourced from Cristopher Gay Conversion 09/22/2011 7:19 AM EDT His Victor Hugo Provider CHEMISTRY ORDERABL ES [facility] RESULT CONVERSION documented in this encounter Visit Diagnoses Not on filedocumented in this encounter Care Teams Hydrologic Engineer Relationship Specialty Start Date End Date Soy Conley MD PCP - General 09/14/16 documented as of this encounter
--- OUTSIDE RECORDS SUMMARY | 2024-03-06 07:58 | XMS_ITS | Clinical Summary ---
Author Organization [facility] Address [facility] [place] [address] Care Team Providers Care Car Rental Agency Manager Name Role Phone Soy Conley MD Primary Care Provider [phone] Allergies Active Allergy Reactions Criticality Noted Date Comments Lisinopril 03/05/2010 Other reaction(s): cough Penicillins 03/05/2010 Other reaction(s): sores on gums Not severe Medications Medication Sig Dispensed Refills Start Date End Date Status levothyroxine (SYNTHROID) 150 mcg Tablet Take 150 mcg by mouth daily. Active DULoxetine (CYMBALTA) 60 mg Capsule, Delayed Release(E.C.) Take 60 mg by mouth daily. Active hydrochlorothiazide (HYDRODIURIL) 25 mg Tablet Take 12.5 mg by mouth daily. Active atorvastatin (LIPITOR) 20 mg Tablet Take 20 mg by mouth daily. Active multivitamin (THERAGRAN) Tablet Take 1 tablet by mouth daily. Active Cholecalciferol, Vitamin D3, (VITAMIN D-3) 5,000 unit Tablet Take by mouth daily. Active fluticasone (FLONASE) 50 mcg/actuation [place], Suspension 1-2 sprays each nostril every day as needed 08/05/2016 Active losartan (COZAAR) 25 mg Tablet Take 25 mg by mouth daily. Active hydroCHLOROthiazide (HYDRODIURIL) 12.5 mg Tablet 12.5 tablets. 3 03/13/2018 Active gabapentin (Neurontin) 300 mg Capsule 05/07/2019 Active montelukast (Singulair) 10 mg Tablet 04/11/2019 Active Active Problems Problem Noted Date Diagnosed Date Morbid obesity 08/05/2016 Dermatofibroma 02/06/2015 Hypothyroidism 09/24/2011 History of laparoscopic adjustable gastric dixon ng 07/28/2010 Overview (07/10/2018): Standard AP LAGB with HH repair Heart disease 07/24/2010 Hyperlipidemia 07/24/2010 Shortness of breath 07/24/2010 Allergic rhinitis 03/05/2010 Depression 03/05/2010 Essential hypertension 03/05/2010 Immunizations Name Administration Dates Next Due Influenza Trivalent w/Preservative 04/01/2014 Social History Tobacco Use Types Packs/Day Years Used Date Smoking Tobacco: Former Cigarettes Q uit: 05/22/1994 Smokeless Tobacco: Never Sex and Gender Information Value Date Recorded Sex Assigned at Not on file Gender Identity Not on file Sexual Orientation Not on file Last Filed Vital Signs Vital Sign Reading [...] Mass Index 32.8 05/22/2019 12:46 PM EST Plan of Treatment Health Maintenance Due Date Last Done Comments CT Colonography 1960 Colonoscopy 1960 Colorectal Cancer Screening 1960 FIT DNA 1960 FIT 1960 Sigmoidoscopy (10 year) with FIT yearly 1960 Sigmoidoscopy 1960 HIV screen 1976 Hepatitis C Screening 1976 Tetanus/Diphtheria/Pertussis Vaccines (1 - Tdap) 1977 HPV test 1988 PAP Smear 1988 Breast Cancer Share Decision Needed 1998 Zoster vaccine (1 of 2) 2008 Breast Cancer screening 04/02/2012 04/02/2010 Advance Directive 2013 Bone Density Scan 08/10/2023 Pneumoccocal Vaccine: 65+ (1 of 1 - PCV) 08/10/2023 Covid-19 Vaccine (1 - 2022-24 season) 2024 Influenza (Flu) vaccine (1 o f 1 - Influenza standard series) 01/01/2024 04/01/2014 Diabetes Screening (HgbA1C or Glucose) Discontinued , 01/27/2011 Procedures Procedure Name Priority Date/Time Associated Diagnosis Comments HC VENIPUNCTURE Routine 05/22/2019 3:10 PM EST Arthralgia of hand, unspecified laterality MAMMO SCREENING CAD BILATERAL Routine 04/02/2010 8:45 AM EST from Last 3 Months or Most Recently Relevant to Health Maintenance Results * (ABNORMAL) Comprehensive metabolic panel (non-fasting) (05/22/2019 [...] of body mass or the acutely ill. http://[employer]/[facility] eGFR 89 >=60 mL/min/1. 73 m?? [facility] Comment: The eGFR was calculated using the CKD-EPI equation. As with all creatinine based estimates of kidney function, eGFR values calculated with the CKD-EPI equation are not accurate in patients with acute kidney failure, extremes of body mass or the acutely ill. http://[employer]/[facility] Blood specimen (specimen) 05/22/2019 3:10 PM EST 05/22/2019 3:19 PM EST Narrative Resulting Agency Comment Spec In Lab Vikas Castro MD CHEMISTRY ORDERAB LES [facility] [place] [address] * Mammo 2D Digital Bilateral Screening With CAD (04/02/2010 8:45 AM EST) Anatomical Region Laterality Modality Breast Bilateral Mammography 04/02/2010 8:45 AM EST Narrative 04/09/2010 10:54 AM EST External Results Ivan Gay Final Report EXAMINATION: ??[facility] 8056 - MAMMO BILAT SCREENING DIG ??G0202 EXAMINATION: ??[facility] 8030 - CAD SCREENING MAMMOGRAPHY 61083 DIAGNOSIS: ?ROUTINE - NO PROBLEM REASON: ? Routine- NO PROBLEM Routine- NO PROBLEM RESULT: ? Clinical Indication: ?? Screening exam. FINDINGS: ?The breasts are symmetric in size and are of heterogeneous density. ??I see no suspicious masses or microcalcifications to suggest malignancy. The films were also reviewed with the [employer] Second Look Computer Aided Detection System (Version 4.0). IMPRESSION: ??ACR category 1 mammogram (normal mammogram). ??No evidence for malignancy. ??Routine mammographic screening is recommended. ASSESSMENT: ??1 ??Negative. INTERPRETING PHYSICIAN:moi CABRAL M.D. ? TRANSCRIBED BY/DATE:moi WEST ??on Dec ??3 2009 ??7:46A ELECTRONICALLY AUTHORIZED BY: ? ISAIAH CABRAL M.D. ? Dec ??2009 10:54A Procedure Note Isaiah Cabral MD - 12/20/2016 External Results Ivan Gay Final Report EXAMINATION: [facility] 8056 - MAMMO BILAT SCREENING DIG G0202 EXAMINATION: [facility] 8030 - CAD SCREENING MAMMOGRAPHY 24693 DIAGNOSIS: ROUTINE - NO PROBLEM REASON: Routine- NO PROBLEM Routine- NO PROBLEM RESULT: Clinical Indication: Screening exam. FINDINGS: The breasts are symmetric in size and are of heterogeneous density. I see no suspicious masses or microcalcifications to suggest malignancy. The films were also reviewed with the [employer] Second Look Computer Aided Detection System (Version 4.0). IMPRESSION: ACR category 1 mammogram (normal mammogram). No evidencefor malignancy. Routine mammographic screening is recommended. ASSESSMENT: 1 Negative. INTERPRETING PHYSICIAN:moi CABRAL M.D. TRANSCRIBED BY/DATE:moi WEST on Apr 03 2010 7:46A ELECTRONICALLY AUTHORIZED BY: ISAIAH CABRAL M.D. Apr 09 2010 10:54A Soy Vieira Jr., MD IMG MAMMO ORDERABL ES from Last 3 Months or Most Recently Relevant to Health Maintenance Care Teams Car Rental Agency Manager Relationship Specialty Start Date End Date Soy Conley MD PCP - General 09/14/16
--- OUTSIDE RECORDS SUMMARY | 2024-03-06 07:58 | XMS_ITS | Encounter Summary ---
Author Organization [facility] Address [address] [place] [address] Care Team Providers Care Slasher Hand Name Role Phone Unknown, Provider Primary Care Provider Unava ilable Encounter Details Date Type Department Care Team (Late st Contact Info) Description 10/30/2018 Results Only [facility] [phone] Tc Zuñiga MD [address] [place] [address] [address] [place], [place] [id number] Social History Tobacco Use Types Packs/Day Years Used Date Smoking Tobacco: Never Assessed Sex and Gender Information Value Date Recorded Sex Assigned at Not on file Gender Identity Not on file Sexual Orientation Not on file documented as of this encounter Plan of Treatment Not on file documented as of this encounter Procedures Procedure Name Priority Date/Time Associated Diagnosis Comments SURGICAL PATHOLOGY Routine 10/30/2018 16 :00 EDT documented in this encounter Results * SURGICAL PATHOLOGY (10/30/2018 16:00 EDT) Pathology Report: SURGICAL PATHOLOGY REPORT Reports generated via electronic interface contain original data; however they are lacking the format of the original report. Caution should be taken when reading/interpreting unformatted reports. Name: ? TAMIE SERNA ? Accession #: ? [id number] ? : ? 1960 (Age: 58) ??F ? Collect Date: ? 10/30/2018 ? Location: ? [facility] ? Receive Date: ? 10/30/2018 ? Provider: TC ZUÑIGA MD Copy to: ARMEN MITCHELL MD ? Final Pathologic Diagnosis: COLON, ASCENDING, BIOPSY: - Active colitis with architectural disarray. See comment. Comment: Sections show active colitis with architectural disarray which does not reach criteria for chronic colitis. Early evolving inflammatory bowel disease or a drug reaction (e.g. NSAIDs) cannot entirely excluded. The biopsy is negative for dysplasia or granulomatous inflammation. Farm Adviser slides of this case were reviewed at the intradepartmental consultation conference. Dr. Rachael Gusman 10/31/2018 11:04 AM Document reviewed and electronically signed by: RACHAEL GUSMAN MD Report ??Date: 10/31/2018 16:12 By the signature above, the attending physician certifies that he/she has personally conducted a gross and/or microscopic examination of the described specimens and rendered or confirmed the above diagnosis. Specimen(s) Received: Ascending colon bx Clinical History: Colorectal screening Gross Description: ? Received in formalin labelled with proper patient identification (initials B, L) and ascending colon BX is an aggregate of patel-pink tissue fragments (0.6 x 0.4 x 0.2 cm). Submitted in toto in 1. ALISA Davis (ASCP) 10/30/2018 5:34 PM End of Report [facility] 10/30/2018 16:0 0 EDT 10/30/2018 16:00 EDT Tc Zuñiga MD PATHOLOGY ORDERA ALEX [facility] [address] [place] [address] documented in this encounter Visit Diagnoses Not on filedocumented in this encounter Care Teams Slasher Hand Relationship Specialty Start Date End Date Unknown, Provider, PCP - General 06/16/18 06/23/20 documented as of this encounter
--- OUTSIDE RECORDS SUMMARY | 2024-03-06 07:58 | XMS_ITS | Encounter Summary ---
Author Organization [facility] [place] [address] Care Team Providers Care Svp Digital Ad Sales Name Role Phone Soy Conley MD Primary Care Provider [phone] Encounter Details Date Type Department Care Team (Late st Contact Info) Description 12/28/2016 Orders Only Primary Care [address] [phone] Avelina Aceves, RN Social History Tobacco Use Types Packs/Day Years Used Date Smoking Tobacco: Former Sex and Gender Information Value Date Recorded Sex Assigned at Not on file Gender Identity Not on file Sexual Orientation Not on file documented as of this encounter Plan of Treatment Not on file documented as of this encounter Visit Diagnoses Not on filedocumented in this encounter Care Teams Svp Digital Ad Sales Relationship Specialty Start Date End Date Soy Conley MD PCP - General 09/14/16 documented as of this encounter
--- OUTSIDE RECORDS SUMMARY | 2024-03-06 07:58 | XMS_ITS | Encounter Summary ---
Author Organization [facility] [place] [address] Care Team Providers Care Production Supv Name Role Phone Vikas Kowalski MD Primary Care Provider + Encounter Details Date Type Department Care Team ([facility] st Contact Info) Description 09/22/2011 6:15 AM EDT Laboratory Appointment [address] [phone] Social History Tobacco Use Types Packs/Day Years Used Date Smoking Tobacco: Never Assessed Sex and Gender Information Value Date Recorded Sex Assigned at Not on file Gender Identity Not on file Sexual Orientation Not on file documented as of this encounter Plan of Treatment Not on file documented as of this encounter Visit Diagnoses Not on filedocumented in this encounter Care Teams Production Supv Relationship Specialty Start Date End Date Vikas Kowalski MD [address] [place] [address] PCP - General 07/27/10 07/23/13 documented as of this encounter
--- OUTSIDE RECORDS SUMMARY | 2024-03-06 07:58 | XMS_ITS | Encounter Summary ---
Author Organization [facility] [place] [address] Care Team Providers Care Heating And Ventilating Worker Name Role Phone Vikas Kowalski MD Primary Care Provider + Encounter Details Date Type Department Care Team ([facility] st Contact Info) Description 02/08/2011 3:30 PM EDT Follow-Up [facility] [address] [place] [phone] Coleman Perkins MD [address] [place] [address] Social History Tobacco Use Types [...] on filedocumented in this encounter Care Teams Heating And Ventilating Worker Relationship Specialty Start Date End Date Vikas Kowalski MD [address] [place] [address] PCP - General 07/27/10 07/23/13 documented as of this encounter
--- OUTSIDE RECORDS SUMMARY | 2024-03-06 07:58 | XMS_ITS | Encounter Summary ---
Author Organization [facility] [place] [address] Care Team Providers Care Welcome Center Attendant Name Role Phone Vikas Kowalski MD Primary Care Provider + Encounter Details Date Type Department Care Team ([facility] Contact Info) Description 04/02/2011 10:00 AM EST Office Visit [address] [phone] Cristiano Ayers MD [address] [place] [address] Social History Tobacco Use Types Packs/Day Years Used Date Smoking Tobacco: Never Assessed Sex and Gender Information Value Date Recorded Sex Assigned at Not on file Gender Identity Not on file Sexual Orientation Not on file documented as of this encounter Plan of Treatment Not on file documented as of this encounter Visit Diagnoses Not on filedocumented in this encounter Care Teams Welcome Center Attendant Relationship Specialty Start Date End Date Vikas Kowalski MD [address] [place] [address] PCP - General 07/27/10 07/23/13 documented as of this encounter
--- OUTSIDE RECORDS SUMMARY | 2024-03-06 07:58 | XMS_ITS | Encounter Summary ---
Author Organization [facility] [place] [address] Care Team Providers Care Sap Hana Developer Name Role Phone Unavailable Primary Care Provider Unavailabl e Encounter Details Date Type Department Care Team ([facility] st Contact Info) Description 07/27/2013 9:40 AM EDT Office Visit [facility] [address] [place] [phone] Coleman Perkins MD [address] [place], [place] [phone] Social History Tobacco Use Types Packs/Day Years [...]
--- OUTSIDE RECORDS SUMMARY | 2024-03-06 07:58 | XMS_ITS | Encounter Summary ---
Author Organization [facility] Address [address] [place] [address] Care Team Providers Care Mechanical Engineering Specialist Name Role Phone Unknown, Provider Primary Care Provider Unava ilable Encounter Details Date Type Department Care Team (Latest Contact Info) Description 10/30/2018 13:48 EDT - 10/30/2018 23:59 EDT Hospital Encounter [address] [address] Unknown, ProviderMD Discharge Disposition: Home or Self Care Social History Tobacco Use Types Packs/Day Years Used Date Smoking Tobacco: Never Assessed Sex and Gender Information Value Date Recorded Sex Assigned at Not on file Gender Identity Not on file Sexual Orientation Not on file documented as of this encounter Discharge Disposition Disposition Code Departure Means Destination Home or Self Usp documented in this encounter Plan of Treatment Not on file documented as of this encounter Visit Diagnoses Not on filedocumented in this encounter Care Teams Mechanical Engineering Specialist Relationship Specialty Start Date End Date Unknown, ProviderMD PCP - General 06/16/18 06/23/20 documented as of this encounter
--- OUTSIDE RECORDS SUMMARY | 2024-03-06 07:58 | XMS_ITS | Encounter Summary ---
Author Organization [facility] Address [address] [place] [address] Care Team Providers Care Presentation Team Member Name Role Phone Unknown, Provider Primary Care Provider Soy Dietrich MD Primary Care Provider Encounter Details Date Type Department Care Team (Late st Contact Info) Description 06/20/2020 Lab Requisition [facility] Pathology & Laboratory Medicine - [address] [address] Outr Resulting Lab, Provider Social History Tobacco [...] Comments ZZCOVID-19 TEST [facility] PCR Today 06/20/2020 10:37 EST COVID-19 TESTING Routine 06/20/2020 10:3 7 EST documented in this encounter Results * COVID-19 TEST [facility] PCR (06/20/2020 10:37 EST) Swab ENTIRE NASOPHARYNX / Unknown 06/20/2020 10:37 EST 06/20/2020 15:33 EST Provider Outr Resulting Lab MICROBIOLOGY - GENERAL ORDERABLES Performing Organization Address City/[facility]/ZIP Co de Phone Number [facility] [address] [place] [address] * COVID-19 TESTING (06/20/2020 10:37 EST) COVID-19 rt-PCR Result Negative Negative 06/21/2020 13:48 EST [facility] Comment: This test was developed and its performance characteristics determined by [facility]. It has not been cleared or approved by the US Food and Drug Administration. FDA does not require this test to go through premarket FDA review. This test is used for clinical purposes. It should not be regarded as investigational or for research. This laboratory is certified under the Clinical Laboratory Improvement Amendments (CLIA) as qualified to perform high complexity clinical laboratory testing. This test is based on the [facility] COVID-19 Emergency Use Authorization (EUA) assay, with minor modification as defined by the FDA Performed on the Catchoom Pro RT-PCR System. This test has not been FDA cleared [...] clinical observations, patient history, and epidemiological information. Performing Lab [facility] Lab 06/21/2020 13:48 EST [facility] Swab 06/20/2020 10:3 7 EST 06/20/2020 15:33 EST Provider Outr Resulting Lab MICROBIOLOGY - GENERAL ORDERABLES Performing Organization Address City/[facility]/ZIP Co de Phone Number [facility] [address] [place] [address] documented in this encounter Visit Diagnoses Not on filedocumented in this encounter Care Teams Presentation Team Member Relationship Specialty Start Date End Date Unknown, Provider, PCP - General 06/16/18 06/23/[address] [facility] [place] [address] PCP - General 06/24/20 documented as of this encounter
--- OUTSIDE RECORDS SUMMARY | 2024-03-06 07:58 | XMS_ITS | Encounter Summary ---
Author Organization [facility] Address [address] [place] [address] Care Team Providers Care Military Source Operations Officer Name Role Phone Unknown, Provider Primary Care Provider Soy Dietrich MD Primary Care Provider Encounter Details Date Type Department Care Team (Late st Contact Info) Description 06/19/2020 Lab Requisition [facility] Pathology & Laboratory Medicine - [address] [address] Outr Resulting Lab, Provider Social History Tobacco [...] Procedure Name Priority Date/Time Associated Diagnosis Comments ANTI NUCLEAR AB (DEX), IFA Routine 06/19/2020 10:50 EST documented in this encounter Results * (ABNORMAL) ANTI NUCLEAR AB (DEX), IFA (06/19/2020 10:50 EST) DEX Interpretation Positive(A) Negative 06/20/2020 15:37 EST [facility] Comment: For titers greater than or equal to 1:160 (except the centromere and nucleolar patterns) it is recommended that specific follow-up autoantibody testing ??(such as for dsDNA and Extractable Nuclear Antigens) be performed on all diffuse and/or speckled patterns NOTE: For add-on testing dsDNA is stable for 7 days refrigerated while Extractable Nuclear Antigens are only stable for 48 hours refrigerated. DEX Titer and Pattern 1 1:160 Homogeneous 06/20/2020 15:37 EST [facility] Blood VENOUS BLOOD / Unknown 06/19/2020 10:50 EST 06/19/2020 17:07 EST Narrative [facility] - 06/20/2020 15:37 EST Results were obtained with the [employer] NOVA Lite HEp-2 DEX Kit by indirect immunofluorescence. Provider Outr Resulting Lab IMMUNOLOGY A ND SEROLOGY ORDERABLES [facility] [address] [place] [address] documented in this encounter Visit Diagnoses Not on filedocumented in this encounter Care Teams Military Source Operations Officer Relationship Specialty Start Date End Date Unknown, Barber, PCP - General 06/16/18 06/23/20 [place] [place] [address] PCP - General 06/24/20 documented as of this encounter
--- OUTSIDE RECORDS SUMMARY | 2024-03-06 07:58 | XMS_ITS | Encounter Summary ---
Author Organization [facility] Address [address] [place] [address] Care Team Providers Care Opener Name Role Phone Nacho Wadsworth MD Primary Care Provider Deniz talley Encounter Details Date Type Department Care Team (Late st Contact Info) Description 06/14/2018 Results Only [facility] [phone] Armen Conley MD [facility] [address] [place], [place] [address] Social History Tobacco Use Types Packs/Day Years Used Date Smoking Tobacco: Never Assessed Sex and Gender Information Value Date Recorded Sex Assigned at Not on file Gender Identity Not on file Sexual Orientation Not on file documented as of this encounter Plan of Treatment Not on file documented as of this encounter Procedures Procedure Name Priority Date/Time Associated Diagnosis Comments SURGICAL PATHOLOGY Routine 06/14/2018 15 :52 EST PAP TEST- RESULT ONLY Routine 06/14/2018 0:00 EST documented in this encounter Results * SURGICAL PATHOLOGY (06/14/2018 15:52 EST) Pathology Report: SURGICAL PATHOLOGY REPORT Reports generated via electronic interface contain original data; however they are lacking the format of the original report. Caution should be taken when reading/interpreting unformatted reports. Name: ? TAMIE SERNA ? Accession #: ? [id number] ? : ? 1960 (Age: 57) ??F ? Collect Date: ? 06/14/2018 ? Location: ? [facility] ? Receive Date: ? 06/15/2018 ? Provider: ARMEN CONLEY MD Copy to: ? Final Pathologic Diagnosis: SUBMITTED ENDOMETRIUM, POLYPECTOMY: - Endocervical polyp. See comment. Comment: ? Crusher Operator slides of this case were reviewed at intradepartmental consultation conference. ?? Document reviewed and electronically signed by: LYNN MACHADO MD Report ??Date: 06/17/2018 10:27 By the signature above, the attending physician certifies that he/she has personally conducted a gross and/or microscopic examination of the described specimens and rendered or confirmed the above diagnosis. Specimen(s) Received: Endometrial polyp Clinical History: Endometrial polyp noted during Pap Gross Description: ? Received in formalin labelled with proper patient identification (initials B, L) and endometrium is an aggregate of pink-patel to red-brown soft tissue (1.8 x 1.4 x 0.9 cm). Submitted in toto in 1. ALISA Anaya (ASCP) 06/15/2018 4:00 PM End of Report [facility] 06/14/2018 15:5 2 EST 06/15/2018 15:52 EST Armen Conley MD PATHOLOGY ORDERABLES [facility] [address] [place] [address] * PAP TEST- RESULT ONLY (06/14/2018 0:00 EST) Pathology Report: CYTOPATHOLOGY REPORT Reports generated via electronic interface contain original data; however they are lacking the format of the original report. Caution should be taken when reading/interpreti ng unformatted reports. Name: ? KAREEM TAMIE ? Accession #: ? [id number] ? : ? 1960 (Age: 57) ??F ?Collect Date: ? 06/14/2018 ? Location: ? [facility] ? Receive Date: ? 06/16/2018 ? Provider: ARMEN CONLEY MD Copy to: ? Final Report SPECIMEN ADEQUACY ? Satisfactory for Evaluation - transformation zone component present - scant squamous epithelial component secondary to excessive blood GENERAL CATEGORIZATION ? Negative for Intraepithelial Lesion or Malignancy INTERPRETATION ? Reactive cellular changes associated with inflammation present (includes repair). EDUCATIONAL NOTES/RECOMMENDATI ONS ? An additional slide was prepared and evaluated. Last Menstrual Period: 06/2009 Previous Gynecologic Pathology: Polyp: endometrial polyp noted at time of PAP Specimen/Source: ??Pap Test, Cervix, ThinPrep Imaging System with manual evaluation Document reviewed and electronically signed by: ? CHERYL HERMOSILLO MD ? Report ??Date: 06/21/2018 10:51 HPV with Pap Test ? Date Ordered: ? 06/20/2018 ? Status: ?? Signed Out ?Date Complete: ? 06/22/2018 ? By: ??System Interface ? Date Reported: ? 06/22/2018 ? Interpretation RESULT: Negative for HPV. No E6 or E7 mRNA is detected from HPV types 16,18,31,33,35, 39,45,51,52,56,58, 59,66, and 68 by corrosion control specialist mediated amplification. Comments Document reviewed and electronically signed by: ? System Interface ? Report date: 06/22/2018 By the signature above, the attending physician certifies that he/she has personally conducted a gross and/or microscopic examination of the described specimens and rendered or confirmed the above diagnosis. End of Report [facility] 06/14/2018 06/16/2018 Armen Conley MD PATHOLOGY ORDERABLES [facility] [address] [place] [address] documented in this encounter Visit Diagnoses Not on filedocumented in this encounter Care Teams Opener Relationship Specialty Start Date End Date Nacho Wadsworth MD PCP - General 05/23/14 06/15/18 documented as of this encounter
--- OUTSIDE RECORDS SUMMARY | 2024-03-06 07:58 | XMS_ITS | Encounter Summary ---
Author Organization [facility] Address [address] [place] [address] Care Team Providers Care Educational Therapist Name Role Phone Soy Conley MD Primary Care Provider [phone] Encounter Details Date Type Department Care Team (Late st Contact Info) Description 08/23/2022 Lab Requisition [facility] Pathology & Laboratory Medicine - [address] [address] Outr Resulting Lab, Provider Social History Tobacco [...] Procedure Name Priority Date/Time Associated Diagnosis Comments HEPATITIS B CORE ANTIBODY (TOTAL) Routine 08/23/2022 9:10 EDT HEPATITIS B SURFACE ANTIBODY Routine 08/23/2022 9:10 EDT HEPATITIS B SURFACE ANTIGEN Routine 08/23/2022 9:10 EDT documented in this encounter Results * HEPATITIS B SURFACE ANTIBODY (08/23/2022 9:10 EDT) Hep B Surface Ab, Quantitative <3.1 See Note mIU/mL 08/24/2022 9:27 EDT [facility] Comment: Reference Range for Hep B Surface Ab, Quant: Positive: >= 10.0 mIU/mL Negative: ??< 10.0 mIU/mL Patient is presumed to not be immune to infection with Hepatitis B Virus. Hep B Surface Ab, Qualitative Negative See Note 08/24/2022 9:27 EDT [facility] Comment: Reference Range for Hep B Surface Ab, Qual: Unvaccinated: ??Negative Vaccinated: ??Positive Blood VENOUS BLOOD / Unknown 08/23/2022 9:10 EDT 08/23/2022 21:32 EDT Provider Outr Resulting Lab CHEMISTRY & BLOOD GAS ORDERABLES Performing Organization Address City/[facility]/ZIP Co de Phone Number [facility] [address] [place] [address] * HEPATITIS B CORE ANTIBODY (TOTAL) (08/23/2022 9:10 EDT) Hepatitis B Core Ab, Total Negative Negative 08/24/2022 10:15 EDT [facility] Blood VENOUS BLOOD / Unknown 08/23/2022 9:10 EDT 08/23/2022 21:32 EDT Provider Outr Resulting Lab CHEMISTRY & BLOOD GAS ORDERABLES Performing Organization Address City/[facility]/ZIP Co de Phone Number [facility] [address] [place] [address] * HEPATITIS B SURFACE ANTIGEN (08/23/2022 9:10 EDT) Hep B Surface Ag Negative Negative 08/24/2022 9:39 EDT [facility] Blood VENOUS BLOOD / Unknown 08/23/2022 9:10 EDT 08/23/2022 21:32 EDT Provider Outr Resulting Lab CHEMISTRY & BLOOD GAS ORDERABLES Performing Organization Address City/[facility]/ZIP Co de Phone Number [facility] [address] [place] [address] documented in this encounter Visit Diagnoses Not on filedocumented in this encounter Care Teams Educational Therapist Relationship Specialty Start Date End [place] [address] PCP - General 06/24/20 documented as of this encounter
--- OUTSIDE RECORDS SUMMARY | 2024-03-06 07:58 | XMS_ITS | Encounter Summary ---
Author Organization [facility] [place] [address] Care Team Providers Care Pet Resort Concierge Name Role Phone Vikas Kowalski MD Primary Care Provider + Encounter Details Date Type Department Care Team ([facility] st Contact Info) Description 06/02/2011 1:45 PM EST Follow-Up [facility] [address] [place] [address] Coleman Perkins MD [address] [place], [place] [id number] Social History Tobacco Use Types Packs/Day Years Used Date Smoking Tobacco: Never Assessed Sex and Gender Information Value Date Recorded Sex Assigned at Not on file Gender Identity Not on file Sexual Orientation Not on file documented as of this encounter Plan of Treatment Not on file documented as of this encounter Visit Diagnoses Not on filedocumented in this encounter Care Teams Pet Resort Concierge Relationship Specialty Start Date End Date Vikas Kowalski MD [address] [place] [address] PCP - General 07/27/10 07/23/13 documented as of this encounter
--- OUTSIDE RECORDS SUMMARY | 2024-03-06 07:58 | XMS_ITS | Encounter Summary ---
Author Organization [facility] [place] [address] Care Team Providers Care Portable Power Tool Repairer Name Role Phone Soy Conley MD Primary Care Provider [phone] Reason for Visit * Reason Comments Follow-up Encounter Details Date Type Department Care Team ([facility] st Contact Info) Description 07/10/2018 1:00 PM EDT Office Visit [facility] [address] [place] [phone] Vu Price MD [address] [place] [address] Morbid obesity; History of laparoscopic adjustable gastric banding Social History Tobacco Use Types Packs/Day Years Used Date Smoking Tobacco: Former Sex and Gender Information Value Date Recorded Sex Assigned at Not on file Gender Identity Not on file Sexual Orientation Not on file documented as of this encounter Last Filed Vital Signs Vital Sign Reading Time Taken Comments Blood Pressure 118/80 07/10/2018 1:12 PM EDT Pulse 80 07/10/2018 1:12 PM EDT Temperature - - Respiratory Rate - - Oxygen Saturation - - Inhaled Oxygen Concentration - - Weight 83.5 kg (184 lb 2 oz) 07/10/2018 1:12 PM EDT Height 169.2 cm (5' 6.6) 07/10/2018 1:12 PM EDT Body Mass Index 29.19 07/10/2018 1:12 PM EDT documented in this encounter Progress Notes * Vu Price MD - 07/10/2018 1:00 PM EDT The patient is seen today in follow-up status post laparoscopic adjustable gastric band placement. She received a standard AP LAGB in June 2010. She states that she has been doing quite well howeverrecently she has started to experience heartburn and frequent regurgitation of undigested food. Shestates when she eats she notices that her nose starts to run. She feels that she is in need of a fill volume reduction. Review of systems is otherwise unremarkable. She states that she generally feels well and has no complaints. She reports no headaches, visual changes, shortness of breath or chest pain. All systems reviewed otherwise negative. Blood pressure 118/80, pulse 80, height 169.2 cm (5' 6.6), weight 83.5 kg (184 lb 2 oz). Physical examination demonstrates her to appear healthy. Her head is normocephalic and atraumatic. Her extraocular muscles are intact. Her abdomen is soft, nontender and nondistended. Her band systemaccess port is palpable in the subcutaneous tissues of the left upper anterior abdominal wall. Impression: Status post LAGB, red zone symptoms Recommendations: I agree that she would likely benefit from a fill volume reduction. The planned procedure was reviewed with the patient. She was placed in the supine position on the procedure table. The skin over the band access port was prepped with alcohol and anesthetized with 1.5 mL 1% lidocaine. The band system port was accessed with a 20-gauge Wyatt needle. 0.25 mL saline solution was removedfrom the band system. She tolerated her postprocedural beverage without difficulty. I will see her back in 4 weeks for her next evaluation. documented in this encounter Plan of Treatment Not on file documented as of this encounter Visit Diagnoses Diagnosis Morbid obesity History of laparoscopic adjustable gastric banding Bariatric surgery status documented in this encounter Care Teams Portable Power Tool Repairer Relationship Specialty Start Date End Date Soy Conley MD PCP - General 09/14/16 documented as of this encounter
--- OUTSIDE RECORDS SUMMARY | 2024-03-06 07:58 | XMS_ITS | Encounter Summary ---
Author Organization [facility] [place] [address] Care Team Providers Care Classer Name Role Phone Soy Conley MD Primary Care Provider [phone] Encounter Details Date Type Department Care Team (Late st Contact Info) Description 07/28/2012 [facility] Information Services [address] [facility] [place] [address] Provider, His Victor Hugo MD [...] - Inhaled Oxygen Concentration - - Weight 90.9 kg (200 lb 6.4 oz) 07/28/2012 10:45 AM EDT Sourced from [facility] Conversion Height 172.7 cm (5' 8) 07/28/2012 10:4 5 AM EDT Sourced from [place] Conversion Body Mass Index 30.47 07/28/2012 10:45 AM EDT documented in this encounter Plan of Treatment Not on file documented as of this encounter Visit Diagnoses Not on filedocumented in this encounter Care Teams Classer Relationship Specialty Start Date End Date Soy Conley MD PCP - General 09/14/16 documented as of this encounter
--- OUTSIDE RECORDS SUMMARY | 2024-03-06 07:59 | XMS_ITS | Encounter Summary ---
Author Organization [facility] [place] [address] Care Team Providers Care Judge Clerk Name Role Phone Vu Guadarrama APRN Primary Care Provider [phone] Encounter Details Date Type Department Care Team ([facility] st Contact Info) Description 06/18/2010 10:00 AM EST Office Visit [facility] [address] [place] [phone] Coleman Perkins MD [address] [place] [address] Social History Tobacco Use Types Packs/Day Years Used Date Smoking Tobacco: Never Assessed Sex and Gender Information Value Date Recorded Sex Assigned at Not on file Gender Identity Not on file Sexual Orientation Not on file documented as of this encounter Plan of Treatment Not on file documented as of this encounter Visit Diagnoses Not on filedocumented in this encounter Care Teams Judge Clerk Relationship Specialty Start Date End Date Vu Guadarrama APRN [address] [place] [address] PCP - General 06/16/10 06/23/10 documented as of this encounter
--- OUTSIDE RECORDS SUMMARY | 2024-03-06 07:59 | XMS_ITS | Encounter Summary ---
Author Organization [facility] [place] [address] Care Team Providers Care Tire Trimmer Hand Name Role Phone Vikas Kowalski MD Primary Care Provider + Encounter Details Date Type Department Care Team ([facility] st Contact Info) Description 08/12/2010 1:00 PM EDT Office Visit [facility] [address] [place] [address] [address], RD [address] [place] [address] Social History Tobacco Use Types Packs/Day Years Used Date Smoking Tobacco: Never Assessed Sex and Gender Information Value Date Recorded Sex Assigned at Not on file Gender Identity Not on file Sexual Orientation Not on file documented as of this encounter Plan of Treatment Not on file documented as of this encounter Visit Diagnoses Not on filedocumented in this encounter Care Teams Tire Trimmer Hand Relationship Specialty Start Date End Date Vikas Kowalski MD [address] [place] [address] PCP - General 07/27/10 07/23/13 documented as of this encounter
--- OUTSIDE RECORDS SUMMARY | 2024-03-06 07:59 | XMS_ITS | Encounter Summary ---
[place] [address] Care Team Providers Care Molder Labels Name Role Phone Soy Conley MD Primary Care Provider [phone] Encounter Details Date Type Department Care Team ([facility] st Contact Info) Description 04/02/2010 [place] [phone] Soy Vieira Jr., MD [address] [place] [address] Social History Tobacco Use Types Packs/Day Years Used Date Smoking Tobacco: Never Assessed Sex and Gender Information Value Date Recorded Sex Assigned at Not on file Gender Identity Not on file Sexual Orientation Not on file documented as of this encounter Plan of Treatment Not on file documented as of this encounter Procedures Procedure Name Priority Date/Time Associated Diagnosis Comments MAMMO SCREENING CAD BILATERAL Routine 04/02/2010 8:45 AM EST documented in this encounter Results * Mammo 2D Digital Bilateral Screening With CAD (04/02/2010 8:45 AM EST) Anatomical Region Laterality Modality Breast Bilateral Mammography 04/02/2010 8:45 AM EST Narrative 04/09/2010 10:54 AM EST External Results Ivan Gay Final Report EXAMINATION: ??[facility]AND[facility] 8056 - MAMMO BILAT SCREENING DIG ??G0202 EXAMINATION: ??[facility] 8030 - CAD SCREENING MAMMOGRAPHY 57783 DIAGNOSIS: ?ROUTINE - NO PROBLEM REASON: ? Routine- NO PROBLEM Routine- NO PROBLEM RESULT: ? Clinical Indication: ?? Screening exam. FINDINGS: ?The breasts are symmetric in size and are of heterogeneous density. ??I see no suspicious masses or microcalcifications to suggest malignancy. The films were also reviewed with the [employer] Second Look Computer Aided Detection System (Version 4.0). IMPRESSION: ??ACR category 1 mammogram (normal mammogram). ??No evidence for malignancy. ??Routine mammographic screening is recommended. ASSESSMENT: ??1 ??Negative. INTERPRETING PHYSICIAN:moi CABRAL M.D. ? TRANSCRIBED BY/DATE:moi WEST ??on Apr ??2009 ??7:46A ELECTRONICALLY AUTHORIZED BY: ? ISAIAH CABRAL M.D. ? Dec ??2009 10:54A Procedure Note Isaiah Cabral MD - 12/20/2016 External Results Anascojaye Gay Final Report EXAMINATION: [facility] 8056 - MAMMO BILAT SCREENING DIG G0202 EXAMINATION: [facility] 8030 - CAD SCREENING MAMMOGRAPHY [address]2674 DIAGNOSIS: ROUTINE - NO PROBLEM REASON: Routine- NO PROBLEM Routine- NO PROBLEM RESULT: Clinical Indication: Screening exam. FINDINGS: The breasts are symmetric in size and are of heterogeneous density. I see no suspicious masses or microcalcifications to suggest malignancy. The films were also reviewed with the My [employer] Second Look Computer Aided Detection System (Version 4.0). IMPRESSION: ACR category 1 mammogram (normal mammogram). No evidencefor malignancy. Routine mammographic screening is recommended. ASSESSMENT: 1 Negative. INTERPRETING PHYSICIAN:moi CABRAL M.D. TRANSCRIBED BY/DATE:moi WEST on Apr 03 2010 7:46A ELECTRONICALLY AUTHORIZED BY: ISAIAH CABRAL M.D. Apr 09 2010 10:54A Soy Vieira Jr., MD IMG MAMMO ORDERABL ES documented in this encounter Visit Diagnoses Not on filedocumented in this encounter Care Teams Molder Labels Relationship Specialty Start Date End Date Soy Conley MD PCP - General 09/14/16 documented as of this encounter
--- OUTSIDE RECORDS SUMMARY | 2024-03-06 07:59 | XMS_ITS | Encounter Summary ---
Author Organization [facility] [place] [address] Care Team Providers Care Agency Appointments Supervisor Name Role Phone Vikas Kowalski MD Primary Care Provider + Encounter Details Date Type Department Care Team ([facility] st Contact Info) Description 01/27/2011 10:00 AM EDT Laboratory Appointment [address] [phone] Social History Tobacco Use Types Packs/Day Years Used Date Smoking Tobacco: Never Assessed Sex and Gender Information Value Date Recorded Sex Assigned at Not on file Gender Identity Not on file Sexual Orientation Not on file documented as of this encounter Plan of Treatment Not on file documented as of this encounter Visit Diagnoses Not on filedocumented in this encounter Care Teams Agency Appointments Supervisor Relationship Specialty Start Date End Date Vikas Kowalski MD [address] [place] [address] PCP - General 07/27/10 07/23/13 documented as of this encounter
--- OUTSIDE RECORDS SUMMARY | 2024-03-06 07:59 | XMS_ITS | Encounter Summary ---
Author Organization [facility] [place] [address] Care Team Providers Care Director Surgical Name Role Phone Vikas Kowalski MD Primary Care Provider + Encounter Details Date Type Department Care Team ([facility] st Contact Info) Description 08/26/2010 10:00 AM EDT Follow-Up [facility] [address] [place] [address] Coleman Perkins MD [address] [place], [place] [phone] Social History Tobacco Use Types Packs/Day Years Used Date Smoking Tobacco: Never Assessed Sex and Gender Information Value Date Recorded Sex Assigned at Not on file Gender Identity Not on file Sexual Orientation Not on file documented as of this encounter Plan of Treatment Not on file documented as of this encounter Visit Diagnoses Not on filedocumented in this encounter Care Teams Director Surgical Relationship Specialty Start Date End Date Vikas Kowalski MD [address] [place] [address] PCP - General 07/27/10 07/23/13 documented as of this encounter
--- OUTSIDE RECORDS SUMMARY | 2024-03-06 07:59 | XMS_ITS | Encounter Summary ---
Author Organization [facility] [place] [address] Care Team Providers Care Supervisor Park Workers Name Role Phone Dariel Mckeon MD, Soy Chase Primary Care Provider +1- [phone] Encounter Details Date Type Department Care Team (Late st Contact Info) Description 05/28/2010 8:30 AM EST Office Visit [address] [phone] Vu Guadarrama APRN [address] [place] [address] Social History Tobacco Use Types Packs/Day Years Used Date Smoking Tobacco: Never Assessed Sex and Gender Information Value Date Recorded Sex Assigned at Not on file Gender Identity Not on file Sexual Orientation Not on file documented as of this encounter Plan of Treatment Not on file documented as of this encounter Visit Diagnoses Not on filedocumented in this encounter Care Teams Supervisor Park Workers Relationship Specialty Start Date End Date Soy Vieira Jr., MD PCP - General 05/22/10 06/15/10 documented as of this encounter
--- OUTSIDE RECORDS SUMMARY | 2024-03-06 07:59 | XMS_ITS | Encounter Summary ---
Author Organization [facility] [place] [address] Care Team Providers Care Regional Rehabilitation Director Name Role Phone Dariel Mckeon MD, Soy Chase Primary Care Provider +1- [phone] Encounter Details Date Type Department Care Team ([facility] st Contact Info) Description 04/30/2010 12:30 PM EST Office Visit [address] [phone] Salma Dias, PsDulce [address] [place] [address] [place] [address] Social History Tobacco Use Types [...] on filedocumented in this encounter Care Teams Regional Rehabilitation Director Relationship Specialty Start Date End Date Soy Vieira Jr., MD PCP - General 03/24/10 05/21/10 documented as of this encounter
--- OUTSIDE RECORDS SUMMARY | 2024-03-06 07:59 | XMS_ITS | Encounter Summary ---
Author Organization [facility] [place] [address] Care Team Providers Care Contract Negotiation Specialist Name Role Phone Vikas Kowalski MD Primary Care Provider + Encounter Details Date Type Department Care Team ([facility] st Contact Info) Description 11/12/2010 11:00 AM EDT Office Visit [facility] [address] [place] [address] Mia Cameron, RD [address] [place] [address] Social History Tobacco Use Types Packs/Day Years Used Date Smoking Tobacco: Never Assessed Sex and Gender Information Value Date Recorded Sex Assigned at Not on file Gender Identity Not on file Sexual Orientation Not on file documented as of this encounter Plan of Treatment Not on file documented as of this encounter Visit Diagnoses Not on filedocumented in this encounter Care Teams Contract Negotiation Specialist Relationship Specialty Start Date End Date Vikas Kowalski MD [address] [place] [address] PCP - General 07/27/10 07/23/13 documented as of this encounter
--- OUTSIDE RECORDS SUMMARY | 2024-03-06 07:59 | XMS_ITS | Encounter Summary ---
Author Organization [facility] [place] [address] Care Team Providers Care Touch Up Carver Name Role Phone Dariel Mckeon MD, Soy Chase Primary Care Provider +1- [phone] Encounter Details Date Type Department Care Team (Late st Contact Info) Description 05/28/2010 9:00 AM EST Office Visit [address] [phone] Social History Tobacco Use Types Packs/Day Years Used Date Smoking Tobacco: Never Assessed Sex and Gender Information Value Date Recorded Sex Assigned at Not on file Gender Identity Not on file Sexual Orientation Not on file documented as of this encounter Plan of Treatment Not on file documented as of this encounter Visit Diagnoses Not on filedocumented in this encounter Care Teams Touch Up Carver Relationship Specialty Start Date End Date Soy Vieira Jr., MD PCP - General 05/22/10 06/15/10 documented as of this encounter
--- OUTSIDE RECORDS SUMMARY | 2024-03-06 07:59 | XMS_ITS | Encounter Summary ---
Author Organization [facility] [place] [address] Care Team Providers Care Bibliographic Services Specialist Name Role Phone Dariel Mckeon MD, Soy Chase Primary Care Provider +1- [phone] Encounter Details Date Type Department Care Team (Late st Contact Info) Description 07/15/2010 1:30 PM EDT Procedure visit [address] [phone] Social History Tobacco Use Types Packs/Day Years Used Date Smoking Tobacco: Never Assessed Sex and Gender Information Value Date Recorded Sex Assigned at Not on file Gender Identity Not on file Sexual Orientation Not on file documented as of this encounter Plan of Treatment Not on file documented as of this encounter Visit Diagnoses Not on filedocumented in this encounter Care Teams Bibliographic Services Specialist Relationship Specialty Start Date End Date Soy Vieira Jr., MD PCP - General 06/24/10 07/19/10 documented as of this encounter
--- OUTSIDE RECORDS SUMMARY | 2024-03-06 07:59 | XMS_ITS | Encounter Summary ---
Author Organization [facility] [place] [address] Care Team Providers Care Utilization Reviewer Name Role Phone Vikas Kowalski MD Primary Care Provider + Encounter Details Date Type Department Care Team ([facility] st Contact Info) Description 09/03/2010 10:45 AM EDT Follow-Up [facility] [address] [place] [address] Coleman Perkins MD [address] [place] [address] Social History Tobacco Use Types [...] on filedocumented in this encounter Care Teams Utilization Reviewer Relationship Specialty Start Date End Date Vikas Kowalski MD [address] [place] [address] PCP - General 07/27/10 07/23/13 documented as of this encounter
--- OUTSIDE RECORDS SUMMARY | 2024-03-06 07:59 | XMS_ITS | Encounter Summary ---
Author Organization [facility] [place] [address] Care Team Providers Care Grab Hooker Name Role Phone Unavailable Primary Care Provider Unavailabl e Encounter Details Date Type Department Care Team (Late st Contact Info) Description 03/20/2010 10:00 AM EST Procedure visit [address] [address] Swathi Davila MD [facility] Social History Tobacco Use Types Packs/Day Years [...]
--- OUTSIDE RECORDS SUMMARY | 2024-03-06 07:59 | XMS_ITS | Encounter Summary ---
Author Organization [facility] [place] [address] Care Team Providers Care Cottage Master Name Role Phone Vikas Kowalski MD Primary Care Provider + Encounter Details Date Type Department Care Team ([facility] st Contact Info) Description 08/05/2010 10:00 AM EDT Follow-Up [facility] [address] [place] [address] Coleman Perkins MD [address] [place] [address] Social History Tobacco Use Types [...] on filedocumented in this encounter Care Teams Cottage Master Relationship Specialty Start Date End Date Vikas Kowalski MD [address] [place] [address] PCP - General 07/27/10 07/23/13 documented as of this encounter
--- OUTSIDE RECORDS SUMMARY | 2024-03-06 07:59 | XMS_ITS | Encounter Summary ---
Author Organization [facility] Address [facility] [place] [address] Care Team Providers Care Welder Apprentice Name Role Phone Soy Conley MD Primary Care Provider [phone] Encounter Details Date Type Department Care Team (Late st Contact Info) Description 07/24/2010 [place] [address] Arturo Patel, DO [address] [place] [address] Social History Tobacco Use Types Packs/Day Years Used Date Smoking Tobacco: Never Assessed Sex and Gender Information Value Date Recorded Sex Assigned at Not on file Gender Identity Not on file Sexual Orientation Not on file documented as of this encounter Plan of Treatment Not on file documented as of this encounter Procedures Procedure Name Priority Date/Time Associated Diagnosis Comments NM EXERCISE STRESS AND REST MYOCARDIAL PERFUSION Routine 07/24/2010 11:21 AM EDT documented in this encounter Results * NM Myocardial Perfusion Stress Rest (07/24/2010 11:21 AM EDT) Anatomical Region Laterality Modality Other 07/24/2010 11:2 1 AM EDT Narrative 07/26/2010 9:18 PM EDT External Results Ivan Gay Final Report EXAMINATION: ??NUC 8069 - MYOCARD PERF MULTI,MIBI,[id number] DIAGNOSIS: ?ASHD REASON: ? ASHD RESULT: ? Clinical data: ?ASHD. TECHNIQUE: ?Dwaine protocol. ??7.0 METS. ??166 beats per minute. ??98% heart rate achieved. ??No chest pain. ??Normal hemodynamic response. ??No ischemic ST changes. IMPRESSION: ?FINDINGS: ?There are no fixed or reversible defects to suggest significant ischemia or scar. ??Calculated left ventricular ejection fraction within normal limits at 73%. INTERPRETING PHYSICIAN: ??MICHELLE POLANCO M.D. ? TRANSCRIBED BY/DATE: ?? [place] ??on Jul 24 2010 ??4:24P ELECTRONICALLY AUTHORIZED BY: ?? MICHELLE POLANCO M.D. ? Jul 26 2010 ??9:18P Procedure Note Michelle Polanco MD - 12/17/2016 External Results Ivan Gay Final Report EXAMINATION: NUC 8069 - MYOCARD PERF MULTI,MIBI,[id number] DIAGNOSIS: ASHD REASON: ASHD RESULT: Clinical data: ASHD. TECHNIQUE: Dwaine protocol. 7.0 METS. 166 beats per minute. 98%heart rate achieved. No chest pain. Normal hemodynamic response. No ischemicST changes. IMPRESSION: FINDINGS: There are no fixed or reversible defects to suggest significant ischemia or scar. Calculated left ventricularejection fraction within normal limits at 73%. INTERPRETING PHYSICIAN: MICHELLE POLANCO M.D. TRANSCRIBED BY/DATE: [place] on Jul 24 2010 4:24P ELECTRONICALLY AUTHORIZED BY: MICHELLE POLANCO M.D. Jul 26 2010 9:18P Arturo MCNALLY NM ORDERABLES documented in this encounter Visit Diagnoses Not on filedocumented in this encounter Care Teams Welder Apprentice Relationship Specialty Start Date End Date Soy Conley MD PCP - General 09/14/16 documented as of this encounter
--- OUTSIDE RECORDS SUMMARY | 2024-03-06 07:59 | XMS_ITS | Encounter Summary ---
Author Organization [facility] [place] [address] Care Team Providers Care Med Peds Name Role Phone Vikas Kowalski MD Primary Care Provider + Encounter Details Date Type Department Care Team ([facility] st Contact Info) Description 10/22/2010 1:45 PM EDT Follow-Up [facility] [address] [place] [address] Coleman Perkins MD [address] [place] [address] Social History Tobacco Use Types [...] on filedocumented in this encounter Care Teams Med Peds Relationship Specialty Start Date End Date Vikas Kowalski MD [address] [place] [address] PCP - General 07/27/10 07/23/13 documented as of this encounter
--- OUTSIDE RECORDS SUMMARY | 2024-03-06 07:59 | XMS_ITS | Encounter Summary ---
Author Organization [facility] [place] [address] Care Team Providers Care Market Garden Worker Name Role Phone Vikas Kowalski MD Primary Care Provider + Encounter Details Date Type Department Care Team ([facility] Contact Info) Description 01/27/2011 3:00 PM EDT Follow-Up [address] [phone] Swathi Davila PA [address] [place] [address] Social History Tobacco Use Types Packs/Day Years Used Date Smoking Tobacco: Never Assessed Sex and Gender Information Value Date Recorded Sex Assigned at Not on file Gender Identity Not on file Sexual Orientation Not on file documented as of this encounter Plan of Treatment Not on file documented as of this encounter Visit Diagnoses Not on filedocumented in this encounter Care Teams Market Garden Worker Relationship Specialty Start Date End Date Vikas Kowalski MD [address] [place] [address] PCP - General 07/27/10 07/23/13 documented as of this encounter
--- OUTSIDE RECORDS SUMMARY | 2024-03-06 07:59 | XMS_ITS | Encounter Summary ---
Author Organization [facility] [place] [address] Care Team Providers Care Rock Lather Name Role Phone Dariel Mckeon MD, Soy Chase Primary Care Provider [phone]- [phone] Encounter Details Date Type Department Care Team (Late st Contact Info) Description 07/16/2010 6:00 AM EDT Office Visit [address] [phone] Social History Tobacco Use Types Packs/Day Years Used Date Smoking Tobacco: Never Assessed Sex and Gender Information Value Date Recorded Sex Assigned at Not on file Gender Identity Not on file Sexual Orientation Not on file documented as of this encounter Plan of Treatment Not on file documented as of this encounter Visit Diagnoses Not on filedocumented in this encounter Care Teams Rock Lather Relationship Specialty Start Date End Date Soy Vieira Jr., MD PCP - General 06/24/10 07/19/10 documented as of this encounter
--- OUTSIDE RECORDS SUMMARY | 2024-03-06 07:59 | XMS_ITS | Encounter Summary ---
Author Organization [facility] [place] [address] Care Team Providers Care Livestock Slaughterer Name Role Phone Vikas Kowalski MD Primary Care Provider + Encounter Details Date Type Department Care Team ([facility] st Contact Info) Description 01/27/2011 3:40 PM EDT Follow-Up [facility] [address] [place] [address] Vu Price MD [address] [place] [address] Social History Tobacco Use Types [...] on filedocumented in this encounter Care Teams Livestock Slaughterer Relationship Specialty Start Date End Date Vikas Kowalski MD [address] [place] [address] PCP - General 07/27/10 07/23/13 documented as of this encounter
--- OUTSIDE RECORDS SUMMARY | 2024-03-06 07:59 | XMS_ITS | Encounter Summary ---
Author Organization [facility] [place] [address] Care Team Providers Care Supervisor Rubber Covering Name Role Phone Unavailable Primary Care Provider Unavailabl e Encounter Details Date Type Department Care Team (Late st Contact Info) Description 03/06/2010 8:15 AM EDT Procedure visit [address] [phone] Social History Tobacco Use Types Packs/Day Years [...]
--- OUTSIDE RECORDS SUMMARY | 2024-03-06 07:59 | XMS_ITS | Encounter Summary ---
Author Organization [facility] [place] [address] Care Team Providers Care Rn Women Services Name Role Phone Unavailable Primary Care Provider Unavailabl e Encounter Details Date Type Department Care Team ([facility] st Contact Info) Description 03/05/2010 11:20 AM EDT Office Visit [address] [phone] Soy Vieira Jr., MD [address] [place] [address] Social History Tobacco Use Types Packs/Day Years [...]
--- OUTSIDE RECORDS SUMMARY | 2024-03-06 07:59 | XMS_ITS | Encounter Summary ---
Author Organization [facility] [place] [address] Care Team Providers Care Tile Erector Name Role Phone Dariel Mckeon MD, Soy Chase Primary Care Provider +1- [phone] Encounter Details Date Type Department Care Team ([facility] st Contact Info) Description 07/16/2010 8:30 AM EDT Office Visit [facility] [address] [place] [address] Mia Cameron, RD [address] [place] [address] Social History Tobacco Use Types Packs/Day Years Used Date Smoking Tobacco: Never Assessed Sex and Gender Information Value Date Recorded Sex Assigned at Not on file Gender Identity Not on file Sexual Orientation Not on file documented as of this encounter Plan of Treatment Not on file documented as of this encounter Visit Diagnoses Not on filedocumented in this encounter Care Teams Tile Erector Relationship Specialty Start Date End Date Soy Vieira Jr., MD PCP - General 06/24/10 07/19/10 documented as of this encounter
--- OUTSIDE RECORDS SUMMARY | 2024-03-06 07:59 | XMS_ITS | Encounter Summary ---
Author Organization [facility] [place] [address] Care Team Providers Care Instrument Lens Grinder Name Role Phone Soy Conley MD Primary Care Provider Encounter Details Date Type Department Care Team (Late st Contact Info) Description 01/27/2011 Abstract [facility] Information Services [address] [facility] [place] [address] Provider, His Victor Hugo MD [...] Procedure Name Priority Date/Time Associated Diagnosis Comments HEMOGLOBIN A1C Routine 01/27/2011 4:05 PM EDT documented in this encounter Results * (ABNORMAL) Hemoglobin A1c (01/27/2011 4:05 PM EDT) Hemoglobin A1c 5.9(Exter nal Lab) 4.5 - 6.2 percent [facility] RESULT CONVERSION Comment: Sourced from Cristopher Gay Conversion 01/27/2011 4:05 PM EDT His Victor Hugo Provider CHEMISTRY ORDERABL ES [facility] RESULT CONVERSION documented in this encounter Visit Diagnoses Not on filedocumented in this encounter Care Teams Instrument Lens Grinder Relationship Specialty Start Date End Date Soy Conley MD PCP - General 09/14/16 documented as of this encounter
--- OUTSIDE RECORDS SUMMARY | 2024-03-06 07:59 | XMS_ITS | Encounter Summary ---
Author Organization [facility] [place] [address] Care Team Providers Care Computer Tape Librarian Name Role Phone Dariel Mckeon MD, Soy Chase Primary Care Provider +1- [phone] Encounter Details Date Type Department Care Team ([facility] st Contact Info) Description 04/30/2010 1:30 PM EST Office Visit [facility] [address] [place] [address] Mia Cameron, RD [address] [place] [address] Social History Tobacco Use Types Packs/Day Years Used Date Smoking Tobacco: Never Assessed Sex and Gender Information Value Date Recorded Sex Assigned at Not on file Gender Identity Not on file Sexual Orientation Not on file documented as of this encounter Plan of Treatment Not on file documented as of this encounter Visit Diagnoses Not on filedocumented in this encounter Care Teams Computer Tape Librarian Relationship Specialty Start Date End Date Soy Vieira Jr., MD PCP - General 03/24/10 05/21/10 documented as of this encounter
--- OUTSIDE RECORDS SUMMARY | 2024-03-06 07:59 | XMS_ITS | Encounter Summary ---
[place] [address] Care Team Providers Care Extruder Operator Helper Name Role Phone Soy Conley MD Primary Care Provider [phone] Encounter Details Date Type Department Care Team (Late st Contact Info) Description 07/29/2010 Orders Only [facility] [phone] Unknown None Social History Tobacco Use Types Packs/Day Years Used Date Smoking Tobacco: Never Assessed Sex and Gender Information Value Date Recorded Sex Assigned at Not on file Gender Identity Not on file Sexual Orientation Not on file documented as of this encounter Plan of Treatment Not on file documented as of this encounter Procedures Procedure Name Priority Date/Time Associated Diagnosis Comments XR FLUORO UPPER GI SINGLE CONTRAST WO KUB Routine 07/29/2010 8:23 AM EDT documented in this encounter Results * XR Fluoro Upper GI Single Contrast wo KUB (07/29/2010 8:23 AM EDT) Anatomical Region Laterality Modality N/A Radiographic Paige ging 07/29/2010 8:23 AM EDT Narrative 08/06/2010 4:17 PM EDT External Results Ivan Gay Final Report EXAMINATION: ??RAD 7424 - UGI W/O AC W/O KUB ? [id number] DIAGNOSIS: ?MORBID OBESITY, GERD, HYPERTEN REASON: ? evaluate band position and gastric patency RESULT: ? Clinical Indication: ?LAP band procedure. FINDINGS: ?The preliminary compliance project manager film demonstrates characteristic positioning of the metallic gastric band within the left upper quadrant. The patient initiates swallowing without difficulty. ??The contrast column readily traverses through the banded stomach distally. ??I see no evidence for obstruction, for extravasation or for abnormal proximal pooling. IMPRESSION: ? Satisfactory postoperative appearances. INTERPRETING PHYSICIAN: ??ISAIAH CABRAL M.D. ? TRANSCRIBED BY/DATE: ?? [place] ??on Jul 30 2010 ??7:06A ELECTRONICALLY AUTHORIZED BY: ?? ISAIAH CABRAL M.D. ? Apr ??7 2010 ??4:17P Procedure Note Isaiah Cabral MD - 12/17/2016 External Results Ivan Gay Final Report EXAMINATION: RAD 7424 - UGI W/O AC W/O KUB [id number] DIAGNOSIS: MORBID OBESITY, GERD, HYPERTEN REASON: evaluate band position and gastric patency RESULT: Clinical Indication: LAP band procedure. FINDINGS: The preliminary compliance project manager film demonstrates characteristic positioning of the metallic gastric band within the left upper quadrant. The patient initiates swallowing without difficulty. The contrastcolumn readily traverses through the banded stomach distally. I see noevidence for obstruction, for extravasation or for abnormal proximal pooling. IMPRESSION: Satisfactory postoperative appearances. INTERPRETING PHYSICIAN: ISAIAH CABRAL M.D. TRANSCRIBED BY/DATE: [place] on Jul 30 2010 7:06A ELECTRONICALLY AUTHORIZED BY: ISAIAH CABRAL M.D. Aug 06 2010 4:17P Unknown IMG FLUORO ORDERABLE S documented in this encounter Visit Diagnoses Not on filedocumented in this encounter Care Teams Extruder Operator Helper Relationship Specialty Start Date End Date Soy Conley MD PCP - General 09/14/16 documented as of this encounter
--- OUTSIDE RECORDS SUMMARY | 2024-03-06 07:59 | XMS_ITS | Encounter Summary ---
Author Organization [facility] [place] [address] Care Team Providers Care Crusher Plant Operator Name Role Phone Dariel Mckeon MD, Soy Chase Primary Care Provider +1- [phone] Encounter Details Date Type Department Care Team ([facility] st Contact Info) Description 07/16/2010 10:20 AM EDT Office Visit [address] [address] Arturo Patel, DO [address] [place] [address] [place] [address] Social History Tobacco Use Types Packs/Day Years Used Date Smoking Tobacco: Never Assessed Sex and Gender Information Value Date Recorded Sex Assigned at Not on file Gender Identity Not on file Sexual Orientation Not on file documented as of this encounter Plan of Treatment Not on file documented as of this encounter Visit Diagnoses Not on filedocumented in this encounter Care Teams Crusher Plant Operator Relationship Specialty Start Date End Date Soy Vieira Jr., MD PCP - General 06/24/10 07/19/10 documented as of this encounter
[2024-03-06 15:22] LABS: Calculated LDL 117 mg/dL (<100); Cholesterol 196 mg/dL (<200); HDL Cholesterol 57 mg/dL (40-60); TSH (W/Ref FT4) 0.08 uIU/mL (0.36-3.74); Triglyceride 112 mg/dL (<150); Vitamin D 25 Total 43.5 ng/mL (30-100)
[2024-03-06 15:38] LABS: FREE T4 2.06 ng/dL (0.76-1.46)
== END 2024-03-06 07:57 | disposition home or self-care (01) ==
LOC: NCHCN 07:56
PROVIDERS: PCP Physician Assistant; Visit Provider Student in an Organized Health Care Education/Training Program
DX: E03.9 Hypothyroidism, unspecified (principal); E78.5 Hyperlipidemia, unspecified; E55.9 Vitamin D deficiency, unspecified
CPT/HCPCS: 80061; 82306; 84439; 84443

== ENCOUNTER 2024-04-30 01:32 | Outpatient (CLI) | payer BC, SELFPAY ==
--- NOTE | 2024-04-30 16:03 | DI.MAMMO_ITS ---
Exam(s) MAMMO SCREENING EXAM: MAMMO SCREENING CLINICAL HISTORY: Annual bilateral screening, Z12.39. TECHNIQUE: Bilateral full field digital CC and MLO mammographic images were obtained with 3D tomosyn thesis and utilizing computer aided detection (CAD). COMPARISON: Prior mammograms were reviewed. FINDINGS: There are no new right breast mammographic findings In the left breast posteriorly there is a nodular density up against the chest wall which has increas ed in size from prior mammograms, presently measuring 9 by 5 mm. It may represent a lymph node but h as increased in size and should undergo further imaging. The left breast there is also suggestion another possible nodular density located 7 cm in from the ni pple on the CC view, slightly medial of center. There are no malignant-appearing microcalcification groups in this region or elsewhere in either [address]iddhi [address]. There is no significant architectural distortion nor skin thickening-retraction. IMPRESSION: 1. No radiographic evidence of malignancy in right breast. 2. There are 2 nodular densities in left breast more evident than previous. One is located posterior ly up against the chest wall and may be a benign lymph node but nevertheless has significantly increa sed in size from prior studies. The other nodular densities located medially. Spot compression CC views are recommended for these nodules in left breast BI-RADS Category 0 - Incomplete: Need additional imaging evaluation Breast Density - Category B - Scattered areas of fibroglandular density Breast density Category C or D implies that the patient has dense breast tissue. Dense breast tissue can make it harder to find cancer on a mammogram. Dense breast tissue is also associated with an incr eased risk of breast cancer. This information about the result of the mammogram report was provided to the patient to raise their awareness. Use this report when you speak with the patient about their risks for breast cancer, which includes their family history. At that time, you may recommend additional screening tests (Ultrasoun d or MRI) as these tests may add significant information. A negative radiographic report should not delay biopsy if a dominant or clinically suspicious mass is present. Up to ten percent of cancers are not identified on mammography. A negative report may reinforce clinical impression. Adenosis and dense breasts may obscure an underlying neoplasm. False positive reports average 6 to 10%. Patient will receive a letter notifying them of these results.
== END 2024-04-30 01:52 ==
LOC: DI 01:32
PROVIDERS: PCP Physician Assistant; Visit Provider Student in an Organized Health Care Education/Training Program
DX: Z12.31 Encounter for screening mammogram for malignant neoplasm of breast (principal); R92.323 Mammographic fibroglandular density, bilateral breasts
CPT/HCPCS: 77063; 77067

== ENCOUNTER 2024-05-07 02:12 | Outpatient (CLI) | payer BC, SELFPAY ==
--- NOTE | 2024-05-07 10:40 | DI.US_ITS ---
Exam(s) MG MAMMO SCREEN CALL BACK UNI US BREAST LT LIMITED EXAM: MG MAMMO SCREEN CALL BACK UNI and U/S breast LT limited CLINICAL HISTORY: Nodular density, lt chest, increased in size to 9 x 5 mm from previous. TECHNIQUE: Craniocaudal and mediolateral oblique Full Field Digital Mammography views of the left br east with Computer Aided Diagnosis followed by Tomosynthesis and limited left breast ultrasound. COMPARISON: Comparison is made with prior examinations. FINDINGS: Mammography/Tomosynthesis: Masses/Architectural Distortion: There is a very well-circumscribed ovoid nodule in the upper outer q uadrant of the left breast approximately 12 cm from the nipple. No associated microcalcifications ar e seen. There are no areas of architectural distortion. The 2nd area seen in the medial soft tissue s on the CC view does not persist and likely reflects fibroglandular tissue. Microcalcifictions: No suspicious pleomorphic-type are seen. Skin Thickening/Nipple Retraction: None. Limited left breast US: Echotexture: Normal appearance of the glandular tissue. Shadowing: No suspicious foci. Cyst: None. Solid lesions: At the 1 o'clock position of the left breast 6 cm from the nipple, there is a hypoecho ic 0.6 cm nodule with a an echogenic notch most suggestive of an intraparenchymal lymph node. At the 1 o'clock position of the right breast 12 cm from the nipple, there is a 0.6 x 1.3 cm lymph node pre sent. This appears to correspond to the mammographic abnormality. Ductal dilation: None. IMPRESSION: 1. No definite evidence of malignancy is noted. 2. A 3 month follow-up mammogram and ultrasound are requested on the right for re-evaluation. 3. The findings were discussed with the patient on the date of the examination. BI-RADS Category 3 - Probably Benign Finding: Recommend follow-up imaging in 3 months Breast Density - Category B - Scattered areas of fibroglandular density Breast density Category C or D implies that the patient has dense breast tissue. Dense breast tissue can make it harder to find cancer on a mammogram. Dense breast tissue is also associated with an incr eased risk of breast cancer. This information about the result of the mammogram report was provided to the patient to raise their awareness. Use this report when you speak with the patient about their risks for breast cancer, which includes their family history. At that time, you may recommend additional screening tests (Ultrasoun d or MRI) as these tests may add significant information. A negative radiographic report should not delay biopsy if a dominant or clinically suspicious mass is present. Up to ten percent of cancers are not identified on mammography. A negative report may reinforce clinical impression. Adenosis and dense breasts may obscure an underlying neoplasm. False positive reports average 6 to 10%. Patient will receive a letter notifying them of these results.
== END 2024-05-07 02:32 ==
PROVIDERS: PCP Physician Assistant; Visit Provider Student in an Organized Health Care Education/Training Program
DX: Z12.31 Encounter for screening mammogram for malignant neoplasm of breast (principal); R92.323 Mammographic fibroglandular density, bilateral breasts; D24.2 Benign neoplasm of left breast
CPT/HCPCS: 76642; 77063; 77067

== ENCOUNTER 2024-05-11 16:42 | Outpatient (REF) | payer BC, SELFPAY ==
[2024-05-11 15:32] LABS: TSH (W/Ref FT4) 1.03 uIU/mL (0.36-3.74)
--- OUTSIDE RECORDS SUMMARY | 2024-05-11 16:43 | XMS_ITS | Referral Summary ---
Author Organization [facility] Address [address] [place] [address] Care Team Providers Care Supervisor Nutritional Yeast Name Role Phone Soy Conley MD Primary Care Provider [phone] Social History Tobacco Use Types Packs/Day Years Used Date Smoking Tobacco: Never Assessed Interpersonal Safety Answer Date Record ed Physically Hurt Never 12/02/2019 Verbally Threaten Not on file 12/02/2019 Comments Unknown Sex and Gender Information Value Date Recorded Sex Assigned at Not on file Legal Sex Female 18:56 EST Gender Identity Not on file Sexual Orientation Not on file Plan of Treatment Not on file Insurance [facility] Care Teams Supervisor Nutritional Yeast Relationship Specialty Start Date End Date Soy Conley MD [facility] [place] [address] PCP - General 06/24/20
--- OUTSIDE RECORDS SUMMARY | 2024-05-11 16:43 | XMS_ITS | Clinical Summary ---
Author Organization [facility] Address [address] [place] [address] Care Team Providers Care Car Rider Name Role Phone Soy Conley MD Primary Care Provider [phone] Social History Tobacco Use Types Packs/Day Years [...] Last Done Comments Hepatitis C Screen 1960 Fall Risk Screening 08/10/2023 COVID-19 Vaccine (2023-25 season) 2024 RSV Immunization ( o r 60+ Years) (1 - 1-dose 75+ series) [address] [facility] Care Teams Car Rider Relationship Specialty Start Date End [place] [address] PCP - General 06/24/20
--- OUTSIDE RECORDS SUMMARY | 2024-05-11 16:44 | XMS_ITS | Encounter Summary ---
Author Organization [facility] [place] [address] Care Team Providers Care Wheat Buyer Name Role Phone Vikas Kowalski MD Primary Care Provider + Encounter Details Date Type Department Care Team ([facility] st Contact Info) Description 08/26/2010 10:00 AM EDT Follow-Up [facility] [address] [place] [address] Coleman Perkins MD [address] [place], [place] [phone] Social History Tobacco Use Types Packs/Day Years Used Date Smoking Tobacco: Never Assessed Sex and Gender Information Value Date Recorded Sex Assigned at Not on file Gender Identity Not on file Sexual Orientation Not on file documented as of this encounter Plan of Treatment Not on file documented as of this encounter Visit Diagnoses Not on filedocumented in this encounter Care Teams Wheat Buyer Relationship Specialty Start Date End Date Vikas Kowalski MD [address] [place] [address] PCP - General 07/27/10 07/23/13 documented as of this encounter
--- OUTSIDE RECORDS SUMMARY | 2024-05-11 16:44 | XMS_ITS | Encounter Summary ---
Author Organization [facility] Address [address] [place] [address] Care Team Providers Care Joy Operator Helper Name Role Phone Unknown, Provider Primary Care Provider Unava ilable Encounter Details Date Type Department Care Team (Late st Contact Info) Description 12/16/2011 Results Only [facility] Laboratory Services - [facility] ([facility]) [address] [place], [place] [address] Mary Hinton, [facility] [address] [place] [address] [place] [phone] Social History Tobacco Use Types Packs/Day Years Used Date Smoking Tobacco: Never Assessed Comments Unknown Sex and Gender Information Value [...] ? TAMIE SERNA ? Accession #: ? [id number] ? : ? 1960 (Age: 51) ??F ?Collect Date: ? 12/16/2011 ? Location: ? [facility] ? Receive Date: ? 12/17/2011 ? Provider: MARY HINTON ASSISTIVE TECHNOLOGY SPECIALIST Copy to: ? Final Report SPECIMEN ADEQUACY [...] types 16,18,31,33,35, 39,45,51,52,56,58, 59,66, and 68 by flight operations inspector mediated amplification. Comments Document reviewed and electronically signed by: ? System Interface ? Report date: 12/28/2011 By the signature above, the attending physician certifies that he/she has personally conducted a gross and/or microscopic examination of the described specimens and rendered or confirmed the above diagnosis. End of Report [facility] 12/16/2011 12/17/2011 Mary Hinton ASSISTIVE TECHNOLOGY SPECIALIST PATHOLOGY ORDERABLES Final R esult [facility] [address] [place] [address] documented in this encounter Visit Diagnoses Not on filedocumented in this encounter Care Teams Joy Operator Helper Relationship Specialty Start Date End Date Unknown, Provider, PCP - General 12/17/11 05/22/14 documented as of this encounter
--- OUTSIDE RECORDS SUMMARY | 2024-05-11 16:44 | XMS_ITS | Encounter Summary ---
Author Organization [place] [address] Care Team Providers Care Press Tool Maker Name Role Phone Vikas Kowalski MD Primary Care Provider + Encounter Details Date Type Department Care Team ([facility] Contact Info) Description 04/02/2011 10:00 AM EST Office Visit [address] [phone] Cristiano Ayers MD [address] [place] [address] Social History Tobacco Use Types Packs/Day Years Used Date Smoking Tobacco: Never Assessed Sex and Gender Information Value Date Recorded Sex Assigned at Not on file Gender Identity Not on file Sexual Orientation Not on file documented as of this encounter Plan of Treatment Not on file documented as of this encounter Visit Diagnoses Not on filedocumented in this encounter Care Teams Press Tool Maker Relationship Specialty Start Date End Date Vikas Kowalski MD [address] [place] [address] PCP - General 07/27/10 07/23/13 documented as of this encounter
--- OUTSIDE RECORDS SUMMARY | 2024-05-11 16:44 | XMS_ITS | Encounter Summary ---
Author Organization [facility] [address] Care Team Providers Care Molding Technician Name Role Phone Dariel Mckeon MD, Soy Chase Primary Care Provider [phone] Encounter Details Date Type Department Care Team (Late st Contact Info) Description 07/16/2010 6:00 AM EDT Office Visit [address] [phone] Social History Tobacco Use Types Packs/Day Years Used Date Smoking Tobacco: Never Assessed Sex and Gender Information Value Date Recorded Sex Assigned at Not on file Gender Identity Not on file Sexual Orientation Not on file documented as of this encounter Plan of Treatment Not on file documented as of this encounter Visit Diagnoses Not on filedocumented in this encounter Care Teams Molding Technician Relationship Specialty Start Date End Date Soy Vieira Jr., MD PCP - General 06/24/10 07/19/10 documented as of this encounter
--- OUTSIDE RECORDS SUMMARY | 2024-05-11 16:44 | XMS_ITS | Encounter Summary ---
Author Organization [facility] [place] [address] Care Team Providers Care Resistor Tester Name Role Phone Vikas Kowalski MD Primary Care Provider + Encounter Details Date Type Department Care Team ([facility] st Contact Info) Description 06/02/2011 1:45 PM EST Follow-Up [facility] [address] [place] [address] Coleman Perkins MD [address] [place], [place] [phone] Social History Tobacco Use Types Packs/Day Years Used Date Smoking Tobacco: Never Assessed Sex and Gender Information Value Date Recorded Sex Assigned at Not on file Gender Identity Not on file Sexual Orientation Not on file documented as of this encounter Plan of Treatment Not on file documented as of this encounter Visit Diagnoses Not on filedocumented in this encounter Care Teams Resistor Tester Relationship Specialty Start Date End Date Vikas Kowalski MD [address] [place] [address] PCP - General 07/27/10 07/23/13 documented as of this encounter
--- OUTSIDE RECORDS SUMMARY | 2024-05-11 16:44 | XMS_ITS | Encounter Summary ---
Author Organization [facility] Address [facility] [place] [address] Care Team Providers Care Information And Referral Director Name Role Phone Vikas Kowalski MD Primary Care Provider + Encounter Details Date Type Department Care Team (Latest Contact Info) Description 07/18/2014 12:18 PM EDT - 07/18/2014 11:59 PM EDT Hospital Encounter XRay at [address] [place] [address] Inflammatory arthritis Social History Tobacco Use Types [...] polyarthropathy documented in this encounter Care Teams Information And Referral Director Relationship Specialty Start Date End Date Vikas Kowalski MD [address] [place] [address] PCP - General 06/19/14 10/27/14 documented as of this encounter
--- OUTSIDE RECORDS SUMMARY | 2024-05-11 16:44 | XMS_ITS | Encounter Summary ---
Author Organization [facility] [place] [address] Care Team Providers Care Block Hacker Name Role Phone Unavailable Primary Care Provider Unavailabl e Encounter Details Date Type Department Care Team ([facility] st Contact Info) Description 07/27/2013 9:40 AM EDT Office Visit [facility] [address] [place] [phone] Coleman Perkins MD [address] [place], [place] [phone] Social History Tobacco Use Types Packs/Day Years [...]
--- OUTSIDE RECORDS SUMMARY | 2024-05-11 16:44 | XMS_ITS | Encounter Summary ---
Author Organization [facility] [place] [place] [address] Care Team Providers Care Geological Technician Name Role Phone Soy Conley MD Primary Care Provider [phone] Encounter Details Date Type Department Care Team (Late st Contact Info) Description 01/27/2011 Abstract [facility] Information Services [address] [facility] [place] [phone] Provider, His Victor Hugo MD Social History [...] on filedocumented in this encounter Care Teams Geological Technician Relationship Specialty Start Date End Date Soy Conley MD PCP - General 09/14/16 documented as of this encounter
--- OUTSIDE RECORDS SUMMARY | 2024-05-11 16:44 | XMS_ITS | Encounter Summary ---
Author Organization [facility] [place] [address] Care Team Providers Care Energy Operations Vice President Name Role Phone Vikas Kowalski MD Primary Care Provider + Encounter Details Date Type Department Care Team ([facility] st Contact Info) Description 07/28/2012 10:45 AM EDT Follow-Up [facility] [address] [place] [address] Coleman Perkins MD [address] [place] [address] Social History Tobacco Use Types [...] on filedocumented in this encounter Care Teams Energy Operations Vice President Relationship Specialty Start Date End Date Vikas Kowalski MD [address] [place] [address] PCP - General 07/27/10 07/23/13 documented as of this encounter
--- OUTSIDE RECORDS SUMMARY | 2024-05-11 16:44 | XMS_ITS | Encounter Summary ---
Author Organization [facility] [place] [address] Care Team Providers Care Rounding And Backing Machine Operator Name Role Phone Vikas Kowalski MD Primary Care Provider + Encounter Details Date Type Department Care Team ([facility] st Contact Info) Description 05/14/2011 10:30 AM EST Follow-Up [facility] [address] [place] [phone] Coleman Perkins MD [address] [place] [address] Social History Tobacco Use Types Packs/Day Years Used Date Smoking Tobacco: Never Assessed Sex and Gender Information Value Date Recorded Sex Assigned at Not on file Gender Identity Not on file Sexual Orientation Not on file documented as of this encounter Plan of Treatment Not on file documented as of this encounter Visit Diagnoses Not on filedocumented in this encounter Care Teams Rounding And Backing Machine Operator Relationship Specialty Start Date End Date Vikas Kowalski MD [address] [place] [address] PCP - General 07/27/10 07/23/13 documented as of this encounter
--- OUTSIDE RECORDS SUMMARY | 2024-05-11 16:44 | XMS_ITS | Encounter Summary ---
Author Organization [facility] [place] [address] Care Team Providers Care Temporary Administrative Assistant Name Role Phone Soy Conley MD Primary Care Provider [phone] Encounter Details Date Type Department Care Team (Late st Contact Info) Description 08/05/2016 Abstract [facility] Information Services [address] [place] [phone] Provider, His MD Victor Hugo Social History [...] 100/62 08/05/2016 9:00 AM EDT Sourced from [employer] Conversion Pulse 64 08/05/2016 9:00 AM EDT Sourced from [employer] Conversion Temperature - - Respiratory Rate - - Oxygen Saturation - - Inhaled Oxygen Concentration - - Weight 85.9 kg (189 lb 4.8 oz) 08/05/2016 9:00 AM EDT Sourced from [employer] Conversion Height 172.7 cm (5' 8) 08/05/2016 9:00 AM EDT Sourced from [employer] Conversion Body Mass Index 28.78 08/05/2016 9:00 AM EDT documented in this encounter Plan of Treatment Not on file documented as of this encounter Visit Diagnoses Not on filedocumented in this encounter Care Teams Temporary Administrative Assistant Relationship Specialty Start Date End Date Soy Conley MD PCP - General 09/14/16 documented as of this encounter
--- OUTSIDE RECORDS SUMMARY | 2024-05-11 16:44 | XMS_ITS | Encounter Summary ---
Author Organization [facility] Address [place] [address] Care Team Providers Care Engineering Officer Name Role Phone Soy Conley MD Primary Care Provider [phone] Encounter Details Date Type Department Care Team (Late st Contact Info) Description 08/22/2015 [facility] Information Services [address] [facility] [place] [address] Provider, His Victor Hugo MD [...] 60 08/22/2015 10:20 AM EDT Sourced from [employer] Conversion Temperature - - Respiratory Rate - - Oxygen Saturation - - Inhaled Oxygen Concentration - - Weight 84.8 kg (187 lb) 08/22/2015 10:2 0 AM EDT Sourced from [employer] Conversion Height 172.7 cm (5' 8) 08/22/2015 10:2 0 AM EDT Sourced from [employer] Conversion Body Mass Index 28.43 08/22/2015 10:20 AM EDT documented in this encounter Plan of Treatment Not on file documented as of this encounter Visit Diagnoses Not on filedocumented in this encounter Care Teams Engineering Officer Relationship Specialty Start Date End Date Soy Conley MD PCP - General 09/14/16 documented as of this encounter
--- OUTSIDE RECORDS SUMMARY | 2024-05-11 16:44 | XMS_ITS | Encounter Summary ---
Author Organization [facility] [place] [address] Care Team Providers Care Government Guard Name Role Phone Soy Conley MD Primary Care Provider [phone] Encounter Details Date Type Department Care Team (Late st Contact Info) Description 12/28/2016 Orders Only Primary Care [address] [phone] Avelina Aceves, RN Social History Tobacco Use [...] on filedocumented in this encounter Care Teams Government Guard Relationship Specialty Start Date End Date Soy Conley MD PCP - General 09/14/16 documented as of this encounter
--- OUTSIDE RECORDS SUMMARY | 2024-05-11 16:44 | XMS_ITS | Encounter Summary ---
Author Organization [facility] [place] [address] Care Team Providers Care Donor Services Specialist Name Role Phone Vikas Kowalski MD Primary Care Provider + Encounter Details Date Type Department Care Team ([facility] st Contact Info) Description 11/12/2010 11:00 AM EDT Office Visit [address] [phone] Mia Cameron, RD [address] [place] [address] Social History Tobacco Use Types Packs/Day Years Used Date Smoking Tobacco: Never Assessed Sex and Gender Information Value Date Recorded Sex Assigned at Not on file Gender Identity Not on file Sexual Orientation Not on file documented as of this encounter Plan of Treatment Not on file documented as of this encounter Visit Diagnoses Not on filedocumented in this encounter Care Teams Donor Services Specialist Relationship Specialty Start Date End Date Viksa Kowalski MD [address] [place] [address] PCP - General 07/27/10 07/23/13 documented as of this encounter
--- OUTSIDE RECORDS SUMMARY | 2024-05-11 16:44 | XMS_ITS | Encounter Summary ---
Author Organization [facility] [place] [place] [address] Care Team Providers Care Land Appraiser Name Role Phone Dariel Mckeon MD, Soy Chase Primary Care Provider [phone] Encounter Details Date Type Department Care Team (Late st Contact Info) Description 07/15/2010 1:30 PM EDT Procedure visit [address] [phone] Social History Tobacco Use Types Packs/Day Years Used Date Smoking Tobacco: Never Assessed Sex and Gender Information Value Date Recorded Sex Assigned at Not on file Gender Identity Not on file Sexual Orientation Not on file documented as of this encounter Plan of Treatment Not on file documented as of this encounter Visit Diagnoses Not on filedocumented in this encounter Care Teams Land Appraiser Relationship Specialty Start Date End Date Soy Vieira Jr., MD PCP - General 06/24/10 07/19/10 documented as of this encounter
--- OUTSIDE RECORDS SUMMARY | 2024-05-11 16:44 | XMS_ITS | Encounter Summary ---
Author Organization [facility] [place] [address] Care Team Providers Care Patient Accounts Specialist Name Role Phone Vikas Kowalski MD Primary Care Provider + Encounter Details Date Type Department Care Team ([facility] st Contact Info) Description 01/27/2011 3:40 PM EDT Follow-Up [address] [phone] Vu Price MD Social History Tobacco Use Types Packs/Day Years Used Date Smoking Tobacco: Never Assessed Sex and Gender Information Value Date Recorded Sex Assigned at Not on file Gender Identity Not on file Sexual Orientation Not on file documented as of this encounter Plan of Treatment Not on file documented as of this encounter Visit Diagnoses Not on filedocumented in this encounter Care Teams Patient Accounts Specialist Relationship Specialty Start Date End Date Vikas Kowalski MD [address] [place] [address] PCP - General 07/27/10 07/23/13 documented as of this encounter
--- OUTSIDE RECORDS SUMMARY | 2024-05-11 16:44 | XMS_ITS | Encounter Summary ---
Author Organization [facility] [place] [address] Care Team Providers Care Child Welfare Specialist Name Role Phone Vikas Kowalski MD Primary Care Provider + Encounter Details Date Type Department Care Team ([facility] Contact Info) Description 01/27/2011 3:00 PM EDT Follow-Up [address] [phone] Swathi Davila PA [address] [place] [address] Social History Tobacco Use Types Packs/Day Years Used Date Smoking Tobacco: Never Assessed Sex and Gender Information Value Date Recorded Sex Assigned at Not on file Gender Identity Not on file Sexual Orientation Not on file documented as of this encounter Plan of Treatment Not on file documented as of this encounter Visit Diagnoses Not on filedocumented in this encounter Care Teams Child Welfare Specialist Relationship Specialty Start Date End Date Vikas Kowalski MD [address] [place] [address] PCP - General 07/27/10 07/23/13 documented as of this encounter
--- OUTSIDE RECORDS SUMMARY | 2024-05-11 16:44 | XMS_ITS | Encounter Summary ---
Author Organization [facility] [place] [address] Care Team Providers Care Service Cleaner Name Role Phone Vikas Kowalski MD Primary Care Provider + Encounter Details Date Type Department Care Team ([facility] st Contact Info) Description 01/27/2011 10:00 AM EDT Laboratory Appointment [address] [phone] Social History Tobacco Use Types Packs/Day Years Used Date Smoking Tobacco: Never Assessed Sex and Gender Information Value Date Recorded Sex Assigned at Not on file Gender Identity Not on file Sexual Orientation Not on file documented as of this encounter Plan of Treatment Not on file documented as of this encounter Visit Diagnoses Not on filedocumented in this encounter Care Teams Service Cleaner Relationship Specialty Start Date End Date Vikas Kowalski MD [address] [place] [address] PCP - General 07/27/10 07/23/13 documented as of this encounter
--- OUTSIDE RECORDS SUMMARY | 2024-05-11 16:44 | XMS_ITS | Encounter Summary ---
Author Organization [facility] Address [address] [place] [address] Care Team Providers Care Food Service Specialist Name Role Phone Soy Conley MD Primary Care Provider [phone] Encounter Details Date Type Department Care Team (Late st Contact Info) Description 06/24/[address] [facility] Pathology & Laboratory Medicine - [address] [address] Migdalia Ocampo, DO [address] [facility] [address] [place] [address] Encounter for other general examination Social History [...] Chronic cholecystitis - Cholelithiasis 06/27/2020 10:08 EST [facility] Attestation There was significant resident/fellow involvement in the diagnostic evaluation of this case. By the signature below, the attending physician certifies that they have personally conducted a gross and/or microscopic examination of the described specimens and rendered or confirmed the above diagnosis. 06/27/2020 10:08 [facility] at 1008 Clinical History Gallstones 06/27/2020 10:08 [facility] Gross Description A. Received in [...] 0.6 x 0.5 cm in aggregate. Two marketing sales representative sections and the en face cystic duct margin are submitted in A1. AISHAGOERGETTE BAILEY 06/25/2020 8:31 06/27/2020 10:08 [facility] Resident/Erwin w: Valeria Garrido MD 06/27/2020 10:08 [facility] Performing Lab [facility] 06/27/2020 10:08 [facility] Scanned Images 06/27/2020 10:08 [facility] Tissue ENTIRE GALLBLADDER / Unknown 06/24/2020 9:00 EST 06/24/2020 16:15 EST us Migdalia Ocampo DO PATHOLOGY ORDERABLES Final Re sult [facility] [address] [place] [address] documented in this encounter Visit Diagnoses Diagnosis Encounter for other general examination documented in this encounter Care Teams Food Service Specialist Relationship Specialty Start Date End Date Soy Conley MD [facility] [place] [address] PCP - General 06/24/20 documented as of this encounter
--- OUTSIDE RECORDS SUMMARY | 2024-05-11 16:44 | XMS_ITS | Encounter Summary ---
Author Organization [facility] Address [address] [place] [address] Care Team Providers Care Floor Plan Adjuster Name Role Phone Unknown, Provider Primary Care Provider Soy Dietrich MD Primary Care Provider [phone] Encounter Details Date Type Department Care Team (Late st Contact Info) Description 06/19/2020 Lab Requisition [facility] Pathology & [place] [address] Outr Resulting Lab, Provider Social History Tobacco [...] DEX Interpretation Positive(A) Negative 06/20/2020 15:37 EST [facility] Comment: For titers greater than [...] Pattern 1 1:160 Homogeneous 06/20/2020 15:37 EST [facility] Blood VENOUS BLOOD / Unknown 06/19/2020 10:50 EST 06/19/2020 17:07 EST Narrative [facility] - 06/20/2020 15:37 EST Results were obtained with the INOVA NOVA Lite HEp-2 DEX Kit by indirect immunofluorescence. us Provider Outr Resulting Lab IMMUNOLOGY AND SEROL OGY ORDERABLES Final Result Performing Organization Address City/State/[facility] Co de Phone Number [facility] [address] [place] [address] documented in this encounter Visit Diagnoses Not on filedocumented in this encounter Care Teams Floor Plan Adjuster Relationship Specialty Start Date End Date Unknown, Provider, PCP - General 06/16/18 06/23/20 [place] [address] [place] [address] PCP - General 06/24/20 documented as of this encounter
--- OUTSIDE RECORDS SUMMARY | 2024-05-11 16:44 | XMS_ITS | Encounter Summary ---
Author Organization [facility] Address [address] [place] [address] Care Team Providers Care Alley Tender Name Role Phone Unknown, Provider Primary Care Provider Soy Dietrich MD Primary Care Provider Encounter Details Date Type Department Care Team (Late st Contact Info) Description 06/20/2020 Lab Requisition [facility] Pathology & Laboratory Medicine - [address] [address] Outr Resulting Lab, Provider Social History Tobacco [...] Unknown 06/20/2020 10:37 EST 06/20/2020 15:33 EST us Provider Outr Resulting Lab MICROBIOLOGY - GENER AL ORDERABLES Final Result [facility] [address] [place] [address] * COVID-19 TESTING (06/20/2020 10:37 EST) COVID-19 rt-PCR Result Negative Negative 06/21/2020 13:48 EST [facility] Comment: This test was developed and its performance characteristics determined by [facility]. It has not been cleared or approved [...] testing. This test is based on the [facility] COVID-19 Emergency Use Authorization (EUA) assay, with minor modification as defined by the FDA Performed on the doUdeal Pro RT-PCR System. This test has not [...] history, and epidemiological information. Performing Lab [facility] 06/21/2020 13:48 EST [facility] Swab 06/20/2020 10:3 7 EST 06/20/2020 15:33 EST us Provider Outr Resulting Lab MICROBIOLOGY - GENER AL ORDERABLES Final Result [facility] [address] [place] [address] documented in this encounter Visit Diagnoses Not on filedocumented in this encounter Care Teams Alley Tender Relationship Specialty Start Date End Date Unknown, Provider, PCP - General 06/16/18 06/23/20 Soy Conley MD [facility] [place] [address] [address] PCP - General 06/24/20 documented as of this encounter
--- OUTSIDE RECORDS SUMMARY | 2024-05-11 16:44 | XMS_ITS | Encounter Summary ---
Author Organization [facility] Address [address] [place] [address] Care Team Providers Care Supervisor Electronic Testing Name Role Phone Soy Conley MD Primary Care Provider [phone] Encounter Details Date Type Department Care Team (Late st Contact Info) Description 08/23/2022 Lab Requisition [facility] Pathology & Laboratory Medicine - [address] [address] Outr Resulting Lab, Provider Social History Tobacco [...] <3.1 See Note mIU/mL 08/24/2022 9:27 EDT [facility] Comment: Reference Range for Hep B Surface Ab, Quant: Positive: >= 10.0 mIU/mL Negative: ??< 10.0 mIU/mL Patient is presumed to not be immune to infection with Hepatitis B Virus. Hep B Surface Ab, Qualitative Negative See Note 08/24/2022 9:27 EDT [facility] Comment: Reference Range for Hep B Surface Ab, Qual: Unvaccinated: ??Negative Vaccinated: ??Positive Blood VENOUS BLOOD / Unknown 08/23/2022 9:10 EDT 08/23/2022 21:32 EDT us Provider Outr Resulting Lab CHEMISTRY & BLOOD GA S ORDERABLES Final Result Performing Organization Address [facility] Co de Phone Number [facility] [address] [place] [address] * HEPATITIS B CORE ANTIBODY (TOTAL) (08/23/2022 9:10 EDT) Hepatitis B Core Ab, Total Negative Negative 08/24/2022 10:15 EDT [facility] Blood VENOUS BLOOD / Unknown 08/23/2022 9:10 EDT 08/23/2022 21:32 EDT us Provider Outr Resulting Lab CHEMISTRY & BLOOD GA S ORDERABLES Final Result Performing Organization Address [facility]/ZIP Co de Phone Number [facility] [address] [place] [address] * HEPATITIS B SURFACE ANTIGEN (08/23/2022 9:10 EDT) Hep B Surface Ag Negative Negative 08/24/2022 9:39 EDT [facility] Blood VENOUS BLOOD / Unknown 08/23/2022 9:10 EDT 08/23/2022 21:32 EDT us Provider Outr Resulting Lab CHEMISTRY & BLOOD GA S ORDERABLES Final Result [facility] [address] [place] [address] documented in this encounter Visit Diagnoses Not on filedocumented in this encounter Care Teams Supervisor Electronic Testing Relationship Specialty Start Date End Date Soy Conley MD [address] [place] [address] PCP - General 06/24/20 documented as of this encounter
--- OUTSIDE RECORDS SUMMARY | 2024-05-11 16:44 | XMS_ITS | Encounter Summary ---
Author Organization [facility] Address [address] [place] [address] Care Team Providers Care Wool Washer Feeder Name Role Phone Nacho Wadsworth MD Primary Care Provider Deniz talley Encounter Details Date Type Department Care Team (Latest Contact Info) Description 06/14/2018 16:47 EST - 06/14/2018 23:59 EST Hospital Encounter [address] [address] Unknown, Provider, MD Discharge Disposition: Home or Self Care Social [...] Code Departure Means Destination Home or Self Fdc documented in this encounter Plan of Treatment Not on file documented as of this encounter Visit Diagnoses Not on filedocumented in this encounter Care Teams Wool Washer Feeder Relationship Specialty Start Date End Date Nacho Wadsworth MD PCP - General 05/23/14 06/15/18 documented as of this encounter
--- OUTSIDE RECORDS SUMMARY | 2024-05-11 16:44 | XMS_ITS | Encounter Summary ---
Author Organization [facility] Address [address] [place] [address] Care Team Providers Care Bilingual Instructor Name Role Phone Soy Conley MD Primary Care Provider [phone] Encounter Details Date Type Department Care Team (Late st Contact Info) Description 07/23/2022 Lab Requisition [facility] Pathology & Laboratory Medicine - [address] [address] Tamie Thomas MD [address] [place] [address] [place] [phone] Encounter for other general examination Social History [...] explore management options, if applicable. 07/28/2022 7:41 T [facility] Final Diagnosis A. ENDOMETRIUM, BIOPSY: - Atrophic endometrium - Reactive cervical squamous epithelium 07/28/2022 7:41 [facility] Attestation There was significant resident/fellow involvement in the diagnostic evaluation of this case. By the signature below, the attending physician certifies that they have personally conducted a gross and/or microscopic examination of the described specimens and rendered or confirmed the above diagnosis. 07/28/2022 7:41 [facility] at 0741 Clinical History Postmenopausal bleeding 07/28/2022 7:41 [facility] Gross Description A. Received in formalin labelled with proper patient identification (initials B, L) and endometrium is 0.5 x 0.2 x 0.1 cm patel-red polypoid soft tissue fragment admixed with 1 x 1 x 0.8 cm of mucus. The specimen is submitted in toto in A1. ALISA ALEXANDER(ASCP) 07/23/2022 12:13 07/28/2022 7:41 [facility] Resident/Erwin w: Briana Lan MD 07/28/2022 7:41 [facility] Performing Lab [email or web address] 07/28/2022 7:41 [facility] Scanned Images 07/28/2022 7:41 [facility] Tissue ENTIRE ENDOMETRIUM / Unknown 07/22/2022 15:45 EDT 07/23/2022 8:26 EDT us Tamie Thomas MD PATHOLOGY ORDERABLES Final R esult [facility] [address] [place] [address] documented in this encounter Visit Diagnoses Diagnosis Encounter for other general examination documented in this encounter Care Teams Bilingual Instructor Relationship Specialty Start Date End Date Soy Conley MD [facility] [place] [address] [place] [address] PCP - General 06/24/20 documented as of this encounter
--- OUTSIDE RECORDS SUMMARY | 2024-05-11 16:44 | XMS_ITS | Clinical Summary ---
Author Organization [facility] [address] Care Team Providers Care Process Maintenance Technician Name Role Phone Soy Conley MD Primary Care Provider [phone] Allergies Active Allergy Reactions Criticality Noted Date [...] mouth daily. Active fluticasone (FLONASE) 50 mcg/actuation [place], Suspension 1-2 sprays each nostril every day [...] 1988 Breast Cancer Share Decision Needed 1998 Pneumoccocal Vaccine: 65+ (1 of 1 - PCV) 2008 Zoster vaccine (1 of 2) 2008 Breast Cancer screening 04/02/2012 04/02/2010 Advance Directive 2013 Bone Density Scan 08/10/2023 Covid-19 Vaccine ( - season) 2024 Influenza (Flu) vaccine (1 o [...] EST) Glucose 113 65 - 199 mg/dL [facility] Comment:Diabetes: >=200 mg/d L plus symptoms Blood Urea Nitrogen 16 8 - 18 mg/dL [facility] Creatinine 0.83 0.70 - 1.20 mg/dL [facility] Sodium 145 135 - 145 mmol/L [facility] Potassium 4.4 3.5 - 5.0 mmol/L [facility] Comment: Please note: ??Patients with WBC >100,000 may have falsely elevated Potassium levels. ??For accurate Potassium quantification in these patients send serum separator tube (gold top) for subsequent determinations. ??Contact the Clinical Chemistry Laboratory if there are any questions. Chloride 105 98 - 107 mmol/L [facility] Carbon Dioxide 25 22 - 31 mmol/L [facility] Anion Gap 15 5 - 15 mmol/L [facility] Calcium 10.1 8.5 - 10.5 mg/dL [facility] Protein, Total 7.9 6.1 - 8.0 gm/dL [facility] Albumin 4.6 3.2 - 5.2 gm/dL [facility] Aspartate Aminotransferase 19 0 - 30 unit/L [facility] Alanine Aminotransferase 20 0 - 30 unit/L [facility] Alkaline Phosphatase 120(H) 35 - 105 unit/L [facility] Bilirubin, Total 0.4 0.2 - 1.3 mg/dL [facility] Est Glomerular Filtration Rate 77 >=60 mL/min/1. 73 m?? [facility] Comment: The eGFR was calculated using the CKD-EPI equation. As with all creatinine based estimates of kidney function, eGFR values calculated with the CKD-EPI equation are not accurate in patients with acute kidney failure, extremes of body mass or the acutely ill. [email or web address]/[email or web address] MIAMInkf eGFR 89 >=60 mL/min/1. 73 m?? [facility] Comment: The eGFR was calculated using the CKD-EPI equation. As with all creatinine based estimates of kidney function, eGFR values calculated with the CKD-EPI equation are not accurate in patients with acute kidney failure, extremes of body mass or the acutely ill. [email or web address] Blood specimen (specimen) 05/22/2019 3:10 PM EST 05/22/2019 3:19 PM EST Narrative Resulting Agency Comment Spec In Lab Vikas Castro MD CHEMISTRY ORDERAB LES [facility] [place] [address] * Mammo 2D Digital Bilateral Screening With CAD (04/02/2010 8:45 AM EST) Anatomical Region Laterality Modality Breast Bilateral Mammography 04/02/2010 8:45 AM EST Narrative 04/09/2010 10:54 AM EST External Results Ivan Gay Final Report EXAMINATION: ??[facility] 8056 - MAMMO BILAT SCREENING DIG ??G0202 EXAMINATION: ??MANDY 8030 - CAD SCREENING MAMMOGRAPHY 84416 DIAGNOSIS: ?ROUTINE - NO PROBLEM REASON: ? Routine- NO PROBLEM Routine- NO PROBLEM RESULT: ? Clinical Indication: ?? Screening exam. FINDINGS: ?The breasts are symmetric in size and are of heterogeneous density. ??I see no suspicious masses or microcalcifications to suggest malignancy. The films were also reviewed with the [employer] Second Look Computer Aided Detection System (Version 4.0). IMPRESSION: ??ACR category 1 mammogram (normal mammogram). ??No evidence for malignancy. ??Routine mammographic screening is recommended. ASSESSMENT: ??1 ??Negative. INTERPRETING PHYSICIAN:moi CABRAL M.D. ? TRANSCRIBED BY/DATE:moi WEST ??on Dec ??3 2009 ??7:46A ELECTRONICALLY AUTHORIZED BY: ? ADDIE CABRLA M.D. ? Dec ??2009 10:54A Procedure Note Addie Cabral MD - 12/20/2016 External Results Ivan Gay Final Report EXAMINATION: [facility] 8056 - MAMMO BILAT SCREENING DIG G0202 EXAMINATION: [facility] 8030 - CAD SCREENING MAMMOGRAPHY [address] DIAGNOSIS: ROUTINE - NO PROBLEM REASON: Routine- [...] Apr 03 2010 7:46A ELECTRONICALLY AUTHORIZED BY: ADDIE CABRAL M.D. Apr 09 2010 10:54A Soy Vieira Jr., MD IMG MAMMO ORDERABL ES from Last 3 Months or Most Recently Relevant to Health Maintenance Care Teams Process Maintenance Technician Relationship Specialty Start Date End Date Soy Conley MD PCP - General 09/14/16
--- OUTSIDE RECORDS SUMMARY | 2024-05-11 16:44 | XMS_ITS | Encounter Summary ---
Author Organization [facility] [place] [address] Care Team Providers Care Maintenance Construction Helper Name Role Phone Vikas Kowalski MD Primary Care Provider + Encounter Details Date Type Department Care Team ([facility] st Contact Info) Description 08/05/2010 10:00 AM EDT Follow-Up [facility] [address] [place] [address] Coelman Perkins MD [address] [place] [address] Social History Tobacco Use Types [...] on filedocumented in this encounter Care Teams Maintenance Construction Helper Relationship Specialty Start Date End Date Vikas Kowalski MD [address] [place] [address] PCP - General 07/27/10 07/23/13 documented as of this encounter
--- OUTSIDE RECORDS SUMMARY | 2024-05-11 16:44 | XMS_ITS | Encounter Summary ---
Author Organization [facility] [place] [address] Care Team Providers Care Brickmason Helper Name Role Phone Vikas Kowalski MD Primary Care Provider + Encounter Details Date Type Department Care Team ([facility] st Contact Info) Description 10/22/2010 1:45 PM EDT Follow-Up [facility] [address] [place] [address] Coleman Perkins MD [address] [place] [address] Social History Tobacco Use Types [...] on filedocumented in this encounter Care Teams Brickmason Helper Relationship Specialty Start Date End Date Vikas Kowalski MD [address] [place] [address] PCP - General 07/27/10 07/23/13 documented as of this encounter
--- OUTSIDE RECORDS SUMMARY | 2024-05-11 16:44 | XMS_ITS | Encounter Summary ---
Author Organization [facility] Address [address] [place] [address] Care Team Providers Care Equipment Coordinator Name Role Phone Unknown, Provider Primary Care Provider Unava ilable Encounter Details Date Type Department Care Team (Late st Contact Info) Description 10/30/2018 Results Only [facility] [phone] Tc Zuñiga MD [address] [place] [address] [address] [place], [place] [id number] Social History Tobacco Use Types Packs/Day Years [...] ? TAMIE SERNA ? Accession #: ? [id number] ? : ? 1960 (Age: 58) ??F [...] is negative for dysplasia or granulomatous inflammation. Porcelain Finisher slides of this case were reviewed at [...] (ASCP) 10/30/2018 5:34 PM End of Report [facility] 10/30/2018 16:0 0 EDT 10/30/2018 16:00 EDT us Tc Zuñiga MD PATHOLOGY ORDERABLES Fin al Result [facility] [address] [place] [address] documented in this encounter Visit Diagnoses Not on filedocumented in this encounter Care Teams Equipment Coordinator Relationship Specialty Start Date End Date Unknown, Provider, PCP - General 06/16/18 06/23/20 documented as of this encounter
--- OUTSIDE RECORDS SUMMARY | 2024-05-11 16:44 | XMS_ITS | Encounter Summary ---
Author Organization [facility] [place] [address] Care Team Providers Care Library Circulation Clerk Name Role Phone Nacho Wadsworth MD Primary Care Provider [phone] Encounter Details Date Type Department Care Team (Late st Contact Info) Description 02/06/2015 4:00 PM EDT Office Visit Dermatology at [place] [address] [facility] [place] [address] Greg Israel MD [address] [facility] [place] [address] Dermatofibroma Social History Tobacco Use Types Packs/Day [...] scratch at it. 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 She does not recall any preceding injury [...] unspecified documented in this encounter Care Teams Library Circulation Clerk Relationship Specialty Start Date End Date Nacho Wadsworth MD [facility] [address] [place] [address] PCP - General 10/28/14 09/13/16 documented as of this encounter
--- OUTSIDE RECORDS SUMMARY | 2024-05-11 16:44 | XMS_ITS | Encounter Summary ---
Author Organization [facility] Address [address] [place] [address] Care Team Providers Care Fitness Supervisor Name Role Phone Unknown, Provider Primary Care Provider Nacho Corbin MD Primary Care Provider Deniz ble Encounter Details Date Type Department Care Team (Late st Contact Info) Description 05/22/[address] [facility]- [facility] [phone] Tc Zuñiga MD [address] [place] [address] [place] [address] Social History Tobacco Use Types Packs/Day Years [...] ? TAMIE SERNA ? Accession #: ? [id number] ? : ? 1960 (Age: 53) ??F [...] The cut surface is yellow without hemorrhage. Cheesemaker sections are submitted as 1-2. Liana Corbin 05/23/2014 11:10 AM End of Report [facility] 05/22/2014 9:29 EST 05/22/2014 9:29 EST us Tc Zuñiga MD PATHOLOGY ORDERABLES Fin al Result [facility] [address] [place] [address] documented in this encounter Visit Diagnoses Not on filedocumented in this encounter Care Teams Fitness Supervisor Relationship Specialty Start Date End Date Unknown, Provider, PCP - General 12/17/11 05/22/14 Nacho Wadsworth MD PCP - General 05/23/14 06/15/18 documented as of this encounter
--- OUTSIDE RECORDS SUMMARY | 2024-05-11 16:44 | XMS_ITS | Encounter Summary ---
Author Organization [facility] [place] [address] Care Team Providers Care Lens Grinder Rough Name Role Phone Vikas Kowalski MD Primary Care Provider + Encounter Details Date Type Department Care Team ([facility] st Contact Info) Description 02/08/2011 3:30 PM EDT Follow-Up [facility] [address] [place] [address] Coleman Perkins MD [address] [place] [address] Social History Tobacco Use Types [...] on filedocumented in this encounter Care Teams Lens Grinder Rough Relationship Specialty Start Date End Date Vikas Kowalski MD [address] [place] [address] PCP - General 07/27/10 07/23/13 documented as of this encounter
--- OUTSIDE RECORDS SUMMARY | 2024-05-11 16:44 | XMS_ITS | Encounter Summary ---
Author Organization [facility] [place] [address] Care Team Providers Care Design Engineering Specialist Name Role Phone Vikas Kowalski MD Primary Care Provider + Encounter Details Date Type Department Care Team ([facility] st Contact Info) Description 08/12/2010 1:00 PM EDT Office Visit [address] [phone] Mia Cameron, RD [address] [place] [address] Social History Tobacco Use Types Packs/Day Years Used Date Smoking Tobacco: Never Assessed Sex and Gender Information Value Date Recorded Sex Assigned at Not on file Gender Identity Not on file Sexual Orientation Not on file documented as of this encounter Plan of Treatment Not on file documented as of this encounter Visit Diagnoses Not on filedocumented in this encounter Care Teams Design Engineering Specialist Relationship Specialty Start Date End Date Vikas Kowalski MD [address] [place] [address] PCP - General 07/27/10 07/23/13 documented as of this encounter
--- OUTSIDE RECORDS SUMMARY | 2024-05-11 16:44 | XMS_ITS | Encounter Summary ---
Author Organization [facility] Address [address] [place] [address] Care Team Providers Care Machine Or Machinery Mechanic Name Role Phone Unknown, Provider Primary Care Provider Unava ilable Encounter Details Date Type Department Care Team (Latest Contact Info) Description 10/30/2018 13:48 EDT - 10/30/2018 23:59 EDT Hospital Encounter [address] [address] Unknown, Provider, Discharge Disposition: Home or Self [...] Code Departure Means Destination Home or Self Assisted documented in this encounter Plan of Treatment Not on file documented as of this encounter Visit Diagnoses Not on filedocumented in this encounter Care Teams Machine Or Machinery Mechanic Relationship Specialty Start Date End Date Unknown, ProviderMD PCP - General 06/16/18 06/23/20 documented as of this encounter
--- OUTSIDE RECORDS SUMMARY | 2024-05-11 16:44 | XMS_ITS | Encounter Summary ---
Author Organization [place] [address] Care Team Providers Care Hand Slitter Name Role Phone Soy Conley MD Primary Care Provider [phone] Reason for Visit * Reason Comments Follow-up Encounter Details Date Type Department Care Team (Late st Contact Info) Description 07/10/2018 1:00 PM EDT Office Visit General Surgery at [address] [address] Vu Price MD Morbid obesity; History of laparoscopic adjustable gastric [...] status documented in this encounter Care Teams Hand Slitter Relationship Specialty Start Date End Date Soy Conley MD PCP - General 09/14/16 documented as of this encounter
--- OUTSIDE RECORDS SUMMARY | 2024-05-11 16:44 | XMS_ITS | Encounter Summary ---
Author Organization [facility] Address [address] [place] [address] Care Team Providers Care Manufacturing Team Leader Name Role Phone Unknown, Provider Primary Care Provider Unava ilable Encounter Details Date Type Department Care Team (Latest Contact Info) Description 05/22/2014 15:59 EST - 05/22/2014 23:59 EST Hospital Encounter [address] [address] Unknown, Provider, Discharge Disposition: Home or Self [...] Code Departure Means Destination Home or Self Penitentiary documented in this encounter Plan of Treatment Not on file documented as of this encounter Visit Diagnoses Not on filedocumented in this encounter Care Teams Manufacturing Team Leader Relationship Specialty Start Date End Date Unknown, ProviderMD PCP - General 12/17/11 05/22/14 documented as of this encounter
--- OUTSIDE RECORDS SUMMARY | 2024-05-11 16:44 | XMS_ITS | Encounter Summary ---
Author Organization [place] [address] Care Team Providers Care Stock Holder Name Role Phone Dariel Mckeon MD, Soy Chase Primary Care Provider [phone] Encounter Details Date Type Department Care Team ([facility] st Contact Info) Description 07/16/2010 10:20 AM EDT Office Visit [address] [address] Arturo Patel, DO [address] [place] [address] [place] [address] Social History Tobacco Use Types Packs/Day Years Used Date Smoking Tobacco: Never Assessed Sex and Gender Information Value Date Recorded Sex Assigned at Not on file Gender Identity Not on file Sexual Orientation Not on file documented as of this encounter Plan of Treatment Not on file documented as of this encounter Visit Diagnoses Not on filedocumented in this encounter Care Teams Stock Holder Relationship Specialty Start Date End Date Soy Vieira Jr., MD PCP - General 06/24/10 07/19/10 documented as of this encounter
--- OUTSIDE RECORDS SUMMARY | 2024-05-11 16:44 | XMS_ITS | Encounter Summary ---
Author Organization [facility] Address [facility] [place] [address] Care Team Providers Care Shade Maker Name Role Phone Vikas Kowalski MD Primary Care Provider + Reason for Visit * Reason Comments Referral Encounter Details Date Type Department Care Team (Late st Contact Info) Description 07/18/2014 9:45 AM EDT Office [place] [phone] Radha Veronica MD [facility] [place] [address] Inflammatory arthritis Discharge Disposition: Home Social History [...] h/o gout and DM F: 34 yrs. 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 . 15 yo son (-)Smoking, (-)EtOH 0-1 [...] of prednisone Discussed with attending. Dr. Gloria Veroinca MD Rheumatology Fellow Addendum Labs reviewed 07/18/2014 [...] Parvo B19 Igg (AUGUST) 0.11 <0.90 Index [facility] Comment: Negative Test Performed by: [place] [address] Almond Roaster: Millie Santoyo, Ph.D. Parvo B19 IgM (AUGUST) 0.12 <0.90 Index [facility] Comment: Negative Test Performed by: [facility] [place] [address] Almond Roaster: Millie Santoyo, Ph.D. Parvo B19 Intrp (AUGUST) SEE COMMENT [facility] Comment: RESULT: No antibody detected. Test Performed by: [facility] [employer] [address], [place] [address] Almond Roaster: Millie Santoyo, Ph.D. Blood specimen (specimen) 07/18/2014 12:11 PM EDT 07/18/2014 3:04 PM EDT Narrative Resulting Agency Comment Spec In Lab Vikas Castro MD LAB SEND OUT ORDE RABLES Performing Organization Address [facility] Co de Phone Number [facility] * High Sensitivity CRP (07/18/2014 12:11 PM EDT) Pathologist [facility] C-Reactive Protein High Sensitivity 0.6 mg/L [facility] Comment: Interpretations: 1) For accurate cardiac risk [...] MD CHEMISTRY ORDERAB LES Performing Organization Address [facility]/ZIP Co de Phone Number [facility] * Sedimentation rate (07/18/2014 12:11 PM EDT) Sedimentation Rate Automated 17 0 - 20 mm/hr [facility] Blood specimen (specimen) 07/18/2014 12:11 PM EDT 07/18/2014 12:23 PM EDT Narrative Resulting Agency Comment Spec In Lab Vikas Castro MD HEMATOLOGY ORDERA BLES [facility] documented in this encounter Visit Diagnoses Diagnosis Inflammatory arthritis Unspecified inflammatory polyarthropathy Inflammatory arthritis Unspecified inflammatory polyarthropathy documented in this encounter Care Teams Shade Maker Relationship Specialty Start Date End Date Vikas Kowalski MD [address] [place] [address] PCP - General 06/19/14 10/27/14 documented as of this encounter
--- OUTSIDE RECORDS SUMMARY | 2024-05-11 16:44 | XMS_ITS | Encounter Summary ---
Author Organization [facility] [place] [address] Care Team Providers Care Operations Support Specialist Name Role Phone Soy Conley MD Primary Care Provider [phone] Encounter Details Date Type Department Care Team (Late st Contact Info) Description 08/22/2013 [facility] Information Services [address] [place] [address] Provider, His Victor Hugo MD [...] oz) 08/22/2013 1:00 PM EDT Sourced from [employer] Con[employer] Height 172.7 cm (5' 8) 08/22/2013 1:00 PM EDT Sourced from [employer] Body Mass Index 29.27 08/22/2013 1:00 PM EDT documented in this encounter Plan of Treatment Not on file documented as of this encounter Visit Diagnoses Not on filedocumented in this encounter Care Teams Operations Support Specialist Relationship Specialty Start Date End Date Soy Conley MD PCP - General 09/14/16 documented as of this encounter
--- OUTSIDE RECORDS SUMMARY | 2024-05-11 16:44 | XMS_ITS | Encounter Summary ---
Author Organization [facility] Address [address] [place] [address] Care Team Providers Care Chocolate Temperer Name Role Phone Nacho Wadsworth MD Primary Care Provider Deniz talley Encounter Details Date Type Department Care Team (Late st Contact Info) Description 06/14/2018 Results Only [facility] [phone] Armen Conley MD [facility] [address] [place], [place] [id number] Social History Tobacco Use Types Packs/Day Years [...] ? TAMIE SERNA ? Accession #: ? [id number] ? : ? 1960 (Age: 57) ??F ? Collect Date: ? 06/14/2018 ? Location: ? [facility] ? Receive Date: ? 06/15/2018 ? Provider: ARMEN CONLEY MD Copy to: ? Final Pathologic Diagnosis: SUBMITTED ENDOMETRIUM, POLYPECTOMY: - Endocervical polyp. See comment. Comment: ? Barrel Cutter slides of this case were reviewed at [...] (ASCP) 06/15/2018 4:00 PM End of Report [facility] 06/14/2018 15:5 2 EST 06/15/2018 15:52 EST us Armen Conley MD PATHOLOGY ORDERABLES Final Resul t [facility] [address] [place] [address] * PAP TEST- RESULT ONLY (06/14/2018 0:00 EST) Pathology Report: CYTOPATHOLOGY REPORT Reports generated via electronic interface contain original data; however they are lacking the format of the original report. Caution should be taken when reading/interpreti ng unformatted reports. Name: ? TAMIE SERNA ? Accession #: ? [id number] ? : ? 1960 (Age: 57) ??F [...] types 16,18,31,33,35, 39,45,51,52,56,58, 59,66, and 68 by merchandise handler mediated amplification. Comments Document reviewed and electronically signed by: ? System Interface ? Report date: 06/22/2018 By the signature above, the attending physician certifies that he/she has personally conducted a gross and/or microscopic examination of the described specimens and rendered or confirmed the above diagnosis. End of Report [facility] 06/14/2018 06/16/2018 us Armen Conley MD PATHOLOGY ORDERABLES Final Resul t [facility] [address] [place] [address] documented in this encounter Visit Diagnoses Not on filedocumented in this encounter Care Teams Chocolate Temperer Relationship Specialty Start Date End Date Nacho Wadsworth MD PCP - General 05/23/14 06/15/18 documented as of this encounter
--- OUTSIDE RECORDS SUMMARY | 2024-05-11 16:44 | XMS_ITS | Encounter Summary ---
Author Organization [facility] [place] [address] Care Team Providers Care Billing Analyst Name Role Phone Dariel Mckeon MD, Soy Chase Primary Care Provider [phone] Encounter Details Date Type Department Care Team (Late st Contact Info) Description 05/28/2010 9:00 AM EST Office Visit [address] [phone] Social History Tobacco Use Types Packs/Day Years Used Date Smoking Tobacco: Never Assessed Sex and Gender Information Value Date Recorded Sex Assigned at Not on file Gender Identity Not on file Sexual Orientation Not on file documented as of this encounter Plan of Treatment Not on file documented as of this encounter Visit Diagnoses Not on filedocumented in this encounter Care Teams Billing Analyst Relationship Specialty Start Date End Date Soy Vieira Jr., MD PCP - General 05/22/10 06/15/10 documented as of this encounter
--- OUTSIDE RECORDS SUMMARY | 2024-05-11 16:44 | XMS_ITS | Encounter Summary ---
Author Organization [facility] [place] [address] Care Team Providers Care Circuit Breaker Mechanic Name Role Phone Nacho Wadsworth MD Primary Care Provider [phone] Encounter Details Date Type Department Care Team (Late st Contact Info) Description 08/22/2015 10:20 AM EDT Office Visit General Surgery [address] [phone] Vu Price MD Social History Tobacco Use [...] on filedocumented in this encounter Care Teams Circuit Breaker Mechanic Relationship Specialty Start Date End Date Nacho Wadsworth MD [facility] [address] [place] [address] PCP - General 10/28/14 09/13/16 documented as of this encounter
--- OUTSIDE RECORDS SUMMARY | 2024-05-11 16:44 | XMS_ITS | Encounter Summary ---
Author Organization [facility] [place] [address] Care Team Providers Care Networks Software Consultant Name Role Phone Soy Conley MD Primary Care Provider [phone] Reason for Visit * Consultation (Routine) - Specialty Diagnoses / Procedures Referred By Marva jackson Referred To Contact Rheumatology Diagnoses Reactive arthropathy, unspecified Soy Conley MD [address] [place] [address] [place] [address] [facility] Rheumatology [address] [place] [phone] Referral ID Status Reason Start Date Expiration Date V isits Requested Visits Authorized [id number] Consult, Test & Treat Connection Center PCP Updated and/or Approved 05/07/2019 08/06/2019 6 6 Encounter Details Date Type Department Care Team (Late st Contact Info) Description 05/22/2019 1:00 PM EST Office Visit [place] [address] Vikas Castro MD [facility] [place] [address] Jeremy High MD Arthralgia of hand, unspecified laterality Social History [...] are seeing at the request of Soy Conley for evaluation of joint pain. HPI: Patient is a 58 year old female with a PMH of obesity s/p lap-band surgery [June 2010, [facility]], allergic rhinitis, HTN, HLD, hypothyroidism, anxiety, osteopenia, [...] dose) -Recently sick last 2 weeks of Joss[place]: loose bowels, abdominal pain that resolved + [...] out of work since Mar -Colonoscopy at [facility] October 2018 questioning early colitis/ IBD. Recommended repeat in 10 years. Biopsy negative as per patient. -Hip OA s/p b/l TKA [Mar 27 2019] -Family History: heart disease, HTN, DM. Mother with thyroid disease, age 36 from [place] (early MIs on maternal side below age [...] file Gets together: Not on file Attends zoroastrianism service: Not on file Active member of [...] mouth daily. ??? fluticasone (FLONASE) 50 mcg/actuation [place], Suspension 1-2 sprays each nostril every day [...] of obesity s/p lap-band surgery [June 2010, [facility]], allergic rhinitis, HTN, HLD, hypothyroidism, anxiety, osteopenia, [...] DEX, strep -We will get records from [facility] of recent colonoscopy -We will consider [...] findings, and plan. Vikas Castro MD Staff Slice Plug Cutter Operator Helper documented in this encounter Plan of Treatment [...] 3:10 PM EST) Neutrophil % 78.4 % [facility] Neutrophil Absolute 9.36(H) 1.70 - 6.10 x10(3)/mc L [facility] Lymph % 13.5 % [facility] Lymphocytes Abs 1.6 0.9 - 3.2 x10(3)/[facility] Monocyte % 5.6 % [facility] Monocyte Abs 0.7 0.3 - 0.9 x10(3)/[facility] Eos % 1.1 % [facility] Eosinophils Abs 0.1 0.0 - 0.4 x10(3)/[facility] Basophil % 0.9 % [facility] Baso Absolute 0.1 0.0 - 0.1 x10(3)/[facility] Immature Gran % 0.50 % [facility] Comment: Immature granulocytes(IG's)percentage and absolute count will include metamyelocytes, myelocytes, and promyelocytes. Blood smears from CBCs yielding IG's will be scanned manually for concordance. If this scan disagrees with the automated IG or if promyelocytes are noted, a manual differential will be performed. Immature Gran Absolute 0.06(H) 0.00 - 0.04 x10(3)/[facility] Blood specimen (specimen) 05/22/2019 3:10 PM EST 05/22/2019 3:19 PM EST Narrative Resulting Agency Comment Spec In Lab Jeremy High MD HEMATOLOGY ORDERABL ES [facility] [place] [address] * (ABNORMAL) Hemogram (05/22/2019 3:10 PM EST) White Blood Cell 11.9(H) 4.0 - 9.5 x10(3)/[facility] Red Blood Cell 4.50 4.00 - 5.21 x10(6)/[facility] Hemoglobin 12.7 11.7 - 15.5 gm/dL [facility] Hematocrit 40.5 35.7 - 45.8 % [facility] Mean Cell Volume 90.0 82.6 - 94.4 fL [facility] Mean Cell Hemoglobin 28.2 27.1 - 32.0 pg [facility] Mean Cell Hemoglobin Concentration 31.4(L) 31.7 - 35.0 gm/dL [facility] Platelet 440(H) 145 - 357 x10(3)/mc L [facility] RDW Standard Deviation 42.0 37.0 - 46.0 fL [facility] RDW coefficient of variation 12.9 11.5 - 14.1 % [facility] Mean Platelet Volume 9.2 7.6 - 12.9 fL [facility] NRBC% auto 0.0 % [facility] NRBC Absolute 0.000 0.000 - 0.000 x10(3)/mc L [facility] Blood specimen (specimen) 05/22/2019 3:10 PM EST 05/22/2019 3:19 PM EST Narrative Resulting Agency Comment Spec In Lab Jeremy High MD HEMATOLOGY ORDERABL ES [facility] [place] [address] * (ABNORMAL) Comprehensive metabolic panel (non-fasting) (05/22/2019 3:10 PM EST) Glucose 113 65 - 199 mg/dL [facility] Comment:Diabetes: >=200 mg/d L plus symptoms Blood Urea Nitrogen 16 8 - 18 mg/dL [facility] Creatinine 0.83 0.70 - 1.20 mg/dL [facility] Sodium 145 135 - 145 mmol/L [facility] Potassium 4.4 3.5 - 5.0 mmol/L [facility] Comment: Please note: ??Patients with WBC >100,000 may have falsely elevated Potassium levels. ??For accurate Potassium quantification in these patients send serum separator tube (gold top) for subsequent determinations. ??Contact the Clinical Chemistry Laboratory if there are any questions. Chloride 105 98 - 107 mmol/L [facility] Carbon Dioxide 25 22 - 31 mmol/L [facility] Anion Gap 15 5 - 15 mmol/L [facility] Calcium 10.1 8.5 - 10.5 mg/dL [facility] Protein, Total 7.9 6.1 - 8.0 gm/dL [facility] Albumin 4.6 3.2 - 5.2 gm/dL [facility] Aspartate Aminotransferase 19 0 - 30 unit/L [facility] Alanine Aminotransferase 20 0 - 30 unit/L [facility] Alkaline Phosphatase 120(H) 35 - 105 unit/L [facility] Bilirubin, Total 0.4 0.2 - 1.3 mg/dL [facility] Est Glomerular Filtration Rate 77 >=60 mL/min/1. 73 m?? [facility] Comment: The eGFR was calculated using the CKD-EPI equation. As with all creatinine based estimates of kidney function, eGFR values calculated with the CKD-EPI equation are not accurate in patients with acute kidney failure, extremes of body mass or the acutely ill. [email or web address]ONnkf eGFR 89 >=60 mL/min/1. 73 m?? [facility] Comment: The eGFR was calculated using the CKD-EPI equation. As with all creatinine based estimates of kidney function, eGFR values calculated with the CKD-EPI equation are not accurate in patients with acute kidney failure, extremes of body mass or the acutely ill. [email or web address] Blood specimen (specimen) 05/22/2019 3:10 PM EST 05/22/2019 3:19 PM EST Narrative Resulting Agency Comment Spec In Lab Vikas Castro MD CHEMISTRY ORDERAB LES [facility] [place] [address] * Streptococcal Antibody Panel (05/22/2019 3:10 PM EST) Pathologist [facility] Aso Titer (AUGUST) <20 0 - 530 IU/mL [facility] Comment: Test Performed by: [facility] [place] [address] Fountain Clerk: Dustin Juares M.D. Ph.D.; CLIA# [id number] Dnase B Ab (AUGUST) <81 0 - 300 unit/mL [facility] Comment: Test Performed by: [facility] [place] [address] Fountain Clerk: Dustin Juares M.D. Ph.D.; CLIA# [id number] Blood specimen (specimen) 05/22/2019 3:10 PM EST 05/23/2019 8:42 AM EST Narrative Resulting Agency Comment Spec In Lab Vikas Castro MD LAB SEND OUT ORDE RABLES Performing Organization Address [facility]/ZIP Co de Phone Number [facility] [place] [address] * Cyclic Citrullinated Peptide (05/22/2019 3:10 PM EST) [facility] Cyclic Citrulline Peptide <0.5 <=4.9 unit/mL [facility] Blood specimen (specimen) 05/22/2019 3:10 PM EST 05/22/2019 3:19 PM EST Narrative Resulting Agency Comment Spec In Lab Vikas Castro MD CHEMISTRY ORDERAB LES Performing Organization Address [facility] Co de Phone Number [facility] [place] [address] * Rheumatoid factor, quant (05/22/2019 3:10 PM EST) [facility] Rheumatoid Factor 11 <=14 IU/mL [facility] Blood specimen (specimen) 05/22/2019 3:10 PM EST 05/22/2019 3:19 PM EST Narrative Resulting Agency Comment Spec In Lab Vikas Castro MD CHEMISTRY ORDERAB LES Performing Organization Address City/[facility]/ZIP Co de Phone Number [facility] [place] [address] * CRP, acute inflammation (05/22/2019 3:10 PM EST) C-Reactive Protein 0.5 <=4.9 mg/L [facility] Blood specimen (specimen) 05/22/2019 3:10 PM EST 05/22/2019 3:19 PM EST Narrative Resulting Agency Comment Spec In Lab Vikas Castro MD CHEMISTRY ORDERAB LES Performing Organization Address [facility] Co de Phone Number [facility] [place] [address] * (ABNORMAL) Sedimentation rate (05/22/2019 3:10 PM EST) [facility] Sedimentation Rate Automated 44(H) 2 - 39 mm/hr [facility] Comment: Effective April 11, 2019 new capillary photometric technology has resulted in a change in reference ranges. It is recommended that each ESR result be reviewed with its own age appropriate reference range. Blood specimen (specimen) 05/22/2019 3:10 PM EST 05/22/2019 3:19 PM EST Narrative Resulting Agency Comment Spec In Lab Vikas Castro MD HEMATOLOGY ORDERA BLES Performing Organization Address [facility]/ZIP Co de Phone Number [facility] [place] [address] * DEX ([facility]/CGP) (05/22/2019 3:10 PM EST) DEX Neg Neg [facility] Comment:Anti-nuclear antibod ies were tested using an indirect immunofluorescent assay. Blood specimen (specimen) 05/22/2019 3:10 PM EST 05/23/2019 8:11 AM EST Narrative Resulting Agency Comment Spec In Lab Vikas Castro MD LAB SEND OUT BARBRA ALBERT [facility] [place] [address] documented in this encounter Visit Diagnoses Diagnosis Arthralgia of hand, unspecified laterality documented in this encounter Care Teams Networks Software Consultant Relationship Specialty Start Date End Date Soy Conley MD PCP - General 09/14/16 documented as of this encounter
--- OUTSIDE RECORDS SUMMARY | 2024-05-11 16:44 | XMS_ITS | Encounter Summary ---
[place] [address] Care Team Providers Care Shaper And Presser Name Role Phone Soy Conley MD Primary Care Provider [phone] Encounter Details Date Type Department Care Team (Late st Contact Info) Description 07/24/2010 [place] [address] Arturo Patel, DO [address] [place] [address] Social History Tobacco Use Types Packs/Day Years [...] Report EXAMINATION: ??NUC 8069 - MYOCARD PERF MULTI,[id number],[id number] DIAGNOSIS: ?ASHD REASON: ? ASHD RESULT: ? [...] Report EXAMINATION: NUC 8069 - MYOCARD PERF MULTI,MIBI,[id number] DIAGNOSIS: ASHD REASON: ASHD RESULT: Clinical data: [...] on filedocumented in this encounter Care Teams Shaper And Presser Relationship Specialty Start Date End Date Soy Conley MD PCP - General 09/14/16 documented as of this encounter
--- OUTSIDE RECORDS SUMMARY | 2024-05-11 16:44 | XMS_ITS | Encounter Summary ---
Author Organization [facility] [place] [address] Care Team Providers Care Extractor Operator Solvent Process Name Role Phone Vikas Kowalski MD Primary Care Provider + Encounter Details Date Type Department Care Team ([facility] st Contact Info) Description 09/22/2011 6:15 AM EDT Laboratory Appointment [address] [phone] Social History Tobacco Use Types Packs/Day Years Used Date Smoking Tobacco: Never Assessed Sex and Gender Information Value Date Recorded Sex Assigned at Not on file Gender Identity Not on file Sexual Orientation Not on file documented as of this encounter Plan of Treatment Not on file documented as of this encounter Visit Diagnoses Not on filedocumented in this encounter Care Teams Extractor Operator Solvent Process Relationship Specialty Start Date End Date Vikas Kowalski MD [address] [place] [id number] PCP - General 07/27/10 07/23/13 documented as of this encounter
--- OUTSIDE RECORDS SUMMARY | 2024-05-11 16:44 | XMS_ITS | Encounter Summary ---
[place] [address] Care Team Providers Care Dip Dyer Name Role Phone Soy Conley MD Primary Care Provider [phone] Encounter Details Date Type Department Care Team (Late st Contact Info) Description 07/29/2010 [place] [phone] Unknown None Social History Tobacco Use Types [...] - UGI W/O AC W/O KUB ? 28296 DIAGNOSIS: ?MORBID OBESITY, GERD, HYPERTEN REASON: ? evaluate band position and gastric patency RESULT: ? Clinical Indication: ?LAP band procedure. FINDINGS: ?The preliminary gas technician film demonstrates characteristic positioning of the metallic [...] 7424 - UGI W/O AC W/O KUB [id number] DIAGNOSIS: MORBID OBESITY, GERD, HYPERTEN REASON: evaluate band position and gastric patency RESULT: Clinical Indication: LAP band procedure. FINDINGS: The preliminary gas technician film demonstrates characteristic positioning of the metallic [...] on filedocumented in this encounter Care Teams Dip Dyer Relationship Specialty Start Date End Date Soy Conley MD PCP - General 09/14/16 documented as of this encounter
--- OUTSIDE RECORDS SUMMARY | 2024-05-11 16:44 | XMS_ITS | Encounter Summary ---
Author Organization [facility] [place] [address] Care Team Providers Care Retread Mold Operator Name Role Phone Soy Conley MD Primary Care Provider [phone] Encounter Details Date Type Department Care Team (Late st Contact Info) Description 07/28/2012 [facility] Information Services [address] [facility] [place] [address] Provider, His Victor Hugo MD [...] 07/28/2012 10:4 5 AM EDT Sourced from [employer] [facility] Body Mass Index 30.47 07/28/2012 10:45 AM EDT documented in this encounter Plan of Treatment Not on file documented as of this encounter Visit Diagnoses Not on filedocumented in this encounter Care Teams Retread Mold Operator Relationship Specialty Start Date End Date Soy Conley MD PCP - General 09/14/16 documented as of this encounter
--- OUTSIDE RECORDS SUMMARY | 2024-05-11 16:44 | XMS_ITS | Encounter Summary ---
Author Organization [facility] [place] [address] Care Team Providers Care Manager Provider Relations Name Role Phone Vu Guadarrama APRN Primary Care Provider [phone] Encounter Details Date Type Department Care Team ([facility] st Contact Info) Description 06/18/2010 10:00 AM EST Office Visit [facility] [address] [place] [phone] Coleman Perkins MD [address] [place] [address] Social History Tobacco Use Types Packs/Day Years Used Date Smoking Tobacco: Never Assessed Sex and Gender Information Value Date Recorded Sex Assigned at Not on file Gender Identity Not on file Sexual Orientation Not on file documented as of this encounter Plan of Treatment Not on file documented as of this encounter Visit Diagnoses Not on filedocumented in this encounter Care Teams Manager Provider Relations Relationship Specialty Start Date End Date Vu Guadarrama APRN [address] [place] [address] PCP - General 06/16/10 06/23/10 documented as of this encounter
--- OUTSIDE RECORDS SUMMARY | 2024-05-11 16:44 | XMS_ITS | Encounter Summary ---
Author Organization [facility] [place] [place] [address] Care Team Providers Care Criminal Investigator Customs Name Role Phone Vikas Kowalski MD Primary Care Provider + Encounter Details Date Type Department Care Team ([facility] st Contact Info) Description 09/03/2010 10:45 AM EDT Follow-Up [facility] [address] [place] [address] Coleman Perkins MD [address] [place] [address] Social History Tobacco Use Types [...] on filedocumented in this encounter Care Teams Criminal Investigator Customs Relationship Specialty Start Date End Date Vikas Kowalski MD [address] [place] [address] PCP - General 07/27/10 07/23/13 documented as of this encounter
--- OUTSIDE RECORDS SUMMARY | 2024-05-11 16:44 | XMS_ITS | Encounter Summary ---
Author Organization [facility] [place] [address] Care Team Providers Care Timber Hewer Name Role Phone Soy Conley MD Primary Care Provider [phone] Encounter Details Date Type Department Care Team (Late st Contact Info) Description 07/27/2013 [facility] Information Services [address] [facility] [address] Provider, His Victor Hugo MD [...] oz) 07/27/2013 9:40 AM EDT Sourced from [place] Conversion Height 172.7 cm (5' 8) 07/27/2013 9:40 AM EDT Sourced from [employer] [facility] Body Mass Index 29.74 07/27/2013 9:40 AM EDT documented in this encounter Plan of Treatment Not on file documented as of this encounter Visit Diagnoses Not on filedocumented in this encounter Care Teams Timber Hewer Relationship Specialty Start Date End Date Soy Conley MD PCP - General 09/14/16 documented as of this encounter
--- OUTSIDE RECORDS SUMMARY | 2024-05-11 16:44 | XMS_ITS | Encounter Summary ---
Author Organization [facility] [place] [address] Care Team Providers Care Dehydrator Tender Name Role Phone Dariel Mckeon MD, Soy Chase Primary Care Provider [phone] Encounter Details Date Type Department Care Team ([facility] st Contact Info) Description 07/16/2010 8:30 AM EDT Office Visit [address] [phone] Mia Cameron, RD [address] [place] [address] Social History Tobacco Use Types Packs/Day Years Used Date Smoking Tobacco: Never Assessed Sex and Gender Information Value Date Recorded Sex Assigned at Not on file Gender Identity Not on file Sexual Orientation Not on file documented as of this encounter Plan of Treatment Not on file documented as of this encounter Visit Diagnoses Not on filedocumented in this encounter Care Teams Dehydrator Tender Relationship Specialty Start Date End Date Soy Vieira Jr., MD PCP - General 06/24/10 07/19/10 documented as of this encounter
--- OUTSIDE RECORDS SUMMARY | 2024-05-11 16:44 | XMS_ITS | Encounter Summary ---
Author Organization [facility] [place] [address] Care Team Providers Care Digital Data Analyst Name Role Phone Vikas Kowalski MD Primary Care Provider + Encounter Details Date Type Department Care Team ([facility] st Contact Info) Description 04/02/2011 4:00 AM EST Laboratory Appointment [address] [phone] Social History Tobacco Use Types Packs/Day Years Used Date Smoking Tobacco: Never Assessed Sex and Gender Information Value Date Recorded Sex Assigned at Not on file Gender Identity Not on file Sexual Orientation Not on file documented as of this encounter Plan of Treatment Not on file documented as of this encounter Visit Diagnoses Not on filedocumented in this encounter Care Teams Digital Data Analyst Relationship Specialty Start Date End Date Vikas Kowalski MD [address] [place] [address] PCP - General 07/27/10 07/23/13 documented as of this encounter
--- OUTSIDE RECORDS SUMMARY | 2024-05-11 16:44 | XMS_ITS | Encounter Summary ---
Author Organization [facility] Address [address] [place] [address] Care Team Providers Care Director Sales And Trade Marketing Name Role Phone Soy Conley MD Primary Care Provider [phone] Encounter Details Date Type Department Care Team (Late st Contact Info) Description 06/13/2021 Lab Requisition [facility] Pathology & Laboratory Medicine - [address] [address] Outr Resulting Lab, Provider Social History Tobacco [...] 06/12/2021 11:1 0 EST 06/13/2021 21:19 EST us Provider Outr Resulting Lab MICROBIOLOGY - GENER AL ORDERABLES Final Result [facility] [address] [place] [address] * COVID-19 TESTING (06/12/2021 11:10 EST) COVID-19 rt-PCR Result Negative Negative 06/14/2021 10:23 EST [facility] Comment: This test has not [...] using the nallely SARS-CoV-2 assay ([employer] on the Nallely 6800 System Performing Lab Nallely [address] [facility] 06/14/2021 10:23 EST [facility] Swab 06/12/2021 11:1 0 EST 06/13/2021 21:19 EST us Provider Outr Resulting Lab MICROBIOLOGY - GENER AL ORDERABLES Final Result [facility] [address] [place] [address] documented in this encounter Visit Diagnoses Not on filedocumented in this encounter Care Teams Director Sales And Trade Marketing Relationship Specialty Start Date End Date S[place] [address] PCP - General 06/24/20 documented as of this encounter
--- OUTSIDE RECORDS SUMMARY | 2024-05-11 16:44 | XMS_ITS | Encounter Summary ---
Author Organization Replaced By [facility] [place] [address] Care Team Providers Care Benefits Director Name Role Phone Soy Conley MD Primary Care Provider [phone] Encounter Details Date Type Department Care Team (Late st Contact Info) Description 07/10/2018 Orders Only General Surgery at [address] [address] Maite Telles LPN Social History [...] on filedocumented in this encounter Care Teams Benefits Director Relationship Specialty Start Date End Date Soy Conley MD PCP - General 09/14/16 documented as of this encounter
--- OUTSIDE RECORDS SUMMARY | 2024-05-11 16:44 | XMS_ITS | Encounter Summary ---
Author Organization Replaced By [facility] [place] [address] Care Team Providers Care Security Team Lead Name Role Phone Soy Conley MD Primary Care Provider [phone] Encounter Details Date Type Department Care Team (Late st Contact Info) Description 09/22/2011 Abstract [facility] Information Services [address] [place] [phone] Provider, His Victor Hugo MD Social History [...] on filedocumented in this encounter Care Teams Security Team Lead Relationship Specialty Start Date End Date Soy Conley MD PCP - General 09/14/16 documented as of this encounter
--- OUTSIDE RECORDS SUMMARY | 2024-05-11 16:44 | XMS_ITS | Encounter Summary ---
Author Organization [facility] [place] [address] Care Team Providers Care Orthopedic Radiologic Technologist Name Role Phone Unavailable Primary Care Provider Unavailabl e Encounter Details Date Type Department Care Team ([facility] st Contact Info) Description 08/22/2013 1:00 PM EDT Office Visit [facility] [address] [place] [phone] Coleman Perkins MD [address] [place], [place] [id number] Social History Tobacco Use Types Packs/Day Years [...]
--- OUTSIDE RECORDS SUMMARY | 2024-05-11 16:44 | XMS_ITS | Encounter Summary ---
Author Organization [facility] [place] [address] Care Team Providers Care Senior Informatica Developer Name Role Phone Nacho Wadsworth MD Primary Care Provider [phone] Encounter Details Date Type Department Care Team (Late st Contact Info) Description 08/05/2016 9:00 AM EDT Office Visit General Surgery [address] [phone] Makayla Riley APRN [facility] [place] [address] Social History Tobacco Use Types Packs/Day Years Used Date Smoking Tobacco: Former Sex and Gender Information Value Date Recorded Sex Assigned at Not on file Gender Identity Not on file Sexual Orientation Not on file documented as of this encounter Plan of Treatment Not on file documented as of this encounter Visit Diagnoses Not on filedocumented in this encounter Care Teams Senior Informatica Developer Relationship Specialty Start Date End Date Nacho Wadsworth MD [facility] [address] [place] [address] [place] [address] PCP - General 10/28/14 09/13/16 documented as of this encounter
--- OUTSIDE RECORDS SUMMARY | 2024-05-11 16:45 | XMS_ITS | Encounter Summary ---
Author Organization [facility] [place] [address] Care Team Providers Care Miniature Model Maker Name Role Phone Dariel Mckeon MD, Soy Chase Primary Care Provider [phone] Encounter Details Date Type Department Care Team ([facility] st Contact Info) Description 04/30/2010 12:30 PM EST Office Visit [address] [phone] Salma Dias, PsDulce [address] [place] [address] [place] [address] Social History Tobacco Use Types [...] on filedocumented in this encounter Care Teams Miniature Model Maker Relationship Specialty Start Date End Date Soy Vieira Jr., MD PCP - General 03/24/10 05/21/10 documented as of this encounter
--- OUTSIDE RECORDS SUMMARY | 2024-05-11 16:45 | XMS_ITS | Encounter Summary ---
Author Organization [facility] [place] [address] Care Team Providers Care Winderman Name Role Phone Unavailable Primary Care Provider Unavailabl e Encounter Details Date Type Department Care Team ([facility] st Contact Info) Description 03/05/2010 11:20 AM EDT Office Visit [address] [phone] Soy Vieira Jr., MD [address] [place] [address] Social History Tobacco Use Types Packs/Day Years [...]
--- OUTSIDE RECORDS SUMMARY | 2024-05-11 16:45 | XMS_ITS | Encounter Summary ---
Author Organization [facility] [place] [address] Care Team Providers Care Aquatic Laborer Name Role Phone Dariel Mckeon MD, Soy Chase Primary Care Provider [phone] Encounter Details Date Type Department Care Team (Late st Contact Info) Description 05/28/2010 8:30 AM EST Office Visit [address] [phone] Vu Guadarrama APRN [address] [place] [address] Social History Tobacco Use Types Packs/Day Years Used Date Smoking Tobacco: Never Assessed Sex and Gender Information Value Date Recorded Sex Assigned at Not on file Gender Identity Not on file Sexual Orientation Not on file documented as of this encounter Plan of Treatment Not on file documented as of this encounter Visit Diagnoses Not on filedocumented in this encounter Care Teams Aquatic Laborer Relationship Specialty Start Date End Date Soy Vieira Jr., MD PCP - General 05/22/10 06/15/10 documented as of this encounter
--- OUTSIDE RECORDS SUMMARY | 2024-05-11 16:45 | XMS_ITS | Encounter Summary ---
[place] [address] Care Team Providers Care Heel Builder Name Role Phone Soy Conley MD Primary Care Provider [phone] Encounter Details Date Type Department Care Team ([facility] st Contact Info) Description 04/02/2010 [place] [phone] Soy Vieira Jr., MD [address] [place] [address] Social History Tobacco Use Types Packs/Day Years [...] EXAMINATION: ??[facility] 8030 - CAD SCREENING MAMMOGRAPHY [address]779 DIAGNOSIS: ?ROUTINE - NO PROBLEM REASON: ? Routine- NO PROBLEM Routine- NO PROBLEM RESULT: ? Clinical Indication: ?? Screening exam. FINDINGS: ?The breasts are symmetric in size and are of heterogeneous density. ??I see no suspicious masses or microcalcifications to suggest malignancy. The films were also reviewed with the [employer] Second Look Computer Aided Detection System (Version 4.0). IMPRESSION: ??ACR category 1 mammogram (normal mammogram). ??No evidence for malignancy. ??Routine mammographic screening is recommended. ASSESSMENT: ??1 ??Negative. INTERPRETING PHYSICIAN:moi CABRAL M.D. ? TRANSCRIBED BY/DATE:moi WEST ??on Apr ??2009 ??7:46A ELECTRONICALLY AUTHORIZED BY: ? ISAIAH CABRAL M.D. ? Dec ??2009 10:54A Procedure Note Isaiah Cabral MD - 12/20/2016 External Results [place] Final Report EXAMINATION: [facility] 8056 - MAMMO BILAT SCREENING DIG [id number] EXAMINATION: [facility] 8030 - CAD SCREENING MAMMOGRAPHY [address] DIAGNOSIS: ROUTINE - NO PROBLEM REASON: Routine- NO PROBLEM Routine- NO PROBLEM RESULT: Clinical Indication: Screening exam. FINDINGS: The breasts are symmetric in size and are of heterogeneous density. I see no suspicious masses or microcalcifications to suggest malignancy. The films were also reviewed with the [employer] Second Look Computer Aided Detection System (Version [...] on filedocumented in this encounter Care Teams Heel Builder Relationship Specialty Start Date End Date Syo Conley MD PCP - General 09/14/16 documented as of this encounter
--- OUTSIDE RECORDS SUMMARY | 2024-05-11 16:45 | XMS_ITS | Encounter Summary ---
Author Organization [facility] [place] [address] Care Team Providers Care Video Control Engineer Name Role Phone Dariel Mckeon MD, Soy Chase Primary Care Provider [phone] Encounter Details Date Type Department Care Team ([facility] st Contact Info) Description 04/30/2010 1:30 PM EST Office Visit [address] [phone] Mia Cameron, RD [address] [place] [address] Social History Tobacco Use Types Packs/Day Years Used Date Smoking Tobacco: Never Assessed Sex and Gender Information Value Date Recorded Sex Assigned at Not on file Gender Identity Not on file Sexual Orientation Not on file documented as of this encounter Plan of Treatment Not on file documented as of this encounter Visit Diagnoses Not on filedocumented in this encounter Care Teams Video Control Engineer Relationship Specialty Start Date End Date Soy Vieira Jr., MD PCP - General 03/24/10 05/21/10 documented as of this encounter
--- OUTSIDE RECORDS SUMMARY | 2024-05-11 16:45 | XMS_ITS | Encounter Summary ---
Author Organization [facility] [place] [address] Care Team Providers Care Dye Machine Tender Name Role Phone Unavailable Primary Care Provider Unavailabl e Encounter Details Date Type Department Care Team (Late st Contact Info) Description 03/20/2010 10:00 AM EST Procedure visit [address] [phone] Swathi Davila MD [facility] Social History Tobacco Use Types Packs/Day Years [...]
--- OUTSIDE RECORDS SUMMARY | 2024-05-11 16:45 | XMS_ITS | Encounter Summary ---
Author Organization [facility] [place] [address] Care Team Providers Care Childcare Director Name Role Phone Unavailable Primary Care Provider Unavailabl e Encounter Details Date Type Department Care Team (Late st Contact Info) Description 03/06/2010 8:15 AM EDT Procedure visit [address] [phone] Social History Tobacco Use Types Packs/Day Years [...]
== END 2024-05-11 16:43 | disposition home or self-care (01) ==
LOC: NCHCN 16:42
PROVIDERS: PCP Physician Assistant; Visit Provider Student in an Organized Health Care Education/Training Program
DX: E03.9 Hypothyroidism, unspecified (principal)
CPT/HCPCS: 84443

== ENCOUNTER 2024-06-07 11:32 | Outpatient (REF) | payer BC, SELFPAY | END 2024-06-07 11:33 | disposition home or self-care (01) | LOC: LBN 11:32 | PROVIDERS: PCP Physician Assistant; Visit Provider Surgery | DX: L90.5 Scar conditions and fibrosis of skin | CPT/HCPCS: 88305 ==

== ENCOUNTER 2024-07-06 12:04 | Emergency (ER) | payer BC, SELFPAY ==
[2024-07-06] VITALS (31 sets, daily range): BP systolic 147–170; BP diastolic 63–87; PULSE 60–82; RESP 12–29; TEMP 36.2–37.1; O2SAT 96–100
--- NOTE | 2024-07-06 12:00 | RT.EKG_ITS ---
APPROVED REPORT Exam: Resting ECG Reason for Exam: syncope Patient Location: E HR:67 bpm ECG Measurements Heart Rate 67 AXIS [place] 168 P 57 QRSd 87 QRS -9 QT 399 T 59 QTc 422 Conclusion Sinus rhythm...normal P axis, V-rate 60- 99 Ventricular trigeminy...trigeminy string>6 w/ V complexes Low voltage, precordial leads...precordial leads <1.0mV I have reviewed and interpreted ECG and agree with software generated interpretation.
--- NOTE | 2024-07-06 12:30 | ED.GENADUL_ITS ---
Discharge Plan Disposition Patient Disposition: Home Condition: Good Discharge Details Clinical Impression: Fatigue, Edema, peripheral Primary Care Provider: Jermaine Pugh ED Provider: Blaine Ledbetter Home Meds and New Rx's Prescriptions: No Action atorvastatin 20 mg tablet 20 mg PO DAILY montelukast [Singulair] 10 mg tablet 10 mg PO DAILY PRN cholecalciferol (vitamin D3) 1,250 mcg (50,000 unit) capsule 1,250 mcg PO QWEEK magnesium oxide 400 mg (241.3 mg magnesium) tablet 400 mg PO DAILY prochlorperazine maleate 5 mg tablet See Rx Instructions PO TID PRN (Reason: nausea and vomiting) Qty: 30 2RF Rx Instructions: 5-10 mg orally three times a day PRN; pantoprazole [Protonix] 40 mg tablet,delayed release (DR/EC) 40 mg PO DAILY PRN valsartan [Diovan] 160 mg tablet 160 mg PO DAILY methocarbamol 750 mg tablet 750 mg PO TID PRN hydrochlorothiazide 25 mg tablet 25 mg PO DAILY levothyroxine 175 mcg capsule 175 mcg PO DAILY Wegovy 1 mg/0.5 mL pen injector 1 mg SUBCUT QWEEK duloxetine 30 mg Capsule,Delayed Release(Dr/Ec) 30 mg PO DAILY Discharge Instructions Instructions: Swelling, Fatigue ED Additional Instructions: At this time your workup is returned reassuring. There is no evidence of blood clots, stroke, brain mass, clots in your lungs, pneumonia or other significant abnormality. We have given you a dose of Lasix to help with the extra fluid in your extremities. Please avoid any salty foods, preserved foods, please make sure to wear knee-high stockings, and keep your legs elevated. If you notice any worsening of your symptoms, or any new symptoms such as vomiting, diarrhea, fever, chills, shortness of breath, chest pain, numbness, weakness, or fainting , please return immediately to the emergency department for reevaluation. Please follow up with your primary care provider as soon as possible for reassessment and reevaluation. As always, it was a pleasure participating in your medical care today. Referrals: Jermaine Pugh [Primary Care Provider] - [facility] General Date/Time Provider Initiated Documentation: 07/06/24 12:17 . HPI Narrative: 63-year-old female with a past medical history of hypertension, hypothyroidism, currently taking Wegovy for weight loss, presents today for feeling off. Patient states that she just got back from a 2-week vacation in [facility]. She has been back for 5 days. Initially she felt slightly jet lag, however yesterday she developed mild fuzzy head sensation, mild headache nausea then also some swelling in her lower extremities. Last night she got quite hot and sweaty and had a near syncopal episode. She did not fall or hit her head though. She denies any significant pleuritic chest pain. She does admit to feeling minimally short of breath today. She denies any history of PE. She denies any previous cardiac history. She denies any focal calf pain. She denies any significant atypical foods, diarrhea or vomiting. She denies any fevers. No neck pain or neck stiffness. No other complaints at this time. No other modifying factors. No other sick contacts at home. Related Data Home Medications ?Medication ?Instructions ?Recorded ?Confirmed atorvastatin 20 mg tablet 20 mg PO DAILY 09/12/18 07/06/24 hydrochlorothiazide 25 mg tablet 25 mg PO DAILY 10/16/18 07/06/24 duloxetine 30 mg capsule,delayed 30 mg PO DAILY 03/20/19 07/06/24 release valsartan 160 mg tablet (Diovan) 160 mg PO DAILY 07/15/21 07/06/24 cholecalciferol (vitamin D3) 1,250 1,250 mcg PO QWEEK 04/14/22 07/06/24 mcg (50,000 unit) capsule montelukast 10 mg tablet 10 mg PO DAILY PRN 04/14/22 07/06/24 (Singulair) magnesium oxide 400 mg (241.3 mg 400 mg PO DAILY 04/27/22 07/06/24 magnesium) tablet levothyroxine 175 mcg capsule 175 mcg PO DAILY 05/12/22 07/06/24 pantoprazole 40 mg tablet,delayed 40 mg PO DAILY PRN 08/09/22 07/06/24 release (Protonix) prochlorperazine maleate 5 mg See Rx Instructions PO TID PRN 06/22/23 07/06/24 tablet nausea and vomiting #30 tabs methocarbamol 750 mg tablet 750 mg PO TID PRN 06/04/24 07/06/24 semaglutide (weight loss) 1 mg/0.5 1 mg subcut QWEEK 07/06/24 07/06/24 mL subcutaneous pen injector (Teto) Previous Rx's ?Medication ?Instructions ?Recorded prochlorperazine maleate 5 mg See Rx Instructions PO TID PRN 06/22/23 tablet nausea and vomiting #30 tabs Allergies Allergy/AdvReac Type Severity Reaction Status Date / Time lisinopril AdvReac Intermediate cough Verified 07/06/24 12:12 Penicillins AdvReac Intermediate mouth sores Verified 07/06/24 12:12 ibuprofen AdvReac Mild Heart Burn Verified 07/06/24 12:12 shrimp AdvReac Intermediate diarrhea Uncoded 07/06/24 12:12 General Stated Complaint: GenMedical KAT: 3 Exam Narrative Exam Narrative: 1.Const: Well-nourished, Well-developed, appearing stated age 2.Eyes: PERRL, no conjunctival injection, and symmetrical lids. 3.ENT: Atraumatic external nose and ears. Dry MM. Neck: Symmetric, trachea midline, No thyromegaly. Patient demonstrates good movement of cervical neck. There is no nuchal rigidity, no nuchal tenderness. Patient is able to flex the neck without any difficulty or significant pain. Negative Kernig's and Brudzinski sign. 4.CVS: +S1/S2, Peripheral pulses 2+ and equal in all extremities. Brisk capillary refill in all extremities. 5.RESP: Unlabored respiratory effort. Clear to auscultation bilaterally. No wheezes rales or rhonchi 6.GI: Soft, Nontender/Nondistended, No hepatosplenomegaly. No guarding or rebound. 7.MSK: Normocephalic/Atraumatic, Extremities w/o deformity or ttp No cyanosis or clubbing, Normal movement of all extremities. +1 pitting edema bilaterally. No significant calf tenderness. No significant calf edema or redness around the calf. 8.Skin: Warm, Dry. No rashes or lesions. 9.Neuro: concrete vibrator operator II-XII grossly intact. Sensation grossly intact, no focal neurologic deficits. All 6 cardinal planes of vision are fully intact. No evidence of rotatory or vertical nystagmus. The patient demonstrated a normal uhyfjj-zqau-ybegkm, good dexterity. There was no evidence of dysdiadochokinesia. Patient was able to ambulate without difficulty. There was no wide-based gait. Romberg testing was normal. Geqf-kz-bnhs testing was normal. Sensation was intact bilaterally as well as muscle strength bilaterally for all extremities. Patient was able to verbalize butter cup with no slurring, or miss pronunciation. 10.Psych: (AAO) x3. Appropriate mood and affect Course Vital Signs Vital signs: Vital Signs Temperature 36.2 C L 07/06/24 12:06 Pulse 72 07/06/24 12:06 Respiratory Rate 18 07/06/24 12:06 Blood Pressure 162/83 H 07/06/24 12:06 Pulse Oximetry 97 07/06/24 12:06 Temperature 36.2 C L 07/06/24 12:11 Temperature Source Oral 07/06/24 12:11 Pulse 72 07/06/24 12:11 Respiratory Rate 18 07/06/24 12:11 Blood Pressure 162/83 H 07/06/24 12:11 Blood Pressure Position Sitting 07/06/24 12:11 Pulse Oximetry 97 07/06/24 12:11 Medical Decision Making 63-year-old female with a past medical history of hypertension, hypothyroidism, currently taking Wegovy for weight loss, presents today for feeling off. Patient states that she just got back from a 2-week vacation in [facility]. She has been back for 5 days. Initially she felt slightly jet lag, however yesterday she developed mild fuzzy head sensation, mild headache nausea then also some swelling in her lower extremities. Last night she got quite hot and sweaty and had a near syncopal episode. She did not fall or hit her head though. She denies any significant pleuritic chest pain. She does admit to feeling minimally short of breath today. She denies any history of PE. She denies any previous cardiac history. She denies any focal calf pain. She denies any significant atypical foods, diarrhea or vomiting. She denies any fev ers. No neck pain or neck stiffness. No other complaints at this time. No other modifying factors. No other sick contacts at home. Exam demonstrates well-appearing female, normal vital signs, dry mucous membranes, trace pitting edema in the lower extremities bilaterally, no focal calf tenderness, good patient has a notable normal neurologic exam. Differential is broad but includes mild dehydration, potentially CHF though with the pitting edema, viral etiology is of concern, certainly electrolyte abnormality is on the differential. Cardiac etiology is of concern, however symptoms do not appear consistent with ACS. EKG is benign aside for evidence of PVC. PE/DVT potential secondary to her recent long flights. Atypical viral or bacterial component is of concern with foreign travel. We will evaluate for these etiologies, monitor closely and reassess. 3:04 PM Laboratory workup is returned, no white count bandemia or left shift. D-dimer mildly elevated at 606, CTA was ordered, no evidence of PE dissection or other abnormality. CT of the head negative for acute process. No signs of stroke mass or abscess. Patient feels well. Ultrasound study was performed the left lower extremity where there was a tiny bit of achiness in the calf. No evidence of DVT. Patient feels well. No other significant abnormalities. With the mild pitting edema we will give a small dose of Lasix for increased diuresis, otherwise recommend avoidance of salty foods, close follow-up with PCP, and rest. Discussed red flags for which to return. I have extensively reviewed the treatment plan and discharge instructions with the patient. I have addressed all patient concerns at this time. The patient was made aware of what symptoms to monitor for that would warrant a return to the emergency department. Discussed the plan with the patient, they demonstrate verbal understanding and agreement with our assessment and plan at this time. The documentation in this chart was dictated using [employer] dictation software. Please excuse any dictation errors. FINDINGS: The common femoral, femoral and popliteal veins demonstrate normal compressibility, augmentation, and color Doppler. The posterior tibial and peroneal veins are patent. No saphenous vein thrombosis or other superficial venous thrombosis is seen. No hematoma or Macedo's cyst is seen. IMPRESSION: Negative lower extremity ultrasound. No evidence of DVT. FINDINGS: Ventricles and Extra axial spaces: Normal in size and morphology for the patient's age. Hemorrhage: None. Cerebral parenchyma: No evidence of acute infarct or mass. Patchy areas of decreased attenuation in the white matter of the cerebral hemispheres, similar to prior, consistent with chronic microvascular changes. The findings are somewhat disproportionate for the patient's age. Midline shift: None. Brainstem/Cerebellum: Normal. Calvarium: Normal. Visualized Paranasal sinuses:Clear. Mastoids: Clear. Soft Tissues: Unremarkable. ORBITS: Unremarkable. PITUITARY: Not enlarged. IMPRESSION: No acute intracranial process. FINDINGS: Pulmonary Arteries: No evidence of filling defect to suggest pulmonary emboli. Mediastinum and Ceci: No dominant adenopathy or fluid collection. Pulmonary parenchyma: No consolidation or dominant measurable mass. Pleura: No effusion or pneumothorax. Heart: The heart is not dilated. Minimal coronary artery calcifications are seen. Aorta: Thoracic aorta non-dilated. No dissection. Upper abdomen: No acute findings. Lap band noted. Bones: Unremarkable for age. Tubes, Catheters, and Lines: None Soft tissues: Unremarkable. IMPRESSION: No evidence of pulmonary embolism. The lungs are clear. Quality:SDOH Health Related Social Needs: No Data to Display PFSH All Active Problems (Updated 07/06/24 @ 15:25 by Blaine Ledbetter DO) Edema, peripheral (Acute) Fatigue (Acute) Cyst of skin (Acute) Gallstones without obstruction of gallbladder (Acute) Inflammatory bowel arthritis (Acute) Inflammatory arthritis (Acute) Migraine headache without aura (Acute) Essential tremor (Acute) Iliotibial band syndrome, right leg (Acute) Subacromial bursitis (Acute) Umbilical hernia (Acute) Regurgitation of stomach contents (Acute) Incisional hernia (Acute) Medical History Hx of fracture of femur plate in screws in situ Postmenopausal bleeding Chronic GERD BMI 30.0-30.9,adult Allergic rhinitis Leg cramps Restless leg syndrome Osteoarthritis of hips, bilateral Elevated alkaline phosphatase level Renal insufficiency, mild Dyspepsia Vitamin D deficiency Hypertension Chronic anxiety Osteopenia Hypothyroid Hyperlipidemia Depression Lipoma of arm Surgical History History of ventral hernia repair (~09/28/22) History of repair of hiatal hernia LAP-BAND surgery status Closed fracture of distal end of right femur (06/22/21) S/P ORIF: 06/23/21 Hx laparoscopic cholecystectomy (~06/24/20) 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) 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) S/P colonoscopy (~10/30/18) 2009-nl Hx of myomectomy R arm remove fibroid tumor Hx of section S/P excision of lipoma right arm - upper arm/shoulder Lap-band placement Colonoscopy - IV Sedation Family History Other Heart disease Hypertension Social History Smoking/Tobacco Use Status: Former Tobacco Use Quit Date: 05/02/95 Tobacco: How many years used: 15 Smoking risk assessment performed?: Yes Alcohol Intake: current Alcohol Intake frequency: a few times a month Alcohol type: beer and hard liquor Drug use: Occasionally Substance use type: marijuana Details: patient occasionally have edibles, but last edibles were six months a go 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 Date GA/Weeks # Preg Succ Route Wgt Sex Labor Lgth Anesth esia Location [facility] 05/19/99 Male [facility] CINTIA torres POCUS Exam (ED) Limited Cardiac Exam DATE OF EXAM: 07/06/24 TIME OF EXAM: 14:23 PROVIDER THAT PERFORMED THE STUDY: Blaine Ledbetter IS THIS A REPEAT EXAM DURING THIS ENCOUNTER: no REASON FOR EXAM: Chest pain VISUALIZED STRUCTURES: Left atrium, Left ventricle, Right ventricle and Interventricular septum VIEW OBTAINED: Parasternal long-axis PERTINENT FINDINGS/IMPRESSION: LV dysfunction (Very mild left ventricular dysfunction, ejection fraction appears to be around 50-55) :mild and No apparent abnormalities Exam complete
[2024-07-06 13:00] LABS: Abs Immature Grans 0.04 10^3/uL (0.0-0.06); Absolute Basophil Count 0.06 10^3/uL (0.0-0.2); Absolute Eosinophil Count 0.26 10^3/uL (0.0-0.7); Absolute Lymphocyte Count 1.93 10^3/uL (1.2-3.4); Absolute Monocyte Count 0.53 10^3/uL (0.1-0.8); Absolute Neutrophil Count 5.08 10^3/uL (1.2-6.7); Basophils % 0.8 %; Eosinophils % 3.3 %; HCT 40.6 % (36.0-46.0); HGB 13.7 g/dL (11.2-15.7); Immature Grans % 0.5 %; Lymphocytes % 24.4 %; MCHC 33.7 % (32.0-36.0); MCV 89 fL (80-95); MPV 8.7 fL (8.0-11.0); Monocytes % 6.7 %; Neutrophils % 64.3 %; Platelet Count 314 10^3/uL (130-400); RBC 4.56 10^6/uL (3.93-5.22); RDW 12.6 % (11.7-14.6); RDW-SD 41.2 fL
[2024-07-06 13:02] LABS: ESR 5 mm/hr (0-30)
[2024-07-06 13:05] LABS: Bilirubin Negative (Negative); Blood Negative (Negative); Clarity Clear (Clear); Glucose Negative (Negative); Ketones Negative (Negative); Leukocyte Esterase Negative (Negative); Nitrite Negative (Negative); Specific Gravity 1.025 (1.005-1.025); Urobilinogen 0.2 mg/dL (Up to 0.2)
[2024-07-06 13:20] LABS: PTT Activated 25.8 sec (20.6-30.2); Prothrombin Time 9.9 sec (9.1-11.1)
[2024-07-06 13:26] LABS: ALT 53 U/L (14-59); AST 26 U/L (15-37); Albumin 3.6 g/dL (3.4-5.0); Alkaline Phosphatase 98 U/L (46-116); Anion Gap 7.4 mmol/L (3-11); BUN 20 mg/dL (7-18); Bilirubin, Total 0.5 mg/dL (0.2-1.0); CO2 29.6 mmol/L (21.0-32.0); CREATININE 1.1 mg/dL (0.55-1.02); Calcium 9.1 mg/dL (8.5-10.1); Chloride 107 mmol/L (98-107); Estimated GFR 55.76 (mL/min/1.73m2); Glucose 103 mg/dL (74-106); NT-proBNP 633 pg/mL (<300); Potassium 3.8 mmol/L (3.5-5.1); Sodium 144 mmol/L (136-145); TSH (W/Ref FT4) 0.76 uIU/mL (0.36-3.74); Total Protein 7.3 g/dL (6.4-8.2); Troponin I 5 ng/L (<or=51)
[2024-07-06 13:27] LABS: D-Dimer 606 ng/mlFEU (<500)
[2024-07-06 13:28] LABS: C-Reactive Protein < 0.50 mg/dL (<or=0.5)
--- NOTE | 2024-07-06 13:45 | DI.CT_ITS ---
Exam(s) CT CHEST PE CTA EXAM: CT CHEST PE CTA CLINICAL HISTORY: elevated dimer, recent flight from [place], eval PE. TECHNIQUE: Imaging Protocol: Axial CT angiography was performed with multi-slice acquisition and mu lti-planar reconstructions as well as axial, coronal and sagittal MIP reconstructions. Computer aided detection (CAD) was utilized. CONTRAST MATERIAL: Intravenous: Omnipaque 350 Contrast volume:100 ml COMPARISON: CT CT CHEST/ABD/PEL W from 06/04/2022 FINDINGS: Pulmonary Arteries: No evidence of filling defect to suggest pulmonary emboli. Mediastinum and Ceci: No dominant adenopathy or fluid collection. Pulmonary parenchyma: No consolidation or dominant measurable mass. Pleura: No effusion or pneumothorax. Heart: The heart is not dilated. Minimal coronary artery calcifications are seen. Aorta: Thoracic aorta non-dilated. No dissection. Upper abdomen: No acute findings. Lap band noted. Bones: Unremarkable for age. Tubes, Catheters, and Lines: None Soft tissues: Unremarkable. IMPRESSION: No evidence of pulmonary embolism. The lungs are clear. RADIATION DOSE DELIVERED: Total DLP DATA REPOSITORY: All CT scans at this facility are submitted to the National Radiology Data Registry (NRDR) Dose Index Registry (DIR) with the [employer] (A[employer]). RADIATION OPTIMIZATION: All CT scans at this facility use at least one of these dose optimization te chniques: automated exposure control; mA and/or kV adjustment per patient size (includes targeted exa ms where dose is matched to clinical indication); or iterative reconstruction.
--- NOTE | 2024-07-06 13:45 | DI.CT_ITS ---
Exam(s) CT HEAD WO EXAM: CT HEAD WO CLINICAL HISTORY: headache, dizzy, eval for mass, lesion. TECHNIQUE: Imaging Protocol: Axial computed tomography images with coronal and sagittal reformatted images were created and reviewed COMPARISON: CT CT BRAIN NECK CTA from 06/16/2021 FINDINGS: Ventricles and Extra axial spaces: Normal in size and morphology for the patient's age. Hemorrhage: None. Cerebral parenchyma: No evidence of acute infarct or mass. Patchy areas of decreased attenuation in the white matter of the cerebral hemispheres, similar to prior, consistent with chronic microvascula r changes. The findings are somewhat disproportionate for the patient's age. Midline shift: None. Brainstem/Cerebellum: Normal. Calvarium: Normal. Visualized Paranasal sinuses:Clear. Mastoids: Clear. Soft Tissues: Unremarkable. ORBITS: Unremarkable. PITUITARY: Not enlarged. IMPRESSION: No acute intracranial process. RADIATION DOSE DELIVERED: Total DLP DATA REPOSITORY: All CT scans at this facility are submitted to the National Radiology Data Registry (NRDR) Dose Index Registry (DIR) with the [employer] (ACR). RADIATION OPTIMIZATION: All CT scans at this facility use at least one of these dose optimization te chniques: automated exposure control; mA and/or kV adjustment per patient size (includes targeted exa ms where dose is matched to clinical indication); or iterative reconstruction.
--- NOTE | 2024-07-06 14:00 | DI.US_ITS ---
Exam(s) US LOWER EXTREMITY VENOUS LT EXAM: US LOWER EXTREMITY VENOUS LT CLINICAL HISTORY: recent trip to [facility], calf tenderness, eval for cl. TECHNIQUE: Lower extremity venous ultrasound performed using grayscale, color-flow, and spectral Do ppler analysis. COMPARISON: No exams were available for comparison FINDINGS: The common femoral, femoral and popliteal veins demonstrate normal compressibility, augmentation, and color Doppler. The posterior tibial and peroneal veins are patent. No saphenous vein thrombosis or other superficial venous thrombosis is seen. No hematoma or Macedo's cyst is seen. IMPRESSION: Negative lower extremity ultrasound. No evidence of DVT. DATA REPOSITORY:
[2024-07-06 14:03] LABS: Troponin I 5 ng/L (<or=51)
[2024-07-06 14:05] LABS: COVID-19 PCR Negative (Negative); Influenza A PCR Negative (Negative); Influenza B PCR Negative (Negative); RSV PCR Negative (Negative)
[2024-07-06 14:06] LABS: Source Nasopharynx
[2024-07-06] MEDS: Normal Saline - Diluent 50 ML VIAL IJ (14:43)
[2024-07-06] MEDS: Omnipaque 350 MG/ML 100 ML BTL IJ (14:44)
[2024-07-06] MEDS: Furosemide 20 MG/2 ML VIAL IVP (15:28)
== END 2024-07-06 15:55 | disposition home or self-care (01) ==
PROVIDERS: Emergency Provider Student in an Organized Health Care Education/Training Program; PCP Physician Assistant
DX: R53.83 Other fatigue (principal); R60.9 Edema, unspecified; I10 Essential (primary) hypertension; E78.5 Hyperlipidemia, unspecified; E03.9 Hypothyroidism, unspecified; Z98.84 Bariatric surgery status; Z79.899 Other long term (current) drug therapy
CPT/HCPCS: 71275; 80053; 85652; 87637; 93005; 93308; 96374; 99285; 70450; 81003; 83880; 84443; 84484; 85025; 85379; 85610; 85730; 86140; 93010; 93971; J1941; J3490

== ENCOUNTER 2024-08-08 17:36 | Outpatient (REF) | payer BC, SELFPAY | END 2024-08-08 17:37 | disposition home or self-care (01) | LOC: LBN 17:36 | PROVIDERS: PCP Physician Assistant; Visit Provider Obstetrics & Gynecology | DX: Z12.4 Encounter for screening for malignant neoplasm of cervix (principal) | CPT/HCPCS: 88142; 87624 ==

== ENCOUNTER 2024-08-14 01:15 | Outpatient (CLI) | payer BC, SELFPAY ==
--- NOTE | 2024-08-14 | DI.US_ITS ---
Exam(s) US BREAST LT COMPLETE MG MAMMO DIAGNOSTIC UNI EXAM: MG MAMMO DIAGNOSTIC UNI CLINICAL HISTORY: Inconclusive mammographic finding, R92.8, 3-mo f/u lt breast. COMPARISON: MG MG MAMMO SCREENING from 04/15/2022 MG MG MAMMO SCREEN CALL BACK UNI from 04/30/2022 US US BREAST LT COMPLETE from 04/30/2022 MG MG MAMMO SCREEN CALL BACK UNI from 11/10/2022 MG MG MAMMO DIAGNOSTIC BI from 04/18/2023 MG MG MAMMO SCREENING from 04/30/2024 MG MG MAMMO SCREEN CALL BACK UNI from 05/07/2024 US US BREAST LT LIMITED from 05/07/2024 TECHNIQUE: Craniocaudal and mediolateral oblique Full Field Digital Mammography views of left breast with Computer Aided Diagnosis followed by Tomosynthesis and left breast ultrasound. FINDINGS: Mammography/Tomosynthesis: Masses: Stable circumscribed nodule in the posterior left breast Architectural Distortion: None seen. Microcalcifications: No suspicious pleomorphic-type are seen. Skin Thickening/Nipple Retraction: None. Left breast US: Echotexture: Normal appearance of the glandular tissue. Shadowing: No suspicious foci. Cyst: None. Solid lesions: None seen. Ductal dilation: None. IMPRESSION: 1. No evidence of malignancy is noted. 2. Unless there is more urgent need, follow-up screening mammography is recommended, as per [employer] [employer] guidelines. BI-RADS Category 3 - Annual - Resume Annual Screening Breast Density - Category B - Scattered areas of fibroglandular density A negative radiographic report should not delay biopsy if a dominant or clinically suspicious mass is present. Up to ten percent of cancers are not identified on mammography. A negative report may reinforce clinical impression. Adenosis and dense breasts may obscure an underlying neoplasm. False positive reports average 6 to 10%. Patient will receive a letter notifying them of these results.
== END 2024-08-14 01:35 ==
LOC: DI 01:15
PROVIDERS: PCP Physician Assistant; Visit Provider Student in an Organized Health Care Education/Training Program
DX: R92.8 Other abnormal and inconclusive findings on diagnostic imaging of breast (principal); Z12.31 Encounter for screening mammogram for malignant neoplasm of breast
CPT/HCPCS: 76642; 77061; 77065; G0279

== ENCOUNTER 2024-08-22 10:11 | Outpatient (CLI) | payer BC, SELFPAY ==
--- NOTE | 2024-08-22 09:00 | DI.RAD_ITS ---
Exam(s) XR SHOULDER RT COMPLETE 2+V EXAM: XR SHOULDER RT COMPLETE 2+V CLINICAL HISTORY: evaluate shoulder pain. TECHNIQUE: 2D digital imaging was performed of the right shoulder. Two images were obtained. Grash ey and axillary views were obtained. COMPARISON: No exams were available for comparison FINDINGS: BONES: No acute fracture is present. No bony destructive lesion is seen. JOINTS: No dislocation present. There are degenerative changes seen of both the acromioclavicular and glenohumeral joints. There are calcifications inferior to the humeral head which may represent loos e bodies within the joint space. SOFT TISSUE: Normal. IMPRESSION: Degenerative changes of both the glenohumeral and acromioclavicular joints. Findings suggesting of l oose bodies in the joint space. DATA REPOSITORY: RADIATION DOSE DELIVERED:
== END 2024-08-22 10:12 | disposition home or self-care (01) ==
LOC: DIORS 10:12
PROVIDERS: PCP Physician Assistant; Visit Provider Student in an Organized Health Care Education/Training Program
DX: M25.511 Pain in right shoulder (principal)
CPT/HCPCS: 73030

== ENCOUNTER 2024-09-13 01:06 | Outpatient (CLI) | payer BC, SELFPAY ==
--- NOTE | 2024-09-13 07:15 | DI.MRI_ITS ---
Exam(s) MR UPPER JOINT RT WO EXAM: MR UPPER JOINT RT WO CLINICAL HISTORY: R SHOULDER PAIN,arthritis rt shoulder,M19.011. TECHNIQUE: Multiplanar multisequence MRI was performed. COMPARISON: CR XR SHOULDER RT COMPLETE 2+V from 08/22/2024 FINDINGS: BONES: There is no fracture or contusion pattern. Small subchondral cyst is seen in the humeral head. JOINTS: There is moderate arthrosis of the acromioclavicular joint. There is arthrosis of the glenoh umeral joint. There are loose bodies seen in the inferior aspect of the glenohumeral joint. These c orrespond to the density seen on the x-ray from 08/22/2024. TENDONS: Supraspinatus: There is tendinosis of the supraspinatus tendon without evidence of a tear. Infraspinatus: Unremarkable. Subscapularis: There is tendinosis of the subscapularis tendon. Teres Minor: Unremarkable. Biceps and [place]le[place]: Unremarkable. MUSCLES: Unremarkable. GLENOID LABRUM: There is decreased size of the posterior superior labrum suggesting degeneration. SOFT TISSUES: Unremarkable. LIGAMENTS: Unremarkable. OTHER: Subacromial and subdeltoid bursae are unremarkable. IMPRESSION: 1. Supraspinatus and subscapularis tendinosis. 2. Loose body seen within the joint space. 3. Arthrosis of the acromioclavicular and glenohumeral joints. 4. Decreased size of the posterior superior labrum suggesting degeneration. DATA REPOSITORY:
== END 2024-09-13 01:26 ==
LOC: DI 01:06
PROVIDERS: PCP Student in an Organized Health Care Education/Training Program; Visit Provider Student in an Organized Health Care Education/Training Program
DX: M19.011 Primary osteoarthritis, right shoulder (principal); M75.31 Calcific tendinitis of right shoulder
CPT/HCPCS: 73221

== ENCOUNTER 2024-10-18 06:00 | Day surgery (SDC) | payer BC, SELFPAY ==
[2024-10-18] VITALS (23 sets, daily range): BP systolic 98–127; BP diastolic 45–60; PULSE 68–97; RESP 10–26; TEMP 36.1–36.9; O2SAT 93–98; BMI 29.0
[2024-10-18] MEDS: Lactated Ringers 1,000 ML 30 ML IV (07:10)
--- NOTE | 2024-10-18 07:10 | W.ANESPRE ---
General Info Date of Service Date Performed: 10/18/24 Height: 5 ft 7 in Weight: 83.915 kg Body Mass Index (BMI): 29.0 Surgical Procedure: Operation Date: 10/18/24 07:55 Proposed Procedure Side Surgeon p Shoulder Reverse Total Arthroplasty, Biceps Tenodesis Right Robert Mayo MD Actual Procedure Side Surgeon p Shoulder Reverse Total Arthroplasty, Biceps Tenodesis Right Robert Mayo MD Pre-Op Diagnosis Post-Op Diagnosis (1) Arthritis of right shoulder: (2) Right rotator cuff tear: (3) Tendonitis of long head of biceps brachii of right shoulder: Meds Allergies and Home Medications Allergies Allergy/AdvReac Type Severity Reaction Status Date / Time shrimp Allergy Intermediate Diarrhea Verified 10/18/24 06:24 lisinopril AdvReac Intermediate cough Verified 10/18/24 06:24 Penicillins AdvReac Intermediate mouth sores Verified 10/18/24 06:24 ibuprofen AdvReac Mild Heart Burn Verified 10/18/24 06:24 Home Medication ?Medication ?Instructions ?Recorded atorvastatin 20 mg tablet 20 mg PO DAILY 09/12/18 hydrochlorothiazide 25 mg tablet 25 mg PO DAILY 10/16/18 duloxetine 30 mg capsule,delayed 30 mg PO DAILY 03/20/19 release valsartan 160 mg tablet (Diovan) 160 mg PO DAILY 07/15/21 montelukast 10 mg tablet 10 mg PO DAILY PRN 04/14/22 (Singulair) levothyroxine 175 mcg capsule 175 mcg PO DAILY 05/12/22 prochlorperazine maleate 5 mg See Rx Instructions PO TID PRN 06/22/23 tablet nausea and vomiting #30 tabs calcium carbonate 500 mg PO DAILY PRN 10/18/24 semaglutide (weight loss) 2.4 2.4 mg subcut Q7D 10/18/24 mg/0.75 mL subcutaneous pen injector (Teto) Current Visit Medications: Current Medications Generic Name Dose Route Start Last Admin Trade Name Freq PRN Reason Stop Dose Admin Ringer's Solution 1,000 mls @ 30 mls/hr 10/18/24 06:00 IV 10/18/24 23:59 INFUSION DAYANNA Cefazolin Sodium/Dextrose 2 gm in 50 mls @ 100 mls/hr 10/18/24 06:00 Ancef Duplex IVPB 10/18/24 23:59 PREOP DAYANNA Tranexamic Acid/Sodium Chloride 1,000 mg in 100 mls @ 600 mls/hr 10/18/24 06:00 IVPB 10/18/24 23:59 PREOP DAYANNA IV Miscellaneous Supplies 1 each 10/18/24 06:00 Iv Access IV 10/18/24 23:59 DIRECTED DAYANNA Sodium Chloride 0 ml 10/18/24 06:00 Normal Saline Flush 10 Ml Syr IV 10/18/24 23:59 PRN PRN Sodium Chloride 0 ml 10/18/24 06:00 Normal Saline 10 Ml Vial IJ 10/18/24 23:59 DIRECTED PRN Sterile Water 0 ml 10/18/24 06:00 Water,Injection,Sterile 10 Ml Vial IJ 10/18/24 23:59 DIRECTED PRN PFSH Active Problems Active Problems: Problem Status Onset Code Tendonitis of long head of biceps brachii of right shoulder Acute M75.21 Right rotator cuff tear Acute M75.101 Arthritis of right shoulder Acute M19.011 Cognitive change Acute R41.89 Vasovagal episode Acute R55 Cyst of skin Acute L72.9 Gallstones without obstruction of gallbladder Acute K80.20 Inflammatory bowel arthritis Acute K63.9, M07.60 Inflammatory arthritis Acute M19.90 Migraine headache without aura Acute G43.009 Essential tremor Acute G25.0 Iliotibial band syndrome, right leg Acute M76.31 Subacromial bursitis Acute M75.50 Umbilical hernia Acute K42.9 Regurgitation of stomach contents Acute R11.10 Incisional hernia Acute K43.2 Medical History Medical History Hx of fracture of femur plate in screws in situ Postmenopausal bleeding Chronic GERD BMI 30.0-30.9,adult Allergic rhinitis Leg cramps Restless leg syndrome Osteoarthritis of hips, bilateral Elevated alkaline phosphatase level Renal insufficiency, mild Dyspepsia Vitamin D deficiency Hypertension Chronic anxiety Osteopenia Hypothyroid Hyperlipidemia Depression Lipoma of arm Surgical History Surgical History History of ventral hernia repair (~09/28/22) History of repair of hiatal hernia LAP-BAND surgery status Closed fracture of distal end of right femur (06/22/21) S/P ORIF: 2/22/22 Hx laparoscopic cholecystectomy (~06/24/20) 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) 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) S/P colonoscopy (~10/30/18) 2008- Hx of myomectomy R arm remove fibroid tumor Hx of section S/P excision of lipoma right arm - upper arm/shoulder Lap-band placement Colonoscopy - IV Sedation Tobacco Smoking/Tobacco Use Status: Former Tobacco Use Passive smoking exposure: No Alcohol Alcohol Intake: current Alcohol intake frequency: a few times a month Alcohol type: beer and hard liquor Substance Use Substance use: Occasionally Substance use type: marijuana Details: patient occasionally have edibles, but last edibles were six months ago Prental History History 1 Para Hx # Term Pregnancies 1 Multiple births Hx # Pregnancies Ectopic pregnancies AB induced Hx Number of Living Children AB spontaneous Past Pregnancies Del. Date GA/Weeks # Preg Succ Route Wgt Sex Labor Lgth Anesthesia Location Prov Compl 05/19/99 Male [place], [place] Vital Signs and Lab Results Vital Signs Most Recent Vital Signs in EMR: Most Recent Vital Signs Temp Pulse Resp BP Pulse Ox 36.2 C L 68 16 127/55 L 98 10/18/24 06:10 10/18/24 06:10 10/18/24 06:10 10/18/24 06:10 10/18/24 06:10 Anesthesia Assessment and Plan Anesthesia History Personal History: No History of Anesthesia Complications Family History: No Family History of Anesthesia Complications Exercise Tolerance Exercise Tolerance: Metabolic Equivalents>4 Pertinent Negatives Pertinent Negatives: No Symptoms of GERD Cardiac & Pulmonary Exam Cardiac Exam: Normal S1/S2 Heart Sounds Pulmonary Exam: Clear Bilateral Breath Sounds Implantable Cardiac Device Does patient have a Pacemaker or an ICD?: No Airway Exam Known Difficult Airway: No Mallampati Class: 1 Mouth Opening: Normal (> 3cm) Thyromental Distance: Greater than 3 cm Neck Range of Motion: Full ROM Neck Circumference: Normal Teeth Condition: Normal Dentition Airway Comments: Lower crown back ASA Classification ASA Score: ASA 2 Emergency Case?: No NPO Status NPO Status: NPO Clears >2 hours, Solids >8 hours Anesthesia Plan Resuscitation Status: Full Code Anesthesia Technique: General Anesthesia Airway Planned: Endotracheal Tube Pain Management: Surgeon and patient request nerve block Monitors Used: Standard Monitors
--- NOTE | 2024-10-18 07:10 | W.PM.DSUDISC ---
Date of service: 10/18/24 Discharge Plan Disposition Patient Disposition: Home Condition: Stable Discharge Details Attending Provider: Robert Mayo Primary Care Provider: Akil Kirk Home Meds and New Rx's Prescriptions: New aspirin 81 mg tablet,delayed release (DR/EC) 81 mg PO DAILY 7 Days Qty: 7 0RF naproxen 250 mg tablet 250 - 500 mg PO BID PRN (Reason: Moderate pain) Qty: 40 0RF oxycodone 5 mg tablet 5 - 10 mg PO Q4H PRN (Reason: Moderate to severe pain) Qty: 18 0RF Continued atorvastatin 20 mg tablet 20 mg PO DAILY montelukast [Singulair] 10 mg tablet 10 mg PO DAILY PRN prochlorperazine maleate 5 mg tablet See Rx Instructions PO TID PRN (Reason: nausea and vomiting) Qty: 30 2RF Rx Instructions: 5-10 mg orally three times a day PRN; valsartan [Diovan] 160 mg tablet 160 mg PO DAILY hydrochlorothiazide 25 mg tablet 25 mg PO DAILY levothyroxine 175 mcg capsule 175 mcg PO DAILY duloxetine 30 mg Capsule,Delayed Release(Dr/Ec) 30 mg PO DAILY Wegovy 2.4 mg/0.75 mL pen injector 2.4 mg SUBCUT Q7D calcium carbonate 500 mg calcium (1,250 mg) tablet,chewable 500 mg PO DAILY PRN Discharge Instructions Additional Instructions: Surgery: Right reverse total shoulder arthroplasty (retentive liner) with biceps tenodesis 10/18/24 Activity: Do not lift anything heavier than a coffee. You should keep your arm at your side in a relatively neutral position at all times except for gentle range of motion exercises, physical therapy, and essential activities. You should use the sling whenever you are out of the house. At home it is best to remove the sling and rest the arm on a pillow at your side or support the operative side with your other hand. A physical therapy prescription will be sent electronically to start in about 3 weeks. STANDARD Reverse TSA Protocol. Prescriptions: Aspirin 81 mg take 1 daily to prevent a blood clot for 7 days, starting tomorrow morning Naproxen 250 mg take 1 every 12 hours with a meal as needed for moderate pain Oxycodone 5 mg take 1-2 every 4-6 hours as needed for severe pain You may use [id number] Tylenol (acetaminophen) as needed for mild pain. These pain medications may be taken all at once or in different combinations as needed. Also, recommend Colace (docusate) as a stool softener as surgery and pain medicine cause constipation. You may try [id number] diphenhydramine (Benadryl) 25-50 mg nightly as a sleep aid Dressings: Leave dressing in place until follow-up. Keep clean and dry at all times. No showers please. Follow-up: 10-[address] Mayo You may take off the leg compression stockings this evening at home. You may also leave them on a few days longer if you have a history of leg swelling or edema. Please call the office during business hours with any questions or concerns. Let us know right away if you develop any redness, drainage, fevers, chest pain, or trouble breathing. Do not drink alcohol or drive for at least 24 hours after anesthesia. Discharge Orders Discharge Orders: Discharge Order (Routine); Ordered 10/18/24 Ordered By: Cain Berger DS: Diagnosis Discharge Diagnosis (1) Right rotator cuff tear: Status: Acute (2) Tendonitis of long head of biceps brachii of right shoulder: Status: Acute (3) Arthritis of right shoulder: Status: Acute
--- NOTE | 2024-10-18 07:20 | ROE_ITS ---
Operative Note Operative Note PRE-OP DIAGNOSIS: Right: 1. Rotator cuff tearing 2. Glenohumeral arthritis 3. Long head of the biceps tendinopathy PROCEDURE: Right: 1. Reverse total shoulder arthroplasty, CPT # 06594 2. Open biceps tenodesis, CPT # 54013 The surveyor instrument assistant was medically required as this procedure involves retraction, protection of neurovascular structures, and manipulation of multiple instruments and implants at the same time, which cannot be done without a skilled surveyor instrument assistant. SURGEON: Robert Mayo BAIT TIER: Cain Berger ANESTHESIA TYPE: Local By Surgeon, General LMA/ETT and Primary Nerve Block Refer to Anesthesia Record ESTIMATED BLOOD LOSS: 300 COMPLICATIONS: None Patient was transported to: PACU Patient's condition: stable Implants: [employer] shoulder system Small modular baseplate with 25 mm central screw 30, 20, and 15 mm peripheral locking screws 36 mm +4 mm glenosphere Small short length stem +0 mm humeral shell and +0 mm retentive liner Indications: See medical record for details Findings: Obvious long head biceps tendinopathy, high-grade partial subscapularis and partial anterior supraspinatus rotator cuff tearing, and significant glenohumeral cartilage loss Procedure Description: In the operating room, general anesthesia was induced. The patient was positioned beachchair on the operating room table. All bony prominences were well-padded. Preoperative antibiotics were administered. The shoulder was prepped and draped in the usual sterile fashion for shoulder arthroplasty. The correct patient, procedure, and side of the procedure were all verified prior to incision. The deltopectoral approach was preinjected with 0.25% bupivacaine containing epinephrine and taken to the anterior shoulder. Care was taken to bluntly dissect the interval between the deltoid and pectoralis major muscles and to identify the cephalic vein within its fat stripe. The vein was preserved and mobilized medially. Subdeltoid space and conjoined tendon were freed of adhesions. The long head of the biceps tendon was identified just lateral to the lesser tuberosity. The uppermost margin of the pectoralis major tendon was released from the proximal humerus. The long head of the biceps tendon was tenodesed in situ using SutureTape in a [id number] fashion securing it superior margin the pectoralis major tendon. The biceps tendon was amputated and followed proximally to identify the rotator interval. A subscapularis peel was started while working on bone into external rotation and the subscapularis was thinned with moderate to high-grade tearing so that a tenotomy was done. Care was taken to avoid the axillary nerve by only working on the bone inferiorly and medially. The leading edge of the supraspinatus was only mildly debrided to a stable margin. Appropriate coagulation was achieved especially interiorly. The anatomic neck was cut using an oscillating saw with the humeral head bone brought back table in case there was a need for future bone grafting. A conservative cut was done to preserve the relatively intact superior through posterior superior rotator cuff. The humeral side was sized. The joint space and then swept for the loose bodies and a clear ovoid kimo osteochondral loose body removed. The other loose bodies could not be palpated nor swept from the inferior posterior joint. They seemed to be adhered or through the capsular tissues, which were not worth violating to remove as they were well away from the joint space. Attention was then turned to the glenoid and retractors were placed and a circumferential release performed removing soft tissue about the glenoid rim. Care was taken inferiorly to work on bone only between 5 and 7:00 o'clock and bluntly elevate tissues inferiorly. The glenoid was sized and guidepin inserted accounting for patient version and inclination. The guidepin was advanced just through the far cortex ensuring adequate central fixation length. The one step prep glenoid reamer was then used to prepare glenoid according to solution architect specifications. The baseplate was impacted onto the glenoid surface. The central compression screw was placed. The central screw tool design checker was used to confirm the central screw was fully seated. The locking guide was then used to drill and place appropriately lengthed inferior, anterior, and posterior screws. The [id number]-tor-ukfrkiepo reamer was used to achieve adequate peripheral reaming. The glenosphere was applied with the cell manager and impacted to engage the Damon taper. It was then locked with appropriate countersinking of the setscrew. The glenosphere had good fit, appropriate positioning, and no soft tissue or bony impingement. The proximal humerus was delivered from the wound with adduction and external rotation. The humerus was sized and pin placed. Reaming and blazing were done over the pin. The stem pin punch was used through the blazer to confirm distal path and complete preparation. The final stem was impacted into place. Trialing was started with a +0 mm shell and liner. The shoulder was reduced and taken through range of motion. Trial components were built up to +0 mm liner to achieve excellent stability and good tension on the deltoid and conjoined tendon. Trial shell and liner were removed. The final shell was impacted onto the humeral stem and final liner was clicked into place. Retentive liner was chosen due to deficient subscapularis. The shoulder was reduced and range of m otion, stability, and tension confirmed. The shoulder was copiously irrigated with Betadine and normal saline. Vancomycin powder was distributed deeply about the shoulder and through subcutaneous tissues. The deltopectoral interval was approximated with 2-0 Monocryl burying the cephalic vein. Subcutaneous tissue was irrigated then closed using 2-0 Monocryl in a buried interrupted fashion. Skin was closed using 3-0 Monocryl in a buried subcuticular fashion. Skin glue was applied to the incision. A silver impregnated bandage was placed over the incision. The extremity was placed into a shoulder immobilizer. The patient awoke from anesthesia without complication and was taken to the recovery room in stable condition. Date of Procedure: 10/18/24
--- NOTE | 2024-10-18 07:22 | W.PM.DSUDISC ---
Discharge Plan Disposition Patient Disposition: Home Condition: Stable Discharge Details Attending Provider: Robert Mayo Primary Care Provider: Akil Kirk Home Meds and New Rx's Prescriptions: New aspirin 81 mg tablet,delayed release (DR/EC) 81 mg PO DAILY 7 Days Qty: 7 0RF naproxen 250 mg tablet 250 - 500 mg PO BID PRN (Reason: Moderate pain) Qty: 40 0RF oxycodone 5 mg tablet 5 - 10 mg PO Q4H PRN (Reason: Moderate to severe pain) Qty: 18 0RF Continued atorvastatin 20 mg tablet 20 mg PO DAILY montelukast [Singulair] 10 mg tablet 10 mg PO DAILY PRN prochlorperazine maleate 5 mg tablet See Rx Instructions PO TID PRN (Reason: nausea and vomiting) Qty: 30 2RF Rx Instructions: 5-10 mg orally three times a day PRN; valsartan [Diovan] 160 mg tablet 160 mg PO DAILY hydrochlorothiazide 25 mg tablet 25 mg PO DAILY levothyroxine 175 mcg capsule 175 mcg PO DAILY duloxetine 30 mg Capsule,Delayed Release(Dr/Ec) 30 mg PO DAILY Wegovy 2.4 mg/0.75 mL pen injector 2.4 mg SUBCUT Q7D calcium carbonate 500 mg calcium (1,250 mg) tablet,chewable 500 mg PO DAILY PRN Discharge Instructions Additional Instructions: Surgery: Right reverse total shoulder arthroplasty (retentive liner) with biceps tenodesis Activity: Do not lift anything heavier than a coffee. You should keep your arm at your side in a relatively neutral position at all times except for gentle range of motion exercises, physical therapy, and essential activities. You should use the sling whenever you are out of the house. At home it is best to remove the sling and rest the arm on a pillow at your side or support the operative side with your other hand. A physical therapy prescription will be sent electronically to start in about 3 weeks. STANDARD Reverse TSA Protocol. Prescriptions: Aspirin 81 mg take 1 daily to prevent a blood clot for 7 days, starting tomorrow morning Naproxen 250 mg take 1 every 12 hours with a meal as needed for moderate pain [Oxycodone 5 mg take 1-2 every 4-6 hours as needed for severe pain] You may use [id number] Tylenol (acetaminophen) as needed for mild pain. These pain medications may be taken all at once or in different combinations as needed. Also, recommend Colace (docusate) as a stool softener as surgery and pain medicine cause constipation. You may try [id number] diphenhydramine (Benadryl) 25-50 mg nightly as a sleep aid Dressings: Leave dressing in place until follow-up. Keep clean and dry at all times. No showers please. Follow-up: 10-[address] Mayo You may take off the leg compression stockings this evening at home. You may also leave them on a few days longer if you have a history of leg swelling or edema. Please call the office during business hours with any questions or concerns. Let us know right away if you develop any redness, drainage, fevers, chest pain, or trouble breathing. Do not drink alcohol or drive for at least 24 hours after anesthesia. Discharge Orders Discharge Orders: Discharge Order (Routine); Ordered 10/18/24 Ordered By: Cain Berger DS: Diagnosis Discharge Diagnosis (1) Right rotator cuff tear: Status: Acute (2) Tendonitis of long head of biceps brachii of right shoulder: Status: Acute
[2024-10-18] MEDS: ceFAZolin 2 GM/50 ML BAG IVPB (08:12)
[2024-10-18] MEDS: TRANEXAMIC ACID/SOD. CHL. 1,000 MG/100 ML BAG 600 MG IVPB (08:20)
[2024-10-18] MEDS: Vancomycin 1,000 MG VIAL 1000 MG (08:49)
[2024-10-18] MEDS: Bupivacaine 0.25% Pres-Free W/EPI 30 ML VIAL (08:50)
--- NOTE | 2024-10-18 09:57 | W.ANESNERVE ---
Nerve Block Single Injection Procedure Date and Time Date Performed: 10/18/24 Procedure Start: : Location Where Procedure Performed Procedure Location: Day Surgery Unit Reason Performed: Postoperative Analgesia Requesting Provider: Robert Mayo Timeout Performed Timeout Performed: Yes Monitoring Used ECG, Blood Pressure, SpO2 and See EMR for corresponding vital signs Sterility Sterility: Hand Hygiene, Surgical Cap, Surgical Mask, Sterile Gloves and Chlorhexidine Sedation Given During Procedure Sedation Given (Indicate Dose Given): Versed IV Dose:: 2mg Patient Mental Status Patient Mental Status: Sedate with meaningful communication Nerve Block 1st Nerve Block: Laterality: Right Block Type: Supraclavicular (just superior to Supra view) Ultrasound Image Saved?: Yes Needle / Catheter Used: 100mm SonoPlex II Local Anesthetic Bolus (Indicate Dose Given): Lidocaine used for local infiltration of skin, Injected in 3-5ml increments after negative blood aspiration, Bupivacaine 0.5% Dose:: 10ml and Exparel Dose:: 10ml Additives (Indicate Dose Given): None Ultrasound: Sterile probe cover and gel used Nerve Stimulator: Supplement to Ultrasound use and No twitch or parasthesia noted < 0.5 mA (Setting was 0.8mA) Paresthesia: None Procedure Tolerated: No Complications and Patient tolerated well Procedure Outcome: Successful Procedure Comment: Procedure went well. Performed By: Son Saeed
--- NOTE | 2024-10-18 11:00 | DI.RAD_ITS ---
Exam(s) XR SHOULDER RT COMPLETE 2+V EXAM: XR SHOULDER RT COMPLETE 2+V CLINICAL HISTORY: Shoulder Arthritis. TECHNIQUE: 2D digital imaging was performed of the right shoulder. Three images were obtained. Grashey and Y views were obtained. COMPARISON: CR XR SHOULDER RT COMPLETE 2+V from 08/22/2024 FINDINGS: The patient is now status post right reverse total shoulder arthroplasty. The orthopedic hardware appears in good position. There are mild degenerative changes seen at the acromioclavicular joint. IMPRESSION: Status post right reverse total shoulder arthroplasty. DATA REPOSITORY: RADIATION DOSE DELIVERED:
[2024-10-18] MEDS: Ketorolac 15 MG/ML VIAL IVP (11:31)
[2024-10-18] MEDS: ACETAMINOPHEN 1,000 MG/100 ML BAG 400 MG IVPB (11:32)
[2024-10-18] MEDS: ceFAZolin 1 GM/50 ML BAG IVPB (13:10)
[2024-10-18] MEDS: Normal Saline Flush 10 ML SYR IV (13:14)
[2024-10-18] MEDS: Lactobacillus Acidophilus CAP 1 CAP PO (13:14)
--- NOTE | 2024-10-18 15:22 | W.ANESPOSTOP ---
Postoperative Evaluation Date, Time and Location Date Performed: 10/18/24 Time Performed: 15:22 Patient Location: Day Surgery Unit Vital Signs Most Recent Imported Vital Signs: Most Recent Vital Signs Temp Pulse Resp BP Pulse Ox 36.6 C 75 21 126/51 L 96 10/18/24 12:30 10/18/24 12:30 10/18/24 12:30 10/18/24 12:30 10/18/24 12:30 Pain Score Most Recent Pain Score: Most Recent Pain Score Pain Level 0 10/18/24 13:10 Assessment Mental Status: Awake (Alert & Oriented to Patient Baseline) Airway and Respiratory Function: Patent airway with normal (patient baseline) respiratory exam Cardiovascular Function: Hemodynamically Stable Hydration Status: Adequately Hydrated Nausea & Vomiting: No Nausea or Vomiting Pain: Pt. Denies Any Pain Peripheral Nerve Block: Regional nerve block not resolved at time of post operative discharge Postoperative Comments:: Pt. awake and doing well. Does have some calf discomfort to the upper left calf. Area is not tender and is not swollen. Discussed that this would likely resolve on its own throughout today but also discussed if it becomes swollen/painful to call surgeon or go to ED as the concern would be a DVT. Pt. understands and has no questions.
== END 2024-10-18 14:30 | disposition home or self-care (01) ==
PROVIDERS: PCP Student in an Organized Health Care Education/Training Program; Visit Provider Student in an Organized Health Care Education/Training Program
PROC: (CPT 23472; principal; 2024-10-18 07:45)
DX: M75.101 Unspecified rotator cuff tear or rupture of right shoulder, not specified as traumatic (principal); M75.21 Bicipital tendinitis, right shoulder; M19.011 Primary osteoarthritis, right shoulder; G89.18 Other acute postprocedural pain
CPT/HCPCS: 23472; 23430; C1713; 64415; 73030; J0131; J0665; J0666; J0690; J1100; J1885; J2250; J2371; J2405; J2704; J3370

== ENCOUNTER 2024-10-30 14:40 | Outpatient (CLI) | payer BC, SELFPAY ==
--- NOTE | 2024-10-30 14:15 | DI.RAD_ITS ---
Exam(s) XR SHOULDER RT COMPLETE 2+V EXAM: XR SHOULDER RT COMPLETE 2+V INDICATION: F/U RIGHT RTSA. COMPARISON: CR XR SHOULDER RT COMPLETE 2+V from 10/18/2024 TECHNIQUE: 2D digital imaging was performed. Two views. FINDINGS: Stable alignment of the reverse shoulder prosthesis given differences in projection. Normal bony lucencies. Some residual postsurgical air remains present in the soft tissues. DATA REPOSITORY: RADIATION DOSE DELIVERED:
== END 2024-10-30 14:41 | disposition home or self-care (01) ==
LOC: DIORS 14:40
PROVIDERS: PCP Student in an Organized Health Care Education/Training Program; Visit Provider Student in an Organized Health Care Education/Training Program
DX: M75.101 Unspecified rotator cuff tear or rupture of right shoulder, not specified as traumatic (principal)
CPT/HCPCS: 73030

== ENCOUNTER 2024-12-04 15:27 | Outpatient (REF) | payer BC, SELFPAY ==
[2024-12-04 17:16] LABS: COMMENT (LAB VIEW ONLY) 123.38 mg/dL; Microalb ug/mg Crea 7.0 ug/mg Cr
== END 2024-12-04 15:28 | disposition home or self-care (01) ==
LOC: NCHCN 15:27
PROVIDERS: PCP Student in an Organized Health Care Education/Training Program; Visit Provider Student in an Organized Health Care Education/Training Program
DX: I10 Essential (primary) hypertension (principal)
CPT/HCPCS: 82043; 82570

== ENCOUNTER 2025-01-24 01:15 | Outpatient (CLI) | payer BC, SELFPAY ==
--- NOTE | 2025-01-24 | DI.DEXA_ITS ---
Exam(s) XR DEXA BONE DENSITY W/WO ANABEL EXAM: XR DEXA BONE DENSITY W/WO NAABEL CLINICAL HISTORY: MENOPAUSE PRESENT N95.1 HX LT HIP OSTEOPENIA UPDATE OSTEOPENIA STATUS TECHNIQUE: Hologic Horizon C densitometer analysis of the lumbar spine and left forearm. Lateral survey image of the thoracic and lumbar spine. Hips could not be analyzed due to presence of bilateral prostheses. COMPARISON: DX DEXA BONE DENSITY WITH ANABEL from 12/22/2011 DX DEXA BONE DENSITY WITH ANABEL from 08/07/2013 CR XR HIP LT COMPLETE AP PELVIS from 03/14/2020 FINDINGS: Lateral view of the thoracic and lumbar spine shows no evidence of compression fractures. Bone mineral density measurements of the lumbar spine correspond to a total T- score of -0.4, in the normal range. This represents an 8.9 percent decrease from 2013 and 12.9 percent decrease from 2011. Theleft forearm bone mineral density measurements correspond to a T-score of the distal 3rd of 0.7, in the normal range. This is not significantly changed from prior exam.. IMPRESSION: Normal bone mineral density of the spine and forearm.
== END 2025-01-24 01:35 ==
LOC: DI 01:15
PROVIDERS: PCP Student in an Organized Health Care Education/Training Program; Visit Provider Student in an Organized Health Care Education/Training Program
DX: Z13.820 Encounter for screening for osteoporosis (principal); N95.1 Menopausal and female climacteric states
CPT/HCPCS: 77080

== ENCOUNTER 2025-03-05 13:10 | Outpatient (CLI) | payer BC, SELFPAY ==
--- NOTE | 2025-03-05 13:00 | DI.RAD_ITS ---
Exam(s) XR SHOULDER RT COMPLETE 2+V EXAM: XR SHOULDER RT COMPLETE 2+V CLINICAL HISTORY: F/U RIGHT RTSA. TECHNIQUE: 2D digital imaging was performed. Three images were obtained. Grashey and Y views were obtained. COMPARISON: CR XR SHOULDER RT COMPLETE 2+V from 10/30/2024 FINDINGS: BONES: There are stable post operative changes of a right reverse total shoulder arthroplasty present. No fracture or dislocation. JOINTS: The orthopedic hardware is in good position. No evidence of hardware loosening. There are moderate degenerative changes seen at the acromioclavicular joint. SOFT TISSUE: Normal. IMPRESSION: Stable right reverse total shoulder arthroplasty. DATA REPOSITORY: RADIATION DOSE DELIVERED:
== END 2025-03-05 13:11 | disposition home or self-care (01) ==
LOC: DIORS 13:11
PROVIDERS: PCP Student in an Organized Health Care Education/Training Program; Visit Provider Student in an Organized Health Care Education/Training Program
DX: M19.011 Primary osteoarthritis, right shoulder (principal); Z96.611 Presence of right artificial shoulder joint
CPT/HCPCS: 73030